=== PATIENT | female | born 1980 | race Hispanic/Latino ===

== ENCOUNTER 2018-02-05 17:28 | Emergency (ER) | payer SELFPAY ==
[2018-02-05] MEDS ORDERED: METHYLPREDNISOLONE 125 MG INJ ONE (20:16)
[2018-02-05] MEDS ORDERED: IPRATROPIUM BROM 0.5MG/2.5ML ONE (20:16)
[2018-02-05] MEDS ORDERED: ASPIRIN 81 MG CHEWABLE TABLET ONE (20:16)
[2018-02-05] MEDS ORDERED: AZITHROMYCIN 250 MG TAB ONE (20:16)
--- NOTE | 2018-02-05 20:16 | EKG ---
Test Date: 2018-02-05 Test Time: 17:50:33 [facility] [employer] Experience Strategy: DAVID MEASUREMENT RESULTS: Intervals: Rate: 90 IL: 114 QRSD: 74 QT: 364 QTc: 445 Lawrence: P: 28 IL: 114 QRS: 26 T: 40 INTERPRETIVE STATEMENTS: Normal sinus rhythm Normal ECG Compared to ECG 01/14/2012 00:50:58 No significant changes Electronically Signed On 02-05-18 20:16:06 CDT by Eliceo Bagley
[2018-02-05] MEDS ORDERED: LEVALBUTEROL 1.25 MG/3 ML NEB ONE (20:17)
[2018-02-05] MEDS ORDERED: NA CHLORIDE 0.9% 1,000 ML ONE (20:17)
--- NOTE | 2018-02-05 20:17 | RAD REPORT ---
EXAM DESCRIPTION: RAD - Chest Single View - 02/05/2018 7:34 pm CLINICAL HISTORY: Dyspnea, shortness of breath COMPARISON: December 2011 TECHNIQUE: AP portable chest image was obtained 1928 hours . FINDINGS: Lungs are clear. Heart and vasculature are normal. No measurable pleural effusion and no p neumothorax. No gross bony abnormality seen. No acute aortic findings suspected. IMPRESSION: No acute cardiopulmonary process. No significant change from comparison.
[2018-02-05 20:18] LABS: Absolute Lymphocytes (CBC) 2.2 K/uL (0.7-4.9); Absolute Monocytes 0.4 K/uL (0.1-1.3); Absolute Neutrophil 3.8 K/uL (1.8-8.0); Basophils % 0.7 % (0-1.3); Eosinophils % 2.1 % (0-4.4); Lymphocytes % 33.1 % (15.3-44.8); MCH 29.5 pg (27.0-35.0); MCV 84.2 fL (80-100); MPV 8.5 fL (7.6-11.3); Monocytes % 6.4 % (3.3-12.3); RBC Red Blood Cell Count 4.28 M/uL (3.86-4.86)
[2018-02-05 20:24] LABS: Protime INR 0.89
[2018-02-05 20:27] LABS: Bicarbonate 24 mEq/L (21-31); Glucose Level 272 mg/dL (65-120); Potassium 3.7 mEq/L (3.6-5.0); Sodium Level 131 mEq/L (135-145)
[2018-02-05 20:33] LABS: ALT/SGPT 21 IU/L (10-60); AST/SGOT 24 IU/L (10-42); Albumin 3.9 g/dL (3.2-5.5); Alkaline Phosphatase 108 IU/L (42-121); BUN Blood Urea Nitrogen 19 mg/dL (6-20); Bilirubin Direct < 0.1 mg/dL (0-0.2); Bilirubin Total 0.2 mg/dL (0.3-1.2); Creatine Phosphokinase 27 IU/L (22-269); Glomerular Filtration Rate > 90 mL/min (=/>90); Magnesium 1.9 mg/dL (1.8-2.5); Protein, Total 7.8 g/dL (6.0-8.3)
[2018-02-05 20:36] LABS: CKMB Creatine Kinase MB 0.6 ng/ml (0.3-4.0)
[2018-02-05 21:02] LABS: Urine Blood NEGATIVE (NEG); Urine Glucose 2+ (NEG); Urine Protein NEGATIVE (NEG); Urine pH 5.5 (5.0-7.0)
--- NOTE | 2018-02-05 21:02 | RAD REPORT ---
EXAM DESCRIPTION: VAS - Extrem Venous W Compress Dwayne - 02/05/2018 8:30 pm CLINICAL HISTORY: Leg pain and swelling COMPARISON: None. TECHNIQUE: Real-time sonographic evaluation of the bilateral lower extremity deep venous systems was performed. FINDINGS: Normal compressibility, flow augmentation, phasic flow and spontaneous flow are identified in the left and right lower extremity deep venous systems. No intraluminal filling defects seen. IMPRESSION: No DVT in either lower extremity.
--- NOTE | 2018-02-05 21:02 | RAD REPORT ---
EXAM DESCRIPTION: CT - Chest For Pe Angio - 02/05/2018 8:46 pm CLINICAL HISTORY: Chest pain, shortness of breath, left-sided chest pain COMPARISON: None. TECHNIQUE: Dynamically enhanced 3 mm thick images of the chest were obtained during administration o f approximately 150mL Isovue 370 IV contrast. Coronal and oblique reconstruction images were generate d and reviewed. Exam utilizes a protocol to evaluate the pulmonary arterial tree. All CT scans are performed using dose optimization technique as appropriate and may include automated exposure control or mA/KV adjustment according to patient size. FINDINGS: No pulmonary emboli are identified. The aorta as imaged shows no acute or suspicious finding. No pericardial thickening or effusion. No infiltrate or mass in the lung parenchyma. No pleural effusion or pleural thickening. No mediastinal or hilar suspicious masses. No chest wall masses or abnormal axillary lymphadenopathy. IMPRESSION: No pulmonary emboli identified. No other significant or suspicious findings.
--- NOTE | 2018-02-05 21:10 | EDPHYS ---
Physician Documentation [facility] Name: Pastora Patterson Age: 37 yrs Sex: Female : 1980 Arrival Date: 02/05/2018 Time: 17:32 Bed 19 Private MD: None, None ED Physician Rich Michele HPI: 02/05 19:57 This 37 yrs old Female presents to ER via Ambulatory with complaints of Chest alli Pain, Breathing Difficulty. 19:57 The patient or guardian reports chest pain that is located primarily in the anterior alli chest wall. The pain does not radiate. Associated signs and symptoms: Pertinent positives: cough, shortness of breath. The chest pain is described as sharp. Severity of pain: At its worst the pain was mild in the emergency department the pain is unchanged. The patient has experienced similar episodes in the past, a few times. 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 - Family history:: not pertinent. - Social history:: Smoking status: unknown. ROS: 19:57 Constitutional: Negative for fever, chills, and weight loss, Eyes: Negative for injury, alli pain, redness, and discharge, ENT: Negative for injury, pain, and discharge, Neck: Negative for injury, pain, and swelling, Abdomen/GI: Negative for abdominal pain, nausea, vomiting, diarrhea, and constipation, Back: Negative for injury and pain, : Negative for injury, bleeding, discharge, and swelling, MS/Extremity: Negative for injury and deformity, Skin: Negative for injury, rash, and discoloration, Neuro: Negative for headache, weakness, numbness, tingling, and seizure, Psych: Negative for depression, anxiety, suicide ideation, homicidal ideation, and hallucinations, Allergy/Immunology: Negative for hives, rash, and allergies, Endocrine: Negative for neck swelling, polydipsia, polyuria, polyphagia, and marked weight changes. 19:57 Cardiovascular: Positive for chest pain, with cough, with movement. 19:57 Respiratory: Positive for cough, shortness of breath, wheezing, expiratory. 19:57 MS/extremity: Positive for pain, of the left calf. Exam: 19:57 Constitutional: This is a well developed, well nourished patient who is awake, alert, alli and in no acute distress. Head/Face: Normocephalic, atraumatic. Eyes: Pupils equal round and reactive to light, extra-ocular motions intact. Lids and lashes normal. Conjunctiva and sclera are non-icteric and not injected. Cornea within normal limits. Periorbital areas with no swelling, redness, or edema. ENT: Nares patent. No nasal discharge, no septal abnormalities noted. Tympanic membranes are normal and external auditory canals are clear. Oropharynx with no redness, swelling, or masses, exudates, or evidence of obstruction, uvula midline. Mucous membranes moist. Neck: Trachea midline, no thyromegaly or masses palpated, and no cervical lymphadenopathy. Supple, full range of motion without nuchal rigidity, or vertebral point tenderness. No Meningismus. Chest/axilla: Normal chest wall appearance and motion. Nontender with no deformity. No lesions are appreciated. Cardiovascular: Regular rate and rhythm with a normal S1 and S2. No gallops, murmurs, or rubs. Normal PMI, no JVD. No pulse deficits. Abdomen/GI: Soft, non-tender, with normal bowel sounds. No distension or tympany. No guarding or rebound. No evidence of tenderness throughout. Back: No spinal tenderness. No costovertebral tenderness. Full range of motion. Skin: Warm, dry with normal turgor. Normal color with no rashes, no lesions, and no evidence of cellulitis. MS/ Extremity: Pulses equal, no cyanosis. Neurovascular intact. Full, normal range of motion. Neuro: Awake and alert, GCS 15, oriented to person, place, time, and situation. Cranial nerves II-XII grossly intact. Motor strength 5/5 in all extremities. Sensory grossly intact. Cerebellar exam normal. Normal gait. Psych: Awake, alert, with orientation to person, place and time. Behavior, mood, and affect are within normal limits. 19:57 Respiratory: the patient does not display signs of respiratory distress, Respirations: normal, Breath sounds: decreased breath sounds, that are mild, rhonchi, that are mild, wheezing: expiratory Respiratory rate: 18 Vital Signs: 17:47 BP 136 / 85; Pulse 93; Resp 18; Temp 97.6(TE); Pulse Ox 98% on R/A; Weight 111.13 kg; hj Height 5 ft. 3 in. (160.02 cm); Pain 8/10; 20:00 BP 150 / 88; Pulse 88; Resp 18; Pulse Ox 97% on R/A; cb2 21:15 BP 148 / 85; Pulse 99; Resp 16; Pulse Ox 100% ; cb2 22:04 BP 153 / 83; Pulse 95; Resp 22; Pulse Ox 97% ; cb2 17:47 Body Mass Index 43.40 (111.13 kg, 160.02 cm) hj MDM: 19:24 Patient medically screened. [facility] 19:59 Data reviewed: vital signs, nurses notes, lab test result(s), EKG, radiologic studies. [facility] 02/05 19:12 Order name: Basic Metabolic Panel; Complete Time: 21: [facility] 02/05 19:12 Order name: BNP; Complete Time: 21: [facility] 02/05 19:12 Order name: CBC with Diff; Complete Time: 21: [facility] 02/05 19:12 Order name: Ckmb; Complete Time: 21: [facility] 02/05 19:12 Order name: CPK; Complete Time: 21: [facility] 02/05 19:12 Order name: LFT's; Complete Time: 21: [facility] 02/05 19:12 Order name: Magnesium; Complete Time: 21: [facility] 02/05 19:12 Order name: PT-INR; Complete Time: 21: [facility] 02/05 19:12 Order name: Ptt, Activated; Complete Time: 21: [facility] 02/05 19:12 Order name: Troponin (emerg Dept Use Only); Complete Time: 21: [facility] 02/05 19:12 Order name: XRAY Chest (1 view); Complete Time: 21: [facility] 02/05 19:51 Order name: Urine Dipstick--Ancillary (enter results); Complete Time: 21: [facility] 02/05 19:51 Order name: Urine --Ancillary (enter results); Complete Time: 21: [facility] 02/05 19:56 Order name: CT Chest For PE Angio; Complete Time: 21:07 alli 02/05 17:53 Order name: EKG; Complete Time: 17:53 hj 02/05 19:12 Order name: Cardiac monitoring; Complete Time: 20:06 [facility] 02/05 19:12 Order name: EKG - Nurse/Tech; Complete Time: 19:41 [facility] 02/05 19:12 Order name: IV Saline Lock; Complete Time: 20:06 [facility] 02/05 19:12 Order name: Labs collected and sent; Complete Time: 20:06 [facility] 02/05 19:12 Order name: O2 Per Protocol; Complete Time: 20:06 [facility] 02/05 19:12 Order name: O2 Sat Monitoring; Complete Time: 20:06 [facility] 02/05 19:12 Order name: Urine Dipstick-Ancillary (obtain specimen); Complete Time: 20:06 [facility] 02/05 19:56 Order name: US Extremity Venou Bilateral; Complete Time: 21:07 [facility] Administered Medications: 21:06 Drug: AtroVENT Aerosol 0.5 mg Route: Inhalation; jd3 22:14 Follow up: Response: No adverse reaction jd3 21:06 Drug: NS 0.9% 1000 ml Route: IV; Rate: 1 bolus; Site: right antecubital; jd3 22:14 Follow up: Response: No adverse reaction; IV Status: Completed infusion; IV Intake: jd3 1000ml 21:06 Drug: SOLU-Medrol 125 mg Route: IVP; Site: right antecubital; jd3 22:12 Follow up: Response: No adverse reaction jd3 21:06 Drug: Zithromax 500 mg Route: PO; jd3 22:12 Follow up: Response: No adverse reaction jd3 21:06 Drug: Aspirin 81 mg Route: PO; jd3 22:12 Follow up: Response: No adverse reaction jd3 21:07 Drug: Xopenex 2.5 mg Route: Inhalation; jd3 22:14 Follow up: Response: No adverse reaction jd3 Disposition: 02/05/18 21:09 Discharged to Home. Impression: Cough, Acute upper respiratory infection, unspecified, Other chest pain, Type 1 diabetes mellitus. - Condition is Stable. - Discharge Instructions: Nonspecific Chest Pain, Type 2 Diabetes Mellitus, Adult, Cool Mist Vaporizers, Upper Respiratory Infection, Adult, [id number], Diabetes Mellitus and Food, Cough, Adult, [id number], Aspirin and Your Heart, Cough, Adult, Type 2 Diabetes Mellitus, Adult, [id number]. - Prescriptions for Zithromax Z- Kyree 250 mg Oral Tablet - take 1 tablet by ORAL route as directed for 5 days Day 1 - take two (2) tablets one time. Day 2, 3, 4 , 5 take one (1) tablet once daily.; 6 tablet. Medrol (Kyree) 4 mg Oral Tablets, Dose Pack - take 1 tablet by ORAL route as directed - follow package instructions; 1 packet. Albuterol Sulfate 90 mcg/actuation - inhale 1-2 puff by INHALATION route every 4-6 hours; 1 Inhaler. - Medication Reconciliation Form, Thank You Letter, Antibiotic Education, Prescription Opioid Use, Work release form form. - Follow up: Private Physician; When: 2 - 3 days; Reason: Recheck today's complaints, Re-evaluation by your physician. - Problem is new. - Symptoms have improved. Signatures: Dispatcher [employer] Rich Kaur MD MD cha Pena, Laura, RN RN lp1 Mushtaq Orozco, RN RN hj Wenceslao Sharma RN RN jd3 Chase Wan MD MD tw4
--- NOTE | 2018-02-05 21:10 | ER ---
Nurse's Notes [facility] Name: Pastora Patterson Age: 37 yrs Sex: Female : 1980 Arrival Date: 02/05/2018 Time: 17:32 Bed 19 Private MD: None, None Diagnosis: Cough;Acute upper respiratory infection, unspecified;Other chest pain;Type 1 diabetes mellitus Presentation: 02/05 17:44 Presenting complaint: Patient states: i woke up today with SOB and having chest pain; hj its a sharp pain type and a stabbing pain on my L chest;. Transition of care: patient was not received from another setting of care. Onset of symptoms was February 05, 2018. Care prior to arrival: None. 17:44 Method Of Arrival: Ambulatory 17:44 Acuity: MANASA 3 hj Triage Assessment: 17:46 General: Appears in no apparent distress. uncomfortable, Behavior is calm, cooperative, hj appropriate for age. Pain: Complains of pain in chest. Cardiovascular: Capillary refill < 3 seconds Patient's skin is warm and dry. 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 - Family history:: not pertinent. - Social history:: Smoking status: unknown. Screenin:05 Abuse screen: Denies threats or abuse. Nutritional screening: No deficits noted. jd3 Tuberculosis screening: No symptoms or risk factors identified. Fall Risk IV access (20 points). Total Murdock Fall Scale indicates No Risk (0-24 pts). Assessment: 17:48 Pain: Pain does not radiate. Pain began today. hj 21:03 General: Appears in no apparent distress. uncomfortable, Behavior is calm, cooperative, jd3 appropriate for age. Pain: Complains of pain in chest Quality of pain is described as pressure. Neuro: Level of Consciousness is awake, alert, obeys commands, Oriented to person, place, time, situation. Cardiovascular: Heart tones S1 S2 present Capillary refill is > 3 seconds Patient's skin is warm and dry. Respiratory: Airway is patent Respiratory effort is even, unlabored, Respiratory pattern is regular, symmetrical, Breath sounds are clear bilaterally. GI: Abdomen is round Abd is soft and non tender X 4 quads. Patient currently denies nausea, vomiting. : No signs and/or symptoms were reported regarding the genitourinary system. EENT: No signs and/or symptoms were reported regarding the EENT system. Derm: Skin is intact, Skin is dry, Skin is normal, Skin temperature is warm. Musculoskeletal: Circulation, motion, and sensation intact. Range of motion: intact in all extremities. 22:21 Reassessment: Patient appears in no apparent distress at this time. Patient and/or jd3 family updated on plan of care and expected duration. Pain level reassessed. Patient is alert, oriented x 3, equal unlabored respirations, skin warm/dry/pink. Patient states feeling better. Vital Signs: 17:47 BP 136 / 85; Pulse 93; Resp 18; Temp 97.6(TE); Pulse Ox 98% on R/A; Weight 111.13 kg; hj Height 5 ft. 3 in. (160.02 cm); Pain 8/10; 20:00 BP 150 / 88; Pulse 88; Resp 18; Pulse Ox 97% on R/A; cb2 21:15 BP 148 / 85; Pulse 99; Resp 16; Pulse Ox 100% ; cb2 22:04 BP 153 / 83; Pulse 95; Resp 22; Pulse Ox 97% ; cb2 17:47 Body Mass Index 43.40 (111.13 kg, 160.02 cm) ED Course: 17:32 Patient arrived in ED. mr 17:32 None, None is Private Physician. mr 17:45 Triage completed. hj 17:47 Arm band placed on right wrist. hj 17:49 Patient maintains SpO2 saturation greater than 95% on room air. hj 18:00 EKG done, by equipment technician. reviewed by Evert Uriostegui MD. at1 19:24 Rich Michele MD is Attending Physician. alli 19:25 Wenceslao Sharma RN is Primary Nurse. jd3 19:32 X-ray completed. Portable x-ray completed in exam room. Patient tolerated procedure bb2 well. 19:32 XRAY Chest (1 view) In Process Unspecified. EDMS 19:46 Initial lab(s) drawn, by me, sent to lab. Inserted saline lock: 20 gauge in right cb2 forearm, using aseptic technique. Blood collected. 19:59 Radiology exam delayed due to lab results not completed at this time. (BUN/Creatinine) in test not completed at this time. 20:27 Ultrasound completed. Patient tolerated well. cy 20:30 US Extremity Venou Bilateral In Process Unspecified. EDMS 20:[address] nj 20:46 CT Chest For PE Angio In Process Unspecified. EDMS 22:20 Patient has correct armband on for positive identification. Placed in gown. Bed in low jd3 position. Call light in reach. Side rails up X2. 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 Pulse ox on. NIBP on. 22:21 No provider procedures requiring assistance completed. jd3 22:26 IV discontinued, No redness/swelling at site. Pressure dressing applied. lp1 Administered Medications: 21:06 Drug: AtroVENT Aerosol 0.5 mg Route: Inhalation; jd3 22:14 Follow up: Response: No adverse reaction jd3 21:06 Drug: NS 0.9% 1000 ml Route: IV; Rate: 1 bolus; Site: right antecubital; jd3 22:14 Follow up: Response: No adverse reaction; IV Status: Completed infusion; IV Intake: jd3 1000ml 21:06 Drug: SOLU-Medrol 125 mg Route: IVP; Site: right antecubital; jd3 22:12 Follow up: Response: No adverse reaction jd3 21:06 Drug: Zithromax 500 mg Route: PO; jd3 22:12 Follow up: Response: No adverse reaction jd3 21:06 Drug: Aspirin 81 mg Route: PO; jd3 22:12 Follow up: Response: No adverse reaction jd3 21:07 Drug: Xopenex 2.5 mg Route: Inhalation; jd3 22:14 Follow up: Response: No adverse reaction jd3 Intake: 22:14 IV: 1000ml; Total: 1000ml. jd3 Outcome: 21:09 Discharge ordered by . lali 22:26 Discharged to home ambulatory. lp1 22:26 Condition: good 22:26 Discharge instructions given to patient, Instructed on discharge instructions, follow up and referral plans. medication usage, Demonstrated understanding of instructions, follow-up care, medications, Prescriptions given X 3. 22:26 Patient left the ED. lp1 Signatures: Dispatcher [employer] EDMS Rich Michele MD MD cha Rivera, Maria mr Leila Joshi, RN RN lp1 Argenis guardado, child development professor EKG Tat1 Mushtaq Orozco RN RN hj Fausto Uribe Christian cb2 Davies, Jonathon, RN RN jd3 Bobbi Frausto2 Sheryl Tobias Corrections: (The following items were deleted from the chart) 17:49 17:47 Pulse 93bpm; Resp 18bpm; Pulse Ox 98% RA; Temp 97.6F Temporal; 111.13 kg; Height hj 5 ft. 3 in.; BMI: 43.4; Pain 8/10; hj
[2018-02-05 22:43] VITALS: TEMP 97.6
[2018-02-05 22:47] VITALS: BP 153/83; O2SAT 97
== END 2018-02-05 22:26 | disposition home or self-care (01) ==
LOC: ER 17:28
DX: J06.9 Acute upper respiratory infection, unspecified (principal); R07.89 Other chest pain; E10.9 Type 1 diabetes mellitus without complications; I10 Essential (primary) hypertension
CPT/HCPCS: 36415; 71045; 71275; 80048; 80076; 81003; 81025; 82550; 82553; 83735; 83880; 84484; 85025; 85610; 85730; 93005; 93970; 96361; 96374; 99285; J2930; J7030; Q9967

== ENCOUNTER 2019-03-07 18:12 | Emergency (ER) | payer SELFPAY ==
--- OUTSIDE RECORDS SUMMARY | 2019-03-07 18:14 | XMS REPORT ---
:1980 [facility] Address [address] [place] [address] Care Team Providers Name Role Phone Unavailable Unavailable Unavailable Problems This patient has no known problems. Allergies, Adverse Reactions, Alerts This patient has no known allergies or adverse reactions. Medications This patient has no known medications.
[2019-03-07 21:45] LABS: Absolute Lymphocytes (CBC) 1.8 K/uL (0.7-4.9); Absolute Monocytes 0.4 K/uL (0.1-1.3); Absolute Neutrophil 4.3 K/uL (1.8-8.0); Basophils % 0.7 % (0-1.3); Eosinophils % 1.5 % (0-4.4); Hematocrit 33.8 % (36.0-45.0); Lymphocytes % 27.4 % (15.3-44.8); MPV 8.5 fL (7.6-11.3); Monocytes % 5.3 % (3.3-12.3); RBC Red Blood Cell Count 4.22 M/uL (3.86-4.86)
[2019-03-07 21:59] LABS: Albumin 3.5 g/dL (3.4-5.0); Bilirubin Total 0.1 mg/dL (0.2-1.0); Protein, Total 7.7 g/dL (6.4-8.2)
--- NOTE | 2019-03-07 22:04 | RAD REPORT ---
EXAM DESCRIPTION: RAD - Foot Left 3 View - 03/07/2019 9:47 pm CLINICAL HISTORY: PAIN Pain and swelling COMPARISON: No comparisons FINDINGS: Lucency is seen along the base of the fifth metatarsal without evidence of displacement, s uspicious for a nondisplaced fracture. Moderate soft tissue swelling is seen along the dorsum of the foot.
[2019-03-07] MEDS ORDERED: SMZ./TMP. 800/160 MG TABLET ONE (22:07)
[2019-03-07] MEDS ORDERED: DOXYCYCLINE 100 MG CAP PO ONE (22:08)
[2019-03-07] MEDS ORDERED: NA CHLORIDE 0.9% 1,000 ML ONE (22:17)
[2019-03-07] MEDS ORDERED: HYDROCODONE/APAP 5/325 MG TAB ONE (22:25)
[2019-03-07 22:28] LABS: Urine Blood NEGATIVE (NEG); Urine Glucose 3+ (NEG); Urine Protein NEGATIVE (NEG); Urine pH 6.5 (5.0-7.0)
--- NOTE | 2019-03-07 23:15 | ER ---
Nurse's Notes [facility] Name: Pastora Patterson Age: 38 yrs Sex: Female : 1980 Arrival Date: 03/07/2019 Time: 18:14 Bed 29 Private MD: None, None Diagnosis: Type 1 diabetes mellitus;Cellulitis and acute lymphangitis of other parts of limb-left foot Presentation: 03/07 18:21 Presenting complaint: Patient states: i have swelling on my L foot for a week now, ss denies trauma to the area;. Transition of care: patient was not received from another setting of care. Onset of symptoms was March 07, 2019. Risk Assessment: Do you want to hurt yourself or someone else? Patient reports no desire to harm self or others. Initial Sepsis Screen: Does the patient meet any 2 criteria? No. Patient's initial sepsis screen is negative. Does the patient have a suspected source of infection? No. Patient's initial sepsis screen is negative. Care prior to arrival: None. 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 - Social history:: Smoking status: . - Ebola Screening: : No symptoms or risks identified at this time. - Family history:: not pertinent. Screenin:39 Abuse screen: Denies threats or abuse. Denies injuries from another. Nutritional rv screening: No deficits noted. Tuberculosis screening: No symptoms or risk factors identified. Fall Risk None identified. Assessment: 20:36 General: Appears in no apparent distress. uncomfortable, Behavior is calm, cooperative. rv Pain: Complains of pain in left foot. Neuro: Level of Consciousness is awake, alert, obeys commands, Oriented to person, place, time, situation. Cardiovascular: Capillary refill < 3 seconds. Respiratory: Airway is patent. GI: No signs and/or symptoms were reported involving the gastrointestinal system. : No signs and/or symptoms were reported regarding the genitourinary system. EENT: No signs and/or symptoms were reported regarding the EENT system. Derm: Skin is intact, has lesions on left foot. Musculoskeletal: No signs and/or symptoms reported regarding the musculoskeletal system. Vital Signs: 18:22 BP 151 / 79; Pulse 106; Resp 20; Temp 98.3(TE); Pulse Ox 99% on R/A; Weight 99.79 kg; ss Height 5 ft. 3 in. (160.02 cm); Pain 9/10; 23:52 BP 138 / 76; Pulse 92; Resp 16; Temp 98; Pulse Ox 99% ; rv 18:22 Body Mass Index 38.97 (99.79 kg, 160.02 cm) ED Course: 18:14 Patient arrived in ED. ag5 18:14 None, None is Private Physician. ag5 18:22 Triage completed. ss 18:23 Arm band placed on left wrist. ss 20:07 Rich Michele MD is Attending Physician. alli 20:35 Randy Patton RN is Primary Nurse. rv 20:39 Patient has correct armband on for positive identification. Bed in low position. Call rv light in reach. Side rails up X 1. Adult w/ patient. Pulse ox on. NIBP on. 21:47 Foot Left 3 View XRAY In Process Unspecified. EDMS 22:30 No provider procedures requiring assistance completed. Inserted saline lock: 22 gauge rv in left antecubital area, using aseptic technique. Blood collected. 23:13 Jos Maldonado MD is Referral Physician. alli 23:52 IV discontinued, intact, bleeding controlled, No redness/swelling at site. Pressure rv dressing applied. Administered Medications: 21:59 Drug: Doxycycline 200 mg Route: PO; rv 23:07 Follow up: Response: No adverse reaction rv 21:59 Drug: Bactrim (160 mg-800 mg (DS) 1 tablet Route: PO; rv 23:06 Follow up: Response: No adverse reaction rv 22:06 Drug: NS 0.9% 1000 ml Route: IV; Rate: 1 bolus; Site: left antecubital; rv 23:07 Follow up: IV Status: Completed infusion; IV Intake: 1000ml rv 22:15 Drug: HYDROcodone-acetaminophen 5 mg-325 mg 1 tabs Route: PO; rv 23:06 Follow up: Response: Pain is decreased rv 23:05 Drug: TORadol 30 mg Route: IVP; Site: left antecubital; rv 23:50 Follow up: Response: No adverse reaction rv 23:50 Follow up: Response: Pain is decreased rv 23:25 Drug: Insulin Regular Human 10 units {Co-Signature: cc3 (Emily Ivy).} Route: rv Sub-Q; Site: right upper arm; 23:51 Follow up: Response: No adverse reaction rv Intake: 23:07 IV: 1000ml; Total: 1000ml. rv Outcome: 23:14 Discharge ordered by . alli 23:53 Discharged to home ambulatory. rv 23:53 Condition: good 23:53 Discharge instructions given to patient, Instructed on discharge instructions, follow up and referral plans. medication usage, Demonstrated understanding of instructions, follow-up care, medications, Prescriptions given X 3. 23:53 Patient left the ED. rv Signatures: Dispatcher [employer] EDNC Rich Michele MD MD cha Smirch, Shelby, RN RN Randy Patton RN RN rv Josh Jimenez ag5 Emily Ivy cc3 Corrections: (The following items were deleted from the chart) 18:24 18:22 Pulse 106bpm; Resp 20bpm; Pulse Ox 99% RA; Temp 98.3F Temporal; 99.79 kg; Height ss 5 ft. 3 in.; BMI: 38.9; Pain 9/10; ss
--- NOTE | 2019-03-07 23:15 | EDPHYS ---
Physician Documentation [facility] Name: Pastora Patterson Age: 38 yrs Sex: Female : 1980 Arrival Date: 03/07/2019 Time: 18:14 Bed 29 Private MD: None, None ED Physician Rich Michele HPI: 03/07 20:56 This 38 yrs old Female presents to ER via Ambulatory with complaints of Foot alli Pain. 20:56 The patient presents with decreased range of motion, pain, swelling, tenderness. The alli complaints affect the left foot. Context: The problem was sustained at home, resulted from an unknown cause. Onset: The symptoms/episode began/occurred 3 day(s) ago. Modifying factors: The symptoms are alleviated by elevation of extremity, the symptoms are aggravated by weight bearing, movement. Associated signs and symptoms: The patient has no apparent associated signs or symptoms. Severity of symptoms: At their worst the symptoms were mild, moderate, in the emergency department the symptoms are unchanged. The patient has not experienced similar symptoms in the past. 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 - Social history:: Smoking status: . - Ebola Screening: : No symptoms or risks identified at this time. - Family history:: not pertinent. ROS: 20:56 Constitutional: Negative for fever, chills, and weight loss, Eyes: Negative for injury, alli pain, redness, and discharge, ENT: Negative for injury, pain, and discharge, Neck: Negative for injury, pain, and swelling, Cardiovascular: Negative for chest pain, palpitations, and edema, Respiratory: Negative for shortness of breath, cough, wheezing, and pleuritic chest pain, Abdomen/GI: Negative for abdominal pain, nausea, vomiting, diarrhea, and constipation, Back: Negative for injury and pain, : Negative for injury, bleeding, discharge, and swelling, Skin: Negative for injury, rash, and discoloration, Neuro: Negative for headache, weakness, numbness, tingling, and seizure, Psych: Negative for depression, anxiety, suicide ideation, homicidal ideation, and hallucinations, Allergy/Immunology: Negative for hives, rash, and allergies, Endocrine: Negative for neck swelling, polydipsia, polyuria, polyphagia, and marked weight changes, Hematologic/Lymphatic: Negative for swollen nodes, abnormal bleeding, and unusual bruising. 20:56 MS/extremity: Positive for decreased range of motion, laceration, swelling, tenderness, of the lateral aspect of left toes, dorsum of left foot, left second toe, left third toe and left fourth toe. Exam: 20:56 Constitutional: This is a well developed, well nourished patient who is awake, alert, alli and in no acute distress. Head/Face: Normocephalic, atraumatic. Eyes: Pupils equal round and reactive to light, extra-ocular motions intact. Lids and lashes normal. Conjunctiva and sclera are non-icteric and not injected. Cornea within normal limits. Periorbital areas with no swelling, redness, or edema. ENT: Nares patent. No nasal discharge, no septal abnormalities noted. Tympanic membranes are normal and external auditory canals are clear. Oropharynx with no redness, swelling, or masses, exudates, or evidence of obstruction, uvula midline. Mucous membranes moist. Neck: Trachea midline, no thyromegaly or masses palpated, and no cervical lymphadenopathy. Supple, full range of motion without nuchal rigidity, or vertebral point tenderness. No Meningismus. Chest/axilla: Normal chest wall appearance and motion. Nontender with no deformity. No lesions are appreciated. Cardiovascular: Regular rate and rhythm with a normal S1 and S2. No gallops, murmurs, or rubs. Normal PMI, no JVD. No pulse deficits. Respiratory: Lungs have equal breath sounds bilaterally, clear to auscultation and percussion. No rales, rhonchi or wheezes noted. No increased work of breathing, no retractions or nasal flaring. Abdomen/GI: Soft, non-tender, with normal bowel sounds. No distension or tympany. No guarding or rebound. No evidence of tenderness throughout. Back: No spinal tenderness. No costovertebral tenderness. Full range of motion. Female : Normal external genitalia. Neuro: Awake and alert, GCS 15, oriented to person, place, time, and situation. Cranial nerves II-XII grossly intact. Motor strength 5/5 in all extremities. Sensory grossly intact. Cerebellar exam normal. Normal gait. Psych: Awake, alert, with orientation to person, place and time. Behavior, mood, and affect are within normal limits. 20:56 Skin: Appearance: Temperature: warm, Moisture: normal moisture, petechiae, not noted, ecchymosis, not noted, cellulitis, that is mild, induration, that is mild is noted, located on the left second toe, left third toe and left fourth toe. Vital Signs: 18:22 BP 151 / 79; Pulse 106; Resp 20; Temp 98.3(TE); Pulse Ox 99% on R/A; Weight 99.79 kg; ss Height 5 ft. 3 in. (160.02 cm); Pain 9/10; 23:52 BP 138 / 76; Pulse 92; Resp 16; Temp 98; Pulse Ox 99% ; rv 18:22 Body Mass Index 38.97 (99.79 kg, 160.02 cm) ss MDM: 20:07 Patient medically screened. [facility] 20:56 Data reviewed: vital signs, nurses notes, lab test result(s), radiologic studies, plain alli films. 03/07 20:55 Order name: CBC with Diff; Complete Time: 23:12 [facility] 03/07 20:55 Order name: Comprehensive Metabolic Panel; Complete Time: 23:12 [facility] 03/07 20:55 Order name: Foot Left 3 View XRAY; Complete Time: 23:12 [facility] 03/07 20:55 Order name: Sed Rate; Complete Time: 23:12 [facility] 03/07 22:15 Order name: Urine Dipstick--Ancillary (enter results); Complete Time: 23:12 [facility] 03/07 22:15 Order name: Urine --Ancillary (enter results); Complete Time: 23:12 [facility] 03/07 20:55 Order name: Urine Dipstick-Ancillary (obtain specimen); Complete Time: 21:46 [facility] 03/07 20:55 Order name: Urine Test (obtain specimen); Complete Time: 21:46 [facility] 03/07 23:15 Order name: Post-op shoe; Complete Time: 23:33 alli Administered Medications: 21:59 Drug: Doxycycline 200 mg Route: PO; rv 23:07 Follow up: Response: No adverse reaction rv 21:59 Drug: Bactrim (160 mg-800 mg (DS) 1 tablet Route: PO; rv 23:06 Follow up: Response: No adverse reaction rv 22:06 Drug: NS 0.9% 1000 ml Route: IV; Rate: 1 bolus; Site: left antecubital; rv 23:07 Follow up: IV Status: Completed infusion; IV Intake: 1000ml rv 22:15 Drug: HYDROcodone-acetaminophen 5 mg-325 mg 1 tabs Route: PO; rv 23:06 Follow up: Response: Pain is decreased rv 23:05 Drug: TORadol 30 mg Route: IVP; Site: left antecubital; rv 23:50 Follow up: Response: No adverse reaction rv 23:50 Follow up: Response: Pain is decreased rv 23:25 Drug: Insulin Regular Human 10 units {Co-Signature: cc3 (Emily Cordel).} Route: rv Sub-Q; Site: right upper arm; 23:51 Follow up: Response: No adverse reaction rv Disposition: 03/07/19 23:14 Discharged to Home. Impression: Type 1 diabetes mellitus, Cellulitis and acute lymphangitis of other parts of limb - left foot. - Condition is Stable. - Discharge Instructions: Type 1 Diabetes Mellitus, Diagnosis, Adult, Cellulitis, Adult, [id number], Diabetes Mellitus and Food, Type 1 Diabetes Mellitus, Self Care, Adult, Type 1 Diabetes Mellitus, Diagnosis, Adult, Zrqq-[id number], Type 1 Diabetes Mellitus, Self Care, Adult, [id number]. - Prescriptions for Doxycycline Hyclate 100 mg Oral Tablet - take 1 tablet by ORAL route every 12 hours; 20 tablet. Metformin 500 mg Oral Tablet - take 1 tablet by ORAL route every 12 hours for 15 days Then take 1 tablet with morning meals AND evening meals; 60 tablet. Bactrim DS 800- 160 mg Oral Tablet - take 1 tablet by ORAL route every 12 hours for 10 days; 20 tablet. - Medication Reconciliation Form, Thank You Letter, Antibiotic Education, Prescription Opioid Use form. - Follow up: Private Physician; When: 2 - 3 days; Reason: Recheck today's complaints, Continuance of care, Re-evaluation by your physician. Follow up: Jos Maldonado MD; When: 2 - 3 days; Reason: Recheck today's complaints, Re-evaluation by your physician. - Problem is new. - Symptoms have improved. Signatures: Dispatcher [employer] Rich Kaur MD MD cha Smirch, Shelby, RN RN ss Randy Patton RN RN rv Emily Ivy cc3 Corrections: (The following items were deleted from the chart) 23:53 23:14 03/07/2019 23:14 Discharged to Home. Impression: Type 1 diabetes mellitus; rv Cellulitis and acute lymphangitis of other parts of limb - left foot. Condition is Stable. Discharge Instructions: Type 1 Diabetes Mellitus, Diagnosis, Adult, Cellulitis, Adult, [id number], Diabetes Mellitus and Food, Type 1 Diabetes Mellitus, Self Care, Adult, Type 1 Diabetes Mellitus, Diagnosis, Adult, Ocag-[id number], Type 1 Diabetes Mellitus, Self Care, Adult, Aaix-[id number]. Prescriptions for Doxycycline Hyclate 100 mg Oral Tablet - take 1 tablet by ORAL route every 12 hours; 20 tablet, Metformin 500 mg Oral Tablet - take 1 tablet by ORAL route every 12 hours for 15 days Then take 1 tablet with morning meals AND evening meals; 60 tablet, Bactrim DS 800-160 mg Oral Tablet - take 1 tablet by ORAL route every 12 hours for 10 days; 20 tablet. and Forms are Medication Reconciliation Form, Thank You Letter, Antibiotic Education, Prescription Opioid Use. Follow up: Private Physician; When: 2 - 3 days; Reason: Recheck today's complaints, Continuance of care, Re-evaluation by your physician. Follow up: Jos Maldonado; When: 2 - 3 days; Reason: Recheck today's complaints, Re-evaluation by your physician. Problem is new. Symptoms have improved. alli
[2019-03-07] MEDS ORDERED: KETOROLAC 30 MG/ML INJ ONE (23:17)
[2019-03-07] MEDS ORDERED: INSULIN -REGULAR HUMAN 50 UNIT/0.5 ML ML ONE (23:31)
[2019-03-08 00:57] VITALS: O2SAT 99
[2019-03-08 00:58] VITALS: BP 138/76; TEMP 98
== END 2019-03-07 23:53 | disposition home or self-care (01) ==
LOC: ER 18:12
DX: L03.116 Cellulitis of left lower limb (principal); I89.1 Lymphangitis; J45.909 Unspecified asthma, uncomplicated; I10 Essential (primary) hypertension; E10.9 Type 1 diabetes mellitus without complications; Z79.4 Long term (current) use of insulin
CPT/HCPCS: 36415; 80053; 81003; 81025; 85025; 85652; 96361; 96372; 96374; 99284; J7030

== ENCOUNTER 2019-07-15 13:22 | Emergency (ER) | payer SELFPAY ==
--- OUTSIDE RECORDS SUMMARY | 2019-07-15 13:24 | XMS REPORT ---
:1980 [facility] Address [address] [place] [address] Dr. Narayanan [address] [place] [id number] Care Team Providers Name Role Phone Unavailable Unavailable Unavailable Problems This patient has no known problems. Allergies, Adverse Reactions, Alerts This patient has no known allergies or adverse reactions. Medications This patient has no known medications.
--- OUTSIDE RECORDS SUMMARY | 2019-07-15 13:24 | XMS REPORT | Summary of Care ---
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 middle lobe due to Take 500 mg day infectious organism 1, then 250 mg days 2 to 5. documented as of this encounter (statuses as of 06/26/2019) Active Problems No known active problemsdocumented as of this encounter (statuses as of 2018) Social History Tobacco Use Types Packs/Day Years Used Date Never Assessed Sex Assigned at Date Recorded Not on file Job Start Date Occupation Industry Not on file Not on file Not on file Travel History Travel Start Travel End No recent travel history available. documented as of this encounter Last Filed Vital Signs Not on filedocumented in this encounter Plan of Treatment Health Maintenance Due Date Last Done Comments VARICELLA VACCINES (1 of 2 1994 - 13+ 2-dose series) DTaP,Tdap,and Td Vaccines 2000 (1 - Tdap) PAP SMEAR 11/26/2010 11/26/2007, 09/07/2006, 08/04/2005, Additional history exists INFLUENZA VACCINE (#1) 2019 PNEUMOCOCCAL 0-64 YEARS Aged Out No longer eligible COMBINED SERIES based on patient's age to complete this topic documented as of this encounter Procedures Procedure Name Priority Date/Time Associated Diagnosis Comments OP CORRESPONDENCE Routine 06/26/2019 12:01 AM CDT documented in this encounter Results Not on filedocumented in this encounter Insurance Payer Benefit Plan Subscriber ID Effective Phone Address Type / Group Dates [place] [employer] [employer] [phone] [place] [address] [place] [address] documented as of this encounter
--- NOTE | 2019-07-15 16:57 | EKG ---
Test Date: 2019-07-15 Test Time: 13:54:23 Insurance Policy Clerk: NAEEM MEASUREMENT RESULTS: Intervals: Rate: 79 DE: 124 QRSD: 78 QT: 388 QTc: 444 [place]: P: 64 DE: 124 QRS: 47 T: 40 INTERPRETIVE STATEMENTS: Normal sinus rhythm Normal ECG Compared to ECG 02/05/2018 17:50:33 No significant changes Electronically Signed On 07-15-19 16:55:29 CDT by Lucas Spence
[2019-07-15] MEDS ORDERED: ALBUTEROL 2.5 MG/3 ML NEB SOL ONE (17:24)
[2019-07-15] MEDS ORDERED: KETOROLAC 30 MG/ML INJ ONE (17:25)
[2019-07-15] MEDS ORDERED: IPRATROPIUM BROM 0.5MG/2.5ML ONE (17:25)
--- NOTE | 2019-07-15 17:33 | RAD REPORT ---
EXAM DESCRIPTION: RAD - Chest Pa And Lat (2 Views) - 07/15/2019 5:04 pm CLINICAL HISTORY: CHEST PAIN Chest pain. COMPARISON: Chest Single View dated 02/05/2018; CHEST PA AND LAT 2 VIEW dated 01/14/2012; CHEST PA AND LAT 2 VIEW dated 02/11/2009; CHEST PA AND LAT 2 VIEW dated 03/26/2007 FINDINGS: The lungs are clear. The heart is normal in size. No displaced fractures. IMPRESSION: No acute or concerning finding suspected.
--- NOTE | 2019-07-15 18:18 | ER ---
Nurse's Notes [facility] Name: Pastora Patterson Age: 38 yrs Sex: Female : 1980 Arrival Date: 07/15/2019 Time: 13:24 Bed 17 Private MD: Diagnosis: Low back pain;Unspecified asthma with (acute) exacerbation;Type 2 diabetes mellitus Presentation: 07/15 13:46 Presenting complaint: Patient states: mid back pain, chest pain, SOB since . sv Transition of care: patient was not received from another setting of care. Onset of symptoms was July 11, 2019. Risk Assessment: Do you want to hurt yourself or someone else? Patient reports no desire to harm self or others. Care prior to arrival: None. 13:46 Method Of Arrival: Ambulatory sv 13:46 Acuity: MANASA 3 sv 17:00 Initial Sepsis Screen: Does the patient meet any 2 criteria? No. Patient's initial ph sepsis screen is negative. Does the patient have a suspected source of infection? No. Patient's initial sepsis screen is negative. Triage Assessment: 13:46 General: Appears in no apparent distress. comfortable, Behavior is calm, cooperative, sv appropriate for age. Pain: Complains of pain in mid back area and chest. Neuro: Level of Consciousness is awake, alert, obeys commands, Gait is steady. Respiratory: Reports shortness of breath on exertion Respiratory effort is even, unlabored, Respiratory pattern is regular, symmetrical, the patient has mild shortness of breath. Historical: - Allergies: 13:47 No Known Allergies; sv - PMHx: 13:47 Asthma; Diabetes - IDDM; Hypertension; sv - PSHx: 13:47 ; sv - Immunization history:: Adult Immunizations unknown. - Social history:: The patient lives at home, Smoking status: Patient/guardian denies using tobacco. - Ebola Screening: : No symptoms or risks identified at this time. Screenin:00 Abuse screen: Denies threats or abuse. Denies injuries from another. Nutritional ph screening: No deficits noted. Tuberculosis screening: No symptoms or risk factors identified. Fall Risk None identified. Assessment: 17:00 General: Appears in no apparent distress. comfortable, well groomed, Behavior is calm, ph cooperative, appropriate for age, Denies fever. Pain: Complains of pain in chest and mid back area. Neuro: Level of Consciousness is awake, alert, obeys commands, Oriented to person, place, time, situation. Cardiovascular: Reports chest pain, shortness of breath, Denies lightheadedness, nausea, palpitations, vomiting, Rhythm is regular. Respiratory: Reports shortness of breath at rest pain with movement pain with respiration Airway is patent Respiratory effort is even, unlabored, Respiratory pattern is regular, symmetrical, Breath sounds with wheezes in mediastinum, right upper lobe and left upper lobe. GI: No signs and/or symptoms were reported involving the gastrointestinal system. Vital Signs: 13:47 BP 109 / 82; Pulse 67; Resp 20; Temp 97; Pulse Ox 98% ; Weight 99.79 kg; Height 5 ft. 4 sv in. (162.56 cm); Pain 8/10; 17:30 BP 112 / 78; Pulse 68; Resp 18; Pulse Ox 99% on R/A; ph 18:30 BP 107 / 76; Pulse 65; Resp 16; Temp 97.9; Pulse Ox 99% on R/A; ph 13:47 Body Mass Index 37.76 (99.79 kg, 162.56 cm) sv ED Course: 13:24 Patient arrived in ED. as 13:47 Triage completed. sv 13:48 Arm band placed on. sv 13:56 EKG done, by wafer fabrication technician. reviewed by Rich Michele MD. sm3 16:21 Jorge Alberto Bonilla MD is Attending Physician. gs 17:00 Patient has correct armband on for positive identification. Placed in gown. Bed in low ph position. Call light in reach. Side rails up X 1. Pulse ox on. NIBP on. Door closed. Noise minimized. Warm blanket given. 17:00 No provider procedures requiring assistance completed. Patient did not have IV access ph during this emergency room visit. 17:03 Chest Pa And Lat (2 Views) XRAY In Process Unspecified. EDMS 17:21 Shraddha Kirkpatrick, ELIZABETH is Primary Nurse. ph Administered Medications: 17:29 Drug: Albuterol 2.5 mg Route: Inhalation; ph 18:00 Follow up: Response: No adverse reaction; Wheezing diminished ph 17:29 Drug: AtroVENT Aerosol 0.5 mg Route: Inhalation; ph 18:00 Follow up: Response: No adverse reaction; Wheezing diminished ph 17:29 Drug: TORadol 30 mg Route: IM; Site: right deltoid; ph 18:00 Follow up: Response: No adverse reaction; Pain is decreased ph Outcome: 18:17 Discharge ordered by . 18:56 Patient left the ED. ph 18:56 Discharged to home ambulatory. ph 18:56 Condition: good 18:56 Discharge instructions given to patient, Instructed on discharge instructions, follow up and referral plans. medication usage, Demonstrated understanding of instructions, follow-up care, medications, Prescriptions given X 3. Signatures: Dispatcher [employer] Kailee Gomez, RN RN Negin Fletcher Patricia, RN RN BonillaJorge Alberto baptiste MD MD gs Montes, Shakira 3
--- NOTE | 2019-07-15 18:19 | EDPHYS ---
Physician Documentation [facility] Name: Pastora Patterson Age: 38 yrs Sex: Female : 1980 Arrival Date: 07/15/2019 Time: 13:24 Bed 17 Private MD: ED Physician Jorge Alberto Bonilla HPI: 07/15 18:00 This 38 yrs old Female presents to ER via Ambulatory with complaints of Back gs Pain. 18:00 The patient presents with pain that is acute. The symptoms are located in the low back. gs Onset: The symptoms/episode began/occurred 2 day(s) ago. The pain does not radiate. Associated signs and symptoms: Pertinent negatives: headache, incontinence, nausea, numbness, weakness. Modifying factors: The patient symptoms are alleviated by nothing, the patient symptoms are aggravated by any movement, bending, movement. Severity of symptoms: At their worst the symptoms were moderate, in the emergency department the symptoms are unchanged. The patient has experienced similar episodes in the past, a few times. wheezing,sob,cough,no chest pain. out of metformin albuterol. Historical: - Allergies: 13:47 No Known Allergies; sv - PMHx: 13:47 Asthma; Diabetes - IDDM; Hypertension; sv - PSHx: 13:47 ; sv - Immunization history:: Adult Immunizations unknown. - Social history:: The patient lives at home, Smoking status: Patient/guardian denies using tobacco. - Ebola Screening: : No symptoms or risks identified at this time. ROS: 18:00 All other systems are negative. gs Exam: 18:00 Head/Face: Normocephalic, atraumatic. Eyes: Pupils equal round and reactive to light, gs extra-ocular motions intact. Lids and lashes normal. Conjunctiva and sclera are non-icteric and not injected. Cornea within normal limits. Periorbital areas with no swelling, redness, or edema. ENT: Nares patent. No nasal discharge, no septal abnormalities noted. Tympanic membranes are normal and external auditory canals are clear. Oropharynx with no redness, swelling, or masses, exudates, or evidence of obstruction, uvula midline. Mucous membranes moist. Neck: Trachea midline, no thyromegaly or masses palpated, and no cervical lymphadenopathy. Supple, full range of motion without nuchal rigidity, or vertebral point tenderness. No Meningismus. Chest/axilla: Normal chest wall appearance and motion. Nontender with no deformity. No lesions are appreciated. Cardiovascular: Regular rate and rhythm with a normal S1 and S2. No gallops, murmurs, or rubs. Normal PMI, no JVD. No pulse deficits. 18:00 Constitutional: The patient appears alert, awake. 18:00 ECG was reviewed by the Attending Physician. 18:00 Respiratory: Exam negative for respiratory distress, Respirations: normal, symetrical, Breath sounds: wheezing: that is moderate, is heard diffusely. Vital Signs: 13:47 BP 109 / 82; Pulse 67; Resp 20; Temp 97; Pulse Ox 98% ; Weight 99.79 kg; Height 5 ft. 4 sv in. (162.56 cm); Pain 8/10; 17:30 BP 112 / 78; Pulse 68; Resp 18; Pulse Ox 99% on R/A; ph 18:30 BP 107 / 76; Pulse 65; Resp 16; Temp 97.9; Pulse Ox 99% on R/A; ph 13:47 Body Mass Index 37.76 (99.79 kg, 162.56 cm) sv MDM: 16:41 Patient medically screened. gs 18:00 Differential diagnosis: Pyelonephritis pneumonia,acute asthma exacerbation. Data gs reviewed: vital signs, nurses notes, lab test result(s), EKG, radiologic studies. Response to treatment: the patient's symptoms have markedly improved after treatment, the patient's condition has returned to base line, and as a result, I will discharge patient. 07/15 18:28 Order name: Urine Dipstick--Ancillary (enter results) me 07/15 15:03 Order name: Chest Pa And Lat (2 Views) XRAY 07/15 13:48 Order name: EKG; Complete Time: 13:49 07/15 13:48 Order name: EKG - Nurse/Tech; Complete Time: 15:03 07/15 18:18 Order name: Urine Dipstick-Ancillary (obtain specimen); Complete Time: 18:20 EC:00 Rate is 79 beats/min. Rhythm is regular. UT interval is normal. QRS interval is normal. gs T waves are Normal. No ST changes noted. Clinical impression: Normal ECG. Interpreted by me. Administered Medications: 17:29 Drug: Albuterol 2.5 mg Route: Inhalation; ph 18:00 Follow up: Response: No adverse reaction; Wheezing diminished ph 17:29 Drug: AtroVENT Aerosol 0.5 mg Route: Inhalation; ph 18:00 Follow up: Response: No adverse reaction; Wheezing diminished ph 17:29 Drug: TORadol 30 mg Route: IM; Site: right deltoid; ph 18:00 Follow up: Response: No adverse reaction; Pain is decreased ph Disposition: 07/15/19 18:17 Discharged to Home. Impression: Low back pain, Unspecified asthma with (acute) exacerbation, Type 2 diabetes mellitus. - Condition is Stable. - Discharge Instructions: Back Pain, Adult, Asthma, Acute Bronchospasm, Diabetes and Standards of Medical Care. - Prescriptions for Tylenol- Codeine #4 300-60 mg Oral Tablet - take 1 tablet by ORAL route every 6 hours As needed; 6 tablet. Metformin 1,000 mg Oral Tablet - take 1 tablet by ORAL route every 12 hours with morning and evening meals; 60 tablet. Albuterol Sulfate 90 mcg/actuation - inhale 1-2 puff by INHALATION route every 4-6 hours; 1 Inhaler. - Work release form, Medication Reconciliation Form, Thank You Letter, Antibiotic Education, Prescription Opioid Use form. - Follow up: Private Physician; When: 1 - 2 days; Reason: Re-evaluation by your physician. Signatures: Dispatcher [employer] Kailee Gomez RN RN Shraddha Carpenter RN RN BonillaJorge Alberto baptiste MD MD Corrections: (The following items were deleted from the chart) 18:56 18:17 07/15/2019 18:17 Discharged to Home. Impression: Low back pain; Unspecified ph asthma with (acute) exacerbation; Type 2 diabetes mellitus. Condition is Stable. Forms are Medication Reconciliation Form, Thank You Letter, Antibiotic Education, Prescription Opioid Use. Follow up: Private Physician; When: 1 - 2 days; Reason: Re-evaluation by your physician. gs
[2019-07-15 19:03] LABS: Urine Blood 2+ (NEG); Urine Glucose 2+ (NEG); Urine Protein NEGATIVE (NEG); Urine pH 5.5 (5.0-7.0)
[2019-07-15 19:08] VITALS: BP 109/82; TEMP 97; O2SAT 98
== END 2019-07-15 18:56 | disposition home or self-care (01) ==
LOC: ER 13:22
DX: J45.901 Unspecified asthma with (acute) exacerbation (principal); E11.9 Type 2 diabetes mellitus without complications; I10 Essential (primary) hypertension
CPT/HCPCS: 71046; 81003; 93005; 96372; 99284

== ENCOUNTER 2020-05-13 16:46 | Emergency (ER) | payer OTHER, SELFPAY ==
[2020-05-13] MEDS ORDERED: ACETAMINOPHEN 500 MG TAB ONE (17:45)
--- NOTE | 2020-05-13 17:59 | ER ---
Nurse's Notes [facility] Name: Pastora Patterson Age: 39 yrs Sex: Female : 1980 Arrival Date: 05/13/2020 Time: 16:48 Bed 24 Private MD: Diagnosis: Viral syndrome Presentation: 05/13 17:02 Chief complaint: Patient states: fever, chills, SOB, headache, lost sense of taste, iw symptoms started Monday, Aunt tested positive for COVID on Monday and pt had contact with her. Coronavirus screen: Surgical mask placed on patient. Patient moved to private room, placed in contact and droplet isolation with eye protection until further assessment. Patient denies a cough. Patient reports shortness of breath or difficulty breathing. Patient reports a measured and/or subjective temperature greater than 100.4F. Patient denies travel on a cruise ship or to a country the [facility] currently lists as an affected area. Patient reports contact with known and/or suspected case of COVID-19. Ebola Screen: Patient negative for fever greater than or equal to 101.5 degrees Fahrenheit, and additional compatible Ebola Virus Disease symptoms Patient denies exposure to infectious person. Patient denies travel to an Ebola-affected area in the 21 days before illness onset. No symptoms or risks identified at this time. Risk Assessment: Do you want to hurt yourself or someone else? Patient reports no desire to harm self or others. Onset of symptoms was May 09, 2020. 17:02 Method Of Arrival: Ambulatory iw 17:02 Acuity: MANASA 3 iw 17:46 Initial Sepsis Screen: Does the patient meet any 2 criteria? Temp <36.0*C (96.8*F)) or ks7 > 38.3*C (100.9*F). No. Patient's initial sepsis screen is negative. Does the patient have a suspected source of infection? No. Patient's initial sepsis screen is negative. Triage Assessment: 17:21 General: Appears uncomfortable, well groomed, Behavior is calm, cooperative. Pain: ks7 Complains of pain in back and chest Pain currently is 8 out of 10 on a pain scale. Quality of pain is described as aching, Is continuous, Aggravated by increased cp with cough Goal of pain control is to sleep comfortably. 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 - Social history:: Smoking status: Patient reports the use of cigarette tobacco products, denies chronic smoking, but will smoke occasionally. - Hospitalizations: : No recent hospitalization is reported. Screenin:31 Abuse screen: Denies threats or abuse. Nutritional screening: No deficits noted. ks7 Tuberculosis screening: No symptoms or risk factors identified. Fall Risk None identified. Assessment: 17:26 General: Appears uncomfortable, Behavior is calm, cooperative, Reports chills for 2-3 ks7 days, fever for feeling ill for. Pain: Complains of pain in back and chest Pain currently is 8 out of 10 on a pain scale. Quality of pain is described as aching. Neuro: No deficits noted. Cardiovascular: No deficits noted. Respiratory: Reports shortness of breath cough that is pain with cough pain with movement Breath sounds are clear Onset: The symptoms/episode began/occurred. Vital Signs: 17:23 BP 104 / 91; Pulse 105; Resp 20; Temp 99.9; Pulse Ox 97% on R/A; Pain 8/10; ks7 17:58 BP 116 / 85; Pulse 98; Resp 18; Pulse Ox 98% on R/A; ks7 18:10 BP 130 / 86; Pulse 98; Resp 18; Temp 99.6; Pulse Ox 98% ; Pain 7/10; ks7 ED Course: 16:48 Patient arrived in ED. ag5 16:56 Tania Hdz, RN is Primary Nurse. ks7 16:59 Evert Uriostegui MD is Attending Physician. rn 17:02 Arm band placed on. iw 17:06 Triage completed. iw 17:20 COVID-19 Sent. ks7 17:25 covid swab done. ks7 17:32 pt up in room walking around drinking her soda. dyspnea with exertion. Awaiting lab ks7 results. 17:45 Patient has correct armband on for positive identification. Bed in low position. Call ks7 light in reach. Side rails up X2. 17:45 No provider procedures requiring assistance completed. Patient did not have IV access ks7 during this emergency room visit. 17:48 XRAY Chest (1 view) Sent. ks7 17:58 XRAY Chest (1 view) In Process Unspecified. EDMS 18:04 ED MD in room, discussed d/c and medication instructions. ks7 Administered Medications: 17:34 Drug: Acetaminophen 1000 mg Route: PO; ks7 18:10 Follow up: BP 130 / 86; Pulse 98 bpm; Resp 18 bpm; Temp 99.6; Pulse Ox 98% ; Pain 7/10 ks7 Adult Outcome: 17:58 Discharge ordered by MD. 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 approx 5-10 minutes 18:11 Condition: good 18:11 Discharge instructions given to patient, Instructed on follow up and referral plans. medication usage, Demonstrated understanding of follow-up care, medications, Prescriptions given X 2. 18:13 Patient left the ED. ks7 Addendum: 05/16/2020 09:25 Addendum: COVID-19 Result: Positive result giiven to ED physician to notify pt. s s Physician: Rcih Michele MD Physician was able to contact pt and pt was notified of positive COVID-19 swab result. Physician answered pt questions. Signatures: Dispatcher [employer] Mara Ford, RN Evert Hooker MD MD rn Smirch, Shelby, RN RN ss Gaskin, Ajare 5 Tania Hdz RN RN ks7
--- NOTE | 2020-05-13 17:59 | EDPHYS ---
Physician Documentation [facility] Name: Pastora Patterson Age: 39 yrs Sex: Female : 1980 Arrival Date: 05/13/2020 Time: 16:48 Bed 24 Private MD: ED Physician Evert Uriostegui HPI: 05/13 17:09 This 39 yrs old Female presents to ER via Ambulatory with complaints of R/O rn COVID. 17:09 The patient or guardian reports cough, described as mild. Onset: The symptoms/episode rn began/occurred 4 day(s) ago. Severity of symptoms: At their worst the symptoms were mild, in the emergency department the symptoms are unchanged. Associated signs and symptoms: Pertinent positives: fever. The patient has not experienced similar symptoms in the past. Reports family member who tested positive slept in her bed in her house recently, now patient with chills/myalgia/loss of taste and smell/fatigue/cough. . 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 - Social history:: Smoking status: Patient reports the use of cigarette tobacco products, denies chronic smoking, but will smoke occasionally. - Hospitalizations: : No recent hospitalization is reported. ROS: 17:09 Constitutional: + chills Eyes: Negative for injury, pain, redness, and discharge, Neck: rn Negative for injury, pain, and swelling, Cardiovascular: Negative for chest pain, palpitations, and edema, Respiratory: + cough Abdomen/GI: Negative for abdominal pain, and constipation, MS/Extremity: Negative for injury and deformity, Skin: Negative for injury, rash, and discoloration, Neuro: Negative for numbness, tingling, and seizure. 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 Eyes: Pupils equal round and reactive to light, extra-ocular motions intact. Lids and lashes normal. Conjunctiva and sclera are non-icteric and not injected. Cornea within normal limits. Periorbital areas with no swelling, redness, or edema. Cardiovascular: Regular rate and rhythm. No pulse deficits. Respiratory: No increased work of breathing, no retractions or nasal flaring. Skin: Warm, dry MS/ Extremity: Pulses equal, no cyanosis. Neuro: Awake and alert, GCS 15, Normal gait. Vital Signs: 17:23 BP 104 / 91; Pulse 105; Resp 20; Temp 99.9; Pulse Ox 97% on R/A; Pain 8/10; ks7 17:58 BP 116 / 85; Pulse 98; Resp 18; Pulse Ox 98% on R/A; ks7 18:10 BP 130 / 86; Pulse 98; Resp 18; Temp 99.6; Pulse Ox 98% ; Pain 7/10; ks7 MDM: 16:59 Patient medically screened. rn 17:57 Differential Diagnosis: Upper Respiratory Infection Viral Syndrome Pneumonia Other rn JIN. Data reviewed: vital signs, nurses notes, radiologic studies, plain films. Test interpretation: by ED physician or midlevel provider: plain radiologic studies, CXR neg for pneumonia/pulmonary edema. Counseling: I had a detailed discussion with the patient and/or guardian regarding: the historical points, exam findings, and any diagnostic results supporting the discharge/admit diagnosis, radiology results, the need for outpatient follow up, to return to the emergency department if symptoms worsen or persist or if there are any questions or concerns that arise at home. Response to treatment: the patient's symptoms have mildly improved after treatment, and as a result, I will discharge patient. Special discussion: I discussed with the patient/guardian in detail that at this point there is no indication for admission to the hospital. It is understood, however, that if the symptoms persist or worsen the patient needs to return immediately for re-evaluation. ED course: No oxygen requirement, neg CXR, COVID sent, likely positive, recommend isolation and wait for COVID results, return precautions given and understood. Will dc home with albuterol and decadron given hx of asthma.. 05/13 17:06 Order name: COVID-19 rn 05/13 17:06 Order name: XRAY Chest (1 view) rn Administered Medications: 17:34 Drug: Acetaminophen 1000 mg Route: PO; ks7 18:10 Follow up: BP 130 / 86; Pulse 98 bpm; Resp 18 bpm; Temp 99.6; Pulse Ox 98% ; Pain 05/08 ks7 Adult Disposition: 05/13/20 17:58 Discharged to Home. Impression: Viral syndrome. - Condition is Stable. - Discharge Instructions: COVID-19. - Prescriptions for dexamethasone 6 mg Oral tablet - take 1 tablet by ORAL route once daily for 10 days; 10 tablet. Albuterol Sulfate 90 mcg/actuation - inhale 1-2 puff by INHALATION route every 4-6 hours; 1 Inhaler. - Medication Reconciliation Form, Thank You Letter, Antibiotic Education, Prescription Opioid Use form. - Follow up: Private Physician; When: As needed; Reason: Recheck today's complaints, Re-evaluation by your physician. - Problem is new. - Symptoms are unchanged. Signatures: Dispatcher [employer] EDMara Childs RN RN iw Nieto, Roman, MD MD rn Songcuan, Kathleen, RN RN ks7 Corrections: (The following items were deleted from the chart) 18:13 17:58 05/13/2020 17:58 Discharged to Home. Impression: Viral syndrome. Condition is ks7 Stable. Discharge Instructions: COVID-19. Prescriptions for dexamethasone 6 mg Oral tablet - take 1 tablet by ORAL route once daily for 10 days; 10 tablet, Albuterol Sulfate 90 mcg/actuation - inhale 1-2 puff by INHALATION route every 4-6 hours; 1 Inhaler. and Forms are Medication Reconciliation Form, Thank You Letter, Antibiotic Education, Prescription Opioid Use. Follow up: Private Physician; When: As needed; Reason: Recheck today's complaints, Re-evaluation by your physician. Problem is new. Symptoms are unchanged. rn
--- NOTE | 2020-05-13 18:51 | RAD REPORT ---
EXAM DESCRIPTION: RAD - Chest Single View - 05/13/2020 5:59 pm CLINICAL HISTORY: COUGH, fever, chills, shortness of breath decreased sense of taste, COVID exposure COMPARISON: Two view chest June 2019 TECHNIQUE: AP portable chest image was obtained 05/13/2020 5:59 pm . FINDINGS: Lung volumes are low. No dense consolidation seen. No definitive ground-glass opacificatio n seen. Hilar regions are within normal limits. Heart and vasculature are normal. No measurable pleur al effusion and no pneumothorax. No acute bony abnormality seen. No acute aortic findings suspected. IMPRESSION: Limited shallow inspiration exam without acute cardiopulmonary finding.
[2020-05-13 19:55] VITALS: O2SAT 98
[2020-05-13 19:56] VITALS: BP 130/86; TEMP 99.6
== END 2020-05-13 18:13 | disposition home or self-care (01) ==
LOC: ER 16:46
DX: U07.1 COVID-19 (principal); B34.9 Viral infection, unspecified; F17.210 Nicotine dependence, cigarettes, uncomplicated; I10 Essential (primary) hypertension
CPT/HCPCS: 71045; 99284; U0001

== ENCOUNTER 2021-04-27 12:38 | Emergency (ER) | payer SELFPAY ==
[2021-04-27] MEDS ORDERED: ALBUTEROL INHALER 60 PUFF/8 GM IH ONE (14:00)
--- NOTE | 2021-04-27 15:05 | RAD REPORT ---
EXAM DESCRIPTION: Chase Monteiro (2 Views)04/27/2021 2:05 pm CLINICAL HISTORY: Cough COMPARISON: 2019 FINDINGS: The lungs appear clear of acute infiltrate. The heart is normal size IMPRESSION: No acute abnormalities displayed
--- NOTE | 2021-04-27 16:13 | EDPHYS ---
Physician Documentation [facility] Name: Pastora Patterson Age: 40 yrs Sex: Female : 1980 Arrival Date: 04/27/2021 Time: 12:42 Bed 26 Private MD: ED Physician Evert Uriostegui HPI: 04/27 13:33 This 40 yrs old Female presents to ER via Ambulatory with complaints of cp Breathing Difficulty. 13:33 The patient has shortness of breath at rest. cp 13:33 Onset: The symptoms/episode began/occurred yesterday. cp 13:33 Duration: The symptoms are continuous. Associated signs and symptoms: Pertinent cp positives: non-productive cough, sore throat, Pertinent negatives: chest pain, fever, vomiting. Severity of symptoms: in the emergency department the symptoms are unchanged despite home interventions. 13:33 Patient reports being exposed to COVID-19 by patient at work recently and reports she cp was diagnosed with COVID-19 last. Patient reports she did not receive vaccine. 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 - Social history:: Smoking status: Patient reports the use of cigarette tobacco products, smokes one-half pack cigarettes per day, Patient uses. ROS: 13:40 Constitutional: Negative for chills, fever, poor PO intake. cp 13:40 Eyes: Negative for injury, pain, redness, and discharge. cp 13:40 ENT: Positive for sore throat, Negative for ear pain, difficulty swallowing, difficulty handling secretions. 13:40 Cardiovascular: Negative for chest pain, palpitations. 13:40 Respiratory: Positive for cough, shortness of breath. 13:40 Abdomen/GI: Negative for abdominal pain, nausea, vomiting, and diarrhea. 13:40 Neuro: Negative for altered mental status, headache, weakness. 13:40 All other systems are negative. Exam: 13:45 Constitutional: The patient appears in no acute distress, alert, awake, non-toxic, well cp developed, well nourished. 13:45 Head/Face: Normocephalic, atraumatic. cp 13:45 Eyes: Periorbital structures: appear normal, Conjunctiva: normal, no exudate, no injection, Sclera: no appreciated abnormality, Lids and lashes: appear normal, bilaterally. 13:45 ENT: External ear(s): are unremarkable, Ear canal(s): are normal, clear, TM's: dullness, bilaterally, Nose: is normal, Mouth: Lips: moist, Oral mucosa: moist, Posterior pharynx: Airway: no evidence of obstruction, patent, Tonsils: are normal in appearance, erythema, is not appreciated, exudate, is not appreciated. 13:45 Neck: ROM/movement: is normal, is supple, without pain, no range of motions limitations, no meningismus. 13:45 Chest/axilla: Inspection: normal, Palpation: is normal, no crepitus, no tenderness. 13:45 Cardiovascular: Rate: normal, Rhythm: regular, Edema: is not appreciated, JVD: is not appreciated. 13:45 Respiratory: the patient does not display signs of respiratory distress, Respirations: normal, no use of accessory muscles, no retractions, labored breathing, is not present, Breath sounds: decreased breath sounds, are not appreciated, stridor, is not appreciated, + upper airway congestion. wheezing: is not appreciated. 13:45 Abdomen/GI: Inspection: abdomen appears normal, Palpation: abdomen is soft and non-tender, in all quadrants. 13:45 Back: pain, is absent, ROM is normal. 13:45 Skin: no rash present. Vital Signs: 13:11 BP 107 / 71; Pulse 99; Resp 17; Temp 97.4(TE); Pulse Ox 99% on R/A; Weight 88.45 kg; jl7 Pain 9/10; 13:45 BP 106 / 72; Pulse 89; Resp 18; Pulse Ox 100% on R/A; Pain 0/10; ld1 14:50 BP 110 / 70; Pulse 86; Resp 18; Pulse Ox 100% on R/A; ld1 16:15 BP 112 / 76; Pulse 82; Resp 18; Pulse Ox 100% on R/A; ld1 MDM: 13:20 Patient medically screened. cp 14:10 Test interpretation: by ED physician or midlevel provider: chest xray negative for cp infiltrates. 15:00 Differential diagnosis: asthma, Bronchitis pneumonia, pulmonary edema, Pulmonary cp Embolism Sepsis. 16:12 Data reviewed: vital signs, nurses notes, lab test result(s), radiologic studies, plain cp films. 16:12 Counseling: I had a detailed discussion with the patient and/or guardian regarding: the cp historical points, exam findings, and any diagnostic results supporting the discharge/admit diagnosis, lab results, radiology results, to return to the emergency department if symptoms worsen or persist or if there are any questions or concerns that arise at home. ED course: VSS. Patient afebrile, chest xray negative for pneumonia. No signs of respiratory distress and patient appears non-toxic. Will discharge to home for continued monitoring. 04/27 13:31 Order name: Influenza Screen (a \T\ B); Complete Time: 16:10 04/27 13:31 Order name: Strep; Complete Time: 16:10 04/27 13:31 Order name: XRAY Chest Pa And Lat (2 Views); Complete Time: 15:07 04/27 15:07 Interpretation: Report reviewed. 04/27 15:59 Order name: Throat Culture EDMS 04/27 15:59 Order name: SARS-COV-2 RT PCR; Complete Time: 16:10 EDMS Administered Medications: 13:45 Drug: Albuterol HFA Inhaler 2 puffs Route: Inhalation; ld1 Disposition: 17:13 Co-signature as Attending Physician, Evert Uriostegui MD. rn Disposition Summary: 04/27/21 16:13 Discharge Ordered Location: Home cp Problem: new cp Symptoms: have improved cp Condition: Stable cp Diagnosis - Acute upper respiratory infection, unspecified cp Followup: cp - With: Private Physician - When: 2 - 3 days - Reason: Worsening of condition Discharge Instructions: - Discharge Summary Sheet cp - Upper Respiratory Infection, Adult cp Forms: - Medication Reconciliation Form cp - Thank You Letter cp - Antibiotic Education cp - Prescription Opioid Use cp Prescriptions: - Tessalon Perles 100 mg Oral Capsule - take 2 capsule by ORAL route every 8 hours As needed; 30 capsule; Refills: 0, cp Product Selection Permitted - Albuterol Sulfate 2.5 mg /3 mL (0.083 %) Inhalation Solution for Nebulization - inhale 1 unit by NEBULIZATION route every 8 hours As needed; 1 box; Refills: 0, cp Product Selection Permitted Signatures: Dispatcher [employer] EDMS Evert Uriostegui MD MD rn Rich Dorado PA PA Jacquelyn Rodriguez RN RN jl7 Magdalena Hinton RN RN ld1 Corrections: (The following items were deleted from the chart) 14:44 13:31 CORONAVIRUS+BRZ ordered. EDMS EDMS
--- NOTE | 2021-04-27 16:13 | ER ---
Nurse's Notes [facility] Name: Pastora Patterson Age: 40 yrs Sex: Female : 1980 Arrival Date: 04/27/2021 Time: 12:42 Bed 26 Private MD: Diagnosis: Acute upper respiratory infection, unspecified Presentation: 04/27 13:11 Chief complaint: Patient states: Exposed to COVID last week, cough, body aches since jl7 Monday, SOB started yesterday. Coronavirus screen: congestion, cough unrelated to allergies, difficulty breathing, Client presents with at least one sign or symptom that may indicate coronavirus-19. Standard/surgical mask placed on the client. Provider contacted for isolation considerations. Ebola Screen: No symptoms or risks identified at this time. Initial Sepsis Screen: Does the patient meet any 2 criteria? No. Patient's initial sepsis screen is negative. Does the patient have a suspected source of infection? No. Patient's initial sepsis screen is negative. Risk Assessment: Do you want to hurt yourself or someone else? Patient reports no desire to harm self or others. Onset of symptoms was April 25, 2021. Care prior to arrival: None. 13:11 Method Of Arrival: Ambulatory [facility] 13:11 Acuity: MANASA 3 jl7 Triage Assessment: 14:30 General: Appears in no apparent distress. comfortable. Respiratory: Onset: The ld1 symptoms/episode began/occurred yesterday, the patient has mild shortness of breath. 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 - Social history:: Smoking status: Patient reports the use of cigarette tobacco products, smokes one-half pack cigarettes per day, Patient uses. Screenin:45 Abuse screen: Denies threats or abuse. Denies injuries from another. Nutritional ld1 screening: No deficits noted. Tuberculosis screening: No symptoms or risk factors identified. Fall Risk None identified. Assessment: 13:45 General: Appears in no apparent distress. comfortable, Behavior is calm, cooperative, ld1 appropriate for age. Pain: Denies pain. Neuro: Level of Consciousness is awake, alert, obeys commands, Oriented to person, place, time, situation, Appropriate for age Reports headache frontal area. Cardiovascular: Capillary refill < 3 seconds Patient's skin is warm and dry. Rhythm is regular. Respiratory: Airway is patent Respiratory effort is even, unlabored, Respiratory pattern is regular, symmetrical, Breath sounds are clear bilaterally. GI: Abdomen is flat, non-distended. : No signs and/or symptoms were reported regarding the genitourinary system. EENT: No signs and/or symptoms were reported regarding the EENT system. Derm: No signs and/or symptoms reported regarding the dermatologic system. Musculoskeletal: No signs and/or symptoms reported regarding the musculoskeletal system. 14:50 Reassessment: Patient appears in no apparent distress at this time. Patient is alert, ld1 oriented x 3, equal unlabored respirations, skin warm/dry/pink. 16:15 Reassessment: Patient appears in no apparent distress at this time. Patient and/or ld1 family updated on plan of care and expected duration. Pain level reassessed. Vital Signs: 13:11 BP 107 / 71; Pulse 99; Resp 17; Temp 97.4(TE); Pulse Ox 99% on R/A; Weight 88.45 kg; jl7 Pain 9/10; 13:45 BP 106 / 72; Pulse 89; Resp 18; Pulse Ox 100% on R/A; Pain 0/10; ld1 14:50 BP 110 / 70; Pulse 86; Resp 18; Pulse Ox 100% on R/A; ld1 16:15 BP 112 / 76; Pulse 82; Resp 18; Pulse Ox 100% on R/A; ld1 ED Course: 12:42 Patient arrived in ED. mr 13:14 Triage completed. jl7 13:14 Arm band placed on right wrist. jl7 13:18 Rich Dorado PA is PHCP. cp 13:18 Evert Uriostegui MD is Attending Physician. cp 13:37 Magdalena Hinton, ELIZABETH is Primary Nurse. ld1 13:45 Patient has correct armband on for positive identification. Bed in low position. Call ld1 light in reach. Side rails up X2. quality assurance monitor on. Pulse ox on. NIBP on. Door closed. Noise minimized. Warm blanket given. 13:45 Strep Sent. ld1 13:45 Influenza Screen (a \T\ B) Sent. ld1 13:45 No provider procedures requiring assistance completed. ld1 14:05 XRAY Chest Pa And Lat (2 Views) In Process Unspecified. EDMS 16:26 Patient did not have IV access during this emergency room visit. ld1 Administered Medications: 13:45 Drug: Albuterol HFA Inhaler 2 puffs Route: Inhalation; ld1 Outcome: 16:13 Discharge ordered by . cp 16:26 Discharged to home ambulatory. ld1 16:26 Condition: stable 16:26 Discharge instructions given to patient, Instructed on discharge instructions, follow up and referral plans. medication usage, Demonstrated understanding of instructions, follow-up care, medications. 16:27 Patient left the ED. ld1 Signatures: Dispatcher [employer] EDMS TempletonGena shea Rich Dorado PA PA cp Leal, Jahala, RN RN jl7 Magdalena Hinton RN RN ld1 Corrections: (The following items were deleted from the chart) 14:44 13:45 CORONAVIRUS+MR.LAB.BRZ drawn and sent. ld1 EDMS
[2021-04-27 16:31] VITALS: TEMP 97.4
[2021-04-27 16:33] VITALS: O2SAT 100
[2021-04-27 16:36] VITALS: BP 112/76
== END 2021-04-27 16:27 | disposition home or self-care (01) ==
LOC: ER 12:38
DX: J06.9 Acute upper respiratory infection, unspecified (principal); Z20.822 Contact with and (suspected) exposure to COVID-19; I10 Essential (primary) hypertension; F17.210 Nicotine dependence, cigarettes, uncomplicated
CPT/HCPCS: 71046; 87070; 87081; 87804; 99285; U0003

== ENCOUNTER 2024-01-01 21:25 | Inpatient (IN) | payer SELFPAY ==
[2024-01-01] MEDS ORDERED: IPRATROPIUM BROM 0.5MG/2.5ML ONE (22:00)
[2024-01-01] MEDS ORDERED: ALBUTEROL 2.5 MG/3 ML NEB SOL ONE (22:00)
--- NOTE | 2024-01-01 22:32 | RAD REPORT ---
[facility] 10:26 pm CLINICAL HISTORY: SOB COMPARISON: Chest Pa And Lat (2 Views) dated 04/27/2021; Chest Single View dated 05/13/2020; Chest Pa And Lat (2 Views) dated 07/15/2019; Chest Single View dated 02/05/2018 TECHNIQUE: Portable AP view of the chest. FINDINGS: Patchy right mid to lower lung airspace opacities. Mild central interstitial prominence on the left as well. No pneumothorax or effusion. The cardiomediastinal contours are unremarkable. IMPRESSION: Patchy right central and basilar opacities concerning for pneumonia. Background mild pul monary edema is possible but considered less likely.
[2024-01-01 22:37] LABS: Absolute Basophils 0.1 K/uL (0-0.5); Absolute Eosinophils 0.1 K/uL (0-0.5); Absolute Lymphocytes (CBC) 1.6 K/uL (0.7-4.9); Absolute Monocytes 0.4 K/uL (0.1-1.3); Absolute Neutrophil 5.8 K/uL (1.8-8.0); Basophils % 0.6 % (0-1.3); Eosinophils % 1.1 % (0-4.4); Hematocrit 17.4 % (36.0-45.0); Lymphocytes % 20.3 % (15.3-44.8); MCH 17.6 pg (27.0-35.0); MCHC 29.5 g/dL (32.0-36.0); MCV 59.7 fL (80-100); MPV 8.1 fL (7.6-11.3); Monocytes % 4.7 % (3.3-12.3); Neutrophils % 73.3 % (41.7-73.7); Nucleated Red Blood Cells % 0.1 % (0-0); Platelets 437 thou/uL (152-406); RBC Red Blood Cell Count 2.92 M/uL (3.86-4.86); Red Cell Distribution Width 18.8 % (12.1-15.2)
[2024-01-01 22:42] LABS: Hemoglobin 5.1 g/dL (12.0-15.0)
[2024-01-01 22:51] LABS: ALT/SGPT 54 U/L (13-56); AST/SGOT 60 U/L (15-37); Albumin 2.3 g/dL (3.4-5.0); Albumin/Globulin Ratio 0.5 (1.1-1.8); Alkaline Phosphatase 321 U/L (45-117); Anion Gap 9.9 mEq/L (5.0-15.0); BUN Blood Urea Nitrogen 12 mg/dL (7-18); Bicarbonate 25 mEq/L (21-32); Bilirubin Direct < 0.1 mg/dL (0-0.2); Bilirubin Indirect, Calculated ND mg/dL (0.2-0.8); Bilirubin Total 0.2 mg/dL (0.2-1.0); Globulin 4.3 g/dL (2.3-3.5); Glomerular Filtration Rate 97 ml/min (=/>90); Glucose Level 439 mg/dL (74-106); NT PRO-BNP 349 pg/mL (<125); Potassium 3.9 mEq/L (3.5-5.1); Protein, Total 6.6 g/dL (6.4-8.2); Sodium Level 132 mEq/L (136-145); Troponin High Sensitivity 6.4 pg/mL (<58.9)
[2024-01-01] MEDS ORDERED: INSULIN REGULAR (HUMAN) 100 UNIT/ML ONE (23:18)
[2024-01-01] MEDS ORDERED: CEFEPIME 2 GM VIAL ONE (23:18)
[2024-01-01] MEDS ORDERED: NA CHLORIDE 0.9% 250 ML ONE (23:19)
[2024-01-01] MEDS ORDERED: NA CHLORIDE 0.9% 1,000 ML ONE (23:19)
--- NOTE | 2024-01-01 23:30 | EDPHYS ---
Physician Documentation [facility] Name: Pastora Patterson Age: 43 yrs Sex: Female : 1980 Arrival Date: 01/01/2024 Time: 21:25 Bed 18 Private MD: ED Physician Radha Alonzo HPI: 12/31 22:03 This 43 yrs old Female presents to ER via Ambulatory with complaints of Chest sp3 Pain, Shortness Of Breath, Asthma Exacerbation. 22:03 43-year-old female with a history of diabetes, hypertension and asthma currently on no sp3 medications because she recently got health insurance according to her now presents to the ED with chief complaint cough, wheezing for 3 to 4 days. Patient states that she has not been checking her sugar and has not had regular primary care. She also has not had an inhaler. No other symptoms including fever, chest pain, abdominal pain, nausea, vomiting, diarrhea, syncope, near syncope, rash, or any other signs or symptoms on ROS at this time.. 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 - Social history:: Smoking status: Patient reports the use of cigarette tobacco products, smokes one-half pack cigarettes per day. ROS: 22:04 Constitutional: Negative for fever, chills, and weight loss, Eyes: Negative for injury, sp3 pain, redness, and discharge, ENT: Negative for injury, pain, and discharge, Neck: Negative for injury, pain, and swelling, Cardiovascular: Negative for chest pain, palpitations, and edema, Abdomen/GI: Negative for abdominal pain, nausea, vomiting, diarrhea, and constipation, Back: Negative for injury and pain, MS/Extremity: Negative for injury and deformity, Skin: Negative for injury, rash, and discoloration, Neuro: Negative for headache, weakness, numbness, tingling, and seizure, Psych: Negative for depression, anxiety, suicide ideation, homicidal ideation, and hallucinations, Allergy/Immunology: Negative for hives, rash, and allergies, Endocrine: Negative for neck swelling, polydipsia, polyuria, polyphagia, and marked weight changes, Hematologic/Lymphatic: Negative for swollen nodes, abnormal bleeding, and unusual bruising, 22:04 All other systems are negative, Exam: 22:04 Constitutional: This is a well developed, well nourished patient who is awake, alert, sp3 and in no acute distress. Head/Face: Normocephalic, atraumatic. Eyes: Pupils equal round and reactive to light, extra-ocular motions intact. Lids and lashes normal. Conjunctiva and sclera are non-icteric and not injected. Cornea within normal limits. Periorbital areas with no swelling, redness, or edema. ENT: Nares patent. No nasal discharge, no septal abnormalities noted. External auditory canals are clear. Oropharynx with no redness, swelling, or masses, exudates, or evidence of obstruction, uvula midline. Mucous membranes moist. Neck: Trachea midline, no thyromegaly or masses palpated, and no cervical lymphadenopathy. Supple, full range of motion without nuchal rigidity, or vertebral point tenderness. No Meningismus. Chest/axilla: Normal chest wall appearance and motion. Nontender with no deformity. No lesions are appreciated. Cardiovascular: Regular rate and rhythm with a normal S1 and S2. No gallops, murmurs, or rubs. Normal PMI, no JVD. No pulse deficits. Abdomen/GI: Soft, non-tender, with normal bowel sounds. No distension or tympany. No guarding or rebound. No evidence of tenderness throughout. Back: No spinal tenderness. No costovertebral tenderness. Full range of motion. Skin: Warm, dry with normal turgor. Normal color with no rashes, no lesions, and no evidence of cellulitis. MS/ Extremity: Pulses equal, no cyanosis. Neurovascular intact. Full, normal range of motion. Neuro: Awake and alert, GCS 15, oriented to person, place, time, and situation. Cranial nerves II-XII grossly intact. Motor strength 5/5 in all extremities. Sensory grossly intact. Cerebellar exam normal. Normal gait. Psych: Awake, alert, with orientation to person, place and time. Behavior, mood, and affect are within normal limits. 22:04 Respiratory: Bilateral wheezing noted with scattered cough and rhonchi. Pulse ox 99% on room air. No accessory muscle use and respiratory rate is 16-18., 23:47 ECG was reviewed by the Attending Physician. EKG demonstrates sinus tachycardia at 120 sp3 bpm with normal intervals, normal QRS, normal axis, nonspecific diffuse ST's ST changes without evidence of acute ischemia. Vital Signs: 21:31 BP 159 / 82; Pulse 104; Resp 18 S; Temp 98.5(TE); Pulse Ox 97% on R/A; Weight 90.72 kg as6 (R); Height 5 ft. 3 in. (R); Pain 9/10; 22:30 BP 185 / 89; Pulse 109; Resp 17; Pulse Ox 100% ; jj7 23:30 BP 158 / 70; Pulse 122; Resp 18; Pulse Ox 100% ; jj7 21:31 Body Mass Index 35.43 (90.72 kg, 160.02 cm) as6 21:31 Pain Scale: Adult as6 MDM: 21:44 Patient medically screened. sp3 22:05 Data reviewed: vital signs, nurses notes, lab test result(s), EKG, radiologic studies. sp3 ED course: 43-year-old female with PMH above and poor compliance now presents to the ED with wheezing and shortness of breath. Differential diagnosis includes asthma exacerbation, bronchitis, pneumonia, influenza, COVID-19, among others. I am not highly suspicious for acute coronary syndrome, CHF, sepsis, shock or other critical process. Workup will include chest x-ray, EKG, laboratory values, swabs and DuoNeb treatments with IV steroids layered on once chest x-ray is reviewed to assess for potential pneumonia. The patient is improved, we will place patient on inhalers and oral steroids and any other required medications to bridge her until she can find a new PCP.. 22:49 ED course: Patient has pneumonia on chest x-ray as well as critical anemia with a MCV sp3 of 57 indicating chronicity. Patient also has a blood glucose of 440 which is to be expected given the fact that she has not been on any medications. At this time we will administer normal saline, insulin IV, antibiotics, and admit patient to the hospital.. 12/31 21:57 Order name: Basic Metabolic Panel; Complete Time: 23:27 sp3 12/31 21:57 Order name: CBC with Diff sp3 12/31 21:57 Order name: LFT's; Complete Time: 23:27 sp3 03/ 21:57 Order name: BNP; Complete Time: 23:27 sp3 / 21:57 Order name: Troponin High Sensitivity; Complete Time: 23:27 sp3 / 22:05 Order name: Flu sp3 / 22:05 Order name: SARS RAPID sp3 / 22:21 Order name: Glucose, Ancillary Testing; Complete Time: 22:46 EDMS 12/31 22:45 Order name: CBC Smear Scan EDMS / 22:47 Order name: Blood Culture Adult (2) sp3 12/31 22:47 Order name: PRBC sp3 / 22:50 Order name: ABO/RH typing EDMS / 22:50 Order name: Antibody Screen EDMS / 22:50 Order name: Lactate w/ 2H reflex if indic. sp3 03/ 00:05 Order name: CBC with Automated Diff EDMS 03/ 00:05 Order name: CBC with Automated Diff EDMS 03/ 00:05 Order name: CBC with Automated Diff EDMS / 00:05 Order name: CBC with Automated Diff EDMS 03/05 00:05 Order name: Hemoglobin EDMS 03/ 00:05 Order name: Hemoglobin EDMS 03/ 00:05 Order name: Hemoglobin EDMS 03/05 00:05 Order name: Hemoglobin EDMS 03/05 00:06 Order name: Ferritin EDMS 03/05 00:06 Order name: Transferrin Sat/Iron Binding EDMS 03/05 01:16 Order name: ABO/RH no charge EDMS 03/ 02:59 Order name: Lactate Sepsis 2 HR Follow-up EDMS /05 08:12 Order name: Glucose, Ancillary Testing EDMS / 10:41 Order name: Hematocrit EDMS 03/ 11:33 Order name: Glucose, Ancillary Testing EDMS / 21:57 Order name: XRAY Chest (1 view); Complete Time: 22:46 sp3 12/31 21:57 Order name: EKG; Complete Time: 21:57 sp3 01/01 00:05 Order name: EKG Electrocardiogram EDMS / 00:05 Order name: EKG Electrocardiogram EDMS 01/01 00:05 Order name: EKG Electrocardiogram EDMS 01/01 00:05 Order name: EKG Electrocardiogram EDMS 01/01 00:05 Order name: EKG Electrocardiogram EDMS 01/01 00:05 Order name: EKG Electrocardiogram EDMS 01/01 00:05 Order name: EKG Electrocardiogram EDMS 01/01 00:05 Order name: EKG Electrocardiogram EDMS 01/01 00:05 Order name: EKG Electrocardiogram EDMS 01/01 00:05 Order name: EKG Electrocardiogram EDMS 01/01 00:05 Order name: EKG Electrocardiogram EDMS 12/31 21:57 Order name: Cardiac monitoring; Complete Time: 22:57 sp3 12/31 21:57 Order name: EKG - Nurse/Tech; Complete Time: 22:57 sp3 12/31 21:57 Order name: IV Saline Lock; Complete Time: 22:15 sp3 12/31 21:57 Order name: Labs collected and sent; Complete Time: 22:15 sp3 12/31 21:57 Order name: O2 Sat Monitoring; Complete Time: 22:15 sp3 12/31 21:57 Order name: Accucheck; Complete Time: 22:15 sp3 12/31 23:14 Order name: Transfuse; Complete Time: 06:15 sp3 Administered Medications: 22:14 Drug: DuoNeb Nebulize (3:1) (2.5 mg - 0.5 mg) 3 ml Nebulizer once Route: Nebulizer; [facility] 23:44 Follow up: Response: Marked relief of symptoms j 22:14 Drug: DuoNeb Nebulize (3:1) (2.5 mg - 0.5 mg) 3 ml Nebulizer once Route: Nebulizer; [facility] 23:44 Follow up: Response: Marked relief of symptoms j 23:25 Drug: Insulin Regular Human IVP 10 units IVP once {Co-Signature: as6 (Harshal Moran RN).} Route: IVP; Site: right antecubital; 23:25 Drug: NS 0.9% IV 1000 ml IV at 1 bolus Per protocol; 1000 mL bolus Route: IV; Rate: 1 jj7 bolus; Site: right antecubital; 23:29 Drug: Cefepime IVPB 2 grams IVPB at 200 ml/hr once over 30 mins; (mix in NS 100 mL) jj7 Route: IVPB; Rate: 200 ml/hr; Infused Over: 30 mins; Site: right antecubital; Disposition Summary: 01/01/24 23:29 Hospitalization Ordered Notes: Hospitalization Status: Inpatient Admission sp3 Provider: Everardo Walton sp3 Condition: Stable sp3 Problem: an acute exacerbation sp3 Symptoms: have worsened sp3 Bed/Room Type: Standard sp3 Location: Telemetry/MedSurg (Inpatient)(01/02/24 10:57) bd Room Assignment: 205(01/02/24 10:57) bd Diagnosis - Pneumonia, hyperglycemia, critical anemia chronic sp3 Forms: - Medication Reconciliation Form sp3 - SBAR form sp3 - Leadership Thank You Letter sp3 Signatures: Dispatcher [employer] EDMS Isabel Cameron bd Radha Alonzo MD MD sp3 Harshal Moran, RN RN as6 Anibal Naqvi RN RN jj7 Scot, Ninoska rv1 Harshal Moran RN as6 Corrections: (The following items were deleted from the chart) 23:14 22:47 Transfer - Initiate ordered. sp3 sp3 23:41 23:29 Telemetry/MedSurg (Inpatient) sp3 rv1 23:41 23:29 sp3 rv1 23:50 22:48 TYPE AND SCREEN+BB.LAB.BRZ ordered. EDTX EDMS 01/01 10:57 12/31 23:41 BR ER HOLD rv1 bd 01/01 10:57 12/31 23:41 ERHOLD- rv1 bd
--- NOTE | 2024-01-01 23:30 | ER ---
Nurse's Notes [facility] Name: Pastora Patterson Age: 43 yrs Sex: Female : 1980 Arrival Date: 01/01/2024 Time: 21:25 Bed 18 Private MD: Diagnosis: Pneumonia, hyperglycemia, critical anemia chronic Presentation: 12/31 21:32 Chief complaint: Patient states: shortness of breath that has been worsening over the as6 last 2 days. pt reports hx of asthma. Coronavirus screen: At this time, the client does not indicate any symptoms associated with coronavirus-19. Ebola Screen: No symptoms or risks identified at this time. Initial Sepsis Screen: Does the patient meet any 2 criteria? No. Patient's initial sepsis screen is negative. Does the patient have a suspected source of infection? No. Patient's initial sepsis screen is negative. Risk Assessment: Do you want to hurt yourself or someone else? Patient reports no desire to harm self or others. Onset of symptoms was December 30, 2023. 21:32 Acuity: MANASA 3 as6 21:32 Method Of Arrival: Ambulatory as6 Triage Assessment: 21:33 General: Appears uncomfortable, Behavior is calm, cooperative. Pain: Complains of pain as6 in right lower quadrant. Cardiovascular: Reports shortness of breath. Respiratory: Reports shortness of breath Respiratory effort is even, unlabored, Respiratory pattern is regular, symmetrical. 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 - Social history:: Smoking status: Patient reports the use of cigarette tobacco products, smokes one-half pack cigarettes per day. Screenin:55 [facility] ED Fall Risk Assessment (Adult) History of falling in the last 3 months, jj7 including since admission No falls in past 3 months (0 pts) Confusion or Disorientation No (0 pts) Intoxicated or Sedated No (0 pts) Impaired Gait No (0 pts) Mobility Assist Device Used No (0 pt) Altered Elimination No (0 pt) Score/Fall Risk Level 0 - 2 = Low Risk Oriented to surroundings, Maintained a safe environment, Educated pt \T\ family on fall prevention, incl call for assistance when getting out of bed. Abuse screen: Denies threats or abuse. Nutritional screening: No deficits noted. Tuberculosis screening: No symptoms or risk factors identified. Assessment: 21:55 Respiratory: Reports shortness of breath cough that is Breath sounds with wheezes. jj7 01/01 07:15 Reassessment: SEE [facility] FOR CHARTING. db Vital Signs: 12/31 21:31 BP 159 / 82; Pulse 104; Resp 18 S; Temp 98.5(TE); Pulse Ox 97% on R/A; Weight 90.72 kg as6 (R); Height 5 ft. 3 in. (R); Pain 9/10; 22:30 BP 185 / 89; Pulse 109; Resp 17; Pulse Ox 100% ; jj7 23:30 BP 158 / 70; Pulse 122; Resp 18; Pulse Ox 100% ; jj7 21:31 Body Mass Index 35.43 (90.72 kg, 160.02 cm) as6 21:31 Pain Scale: Adult as6 ED Course: 21:27 Patient arrived in ED. jj6 21:31 Arm band placed on. as6 21:33 Triage completed. as6 21:37 Radha Alonzo MD is Attending Physician. sp3 21:55 Patient has correct armband on for positive identification. Bed in low position. Call jj7 light in reach. 22:10 Inserted saline lock: 20 gauge in right antecubital area, using aseptic technique. jj7 Blood collected. 22:15 LFT's Sent. jj7 22:15 CBC with Diff Sent. jj7 22:15 Basic Metabolic Panel Sent. jj7 22:15 Troponin High Sensitivity Sent. jj7 22:27 XRAY Chest (1 view) In Process Unspecified. EDMS 22:57 Anibal Naqvi RN is Primary Nurse. jj7 23:22 Lactate w/ 2H reflex if indic. Sent. jj7 23:22 Antibody Screen Sent. jj7 23:22 ABO/RH typing Sent. jj7 23:29 Everardo Walton MD is Hospitalizing Provider. sp3 01/01 08:31 Provided Education on: ADMISSION AND OR. Pulse ox on. NIBP on. db 08:31 No provider procedures requiring assistance completed. Patient admitted, IV remains in db place. Patient maintains SpO2 saturation greater than 95% on room air. Administered Medications: 12/31 22:14 Drug: DuoNeb Nebulize (3:1) (2.5 mg - 0.5 mg) 3 ml Nebulizer once Route: Nebulizer; jj7 23:44 Follow up: Response: Marked relief of symptoms jj7 22:14 Drug: DuoNeb Nebulize (3:1) (2.5 mg - 0.5 mg) 3 ml Nebulizer once Route: Nebulizer; jj7 23:44 Follow up: Response: Marked relief of symptoms jj7 23:25 Drug: Insulin Regular Human IVP 10 units IVP once {Co-Signature: as6 (Harshal Moran RN).} Route: IVP; Site: right antecubital; 23:25 Drug: NS 0.9% IV 1000 ml IV at 1 bolus Per protocol; 1000 mL bolus Route: IV; Rate: 1 jj7 bolus; Site: right antecubital; 23:29 Drug: Cefepime IVPB 2 grams IVPB at 200 ml/hr once over 30 mins; (mix in NS 100 mL) jj7 Route: IVPB; Rate: 200 ml/hr; Infused Over: 30 mins; Site: right antecubital; Medication: 21:55 VIS not applicable for this client. jj7 Outcome: 23:29 Decision to Hospitalize by Provider. sp3 01/01 08:31 Admitted to ER Hold. Please see [facility] for further documentation. db Condition: stable Instructed on the need for admit, 12:13 Patient left the ED. db Signatures: Dispatcher [employer] EDMS Radha Alonzo MD MD sp3 Eunice Brewer jj6 Harshal Moran, RN RN as6 Anibal Naqvi RN RN jj7 Qing Tyler RN RN Harshal Cano RN as6 Corrections: (The following items were deleted from the chart) 12/31 23:50 23:29 TYPE AND SCREEN+BB.LAB.BRZ drawn and sent. j7 EDMI
[2024-01-01] MEDS ORDERED: NA CHLORIDE 0.9% 250 ML IV SCH ×2 (23:45)
[2024-01-01] MEDS ORDERED: ONDANSETRON 4 MG/2 ML VIAL IV PRN (23:59)
--- NOTE | 2024-01-02 00:05 | P.HP ---
Certification for Inpatient Patient admitted to: Inpatient With expected LOS: >2 Midnights Practitioner: I am a practitioner with admitting privileges, knowledge of patient current condition, hospital course, and medical plan of care. Services: Services provided to patient in accordance with Admission requirements found in Title 42 Section 412.3 of the Code of Federal Regulations Patient History Date of Service: 01/02/24 Reason for admission: Weakness, lethargy. History of Present Illness: 44-year-old female patient with medical history significant for diabetes, hypertension, history of menorrhagia who was evaluated for episode of weakness and lethargy. She was found to have severely low hemoglobin of 5.2 and very low MCV. Iron studies revealed very low ferritin of 2 and iron saturation of 3%. She reported significant menorrhagia for about 13 years show and she says this started after she had a tubal ligation procedure. She was found to have severe anemia and severe iron deficiency so she was admitted for inpatient care, IV iron repletion and blood product transfusion. She did report poor follow-up with primary care doctor and other doctors because her blood sugar was over 400 and she has not had any follow-up with any physician for couple of years. Allergies No Known Allergies Allergy (Verified 02/17/17 03:44) Home Medications: Insulin Detemir [Levemir*] 40 unit SQ BID 02/17/17 Lisinopril [Zestril] 20 mg PO DAILY 02/17/17 Doxycycline Hyclate [Vibramycin] 100 mg PO BID #28 capsule 02/19/17 Metronidazole 500 mg PO BID #28 tablet 02/19/17 - Past Medical/Surgical History Diabetic: Yes -: Asthma -: hypertension -: diabetes-IDDM -: tubal ligation -: C- Section - Family History Father -: Hypertension, Diabetes, Other (see notes) Notes: HIGH CHOLESTEROL Mother -: Hypertension, Diabetes, Other (see notes) Notes: HGH CHOLESTEROL Sister -: Hypertension, Diabetes, Other (see notes) Notes: HIGH CHOLESTEROL - Social History Alcohol use: Yes CD- Drugs: No Caffeine use: Yes Review of Systems General: Weakness, Malaise Eyes: Unremarkable ENT: Unremarkable Respiratory: Unremarkable Cardiovascular: Unremarkable Gastrointestinal: Unremarkable Genitourinary: Unremarkable Musculoskeletal: Unremarkable Integumentary: Unremarkable Neurological: As per HPI Lymphatics: Unremarkable Physical Examination - Physical Exam General: Alert, Oriented x3 HEENT: Atraumatic Neck: Supple Respiratory: Normal air movement Cardiovascular: Regular rate/rhythm, Normal S1 S2 Gastrointestinal: Soft and benign Musculoskeletal: No swelling Neurological: Normal speech, Normal strength at 5/5 x4 extr - Studies Laboratory Data (last 24 hrs) 01/01/24 01/01/24 22:05 22:05 WBC 7.90 Hgb 5.1 L* Hct 17.4 L Plt Count 437 H Sodium 132 L Potassium 3.9 BUN 12 Creatinine 0.78 Glucose 439 H* Total Bilirubin 0.2 AST 60 H ALT 54 Alkaline Phosphatase 321 H Assessment and Plan - Plan Severe anemia: This is deemed iron deficient as she has iron sat of 3% and ferritin of 2.0. Packed red cell transfusion has been given. we will follow trend of hemoglobin. Continue on IV Ferrlecit to complete a full dose of 1000 mg. Will continue multivitamin for repletion of vitamin B12 and folate. Diabetes: Poorly controlled Continue carb restricted diet and sliding scale insulin for glucose control. Will continue to monitor blood sugar ACHS. Hypertension: We will monitor vital signs per unit protocol and continue antihypertensive medications. Prophylaxis: SCDs for DVT prophylaxis CODE STATUS: Full code Disposition: We will treat iron deficiency state, administer units of blood products for management of severe anemia and discharge her when she is deemed clinically stable. - Advance Directives Does patient have a Living Will: No Does patient have a Durable POA for Healthcare: No
[2024-01-02 00:50] LABS: SARS-CoV-2 Antigen Rapid Res Negative (Negative)
[2024-01-02] MEDS ORDERED: HYDROCODONE/APAP 5/325 MG TAB PO PRN (01:14)
[2024-01-02] MEDS ORDERED: MORPHINE 2 MG/ML SYR ONE (01:42)
[2024-01-02] MEDS: MORPHINE 2 MG/ML SYR IV PRN (01:45)
[2024-01-02 01:49] VITALS: BMI 35.3
[2024-01-02 01:53] LABS: Blood Morphology Comment NOTED (NOT SEEN); Hypochromasia 3+; Microcytosis 3+; Platelet Estimate ADEQ; White Blood Cell Scan OK (OK)
[2024-01-02] MEDS ORDERED: NA CHLORIDE 0.9% 250 ML ONE ×2 (02:29→05:27)
[2024-01-02] MEDS ORDERED: ACETAMINOPHEN 500 MG TAB ONE ×2 (05:48→09:30)
[2024-01-02] MEDS: ACETAMINOPHEN 500 MG TAB PO PRN (05:51)
[2024-01-02] MEDS: INSULIN REGULAR (HUMAN) 100 UNIT/ML SQ SCH ×2 (07:30→11:30)
[2024-01-02] MEDS: INFLUENZA VACCINE (for 6+ mo) 0.5 ML DOSE IMVAC ONE (08:00)
[2024-01-02] MEDS ORDERED: INSULIN REGULAR (HUMAN) 100 UNIT/ML ONE ×2 (08:09→11:34)
[2024-01-02] MEDS ORDERED: D50W 25 GM/50 ML SYRINGE IV PRN (08:15)
[2024-01-02] MEDS ORDERED: GLUCAGON 1 MG/VIAL IM PRN (08:15)
[2024-01-02] MEDS: DIPHENHYDRAMINE 50 MG/ML VIAL IV ONE (08:17)
--- NOTE | 2024-01-02 08:21 | P.CNS ---
Chief Complaint: Weakness, lethargy. History of Present Illness: 44-year-old female patient with medical history significant for diabetes, hypertension, history of menorrhagia who was evaluated for episode of weakness and lethargy. She was found to have severely low hemoglobin of 5.2 and very low MCV. Iron studies revealed very low ferritin of 2 and iron saturation of 3%. She reported significant menorrhagia for about 13 years show and she says this started after she had a tubal ligation procedure. She was found to have severe anemia and severe iron deficiency so she was admitted for inpatient care, IV iron repletion and blood product transfusion. She did report poor follow-up with primary care doctor and other doctors because her blood sugar was over 400 and she has not had any follow-up with any physician for couple of years. - Physical Exam General: Alert, Oriented x3 HEENT: Atraumatic Neck: Supple Respiratory: Normal air movement Cardiovascular: Regular rate/rhythm, Normal S1 S2 Gastrointestinal: Soft and benign Musculoskeletal: No swelling Neurological: Normal speech, Normal strength at 5/5 x4 extr Allergies No Known Allergies Allergy (Verified 02/17/17 03:44) Home Medications: Insulin Detemir [Levemir*] 40 unit SQ BID 02/17/17 Lisinopril [Zestril] 20 mg PO DAILY 02/17/17 Doxycycline Hyclate [Vibramycin] 100 mg PO BID #28 capsule 02/19/17 Metronidazole 500 mg PO BID #28 tablet 02/19/17 - Past Medical/Surgical History Diabetic: Yes -: Asthma -: hypertension -: diabetes-IDDM -: tubal ligation -: C- Section - Family History Father Medical History: Hypertension, Diabetes, Other (see notes) Notes: HIGH CHOLESTEROL Mother Medical History: Hypertension, Diabetes, Other (see notes) Notes: HGH CHOLESTEROL Sister Medical History: Hypertension, Diabetes, Other (see notes) Notes: HIGH CHOLESTEROL - Social History Smoking Status: Current every day smoker Alcohol use: Yes CD- Drugs: No Caffeine use: Yes Place of Residence: Home Physical Examination Temp Pulse Resp BP Pulse Ox 108 H 16 145/67 H 97 01/02/24 04:00 01/02/24 04:00 01/02/24 04:00 01/02/24 04:00 Laboratory Data (last 24 hrs) 01/01/24 01/01/24 22:05 22:05 WBC 7.90 Hgb 5.1 L* Hct 17.4 L Plt Count 437 H Sodium 132 L Potassium 3.9 BUN 12 Creatinine 0.78 Glucose 439 H* Total Bilirubin 0.2 AST 60 H ALT 54 Alkaline Phosphatase 321 H
[2024-01-02] MEDS ORDERED: D10W 125 ML IV PRN (08:23)
--- NOTE | 2024-01-02 08:23 | P.PN ---
Subjective Date of Service: 01/02/24 Chief Complaint: Weakness, lethargy. Reports weakness, admitted with severe, symptomatic anemia, hyperglycemia - Physical Exam General: Alert, Oriented x3 HEENT: Atraumatic Neck: Supple Respiratory: Normal air movement Cardiovascular: Regular rate/rhythm, Normal S1 S2 Gastrointestinal: Soft and benign Musculoskeletal: No swelling Neurological: Normal speech, Normal strength at 5/5 x4 extr Review of Systems PER HPI Physical Examination - Vital Signs Blood Pressure: 145/67 Pulse: 108 Respirations: 16 Pulse Ox (%): 97 - Studies Laboratory Data (last 24 hrs) 01/01/24 01/01/24 22:05 22:05 WBC 7.90 Hgb 5.1 L* Hct 17.4 L Plt Count 437 H Sodium 132 L Potassium 3.9 BUN 12 Creatinine 0.78 Glucose 439 H* Total Bilirubin 0.2 AST 60 H ALT 54 Alkaline Phosphatase 321 H Microbiology Data (last 24 hrs): 01/01/24 23:05 Nasopharnyx Influenza Type A Antigen Screen - Final 01/01/24 23:05 Nasopharnyx Influenza Type B Antigen Screen - Final Assessment And Plan - Plan - Plan Severe anemia: This is deemed iron deficient as she has iron sat of 3% and ferritin of 2.0. Packed red cell transfusion has been given. we will follow trend of hemoglobin. Continue on IV Ferrlecit to complete a full dose of 1000 mg. Will continue multivitamin for repletion of vitamin B12 and folate. Type and cross transfuse hemoglobin less than 7 Chest x-ray IMPRESSION: Patchy right central and basilar opacities concerning for pneumonia. Background mild pulmonary edema is possible but considered less likely. Echo ordered Diabetes: Uncontrolled Poorly controlled Continue carb restricted diet and sliding scale insulin for glucose control. Will continue to monitor blood sugar ACHS. Long-acting insulin added 40 twice daily Hypertension: We will monitor vital signs per unit protocol and continue antihypertensive medications. Prophylaxis: SCDs for DVT prophylaxis CODE STATUS: Full code Disposition: We will treat iron deficiency state, administer units of blood pro ducts for management of severe anemia and discharge her when she is deemed clinically stable. Discharge Plan: Home - Code Status/Comfort Care Code Status: Full Code Critical Care: No Time Spent Managing PTS Care (In Minutes): 35
[2024-01-02] MEDS ORDERED: NA CHLORIDE 0.9% 250 ML IV SCH (09:00)
[2024-01-02] MEDS: SOD FERRIC GLUC COMPLX/SUCROSE 125 MG in NA CHLORIDE 0.9% 100 ML IV SCH (09:00)
[2024-01-02 09:07] VITALS: O2SAT 97
[2024-01-02] MEDS: INSULIN GLARGINE 100 UNIT/ML SQ ONE (09:25)
[2024-01-02 09:28] LABS: Hemoglobin 7.1 g/dL (12.0-15.0)
[2024-01-02] MEDS ORDERED: INSULIN GLARGINE 100 UNIT/ML SQ ONE (09:30)
[2024-01-02] MEDS ORDERED: DIPHENHYDRAMINE 50 MG/ML VIAL ONE (09:30)
[2024-01-02] MEDS: ACETAMINOPHEN 500 MG TAB PO ONE (09:37)
[2024-01-02 10:39] LABS: Hematocrit 22.5 % (36.0-45.0)
--- NOTE | 2024-01-02 14:50 | RAD REPORT ---
EXAM DESCRIPTION: CT - Abdomen Pelvis W Contrast - 01/02/2024 12:50 pm CLINICAL HISTORY: SEVERE ANEMIA COMPARISON: Abdomen Pelvis W Contrast dated 02/16/2017; Abdomen Pelvis W Contrast dated 02/15/2017 ; Mri Abdomen W/Wo Cont dated 02/17/2017 TECHNIQUE: Thin cut axial CT imaging of the abdomen and pelvis was performed following intravenous a dministration of 100 mL Isovue 300. Multiplanar reformats were generated and reviewed. All CT scans are performed using dose optimization technique as appropriate and may include automated exposure control or mA/KV adjustment according to patient size. FINDINGS: Small layering bilateral pleural effusions. Subsegmental right middle lobe airspace opacit ies with adjacent thickening/effusion in the peripheral right major fissure. The liver shows a stable peripheral left lobe ovoid 1.9 small hypoenhancing lesion, unchanged since 2 017, and demonstrated on prior MRI to represent sequelae of focal fatty infiltration. Spleen, adrenal glands, and pancreas show no suspicious findings. Gallbladder is decompressed with nonspecific mild mucosal hyperenhancement. Motion artifact of the upper abdomen somewhat limits evaluation. Symmetric renal function is seen with no hydronephrosis or suspicious renal mass. No dilated bowel loops or bowel wall thickening. No free air, free fluid or inflammatory stranding. N o hernia, mass or bulky lymphadenopathy. Retroflexed uterus. The urinary bladder is without significa nt finding. No suspicious bony findings. IMPRESSION: Subsegmental right middle lobe opacities, which may reflect atelectasis or early pneumon ia. Layering small bilateral pleural effusions. Decompressed gallbladder with mild mucosal hyperenhancement, nonspecific, especially given the degree of motion artifact present. Please correlate clinically for evidence of acute cholecystitis. Retroflexed uterus.
[2024-01-02 16:50] LABS: Absolute Basophils 0.1 K/uL (0-0.5); Absolute Eosinophils 0.2 K/uL (0-0.5); Absolute Lymphocytes (CBC) 1.3 K/uL (0.7-4.9); Absolute Monocytes 0.4 K/uL (0.1-1.3); Absolute Neutrophil 3.9 K/uL (1.8-8.0); Eosinophils % 2.6 % (0-4.4); Hematocrit 22.4 % (36.0-45.0); Hemoglobin 7.1 g/dL (12.0-15.0); Lymphocytes % 22.5 % (15.3-44.8); MCHC 31.8 g/dL (32.0-36.0); Monocytes % 7.3 % (3.3-12.3); Neutrophils % 66.6 % (41.7-73.7); Nucleated Red Blood Cells % 0.2 % (0-0); Platelets 368 thou/uL (152-406); RBC Red Blood Cell Count 3.39 M/uL (3.86-4.86); Red Cell Distribution Width 26.8 % (12.1-15.2)
--- NOTE | 2024-01-02 17:05 | EKG ---
Test Date: 2024-01-01 Test Time: 22:48:07 Locomotive Operator: PALMIRA MEASUREMENT RESULTS: Intervals: Rate: 121 TN: 120 QRSD: 72 QT: 332 QTc: 471 [place]: P: 77 TN: 120 QRS: 76 T: -64 INTERPRETIVE STATEMENTS: Sinus tachycardia ST & T wave abnormality, consider inferior ischemia Abnormal ECG Compared to ECG 07/15/2019 13:54:23 ST (T wave) deviation now present Possible ischemia now present Sinus rhythm no longer present Electronically Signed On 01-02-24 17:02:47 EDUCATION ASSOCIATE by Wilfred Ashford
[2024-01-02 18:48] LABS: Platelet Estimate ADEQ; White Blood Cell Scan OK (OK)
[2024-01-02 18:49] LABS: Anisocytosis 2+; Blood Morphology Comment NOTED (NOT SEEN); Hypochromasia 1+; Microcytosis 1+; Polychromasia 1+
[2024-01-02] MEDS ORDERED: ALBUTEROL INHALER 200 PUFF/6.7 GM IH PRN (22:08)
[2024-01-02] MEDS: INSULIN GLARGINE 100 UNIT/ML SQ SCH (22:20)
[2024-01-02] MEDS: clonazePAM 0.5 MG TAB PO SCH (22:20)
[2024-01-02] MEDS ORDERED: ALBUTEROL INHALER 200 PUFF/6.7 GM IH ONE (23:05)
[2024-01-03] MEDS: LABETALOL 20 MG/4ML SYRINGE IV ONE (00:56)
[2024-01-03] MEDS: PIPER TAZO 3.375 GM in NA CHLORIDE 0.9% 100 ML IV SCH (02:58)
--- NOTE | 2024-01-03 04:54 | P.PN ---
Subjective Date of Service: 01/03/24 Chief Complaint: Weakness, lethargy. Reports weakness, admitted with severe, symptomatic anemia, hyperglycemia - Physical Exam General: Alert, Oriented x3 HEENT: Atraumatic Neck: Supple Respiratory: Normal air movement Cardiovascular: Regular rate/rhythm, Normal S1 S2 Gastrointestinal: Soft and benign Musculoskeletal: No swelling Neurological: Normal speech, Normal strength at 5/5 x4 extr Physical Examination - Vital Signs Temperature: 98.0 F Blood Pressure: 136/57 Pulse: 92 Respirations: 16 Pulse Ox (%): 98 - Studies Microbiology Data (last 24 hrs): 01/01/24 23:05 Nasopharnyx Influenza Type A Antigen Screen - Final 01/01/24 23:05 Nasopharnyx Influenza Type B Antigen Screen - Final Assessment And Plan - Plan - Plan Severe anemia: This is deemed iron deficient as she has iron sat of 3% and ferritin of 2.0. Packed red cell transfusion has been given. we will follow trend of hemoglobin. Continue on IV Ferrlecit to complete a full dose of 1000 mg. Will continue multivitamin for repletion of vitamin B12 and folate. Type and cross transfuse hemoglobin less than 7 Chest x-ray IMPRESSION: Patchy right central and basilar opacities concerning for pneumonia. Background mild pulmonary edema is possible but considered less likely. Echo ordered Diabetes: Uncontrolled Poorly controlled Continue carb restricted diet and sliding scale insulin for glucose control. Will continue to monitor blood sugar ACHS. Long-acting insulin added 40 twice daily Hypertension: We will monitor vital signs per unit protocol and continue antihypertensive medications. Prophylaxis: SCDs for DVT prophylaxis CODE STATUS: Full code Disposition: We will treat iron deficiency state, administer units of blood products for management of severe anemia and discharge her when she is deemed clinically stable.
[2024-01-03] MEDS: FUROSEMIDE 20 MG/ 2ML VIAL ONE (07:11)
[2024-01-03] MEDS: FUROSEMIDE 20 MG/ 2ML VIAL IV ONE (07:13)
--- NOTE | 2024-01-03 08:55 | P.DS ---
Admission Date: 01/01/24 Discharge Date: 01/03/24 Disposition: ROUTINE DISCHARGE Discharge Condition: FAIR Reason for Admission: Weakness, lethargy. Brief History of Present Illness: 43-year-old female patient with medical history significant for diabetes, hypertension, history of menorrhagia who was evaluated for episode of weakness and lethargy. She was found to have severely low hemoglobin of 5.2 and very low MCV. Iron studies revealed very low ferritin of 2 and iron saturation of 3%. She reported significant menorrhagia for about 13 years show and she says this started after she had a tubal ligation procedure. She was found to have severe anemia and severe iron deficiency so she was admitted for inpatient care, IV iron repletion and blood product transfusion. She did report poor follow-up with primary care doctor and other doctors because her blood sugar was over 400 and she has not had any follow-up with any physician for couple of years. General: Alert, Oriented x3 HEENT: Atraumatic Neck: Supple Respiratory: Normal air movement Cardiovascular: Regular rate/rhythm, Normal S1 S2 Gastrointestinal: Soft and benign Musculoskeletal: No swelling Neurological: Normal speech, Normal strength at 5/5 x4 extr Hospital Course: 43 year-old female patient presented with generalized weakness, hyperglycemia. Was noted to have severe anemia, uncontrolled diabetes.Condition improved with blood transfusion, packed red blood cells, insulin, strict blood glucose monitoring,. Diabetic education with nursing and dietary.Patient tolerating diet, stable for discharge to home with follow-up appointment with primary care physician. PROBLEM: Severe anemia Uncontrolled diabetes with hyperglycemia Pneumonia Blood glucose monitoring ACHS, training Blood glucose log take to next appointment Educated on insulin injection P.o. antibiotics, inhaler, p.o. steroid P.o. iron, Instructed to take blood pressure, blood sugar log to primary care physician for New medication Long-acting insulin Glucometer prescription Continue home medicines as previously prescribed GOAL: Clear understanding of disease process INSTRUCTIONS: Physician Discharge Instructions: -Follow-up with PCP in 1 to 2 weeks -Please call Dr. Ba at [phone] if any questions regarding hospital stay -Please call nursing station at [phone] if any nursing or medication questions -Return to the emergency room if symptoms worsen Diet: ADA, low sodium Activity: Fall precautions Vital Signs/Physical Exam: Temp Pulse Resp BP Pulse Ox 98.4 F 84 18 160/76 H 98 01/03/24 08:00 01/03/24 08:00 01/03/24 08:00 01/03/24 08:00 01/03/24 08:00 Laboratory Data at Discharge: WBC Cancelled 01/03/24 05:00 Hgb Cancelled 01/03/24 05:00 Hct Cancelled 01/03/24 05:00 Plt Count Cancelled 01/03/24 05:00 Sodium 132 mEq/L (136-145) L 01/01/24 22:05 Potassium 3.9 mEq/L (3.5-5.1) 01/01/24 22:05 BUN 12 mg/dL (7-18) 01/01/24 22:05 Creatinine 0.78 mg/dL (0.55-1.02) 01/01/24 22:05 Glucose 439 mg/dL (74-106) H* 01/01/24 22:05 Total Bilirubin 0.2 mg/dL (0.2-1.0) 01/01/24 22:05 AST 60 U/L (15-37) H 01/01/24 22:05 ALT 54 U/L (13-56) 01/01/24 22:05 Alkaline Phosphatase 321 U/L (45-117) H 01/01/24 22:05 Home Medications: Insulin Detemir [Levemir*] 40 unit SQ BID 02/17/17 Lisinopril [Zestril] 20 mg PO DAILY 02/17/17 Metronidazole 500 mg PO BID #28 tablet 02/19/17 Albuterol Inhaler [Ventolin Inhaler*] 2 puff IH Q6H PRN 30 Days #1 inh 01/03/24 Amox/Clavulanate [Augmentin 875-125 Tab] 875 mg PO BID #14 tab 01/03/24 Blood Sugar Diagnostic [Accu-Chek Guide Test Strip] 1 each ACHS 30 Days #1 bottle 01/03/24 Blood-Glucose Meter [Accu-Chek Guide Monitor System] 1 each ACHS 30 Days #1 ea 01/03/24 Doxycycline Hyclate [Vibramycin] 100 mg PO BID 10 Days #20 capsule 01/03/24 Ferrous Sulfate [Iron] 325 mg PO BID 30 Days #60 mg 01/03/24 Insulin Glargine,Hum.rec.anlog [Semglee] 40 unit SQ BID 30 Days #100 ml 01/03/24 lisinopriL [Prinivil*] 20 mg PO DAILY 30 Days #30 tab 01/03/24 predniSONE [Deltasone] 20 mg PO BID #11 tab 01/03/24 New Medications: Blood-Glucose Meter [Accu-Chek Guide Monitor System] [address] [facility] 30 Days #1 ea Blood Sugar Diagnostic [Accu-Chek Guide Test Strip] [address] [facility] 30 Days #1 bottle Amox/Clavulanate [Augmentin 875-125 Tab] 875 mg PO BID #14 tab Ferrous Sulfate [Iron] 325 mg PO BID 30 Days #60 mg predniSONE [Deltasone] 20 mg PO BID #11 tab lisinopriL [Prinivil*] 20 mg PO DAILY 30 Days #30 tab Insulin Glargine,Hum.rec.anlog [Semglee] 40 unit SQ BID 30 Days #100 ml Albuterol Inhaler [Ventolin Inhaler*] 2 puff IH Q6H PRN 30 Days #1 inh PRN Reason: Shortness Of Breath Doxycycline Hyclate [Vibramycin] 100 mg PO BID 10 Days #20 capsule Physician Discharge Instructions: 43 year-old female patient presented with generalized weakness, hyperglycemia. Was noted to have severe anemia, uncontrolled diabetes.Condition improved with blood transfusion, packed red blood cells, insulin, strict blood glucose monitoring,. Diabetic education with nursing and dietary.Patient tolerating diet, stable for discharge to home with follow-up appointment with primary care physician. PROBLEM: Severe anemia Uncontrolled diabetes with hyperglycemia Pneumonia Laboratory evaluation HIV 1 and 2 nonreactive Treated with an iron infusion while inpatient Blood glucose monitoring [facility], training Blood glucose log take to next appointment Educated on insulin injection New prescription for doxycycline for pneumonia New prescription for insulin for diabetes take as instructed twice daily New prescription for iron twice daily Take blood pressure, blood glucose log with you to your follow-up appointment Follow-up with DIRECTOR OF [employer]TER[employer]PLICATION[employer] for irregular menstrual bleeding Long-acting insulin Glucometer prescription Follow-up with primary care physician for medication refills monitoring of hemoglobin A1c Continue home medicines as previously prescribed GOAL: Clear understanding of disease process INSTRUCTIONS: Physician Discharge Instructions: -Follow-up with PCP in 1 to 2 weeks -Please call Dr. Ba at [phone] if any questions regarding hospital stay -Please call nursing station at [phone] if any nursing or medication questions -Return to the emergency room if symptoms worsen Diet: ADA, low sodium Activity: Fall precautions Diet: ADA Activity: Fall precautions Followup: NONE,NONE [Primary Care Provider] - Time spent managing pt's care (in minutes): 55
[2024-01-03 09:11] LABS: Absolute Basophils 0.1 K/uL (0-0.5); Absolute Eosinophils 0.3 K/uL (0-0.5); Absolute Lymphocytes (CBC) 1.9 K/uL (0.7-4.9); Absolute Monocytes 0.5 K/uL (0.1-1.3); Absolute Neutrophil 4.1 K/uL (1.8-8.0); Eosinophils % 3.9 % (0-4.4); Hematocrit 27.9 % (36.0-45.0); Hemoglobin 8.9 g/dL (12.0-15.0); Lymphocytes % 27.5 % (15.3-44.8); MCH 21.7 pg (27.0-35.0); MCHC 31.9 g/dL (32.0-36.0); MCV 68.1 fL (80-100); MPV 7.9 fL (7.6-11.3); Monocytes % 7.4 % (3.3-12.3); Neutrophils % 60.2 % (41.7-73.7); Nucleated Red Blood Cells % 0.5 % (0-0); Percent Reticulocyte Count 1.67 % (0.4-2.05); Platelets 445 thou/uL (152-406); RBC Red Blood Cell Count 4.09 M/uL (3.86-4.86); Red Cell Distribution Width 26.9 % (12.1-15.2)
[2024-01-03 09:14] LABS: PT Prothrombin Time 9.9 SECONDS (9.5-12.5); PTT, Activated Partial Thromb 28.9 SECONDS (24.3-36.9); Protime INR 0.9
[2024-01-03 09:53] LABS: Albumin 2.5 g/dL (3.4-5.0); Albumin/Globulin Ratio 0.6 (1.1-1.8); Anion Gap 8.4 mEq/L (5.0-15.0); Bilirubin Total 0.3 mg/dL (0.2-1.0); Globulin 4.4 g/dL (2.3-3.5); Potassium 3.4 mEq/L (3.5-5.1); Protein, Total 6.9 g/dL (6.4-8.2)
[2024-01-03] MEDS: lisinopriL 20 MG TAB PO SCH (09:54)
--- NOTE | 2024-01-03 12:30 | ECHO ---
HEIGHT: 5 ft 3 in WEIGHT: 199 lb 8 oz DATE OF STUDY: 01/03/[address]: Stephanie Ba MD 2-DIMENSIONAL: YES M.MODE: YES DOPPLER: YES COLOR FLOW: YES TDS: PORTABLE: YES DEFINITY: BUBBLE STUDY: DIAGNOSIS: CONGESTIVE HEART FAILURE, CARDIOMEGALY CARDIAC HISTORY: CATHERIZATION: NO SURGERY: NO PROSTHETIC VALVE: NO PACEMAKER: NO MEASUREMENTS (cm) DIASTOLIC (NORMALS) SYSTOLIC (NORMALS) IVSd 1.3 (0.6-1.2) LA Diam 3.6 (1.9-4.0) LVEF 74% LVIDd 3.9 (3.5-5.7) LVIDs 2.2 (2.0-3.5) %FS 42% LVPWd 1.3 (0.6-1.2) Ao Diam 2.3 (2.0-3.7) 2 DIMENSIONAL ASSESSMENT: RIGHT ATRIUM: NORMAL LEFT ATRIUM: NORMAL RIGHT VENTRICLE: NORMAL LEFT VENTRICLE: MILD LEFT VENTRICULAR HYPERTROPHY TRICUSPID VALVE: NORMAL MITRAL VALVE: NORMAL PULMONIC VALVE: NORMAL AORTIC VALVE: NORMAL PERICARDIAL EFFUSION: NONE AORTIC ROOT: NORMAL LEFT VENTRICULAR WALL MOTION: NORMAL DOPPLER/COLOR FLOW: NORMAL COMMENTS: 1. NORMAL LEFT VENTRICULAR SYSTOLIC AND DIASTOLIC FUNCTION, EJECTION FRACTION 55-60% 2. NORMAL WALL MOTION 3. MILD LEFT VENTRICULAR HYPERTROPHY TECHNOLOGIST: LEONARDO MASON
[2024-01-03 16:43] VITALS: BP 133/73; TEMP 97
[2024-01-03] MEDS ORDERED: PIPER TAZO 3.375 GM in NA CHLORIDE 0.9% 100 ML IV SCH (18:00)
== END 2024-01-03 17:32 | disposition home or self-care (01) | DRG 637 ==
LOC: ER 21:25 → ERHOLD 23:56 → 2ND 01-02 12:05
PROVIDERS: ADMIT Internal Medicine Nephrology; ATTEND Hospitalist
PROC: 30233N1 Transfusion of Nonautologous Red Blood Cells into Peripheral Vein, Percutaneous Approach (ICD-10-PCS; principal; 2024-01-02)
DX: E11.65 Type 2 diabetes mellitus with hyperglycemia (principal); J18.9 Pneumonia, unspecified organism; D50.9 Iron deficiency anemia, unspecified; I10 Essential (primary) hypertension; F17.210 Nicotine dependence, cigarettes, uncomplicated; Z79.4 Long term (current) use of insulin; Z11.52 Encounter for screening for COVID-19; Z98.51 Tubal ligation status; Z79.52 Long term (current) use of systemic steroids; Z79.899 Other long term (current) drug therapy; Z91.199 Patient's noncompliance with other medical treatment and regimen due to unspecified reason
CPT/HCPCS: 36415; 36430; 71045; 74177; 80048; 80053; 80076; 82607; 82728; 82947; 83036; 83540; 83605; 83880; 84145; 84466; 84484; 85014; 85018; 85025; 85044; 85610; 85730; 86850; 86900; 86901; 86920; 87040; 87205; 87389; 87804; 87811; 93005; 93306; 94640; 96374; 96375; 99285; J0692; J1200; J1815; J1940; J2270; J2543; J2916; J3535; J7030; J7050; J7613; J7644; P9016; Q9967

== ENCOUNTER 2024-02-23 17:47 | Inpatient (IN) | payer OTHER, SELFPAY ==
[2024-02-23] MEDS ORDERED: ACETAMINOPHEN 500 MG TAB ONE (18:31)
[2024-02-23 18:45] LABS: SARS-CoV-2 Antigen CONTROL BLUE LINE VIS/BG OK; SARS-CoV-2 Antigen Rapid Res Negative (Negative)
[2024-02-23 19:17] LABS: Specific Gravity 1.018 (1.005-1.030); Sqamous Epithelial <5 /HPF (None Seen); Urine Bacteria 20-50 /HPF (<20); Urine Bilirubin NEGATIVE (Negative); Urine Blood 3+ (Negative); Urine Clarity Extremely Turbid (Clear); Urine Color Light-Yellow (Yellow); Urine Culture Reflex Order NOT NEEDED; Urine Glucose 4+ (Over) (Negative); Urine Ketones NEGATIVE (Negative); Urine Microscopic Reflex YN ORDER UMIC; Urine Mucus Slight /HPF (None Seen); Urine Nitrite NEGATIVE (Negative); Urine Protein 3+ (Negative); Urine Urobilinogen Normal (Normal)
[2024-02-23 21:21] LABS: Absolute Basophils 0.1 K/uL (0-0.5); Absolute Eosinophils 0.1 K/uL (0-0.5); Absolute Lymphocytes (CBC) 1.7 K/uL (0.7-4.9); Absolute Monocytes 0.5 K/uL (0.1-1.3); Absolute Neutrophil 6.8 K/uL (1.8-8.0); Basophils % 0.6 % (0-1.3); Hematocrit 27.7 % (36.0-45.0); Hemoglobin 9.5 g/dL (12.0-15.0); Lymphocytes % 18.5 % (15.3-44.8); MCH 25.6 pg (27.0-35.0); MCHC 34.3 g/dL (32.0-36.0); MCV 74.5 fL (80-100); Monocytes % 5.8 % (3.3-12.3); Neutrophils % 74.1 % (41.7-73.7); Nucleated Red Blood Cells % 0.1 % (0-0); Platelets 351 thou/uL (152-406); RBC Red Blood Cell Count 3.73 M/uL (3.86-4.86); Red Cell Distribution Width 24.3 % (12.1-15.2)
[2024-02-23 21:22] LABS: PT Prothrombin Time 12.2 SECONDS (9.5-12.5); PTT, Activated Partial Thromb 29.9 SECONDS (24.3-36.9); Protime INR 1.11
[2024-02-23 21:36] LABS: Albumin 2.3 g/dL (3.4-5.0); Albumin/Globulin Ratio 0.4 (1.1-1.8); Anion Gap 13.1 mEq/L (5.0-15.0); Bilirubin Total 0.2 mg/dL (0.2-1.0); Globulin 5.2 g/dL (2.3-3.5); Potassium 3.1 mEq/L (3.5-5.1); Protein, Total 7.5 g/dL (6.4-8.2)
[2024-02-23 21:44] LABS: White Blood Cell Scan OK (OK)
[2024-02-23 21:45] LABS: Anisocytosis 2+; Blood Morphology Comment NOTED (NOT SEEN); Microcytosis 1+; Platelet Estimate ADEQ
[2024-02-23] MEDS ORDERED: CEFTRIAXONE 1000 MG/VIAL ONE (21:48)
[2024-02-23] MEDS ORDERED: WATER FOR INJ,STERILE 10 ML ONE (21:49)
[2024-02-23] MEDS ORDERED: INSULIN REGULAR (HUMAN) 100 UNIT/ML ONE (21:49)
[2024-02-23] MEDS ORDERED: NA CHLORIDE 0.9% 2,000 ML ONE (21:49)
--- NOTE | 2024-02-23 22:34 | EDPHYS ---
Physician Documentation [facility] Name: Pastora Patterson Age: 43 yrs Sex: Female : 1980 Arrival Date: 02/23/2024 Time: 17:47 Bed 7 Private MD: ED Physician Agustín Washington HPI: 02/22 18:23 This 43 yrs old Female presents to ER via Unassigned with complaints of Flu kb Symptoms. 18:23 Pt is a 43 year old female who presents for fever, bodyaches, runny nose, slight cough kb for 2 days. Denies sore throat, n/v/d. Reports foul smelling urine for one week. . Historical: - Allergies: 18:22 No Known Allergies; aa5 - PMHx: 18:22 Asthma; Diabetes - IDDM; Hypertension; aa5 18:28 Anemia; aa5 18:32 Bipolar disorder; aa5 - PSHx: 18:22 section; aa5 - Immunization history:: Adult Immunizations unknown. - Infectious Disease History:: Denies. - Social history:: Smoking status: Patient denies any tobacco usage or history of. ROS: 18:23 Constitutional: As per HPI kb Exam: 18:23 Constitutional: This is a well developed, well nourished patient who is awake, alert, kb and in no acute distress. Head/Face: Normocephalic, atraumatic. ENT: Moist Mucous membranes Cardiovascular: Regular rate Respiratory: Respirations even and unlabored. No increased work of breathing. Talking in full sentences Abdomen/GI: Soft, non-tender. No distention Skin: Warm, dry with normal turgor. Normal color. MS/ Extremity: Pulses equal, no cyanosis. Neurovascular intact. Full, normal range of motion. Neuro: Awake and alert, GCS 15, oriented to person, place, time, and situation. Moves all extremities. Normal gait. 22:51 ECG was reviewed by the Attending Physician. kb Vital Signs: 18:22 BP 173 / 83; Pulse 112; Resp 20 S; Temp 99.5(O); Pulse Ox 100% on R/A; Weight 72.57 kg aa5 (R); Height 5 ft. 3 in. (R); 20:09 BP 122 / 65; Pulse 94; Resp 18; Temp 98.9(O); Pulse Ox 98% on R/A; cm10 18:22 Body Mass Index 28.34 (72.57 kg, 160.02 cm) aa5 MDM: 18:03 Patient medically screened. kb 18:24 Data reviewed: vital signs, nurses notes. kb 20:13 Differential diagnosis: flu, covid, uri, uti. kb 21:06 ED course: Glucose in pt's urine prompted BGL check which read greater than 500. Serum kb labs ordered. 22:33 Consideration of Admission/Observation Patient was admitted/placed on observation. kb Escalation of care including admission/observation considered. Management of patient was discussed with the following: Hospitalist: Dr Starkey accepts pt for admission, wants CXR and CT . Counseling: I had a detailed discussion with the patient and/or guardian regarding the historical points, exam findings, and any diagnostic results supporting the discharge/admit diagnosis, lab results, the need for further work-up and treatment in the hospital. 02/22 18:25 Order name: Urinalysis w/ reflexes; Complete Time: 19:24 kb 02/22 18:25 Order name: Flu; Complete Time: 18:53 kb 02/22 18:25 Order name: SARS-COV-2 Antigen Rapid; Complete Time: 18:53 kb 02/22 20:17 Order name: Blood Culture Adult (2) kb 02/22 20:17 Order name: CBC with Diff; Complete Time: 21:47 kb 02/22 20:17 Order name: CMP; Complete Time: 21:39 kb 02/22 20:17 Order name: Lactate w/ 2H reflex if indic.; Complete Time: 21:23 kb 02/22 20:17 Order name: Protime (+inr); Complete Time: 21:23 kb 02/22 20:17 Order name: Ptt, Activated; Complete Time: 21:23 kb 02/22 20:28 Order name: Glucose, Ancillary Testing; Complete Time: 20:28 EDMS 02/22 21:25 Order name: CBC Smear Scan; Complete Time: 21:47 EDMS 02/22 22:51 Order name: CBC with Automated Diff EDMS 02/22 22:51 Order name: CBC with Automated Diff EDMS 02/22 22:51 Order name: Comprehensive Metabolic Panel EDTN 02/22 22:51 Order name: Comprehensive Metabolic Panel EDMS 02/22 23:17 Order name: Glucose, Ancillary Testing; Complete Time: 23:23 EDMS 02/22 22:40 Order name: Chest Single View XRAY kb 02/22 22:50 Order name: CT Abd/Pelvis - IV Contrast Only kb 02/22 20:17 Order name: EKG; Complete Time: 20:17 kb 02/22 20:12 Order name: Blood Glucose Level; Complete Time: 20:18 kb 02/22 20:17 Order name: Cardiac monitoring; Complete Time: 21:19 kb 02/22 20:17 Order name: EKG - Nurse/Tech; Complete Time: 22:17 kb 02/22 20:17 Order name: IV Saline Lock - Large Bore; Complete Time: 20:49 kb 02/22 20:17 Order name: Labs collected and sent; Complete Time: 20:49 kb 02/22 20:17 Order name: O2 Per Protocol; Complete Time: 21:19 kb 02/22 20:17 Order name: O2 Sat Monitoring; Complete Time: 21:19 kb 02/22 20:17 Order name: Vital Signs; Complete Time: 21:19 kb EC:51 Rate is 80 beats/min. Rhythm is regular. QRS [place] is Normal. NE interval is normal at kb 124 msec. QRS interval is normal at 82 msec. QT interval is normal at 493 msec. Administered Medications: 18:32 Drug: Acetaminophen PO 1000 mg PO once Route: PO; aa5 20:10 Follow up: Response: No adverse reaction; Temperature is decreased cm10 22:01 Drug: NS 0.9% IV 1000 ml IV at 1000 ml once Route: IV; Rate: 1000 ml; Site: left rv forearm; 23:14 Follow up: IV Status: Completed infusion; IV Intake: 1000ml rv 22:01 Drug: Rocephin IV 1 grams IV at calculated rate once; Given slow IV push per pharmacy rv instructions Route: IV; Rate: calculated rate; Site: left forearm; 23:14 Follow up: Response: No adverse reaction; IV Status: Completed infusion rv 22:01 Drug: NS 0.9% IV 1000 ml IV at 1000 ml once Route: IV; Rate: 1000 ml; Site: left rv forearm; 23:14 Follow up: IV Status: Completed infusion; IV Intake: 1000ml rv 22:02 Drug: Insulin Regular Human IVP 10 units IVP once {Co-Signature: [email or web address] (Geronimo Day rv RN).} {Note: bgl 475.} Route: IVP; Site: left forearm; 23:14 Follow up: Response: No adverse reaction; Marked relief of symptoms; Blood sugar is rv lowered Disposition Summary: 02/23/24 22:34 Hospitalization Ordered Notes: Hospitalization Status: Observation kb Provider: Micah Starkey Location: Telemetry/MedSurg (observation) kb Condition: Stable kb Problem: new kb Symptoms: are unchanged kb Bed/Room Type: Standard Room Assignment: 205(02/23/24 22:55) Diagnosis - Acute kidney failure, unspecified kb - UTI/ Urinary tract infection, site not specified kb - Hyperglycemia, unspecified kb Discharge Instructions: - Discharge Summary Sheet kb - Urinary Tract Infection, Adult, [id number] kb Forms: - Medication Reconciliation Form kb - SBAR form kb - Leadership Thank You Letter kb Prescriptions: - Augmentin 875-125 mg Oral Tablet - take 1 tablet ORAL route every 12 hours for 10 days; 20 tablet; Refills: 0, kb Product Selection Permitted Signatures: Dispatcher [employer] EDMS Kasandra Adrian, DRYING MACHINE OPERATOR PACKAGE YARNS-C DRYING MACHINE OPERATOR PACKAGE YARNS-CkYanci Rapp RN RN aa5 Anh Arriola, RN RN Randy Patton RN RN Barb Fletcher RN cm10 Geronimo Day RN [email or web address] Corrections: (The following items were deleted from the chart) 18:25 18:23 Pt is a 43 year old female who presents for fever, bodyaches, runny nose, slight kb cough for 2 days. Denies sore throat, n/v/d. . kb 20:17 20:17 BLOOD CULTURE*+BA.LAB.BRZ ordered. EDMS EDMS 20:17 20:17 CBC+H.LAB.BRZ ordered. EDMS EDMS 20:17 20:17 COMPREHENSIVE METABOLIC PANEL+C.LAB.BRZ ordered. EDMS EDMS 20:17 20:17 LACTATE+C.LAB.BRZ ordered. EDMS EDMS 20:17 20:17 PROTIME (+INR)+COAG.LAB.BRZ ordered. EDMS EDMS 20:17 20:17 PTT, ACTIVATED+COAG.LAB.BRZ ordered. EDMS EDMS 21:07 20:13 Counseling: I had a detailed discussion with the patient and/or guardian ambrocio regarding the historical points, exam findings, and any diagnostic results supporting the discharge/admit diagnosis, lab results, the need for outpatient follow up, a family practitioner, to return to the emergency department if symptoms worsen or persist or if there are any questions or concerns that arise at home, kb 22:40 22:40 Chest Single View+RAD.RAD.BRZ ordered. EDMS EDMS 22:41 22:33 Management of patient was discussed with the following: Hospitalist: Dr Jaky albrecht accepts pt for admission. kb 22:55 22:34 kb
--- NOTE | 2024-02-23 22:34 | ER ---
Nurse's Notes [facility] Name: Pastora Patterson Age: 43 yrs Sex: Female : 1980 Arrival Date: 02/23/2024 Time: 17:47 Bed 7 Private MD: Diagnosis: Acute kidney failure, unspecified;UTI/ Urinary tract infection, site not specified;Hyperglycemia, unspecified Presentation: 02/22 18:22 Chief complaint: Patient states: fever, runny nose, foul smelling urine x 4 days. aa5 18:22 Coronavirus screen: runny nose. Ebola Screen: Patient denies travel to an [facility] Ebola-affected area in the 21 days before illness onset. Initial Sepsis Screen: Does the patient meet any 2 criteria? HR > 90 bpm. Does the patient have a suspected source of infection? No. Patient's initial sepsis screen is negative. Risk Assessment: Do you want to hurt yourself or someone else? Patient reports no desire to harm self or others. Onset of symptoms was January 2024. 18:22 Acuity: MANASA 3 aa5 18:22 Method Of Arrival: Ambulatory aa5 Triage Assessment: 18:22 General: Appears uncomfortable, Behavior is calm, cooperative. Neuro: Level of aa5 Consciousness is awake, alert, obeys commands, Oriented to person, place, time, situation. Respiratory: Airway is patent Respiratory effort is even, unlabored, Respiratory pattern is regular, symmetrical. Derm: Skin is dry, Skin is normal, Skin temperature is warm. Historical: - Allergies: 18:22 No Known Allergies; aa5 - PMHx: 18:22 Asthma; Diabetes - IDDM; Hypertension; aa5 18:28 Anemia; aa5 18:32 Bipolar disorder; aa5 - PSHx: 18:22 section; aa5 - Immunization history:: Adult Immunizations unknown. - Infectious Disease History:: Denies. - Social history:: Smoking status: Patient denies any tobacco usage or history of. Screenin:10 [facility] ED Fall Risk Assessment (Adult) History of falling in the last 3 months, cm10 including since admission No falls in past 3 months (0 pts) Confusion or Disorientation No (0 pts) Intoxicated or Sedated No (0 pts) Impaired Gait No (0 pts) Mobility Assist Device Used No (0 pt) Altered Elimination No (0 pt) Score/Fall Risk Level 0 - 2 = Low Risk Oriented to surroundings, Maintained a safe environment, Hourly rounding (assess needs \T\ fall precautionary measures) done. Abuse screen: Denies threats or abuse. Denies injuries from another. Nutritional screening: No deficits noted. Tuberculosis screening: No symptoms or risk factors identified. Assessment: 20:09 Reassessment: Patient and/or family updated on plan of care and expected duration. Pain cm10 level reassessed. Patient is alert, oriented x 3, equal unlabored respirations, skin warm/dry/pink. 20:10 Pain: Denies pain. cm10 20:11 General: Appears in no apparent distress. comfortable, Behavior is calm, cooperative. cm10 Neuro: No deficits noted. Level of Consciousness is awake, alert, obeys commands, Oriented to person, place, time, situation. Respiratory: No deficits noted. Airway is patent Respiratory effort is even, unlabored, Respiratory pattern is regular, symmetrical. Derm: No deficits noted. Skin is healthy with good turgor. Musculoskeletal: No deficits noted. Range of motion: intact in all extremities. Vital Signs: 18:22 BP 173 / 83; Pulse 112; Resp 20 S; Temp 99.5(O); Pulse Ox 100% on R/A; Weight 72.57 kg aa5 (R); Height 5 ft. 3 in. (R); 20:09 BP 122 / 65; Pulse 94; Resp 18; Temp 98.9(O); Pulse Ox 98% on R/A; cm10 18:22 Body Mass Index 28.34 (72.57 kg, 160.02 cm) aa5 ED Course: 17:51 Patient arrived in ED. im 18:03 Kasandra Adrian FNP-C [facility]. kb 18:03 Agustín Washington MD is Attending Physician. kb 18:22 Arm band placed on. aa5 18:27 Triage completed. aa5 18:32 COVID swab sent to lab. Flu and/or RSV swab sent to lab. aa5 20:09 Barb Fletcher, ELIZABETH is Primary Nurse. cm10 20:10 Patient has correct armband on for positive identification. Provided Education on: ER cm10 process and procedures. 20:48 Inserted saline lock: 22 gauge in right antecubital area, using aseptic technique. vk 20:48 Initial lab(s) drawn, by me, sent to lab. vk 20:50 CBC with Diff Sent. vk 20:50 CMP Sent. vk 20:50 Lactate w/ 2H reflex if indic. Sent. vk 20:50 Protime (+inr) Sent. vk 20:50 Ptt, Activated Sent. vk 21:08 First set of blood cultures drawn by me. rv 21:19 Blood Culture Adult (2) Sent. rv 21:19 CBC with Diff Sent. rv 21:19 CMP Sent. rv 21:19 Lactate w/ 2H reflex if indic. Sent. rv 21:19 Protime (+inr) Sent. rv 21:19 Ptt, Activated Sent. rv 21:19 Lab(s) recollected, by me, sent to lab. Inserted saline lock: 20 gauge in left forearm, rv using aseptic technique. Blood collected. 21:20 No provider procedures requiring assistance completed. rv 21:22 Notified Nurse Practitioner and/or Physician Retort Fireman of a critical lab result(s), cm10 Lactic acid 2.6. 21:38 Notified Nurse Practitioner and/or Physician Retort Fireman of a critical lab result(s), cm10 Blood Glucose 475. 22:24 EKG done, by ED staff. vk 22:33 Micah Starkey MD is Hospitalizing Provider. kb 22:54 Chest Single View XRAY In Process Unspecified. EDMS 23:15 Patient admitted, IV remains in place. rv 23:20 Primary Nurse role handed off by Barb Fletcher, ELIZABETH cm10 Administered Medications: 18:32 Drug: Acetaminophen PO 1000 mg PO once Route: PO; aa5 20:10 Follow up: Response: No adverse reaction; Temperature is decreased cm10 22:01 Drug: NS 0.9% IV 1000 ml IV at 1000 ml once Route: IV; Rate: 1000 ml; Site: left rv forearm; 23:14 Follow up: IV Status: Completed infusion; IV Intake: 1000ml rv 22:01 Drug: Rocephin IV 1 grams IV at calculated rate once; Given slow IV push per pharmacy rv instructions Route: IV; Rate: calculated rate; Site: left forearm; 23:14 Follow up: Response: No adverse reaction; IV Status: Completed infusion rv 22:01 Drug: NS 0.9% IV 1000 ml IV at 1000 ml once Route: IV; Rate: 1000 ml; Site: left rv forearm; 23:14 Follow up: IV Status: Completed infusion; IV Intake: 1000ml rv 22:02 Drug: Insulin Regular Human IVP 10 units IVP once {Co-Signature: lj (Geronimo Day rv RN).} {Note: bgl 475.} Route: IVP; Site: left forearm; 23:14 Follow up: Response: No adverse reaction; Marked relief of symptoms; Blood sugar is rv lowered Medication: 20:10 VIS not applicable for this client. cm10 Intake: 23:14 IV: 1000ml; Total: 1000ml. rv 23:14 IV: 1000ml; Total: 2000ml. rv Outcome: 22:34 Decision to Hospitalize by Provider. kb 23:15 Admitted to Med/surg accompanied by tech, via wheelchair, room 205, Report called to rv marielle, faxed and received report 23:15 Condition: good 23:15 Instructed on the need for admit, 23:46 Patient left the ED. rv Signatures: Dispatcher [employer] EDMS Kasandra Adrian, FIREARMS INSPECTOR-C FIREARMS INSPECTOR-Ckb Yanci Oseguera, RN RN aa5 Randy Patton RN RN Heather Gutierrez Clarissa RN RN cm10 Dary Alberts James RN [email or web address]
[2024-02-23] MEDS ORDERED: ONDANSETRON 4 MG/2 ML VIAL IV PRN (22:45)
--- NOTE | 2024-02-23 22:45 | P.HP ---
Certification for Inpatient Patient admitted to: Observation With expected LOS: <2 Midnights Patient will require the following post-hospital care: None Practitioner: I am a practitioner with admitting privileges, knowledge of patient current condition, hospital course, and medical plan of care. Services: Services provided to patient in accordance with Admission requirements found in Title 42 Section 412.3 of the Code of Federal Regulations Patient History Date of Service: 02/23/24 Reason for admission: Fever and weakness History of Present Illness: 53-year-old female with hypertension diabetes, iron deficiency anemia status post PRBC 1 month ago, UTI with urosepsis at [facility] and got seen 1 month ago presented for body aches fever and chills as well as cough with runny nose since the last 1 week She states she has been having dysuria with foul-smelling urine Denies any chest pain shortness of breath. Admits to some nausea but no vomiting On arrival in the ED vital signs were stable except for temp of 99.2. Workup shows positive leukocyte esterase in UA. BMP shows elevated creatinine of 1.5 She has been admitted for UTI with sepsis and acute renal failure Allergies No Known Allergies Allergy (Verified 02/17/17 03:44) Home Medications: Insulin Detemir [Levemir*] 40 unit SQ BID 02/17/17 Lisinopril [Zestril] 20 mg PO DAILY 02/17/17 Metronidazole 500 mg PO BID #28 tablet 02/19/17 Albuterol Inhaler [Ventolin Inhaler*] 2 puff IH Q6H PRN 30 Days #1 inh 01/03/24 Amox/Clavulanate [Augmentin 875-125 Tab] 875 mg PO BID #14 tab 01/03/24 Blood Sugar Diagnostic [Accu-Chek Guide Test Strip] 1 each ACHS 30 Days #1 bottle 01/03/24 Blood-Glucose Meter [Accu-Chek Guide Monitor System] 1 each ACHS 30 Days #1 ea 01/03/24 Doxycycline Hyclate [Vibramycin] 100 mg PO BID 10 Days #20 capsule 01/03/24 Ferrous Sulfate [Iron] 325 mg PO BID 30 Days #60 mg 01/03/24 Insulin Glargine,Hum.rec.anlog [Semglee] 40 unit SQ BID 30 Days #100 ml 01/03/24 lisinopriL [Prinivil*] 20 mg PO DAILY 30 Days #30 tab 01/03/24 predniSONE [Deltasone] 20 mg PO BID #11 tab 01/03/24 - Past Medical/Surgical History Diabetic: Yes -: Asthma -: hypertension -: diabetes-IDDM -: tubal ligation -: C- Section - Family History Father -: Hypertension, Diabetes, Other (see notes) Notes: HIGH CHOLESTEROL Mother -: Hypertension, Diabetes, Other (see notes) Notes: HGH CHOLESTEROL Sister -: Hypertension, Diabetes, Other (see notes) Notes: HIGH CHOLESTEROL - Social History Smoking Status: Never smoker Alcohol use: Yes CD- Drugs: No Caffeine use: Yes Place of Residence: Home Review of Systems 10-point ROS is otherwise unremarkable Physical Examination - Physical Exam General: Alert, In no apparent distress, Oriented x3 HEENT: Atraumatic, Normocephalic, PERRLA Neck: Supple, 2+ carotid pulse no bruit Respiratory: Clear to auscultation bilaterally, Normal air movement Cardiovascular: Normal pulses, Regular rate/rhythm, Normal S1 S2 Gastrointestinal: Normal bowel sounds, Soft and benign, No ascites Musculoskeletal: No clubbing, No swelling Integumentary: No rashes, No breakdown, No significant lesion, No tenderness/swelling Neurological: Normal speech, Normal strength at 5/5 x4 extr - Studies Laboratory Data (last 24 hrs) 02/23/24 02/23/24 02/23/24 21:08 21:08 21:08 WBC 9.20 Hgb 9.5 L Hct 27.7 L Plt Count 351 PT 12.2 INR 1.11 APTT 29.9 Sodium 127 L Potassium 3.1 L BUN 24 H Creatinine 1.46 H Glucose 475 H* Total Bilirubin 0.2 AST 6 L ALT 12 L Alkaline Phosphatase 120 H Microbiology Data (last 24 hrs): 02/23/24 18:29 Nasopharnyx Influenza Type A Antigen Screen - Final 02/23/24 18:29 Nasopharnyx Influenza Type B Antigen Screen - Final Assessment and Plan - Problems (Diagnosis) (1) UTI (urinary tract infection) Current Visit: Yes Status: Acute - Plan Impression UTI with sepsis Acute kidney injury Hypokalemia Diabetes mellitus with hyperglycemia Hypertension Chronic anemia Plan Will admit to observation Start gentle IV fluid with NS/KCl Insulin sliding scale with Accu-Chek Monitor glucose levels Start empirical antibiotics with Rocephin Follow urine culture Given history of previous PID, will also cover with empirical Flagyl until urine culture results Monitor creatinine trend Renally dose all meds Hold lisinopril for now Subcutaneous Lovenox for DVT prophylaxis Possible discharge in a.m. if improving renal function Discharge Plan: Home - Advance Directives Does patient have a Living Will: No Does patient have a Durable POA for Healthcare: No - Code Status/Comfort Care Code Status Assessed: Yes Physician Review: Patient Assessed, Agree with Above Assessment and Plan Critical Care: No Time Spent Managing Pts Care (In Minutes): 65
[2024-02-23] MEDS ORDERED: D50W 25 GM/50 ML SYRINGE IV PRN (22:47)
[2024-02-23] MEDS ORDERED: GLUCAGON 1 MG/VIAL IM PRN (22:47)
[2024-02-23] MEDS ORDERED: HYDRALAZINE HCL 20 MG/ML VIAL IV PRN (22:47)
[2024-02-23] MEDS ORDERED: D10W 125 ML IV PRN (23:06)
[2024-02-24] MEDS: MORPHINE 2 MG/ML SYR IV PRN (00:02)
[2024-02-24] MEDS: NS KCL 20MEQ 20 MEQ/1,000 ML BAG IV SCH (00:03)
[2024-02-24] MEDS: METRONIDAZOLE 500mg IVPB 500 MG/100 ML BAG IV SCH (00:03)
[2024-02-24 01:12] VITALS: O2SAT 100; BMI 28.7
[2024-02-24] MEDS: ACETAMINOPHEN 500 MG TAB PO PRN (02:58)
[2024-02-24 03:42] LABS: Absolute Eosinophils 0.1 K/uL (0-0.5); Absolute Lymphocytes (CBC) 1.1 K/uL (0.7-4.9); Absolute Monocytes 0.6 K/uL (0.1-1.3); Absolute Neutrophil 7.9 K/uL (1.8-8.0); Basophils % 0.3 % (0-1.3); Eosinophils % 0.9 % (0-4.4); Hematocrit 27.6 % (36.0-45.0); Hemoglobin 9.5 g/dL (12.0-15.0); Lymphocytes % 11.8 % (15.3-44.8); MCH 25.5 pg (27.0-35.0); MCHC 34.3 g/dL (32.0-36.0); MCV 74.1 fL (80-100); MPV 8.4 fL (7.6-11.3); Platelets 344 thou/uL (152-406); RBC Red Blood Cell Count 3.72 M/uL (3.86-4.86); Red Cell Distribution Width 24.1 % (12.1-15.2)
[2024-02-24 04:05] LABS: ALT/SGPT < 10 U/L (13-56); AST/SGOT 6 U/L (15-37); Albumin 2.3 g/dL (3.4-5.0); Albumin/Globulin Ratio 0.5 (1.1-1.8); Alkaline Phosphatase 116 U/L (45-117); Anion Gap 11.1 mEq/L (5.0-15.0); BUN Blood Urea Nitrogen 19 mg/dL (7-18); Bicarbonate 23 mEq/L (21-32); Bilirubin Total 0.2 mg/dL (0.2-1.0); Glomerular Filtration Rate 79 ml/min (=/>90); Glucose Level 282 mg/dL (74-106); Potassium 3.1 mEq/L (3.5-5.1); Protein, Total 7.3 g/dL (6.4-8.2); Sodium Level 133 mEq/L (136-145)
[2024-02-24] MEDS ORDERED: ALBUTEROL INHALER 200 PUFF/6.7 GM IH PRN (04:18)
[2024-02-24] MEDS: IBUPROFEN 400 MG TAB PO ONE (05:19)
[2024-02-24 06:01] LABS: Specific Gravity 1.022 (1.005-1.030)
[2024-02-24] MEDS ORDERED: INSULIN GLARGINE 100 UNIT/ML SQ SCH (08:00)
[2024-02-24] MEDS: ENOXAPARIN 40 MG/0.4 ML SQ SCH (08:37)
[2024-02-24] MEDS: GABAPENTIN 100 MG CAP PO SCH (08:38)
[2024-02-24] MEDS: FERROUS SULFATE 325 MG TAB PO SCH (08:38)
[2024-02-24] MEDS: carvediloL 6.25 MG TAB PO SCH (08:38)
[2024-02-24] MEDS: POTASSIUM CL SA 10 MEQ TAB PO SCH (08:39)
[2024-02-24] MEDS: METFORMIN HCL 500 MG TAB PO SCH (08:39)
[2024-02-24] MEDS: INSULIN GLARGINE 100 UNIT/ML SQ SCH (08:40)
[2024-02-24] MEDS: INSULIN REGULAR (HUMAN) 100 UNIT/ML SQ SCH (08:40)
[2024-02-24] MEDS: CEFTRIAXONE 1,000 MG in NA CHLORIDE 0.9% 50 ML IVPB SCH (08:41)
--- NOTE | 2024-02-24 10:26 | P.PN ---
Subjective Date of Service: 02/24/24 Chief Complaint: Fever and weakness Subjective: Improving <Larissa Braswell - Last Filed: 02/24/24 10:30> Date of Service: 02/24/24 <Ximena Sanches Perla - Last Filed: 02/24/24 11:30> Review of Systems 10-point ROS is otherwise unremarkable General: Other (body aches, malaise), As per HPI Gastrointestinal: As per HPI Genitourinary: As per HPI <Larissa Braswell - Last Filed: 02/24/24 10:30> Physical Examination - Vital Signs Temperature: 97.8 F Blood Pressure: 118/73 Pulse: 73 Respirations: 16 Pulse Ox (%): 97 - Physical Exam General: Alert, In no apparent distress, Oriented x3 HEENT: Atraumatic, Normocephalic Neck: Supple Respiratory: Normal air movement Cardiovascular: Normal pulses Capillary refill: <2 Seconds Gastrointestinal: Normal bowel sounds Musculoskeletal: No clubbing, No swelling Integumentary: Other (pallor) Neurological: Normal speech, Normal tone Lymphatics: No axilla or inguinal lymphadenopathy External genitalia: Deferred Rectal: Deferred - Studies Laboratory Data (last 24 hrs) 02/23/24 02/23/24 02/23/24 21:08 21:08 21:08 WBC 9.20 Hgb 9.5 L Hct 27.7 L Plt Count 351 PT 12.2 INR 1.11 APTT 29.9 Sodium 127 L Potassium 3.1 L BUN 24 H Creatinine 1.46 H Glucose 475 H* Total Bilirubin 0.2 AST 6 L ALT 12 L Alkaline Phosphatase 120 H Microbiology Data (last 24 hrs): 02/23/24 18:29 Nasopharnyx Influenza Type A Antigen Screen - Final 02/23/24 18:29 Nasopharnyx Influenza Type B Antigen Screen - Final <Larissa Braswell - Last Filed: 02/24/24 10:30> - Studies Laboratory Data (last 24 hrs) 02/23/24 02/23/24 02/23/24 21:08 21:08 21:08 WBC 9.20 Hgb 9.5 L Hct 27.7 L Plt Count 351 PT 12.2 INR 1.11 APTT 29.9 Sodium 127 L Potassium 3.1 L BUN 24 H Creatinine 1.46 H Glucose 475 H* Total Bilirubin 0.2 AST 6 L ALT 12 L Alkaline Phosphatase 120 H Microbiology Data (last 24 hrs): 02/23/24 18:29 Nasopharnyx Influenza Type A Antigen Screen - Final 02/23/24 18:29 Nasopharnyx Influenza Type B Antigen Screen - Final <Ximena Sanches - Last Filed: 02/24/24 11:30> Assessment And Plan - Plan Problems (Diagnosis) (1) UTI (urinary tract infection) Current Visit: Yes Status: Acute - Plan Impression UTI with sepsis Acute kidney injury - resolved 02/23 Hypokalemia Diabetes mellitus with hyperglycemia Hypertension Chronic anemia Plan Will admit to observation Start gentle IV fluid with NS/KCl Insulin sliding scale with Accu-Chek - also on Semglee 15u TID per overnight orders (please confirm home med dose Levemir - is she taking?) Monitor glucose levels Start empirical antibiotics with Rocephin Follow urine culture Given history of previous PID, will also cover with empirical Flagyl until urine culture results Monitor creatinine trend Renally dose all meds Hold lisinopril for now - DEVON resolved, remains hypokalemic and hypertensive, will start back at reduced dose 02/23 Subcutaneous Lovenox for DVT prophylaxis Possible discharge in a.m. if improving renal function Discharge Plan: Home - Advance Directives Does patient have a Living Will: No Does patient have a Durable POA for Healthcare: No - Code Status/Comfort Care Code Status Assessed: Yes Physician Review: Patient Assessed, Agree with Above Assessment and Plan Physician Review: Patient Assessed, Agree with Above Assessment and Plan <Larissa Braswell - Last Filed: 02/24/24 10:30> - Plan Pt seen and examined. I agree with the note by the RN LABOR AND DELIVERY. Will continue rocephin for UTI and flagyl for possible PID. Continue home med for other chronic medical problems. <Ximena Sanches - Last Filed: 02/24/24 11:30>
[2024-02-24] MEDS: FLUOXETINE 20 MG CAP PO SCH (20:55)
[2024-02-24] MEDS: OLANZapine 2.5 MG TAB PO SCH (20:55)
[2024-02-25] MEDS: LOPERAMIDE HCL 2 MG CAPSULE PO ONE (04:38)
[2024-02-25 07:35] LABS: Anion Gap 8.9 mEq/L (5.0-15.0); Potassium 3.9 mEq/L (3.5-5.1)
[2024-02-25] MEDS ORDERED: MORPHINE 4 MG/ML SYR IV PRN (08:02)
[2024-02-25] MEDS ORDERED: SODIUM CHLORIDE 0.9% 10ML INJ IV PRN (08:06)
--- NOTE | 2024-02-25 08:14 | P.PN ---
Subjective Date of Service: 02/25/24 Chief Complaint: Fever and weakness Subjective: Improving (started having diarrhea, left medial leg tenderness) <Larissa Braswell - Last Filed: 02/25/24 08:07> Date of Service: 02/25/24 <Ximena Sanches Perla - Last Filed: 02/25/24 11:00> Review of Systems 10-point ROS is otherwise unremarkable General: As per HPI Gastrointestinal: Diarrhea Genitourinary: As per HPI Neurological: As per HPI <Larissa Braswell - Last Filed: 02/25/24 08:07> Physical Examination - Vital Signs Temperature: 97.8 F Blood Pressure: 128/74 Pulse: 88 Respirations: 16 Pulse Ox (%): 97 - Physical Exam General: Alert, In no apparent distress, Oriented x3 HEENT: Atraumatic, Normocephalic Neck: Supple Respiratory: Normal air movement Cardiovascular: Normal pulses, Regular rate/rhythm, Other (tenderness to left medial lower leg) Capillary refill: <2 Seconds Gastrointestinal: Soft and benign, Hyperactive Musculoskeletal: No clubbing, No swelling Integumentary: No rashes Neurological: Normal speech, Normal tone Lymphatics: No axilla or inguinal lymphadenopathy External genitalia: Deferred Rectal: Deferred <Larissa Braswell - Last Filed: 02/25/24 08:07> Assessment And Plan - Plan Problems (Diagnosis) (1) UTI (urinary tract infection) Current Visit: Yes Status: Acute - Plan Impression UTI with sepsis 02/23 Acute kidney injury - resolved 02/23 02/23 Hypokalemia - resolved Diabetes mellitus with hyperglycemia Hypertension Chronic anemia Plan Will admit Start gentle IV fluid with NS/KCl - stopped 02/24 Insulin sliding scale with Accu-Chek - also on Semglee 15u TID per overnight orders (please confirm home med dose Levemir - is she taking?) Monitor glucose levels Start empirical antibiotics with Rocephin Follow urine culture - so far no growth -> pending 02/24 Given history of previous PID, will also cover with empirical Flagyl until urine culture results Monitor creatinine trend Renally dose all meds Hold lisinopril for now - DEVON resolved, remains hypokalemic and hypertensive, will start back at reduced dose 02/23 02/24 Chem 7 normalized, BP 128/74 02/24 Leg pain US to r/o DVT, this is pt's 2nd inpatient stay in 2 weeks. Increase dose of Gabapentin Subcutaneous Lovenox for DVT prophylaxis Discharge Plan: Home pending culture sensitivities - Advance Directives Does patient have a Living Will: No Does patient have a Durable POA for Healthcare: No - Code Status/Comfort Care Code Status Assessed: Yes Physician Review: Patient Assessed, Agree with Above Assessment and Plan Physician Review: Patient Assessed, Agree with Above Assessment and Plan <Larissa Braswell - Last Filed: 02/25/24 08:07> - Plan Pt seen and examined. I agree with the note by the AUDIT SENIOR ASSOCIATE. Will continue rocephin for UTI and flagyl for possible PID. She complain s of left leg pain. Will f/u doppler ultrasound to r/o DVT. Continue home med for other chronic medical problems. <Ximena Sanches - Last Filed: 02/25/24 11:00>
[2024-02-25] MEDS: GABAPENTIN 100 MG CAP PO SCH (09:38)
[2024-02-25] MEDS: lisinopriL 10 MG TAB PO SCH (09:39)
[2024-02-25] MEDS: PANTOPRAZOLE 40 MG INJ IVP SCH (09:39)
[2024-02-25] MEDS: LACTOBACILLUS/ACIDOPHILUS TAB PO SCH (09:39)
--- NOTE | 2024-02-25 11:16 | RAD REPORT ---
EXAM DESCRIPTION: Chest Single View CLINICAL HISTORY: FEVER COMPARISON: None FINDINGS: Cardiac silhouette is within normal limits. There is no focal parenchymal or pleural disea se. There is no acute osseous process visualized. IMPRESSION: No evidence of acute cardiopulmonary disease. Electronically signed by: Tapan Oden MD 02/23/2024 11:06 PM CDT Due to temporary technical issues with the PACS/Fluency reporting system, reports are being signed by the in house radiologists without review as a courtesy to insure prompt reporting. The interpreting radiologist is fully responsible for the content of the report.
--- NOTE | 2024-02-25 11:21 | RAD REPORT ---
EXAM DESCRIPTION: Abdomen Pelvis W Contrast CLINICAL HISTORY: RIGHT SIDED ABD PAIN COMPARISON: CT ABDOMEN PELVIS 01/02/2024. TECHNIQUE: Contiguous axial images of the abdomen and pelvis were obtained after the administration of intravenous contrast followed by reconstruction images.This exam was performed according to our de partmental dose-optimization program, which includes automated exposure control, adjustment of the mA and/or kV according to patient size and/or use of iterative reconstruction technique. FINDINGS: Calcifications within the pelvis compatible with phleboliths. Area of low attenuation with in the periphery of the spleen could be related to recent splenic infarct. This is a new finding when compared with the prior exam. The liver, spleen, pancreas and kidneys are otherwise within normal limits. There is no hydronephrosi s or renal stones. The gallbladder is unremarkable by CT criteria. Adrenal glands are within normal l imits. Aorta is of normal caliber and tapering. There is no free fluid in the abdomen or pelvis. Ther e is no bowel obstruction. There is no stranding of the mesenteric fat to suggest an inflammatory res ponse. The appendix is within normal limits. There is no pericecal inflammation. IMPRESSION: Area of low attenuation within the periphery of the spleen compatible with recent spleni c infarct. This is a new finding when compared with the prior exam. Electronically signed by: Tapan Oden MD 02/24/2024 12:07 AM CDT Due to temporary technical issues with the PACS/Fluency reporting system, reports are being signed by the in house radiologists without review as a courtesy to insure prompt reporting. The interpreting radiologist is fully responsible for the content of the report.
[2024-02-25] MEDS: SUCRALFATE 1 GM TABLET PO SCH (12:02)
--- NOTE | 2024-02-25 12:33 | RAD REPORT ---
EXAM DESCRIPTION: USExtremity Venous Uni Ltd02/25/2024 11:58 am CLINICAL HISTORY: left leg pain COMPARISON: 2018 FINDINGS: Left common femoral, superficial femoral, greater saphenous, popliteal and posterior tibi al veins are compressible and demonstrate augmentation. Doppler demonstrates good flow. Grayscale, color and spectral analysis performed on all vessels IMPRESSION: No evidence of deep venous thrombosis involving the left lower extremity.
--- NOTE | 2024-02-26 07:02 | P.PN ---
Subjective Date of Service: 02/26/24 Chief Complaint: Fever and weakness Admitted for UTI and sepsis, Reported having diarrhea, left leg tenderness, - Physical Exam General: Alert, In no apparent distress, Oriented x3 HEENT: Atraumatic, Normocephalic Neck: Supple Respiratory: Normal air movement Cardiovascular: Normal pulses, Regular rate/rhythm, Other (tenderness to left medial lower leg) Capillary refill: <2 Seconds Gastrointestinal: Soft and benign, Hyperactive Musculoskeletal: No clubbing, No swelling Integumentary: No rashes Neurological: Normal speech, Normal tone Lymphatics: No axilla or inguinal lymphadenopathy Review of Systems Per HPI Physical Examination - Vital Signs Temperature: 97.6 F Blood Pressure: 100/56 Pulse: 80 Respirations: 18 Pulse Ox (%): 100 Assessment And Plan - Plan Assessment And Plan Acute cystitis with hematuria Splenic infarct UTI with sepsis improved Lactic acidosis 02/23 Acute kidney injury - resolved 02/23 02/23 Hypokalemia - resolved Diabetes mellitus with hyperglycemia Hypertension Chronic anemia Plan Acute cystitis with hematuria Sepsis without shock Splenic infarct Lactic acidosis CT of the abdomen for IMPRESSION: Area of low attenuation within the periphery of the spleen compatible with recent splenic infarct. This is a new finding when compared with the prior exam. : Calcifications within the pelvis compatible with phleboliths. Start gentle IV fluid with NS/KCl - stopped 02/24 Insulin sliding scale with Accu-Chek - also on Semglee 15u TID per overnight orders (please confirm home med dose Levemir - is she taking?) Monitor glucose levels Blood cultures negative, influenza negative, Start empirical antibiotics with Rocephin Follow urine culture - so far no growth -> pending 02/24 Given history of previous PID, will also cover with empirical Flagyl until urine culture results Trend H&H Acute kidney unknown baseline Hypokalemia Monitor creatinine trend Renally dose all meds Hold lisinopril for now - DEVON resolved, remains hypokalemic and hypertensive, will start back at reduced dose 02/23 02/24 Chem 7 normalized, BP 128/74 02/24 Leg pain US to r/o DVT, this is pt's 2nd inpatient stay in 2 weeks. Increase dose of Gabapentin Subcutaneous Lovenox for DVT prophylaxis Discharge Plan: Home pending culture sensitivities Discharge Plan: Home Critical Care: No Time Spent Managing PTS Care (In Minutes): 35
--- NOTE | 2024-02-26 13:02 | EKG ---
Test Date: 2024-02-23 Test Time: 22:08:10 Assistant Housekeeping Manager: MEKHI MEASUREMENT RESULTS: Intervals: Rate: 80 WA: 124 QRSD: 82 QT: 428 QTc: 493 [place]: P: 56 WA: 124 QRS: 66 T: 49 INTERPRETIVE STATEMENTS: Sinus rhythm Prolonged QT Abnormal ECG Compared to ECG 01/01/2024 22:48:07 Prolonged QT interval now present Sinus tachycardia no longer present ST (T wave) deviation no longer present Possible ischemia no longer present Electronically Signed On 02-26-24 12:56:09 CDT by Wilfred Ashford
--- NOTE | 2024-02-26 14:17 | P.DS ---
Admission Date: 02/24/24 Discharge Date: 02/26/24 Disposition: ROUTINE DISCHARGE Discharge Condition: FAIR Reason for Admission: Fever and weakness Brief History of Present Illness: 43-year-old female with hypertension diabetes, iron deficiency anemia status post PRBC 1 month ago, UTI with urosepsis at [facility] and got seen 1 month ago presented for body aches fever and chills as well as cough with runny nose since the last 1 week She states she has been having dysuria with foul-smelling urine.She has been admitted for UTI with sepsis and acute renal failure. O - Physical Exam General: Alert, In no apparent distress, Oriented x3 HEENT: Atraumatic, Normocephalic, PERRLA Neck: Supple, 2+ carotid pulse no bruit Respiratory: Clear to auscultation bilaterally, Normal air movement Cardiovascular: Normal pulses, Regular rate/rhythm, Normal S1 S2 Gastrointestinal: Normal bowel sounds, Soft and benign, No ascites Musculoskeletal: No clubbing, No swelling Integumentary: No rashes, No breakdown, No significant lesion, No tenderness/swelling Neurological: Normal speech, Normal strength at 5/5 x4 extr Hospital Course: 43-year-old female with hypertension diabetes, iron deficiency anemia status post PRBC 1 month ago, UTI with urosepsis at [facility] and got seen 1 month ago presented for body aches fever and chills as well as co she was admitted for UTI, treated with IV fluids, IV antibiotics. Ugh with runny nose since the last 1 week, She states she has been having dysuria with foul-smelling urine. was noted to have acute cystitis, with hematuria. sepsis. Condition improved with IV fluids, IV antibiotics. Patient tolerating diet, stable for discharge to home with follow-up appointment with primary care physician. Assessment acute cystitis with hematuria treated with IV fluids, IV antibiotics improved plan to discharge home on cefdinir/Flagyl antibiotics Sepsis without shock, improved with IV fluids, IV antibiotics, improved Chronic anemia stable Leg pain treated for Neurontin Acute kidney injury treated with IV fluids and p.o. improved Hypokalemia resolved with supplementation Discharge home on cefdinir, Flagyl Carafate, Neurontin for leg pain Continue home medicines as previously prescribed GOAL: Clear understanding of disease process INSTRUCTIONS: Physician Discharge Instructions: -DC IV and DC home -Follow-up with PCP in 1 to 2 weeks -Please call Dr. Ba at [phone] if any questions regarding hospital stay -Please call nursing station at [phone] if any nursing or medication questions -Return to the emergency room if symptoms worsen Diet: ADA, low sodium Activity: Fall precautions Vital Signs/Physical Exam: Temp Pulse Resp BP Pulse Ox 97.3 F 77 16 157/86 H 100 02/26/24 12:00 02/26/24 12:00 02/26/24 12:00 02/26/24 12:00 02/26/24 12:00 Laboratory Data at Discharge: WBC 9.70 thou/uL (4.3-10.9) 02/24/24 02:45 Hgb 9.5 g/dL (12.0-15.0) L 02/24/24 02:45 Hct 27.6 % (36.0-45.0) L 02/24/24 02:45 Plt Count 344 thou/uL (152-406) 02/24/24 02:45 PT 12.2 SECONDS (9.5-12.5) 02/23/24 21:08 INR 1.11 02/23/24 21:08 APTT 29.9 SECONDS (24.3-36.9) 02/23/24 21:08 Sodium 137 mEq/L (136-145) D 02/25/24 06:34 Potassium 3.9 mEq/L (3.5-5.1) D 02/25/24 06:34 BUN 14 mg/dL (7-18) 02/25/24 06:34 Creatinine 0.65 mg/dL (0.55-1.02) 02/25/24 06:34 Glucose 102 mg/dL (74-106) 02/25/24 06:34 Total Bilirubin 0.2 mg/dL (0.2-1.0) 02/24/24 02:45 AST 6 U/L (15-37) L 02/24/24 02:45 ALT < 10 U/L (13-56) L 02/24/24 02:45 Alkaline Phosphatase 116 U/L (45-117) 02/24/24 02:45 Home Medications: Insulin Detemir [Levemir*] 15 unit SQ TID 02/17/17 Albuterol Inhaler [Ventolin Inhaler*] 2 puff IH Q6H PRN 30 Days #1 inh 01/03/24 Ferrous Sulfate [Iron] 325 mg PO BID 30 Days #60 mg 01/03/24 lisinopriL [Prinivil*] 20 mg PO DAILY 30 Days #30 tab 01/03/24 Fluoxetine HCl [Prozac] 20 mg PO BEDTIME 02/24/24 Gabapentin 100 mg PO TID 02/24/24 Metformin HCl 1,000 mg PO TID 02/24/24 Olanzapine [Zyprexa] 5 mg PO BEDTIME 02/24/24 carvediloL [Carvedilol] 6.25 mg PO BID 02/24/24 Cefdinir [Cefdinir*] 300 mg PO BID #14 cap 02/26/24 Gabapentin [Neurontin*] 100 mg PO TID #90 cap 02/26/24 Sucralfate [Carafate*] 1 gm PO ACHS #120 tab 02/26/24 lisinopriL [Prinivil*] 10 mg PO DAILY #30 tab 02/26/24 metroNIDAZOLE [Flagyl] 500 mg PO Q8H #14 tab 02/26/24 New Medications: Sucralfate [Carafate*] 1 gm PO ACHS #120 tab Cefdinir [Cefdinir*] 300 mg PO BID #14 cap metroNIDAZOLE [Flagyl] 500 mg PO Q8H #14 tab Gabapentin [Neurontin*] 100 mg PO TID #90 cap lisinopriL [Prinivil*] 10 mg PO DAILY #30 tab Physician Discharge Instructions: OK to DC IV and DC home Follow up with PCP in 1-2 weeks, please call to schedule an appointment. Call Dr. Ba at [phone] if any questions regarding hospital stay Go to the nearest ED for any worsening symptoms. Call 2nd floor at [phone] if any questions regarding hospital stay. Diet: AHA Activity: Fall precautions Followup: NONE,NONE [Primary Care Provider] - Time spent managing pt's care (in minutes): 55
[2024-02-28 12:52] VITALS: BP 135/75; TEMP 97.5
== END 2024-02-26 18:39 | disposition home or self-care (01) | DRG 872 ==
LOC: ER 17:47 → ERHOLD 22:45 → 2ND 23:16 → OBSVTOIN 02-24 13:57
PROVIDERS: ADMIT Internal Medicine; ATTEND Hospitalist
DX: A41.9 Sepsis, unspecified organism (principal); N17.9 Acute kidney failure, unspecified; N30.01 Acute cystitis with hematuria; I10 Essential (primary) hypertension; E87.6 Hypokalemia; E11.65 Type 2 diabetes mellitus with hyperglycemia; D50.9 Iron deficiency anemia, unspecified; Z79.4 Long term (current) use of insulin; Z98.51 Tubal ligation status; Z11.52 Encounter for screening for COVID-19; Z79.52 Long term (current) use of systemic steroids; Z79.899 Other long term (current) drug therapy
CPT/HCPCS: 36415; 71045; 74177; 80048; 80053; 81001; 81025; 82947; 83605; 85025; 85610; 85730; 87040; 87804; 87811; 93005; 93971; 96365; 96375; 99285; C9113; G0378; J0696; J1650; J1815; J2270; J3480; J7030; Q9967

== ENCOUNTER 2024-07-12 14:12 | Emergency (ER) | payer OTHER ==
--- OUTSIDE RECORDS SUMMARY | 2024-07-12 14:16 | XMS REPORT | Continuity of Care Document ---
Author Name Unknown Address [address] [facility]. [address] [place] [address] [facility] thconnect Address [address] 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, Suki Lanza Attending Clinician [phone] Laura Reyes DO Attending Clinician [phone] LAURA REYES Attending Clinician Unavailable Doctor Unassigned, [place] Attending Clinician U gaboailable Laura Reyes DO Admitting Clinician [phone] LAURA REYES Admitting Clinician Unavailable Payers Payer Name Policy Type Policy Number Effective Date Expirati on Date Source [employer] [id number] 2023 00:00:00 Problems Condition Name Condition Details Condition Category Status Onset Date Resolution Date Last Treatment Date Treating Clinician Comments Source Sepsis Sepsis Disease Active 01-10 00:00: 00 [facility] Obesity (BMI 30-39.9) Obesity (BMI 30-39.9) Disease Active 01-10 00:00: 00 [facility] No known active problems No known active problems Disease [facility] Allergies, Adverse Reactions, Alerts Allergy Name Allergy Type Status Severity Reaction(s) Onset Date Inactive Date Treating Clinician Comments Source NO KNOWN ALLERGIE S Drug Class Active [facility] Social History Social Habit Start Date Stop Date Quantity Comments Source History of tobacco use Cigarette Smoker [facility] of Social function 2024-01-12 00:00:00 2024-01-12 00:00:00 [facility] Tobacco use and exposure 2024-01-11 00:00:00 2024-01-11 00:00:00 Smokeless tobacco non-user [facility] Sex Assigned At 1980 00:00:00 1980 00:00:00 [facility] Smoking Status Start Date Stop Date Source Unknown if ever smoked [facility] Smokes tobacco daily 2024-01-11 00:00:00 [facility] Medications Ordered Medication Name Filled Medication Name Start Date Stop Date Current Medication? Ordering Clinician Indication Dosage Frequency Signature (SIG) Comments Components Source insulin NPH (HUMULIN N) injection 15 Units 01-16 02:00: 00 Yes 15U 15 Units, Subcutaneo us, QAM+HS, First dose on Mon01/16/24 at 2100, Until Discontinu ed, Routine [facility] metFORMIN (GLUCOPHAGE ) tablet 1,000 mg 01-15 22:00: 00 Yes 1000mg 1,000 mg, Oral, BID MEALS, First dose on Mon01/16/24 at 1700, Until Discontinu ed, Routine [facility] ferrous sulfate 325 mg (65 mg iron) tablet 01-15 13:15: 48 Yes 325mg Take 1 tablet by mouth in the morning and 1 tablet at noon and 1 tablet in the evening. Take with meals. [facility] lisinopriL 20 mg tablet 01-15 13:15: 48 Yes 20mg Take 1 tablet by mouth in the morning. [facility] albuterol 90 mcg/actuati on inhaler 01-15 13:15: 48 Yes 2{puff} Inhale 2 Puffs every 6 (six) hours as needed for Wheezing or Shortness of Breath. [facility] insulin glarginebharatrecSimeonanlog (INSULIN GLARGINE SC) 01-15 09:37: 37 01-15 00:00 :00 No 40U inject 40 Units under the skin in the morning and 40 Units in the evening. [facility] diphenhydrA MINE (BENADRYL) tablet 25 mg 01-15 02:44: 02 Yes 25mg 25 mg, Oral, Q6HPRN, Starting on Mon01/15/24 at 2144, Until Discontinu ed, Routine, Itching [facility] carvediloL 6.25 mg tablet 01-15 00:00: 00 02-15 04:59 :00 No [id number] 6.25mg Take 1 tablet by mouth in the morning and 1 tablet in the evening. Take with meals. Do all this for 30 days. [facility] metFORMIN 1,000 mg tablet 01-15 00:00: 00 02-15 04:59 :00 No [id number] 1000mg Take 1 tablet by mouth in the morning and 1 tablet in the evening. Take with meals. Do all this for 30 days. [facility] insulin NPH 100 unit/mL injection 01-15 00:00: 00 02-15 04:59 :00 No [id number] 15U inject 15 Units under the skin every morning and at bedtime for 30 days. [facility] cefUROXime 500 mg tablet 01-15 00:00: 00 01-24 04:59 :00 No [id number] 500mg Take 1 tablet by mouth in the morning and 1 tablet in the evening. Do all this for 8 days. [facility] polyethylen e glycol 3350 powder 17 g 01-14 16:15: 00 Yes 17g 17 g, Oral, DAILY, First dose on Mon01/15/24 at 1115, Until Discontinu ed, Routine [facility] sodium bicarbonate (ANTACID (SODIUM BICARBONATE )) tablet 650 mg 01-14 13:30: 00 Yes 650mg 650 mg, Oral, QID, First dose on Mon01/15/24 at 0830, Until Discontinu ed, Routine [facility] diphenhydrA MINE (BENADRYL) injection 25 mg 01-14 06:45: 00 01-14 06:18 :00 No 25mg 25 mg, Slow IV Push, ONCE, 1 dose, On Mon01/15/24 at 0145, Routine [facility] fluticasone propionate 50 mcg/actuati on nasal spray 2 Southold 01-14 06:00: 00 Yes 2{spray } 2 Southold, Nasal, DAILY, First dose on Mon01/15/24 at 0100, Until Discontinu ed, Routine [facility] albuterol (VENTOLIN) inhaler 2 Puff 01-14 01:34: 59 Yes 2{puff} 2 Puff, Inhalation , Q6HPRN, Starting on Mon01/14/24 at 2034, Until Discontinu ed, Routine, Wheezing, Bronchospa sm, Chest tightness, Shortness of Breath [facility] insulin glargine (LANTUS U-100) injection 30 Units 01-14 01:00: 00 Yes 30U 30 Units, Subcutaneo us, BID, First dose (after last modificati on) on Mon01/14/24 at 2000, Until Discontinu ed [facility] acetaminoph en-codeine (TYLENOL #3) 300-30 mg tablet 1 tablet 01-13 23:33: 10 Yes 1{tbl} 1 tablet, Oral, Q4HPRN, Starting on Mon01/14/24 at 1833, Until Discontinu ed, Routine, Pain (scale 7-10) [facility] levalbutero l (XOPENEX) nebulizer solution 1.25 mg 01-13 17:00: 00 Yes 1.25mg 1.25 mg, Inhalation , QID, First dose on Mon01/14/24 at 1200, Until Discontinu ed, Routine [facility] NIFEdipine (ADALAT) capsule 10 mg 01-13 13:45: 00 01-14 18:55 :59 No 10mg 10 mg, Oral, TID, First dose on Mon01/14/24 at 0845, Until Discontinu ed, [facility] carved[facility] ([facility] tablet 6.25 mg 01-13 13:00: 00 Yes 6.25mg 6.25 mg, Oral, BID MEALS, First dose on Mon01/14/24 at 0800, Until Discontinu ed, Routine [facility] labetaloL (NORMODYNE) injection 20 mg 01-13 01:15: 00 01-13 00:31 :00 No 20mg 20 mg, Slow IV Push, ONCE, 1 dose, On 01/13/24 at 2015, Routine [facility] cefTRIAXone (ROCEPHIN) 2,000 mg in NaCl 0.9% (NS) 100 mL MINI-BAG 01-11 15:00: 00 01-16 14:59 :00 No 2000mg 2,000 mg, IV Piggyback, Q24H ABX, 5 doses, First dose (after last modificati on) on Mon01/12/24 at 1000, Last dose on Mon01/16/24 at 1000, Administer over 30 Minutes, 100 mL
Reas on for Anti-Infec tive: Empiric Therapy for Suspected Infection< br>Empiric Therapy Site: Respirator y
Durat ion of therapy: 5 days [facility] enoxaparin (LOVENOX) injection 40 mg 01-11 14:00: 00 Yes 40mg 40 mg, Subcutaneo us, DAILY, First dose on Mon01/12/24 at 0900, Until Discontinu ed, Routine [facility] lisinopriL (PRINIVIL,Z ESTRIL) tablet 20 mg 01-11 14:00: 00 Yes 20mg 20 mg, Oral, DAILY, First dose on Mon01/12/24 at 0900, Until Discontinu ed, Routine [facility] ferrous sulfate tablet 325 mg 01-11 13:00: 00 Yes 325mg 325 mg, Oral, TID MEALS, First dose on Mon01/12/24 at 0800, Until Discontinu ed, [facility]ine [facility] ipratropium -albuteroL (DUONEB) 0.5 mg-3 mg(2.5 mg base)/3 mL nebulizer solution 3 mL 01-11 01:00: 00 01-13 15:58 :44 No 3mL 3 mL, Inhalation , QID, First dose on Mon01/11/24 at 1999, Until Discontinu ed, Routine [facility] insulin glargine (LANTUS U-100) injection 25 Units 01-11 01:00: 00 01-13 16:01 :37 No 25U 25 Units, Subcutaneo us, BID, First dose on Mon01/11/24 at 1999, Until Discontinu ed [facility] NaCl 0.9% (NS) IV infusion 1,000 mL 01-11 00:45: 00 01-12 15:37 :01 No 1000mL at 75 mL/hr, IV Infusion, CONTINUOUS , Starting on Mon01/11/24 at 1945, Until [facility] 01/13/24 at 1037, Routine [facility] codeine-gua ifenesin (ROBITUSSIN AC) 10-100 mg/5 mL oral solution 5 mL 01-11 00:30: 00 01-11 01:43 :00 No 5mL 5 mL, Oral, ONCE, 1 dose, On Mon01/11/24 at 1930, Routine [facility] ibuprofen (IBU) tablet 400 mg 01-11 00:01: 03 Yes 400mg 400 mg, Oral, Q6HPRN, Starting on Mon01/11/24 at 1901, Until Discontinu ed, Routine, Temp > 38.5 C [facility] LORazepam (ATIVAN) tablet 1 mg 01-10 23:43: 33 Yes 1mg 1 mg, Oral, TIDPRN, Starting on Mon01/11/24 at 1843, Until Discontinu ed, Routine, Anxiety, Agitation [facility] enoxaparin (LOVENOX) injection 40 mg 01-10 22:00: 00 01-10 23:38 :07 No 40mg 40 mg, Subcutaneo us, DAILY, First dose on Mon01/11/24 at 1700, Until Discontinu ed, Routine [facility] labetaloL (NORMODYNE) injection 20 mg 01-10 18:45: 00 01-10 17:56 :00 No 20mg 20 mg, Slow IV Push, ONCE, 1 dose, On Mon01/11/24 at 1345, Routine [facility] doxycycline hyclate 100 mg capsule 01-10 18:30: 14 01-10 00:00 :00 No 100mg Take 1 capsule by mouth every 12 (twelve) hours. [facility] azithromyci n (ZITHROMAX) 500 mg in NaCl 0.9% (NS) 250 mL VIAL-MATE IV piggyback 01-10 17:45: 00 01-12 20:21 :00 No 500mg 500 mg, IV Piggyback, Q24H ABX, 3 doses, First dose on Mon01/11/24 at 1245, Last dose on [facility] 01/13/24 at 1245, Administer over 60 Minutes, 250 mL
Reas on for Anti-Infec tive: Empiric Therapy for Suspected Infection< br>Empiric Therapy Site: Respirator y
Durat ion of therapy: 72 hours [facility] HYDROcodone -acetaminop hen (NORCO) 10-325 mg tablet 1 tablet 01-10 17:15: 00 01-10 16:35 :00 No 1{tbl} 1 tablet, Oral, ONCE, 1 dose, On Mon01/11/24 at 1215, Routine [facility] Sliding Scale Insulin - Lispro (HumaLOG) 01-10 17:00: 00 Yes Subcutaneo us, TID MEALS+HS, First dose on Mon01/11/24 at 1200, Until Discontinu ed, Routine [facility] glucagon (GLUCAGEN DIAGNOSTIC KIT) injection 1 mg 01-10 16:38: 56 Yes 1mg 1 mg, Intramuscu lar, PRN, Starting on Mon01/11/24 at 1138, Until Discontinu ed, BRAD, Blood Glucose < or = 70 mg/dL and patient is NPO, unable to swallow or has mental changes. [facility] dextrose 50 % in water (D50W) injection 25 mL 01-10 16:38: 56 Yes 25mL 25 mL, Slow IV Push, PRN, Starting on Mirtha 01/11/24 at 1138, Until Discontinu ed, BRAD, Blood Glucose < or = 70 mg/dL and patient is NPO, unable to swallow or has mental status changes. [facility] ondansetron (ZOFRAN (PF)) injection 4 mg 01-10 16:38: 49 Yes 4mg 4 mg, Slow IV Push, Q6HPRN, Starting on Mon01/11/24 at 1138, Until Discontinu ed, Routine, Nausea and Vomiting (N/V) [facility] acetaminoph en-codeine (TYLENOL #3) 300-30 mg tablet 1 tablet 01-10 16:38: 43 01-12 16:37 :43 No 1{tbl} 1 tablet, Oral, Q6HPRN, Starting on Mirtha 01/11/24 at 1138, Until 01/13/24 at 1137, Routine, Pain (scale 4-6) [facility] acetaminoph en (TYLENOL) tablet 650 mg 01-10 16:38: 25 Yes 650mg 650 mg, Oral, Q6HPRN, Starting on Mon01/11/24 at 1138, Until Discontinu ed, Routine, Pain (scale 1-3), Temp > 38 C [facility] NaCl 0.9% (NS) IV infusion 1,400 mL 01-10 16:30: 00 01-10 15:25 :00 No 1400mL at 999 mL/hr, Intravenou s, ONCE, 1 dose, On Mon01/11/24 at 1130, Routine [facility] insulin regular human (HUMULIN R) injection 6 Units 01-10 16:15: 00 01-10 15:57 :00 No 6U 6 Units, Subcutaneo us, ONCE, 1 dose, On Mon01/11/24 at 1115, Routine
Indicatio n for insulin: Hyperglyce bryan [facility] iopamidol (ISOVUE 370-500 mL) injection 85 mL 01-10 15:38: 00 01-10 15:45 :00 No [id number] 85mL 85 mL, Intravenou s, ONCE, 1 dose, On Mirtha 01/11/24 at 1045, Routine [facility] cefTRIAXone (ROCEPHIN) 1,000 mg in NaCl 0.9% (NS) 100 mL MINI-BAG 01-10 15:30: 00 01-10 16:37 :00 No 1000mg 1,000 mg, IV Piggyback, ONCE, 1 dose, On Mirtha 01/11/24 at 1030, Administer over 30 Minutes, 100 mL
Reas on for Anti-Infec tive: Documented Infection< br>Documen stacey Infection Site: Urine
D uration of Therapy: Once (ED) [facility] ketorolac (TORADOL) injection 30 mg 01-10 15:00: 00 01-10 14:14 :00 No 30mg 30 mg, Slow IV Push, ONCE, 1 dose, On Mirtha 01/11/24 at 1000, Routine [facility] acetaminoph en (OFIRMEV) IV piggyback 1,000 mg 01-10 14:45: 00 01-10 14:52 :00 No 1000mg 1,000 mg, IV Piggyback, at 400 mL/hr Administer over 15 Minutes, ONCE, 1 dose, On Mirtha 01/11/24 at 0945, Routine
Is the patient strict NPO and unable to tolerate oral medication s? Yes [facility] NaCl 0.9% (NS) bolus infusion 1,000 mL 01-10 14:45: 00 01-10 15:57 :00 No 1000mL at 999 mL/hr, 1,000 mL, IV Infusion, ONCE, 1 dose, On Mirtha 01/11/24 at 0945, BRAD [facility] azithromyci n 250 mg tablet 12-25 00:00: 00 01-10 00:00 :00 No [id number] 250mg Take 1 tablet by mouth SEE-INSTRU CTIONS. Take 500 mg day 1, then 250 mg days 2 to 5. [facility] Vital Signs Vital Name Observation Time Observation Value Comments S ource Respiratory rate 2024-01-16 16:19:00 18 /min [facility] Oxygen saturation in Arterial blood by Pulse oximetry 2024-01-16 16:19:00 100 /min [facility] Systolic blood pressure 2024-01-16 12:19:00 173 mm[Hg] [facility] Diastolic blood pressure 2024-01-16 12:19:00 93 mm[Hg] [facility] Heart rate 2024-01-16 12:19:00 80 /min [facility] Body temperature 2024-01-16 12:19:00 36.5 Sarah [facility] Body weight 2024-01-16 08:12:00 82.918 kg [facility] BMI 2024-01-16 08:12:00 32.38 kg/m2 [facility] Body height 2024-01-11 18:05:00 160 cm [facility] Procedures Procedure Date / Time Performed Performing Clinician Source POCT GLUCOSE (AUTOMATED) 2024-01-16 12:50:00 Oneida Reyes [facility] POCT GLUCOSE (AUTOMATED) 2024-01-16 10:47:00 Oneida Reyes [facility] BASIC METABOLIC PANEL (NA, K, CL, CO2, GLUCOSE, BUN, CREATININE, CA) 2024-01-16 09:33:00 Laura Reyes [facility] CBC WITH DIFF 2024-01-16 09:33:00 Laura Reyes [facility] POCT GLUCOSE (AUTOMATED) 2024-01-16 02:03:00 Oneida Reyes [facility] POCT GLUCOSE (AUTOMATED) 2024-01-15 21:32:00 Oneida Reyes [facility] POCT GLUCOSE (AUTOMATED) 2024-01-15 16:38:00 Oneida Reyes [facility] CBC WITH DIFF 2024-01-15 15:54:00 Laura Reyes [facility] POCT GLUCOSE (AUTOMATED) 2024-01-15 12:55:00 Oneida Reyes [facility] MAGNESIUM 2024-01-15 10:05:00 Laura Reyes [facility] BASIC METABOLIC PANEL (NA, K, CL, CO2, GLUCOSE, BUN, CREATININE, CA) 2024-01-15 10:05:00 Laura Reyes [facility] CBC WITH DIFF 2024-01-15 10:05:00 Laura Reyes [facility] POCT GLUCOSE (AUTOMATED) 2024-01-15 00:58:00 [facility] PO[facility]UCOSE (AUTOMATED) 2024-01-14 21:34:00 Oneida Reyes [facility] US ABDOMEN LIMITED 2024-01-14 17:48:51 Laura Reyes [facility] RETROPERITONEAL LIMITED 2024-01-14 17:45:00 Laura Reyes [facility] POCT GLUCOSE (AUTOMATED) 2024-01-14 16:31:00 One[facility] Reyes [facility] POCT GLUCOSE (AUTOMATED) 2024-01-14 12:35:00 [facility] MAGNESIUM 2024-01-14 09:39:00 Laura Reyes [facility] IRON 2024-01-14 09:39:00 Laura Reyes [facility] BASIC METABOLIC PANEL (NA, K, CL, CO2, GLUCOSE, BUN, CREATININE, CA) 2024-01-14 09:39:00 Laura Reyes [facility] CBC WITH DIFF 2024-01-14 09:39:00 Laura Reyes [facility] POCT GLUCOSE (AUTOMATED) 2024-01-14 01:40:00 [facility] POCT GLUCOSE (AUTOMATED) 2024-01-13 21:29:00 One[facility] Re[facility] POCT GLUCOSE (AUTOMATED) 2024-01-13 16:30:00 [facility] BLOOD CULTURE SCREEN 2024-01-13 16:18:00 Laura Reyes [facility] POCT GLUCOSE (AUTOMATED) 2024-01-13 12:36:00 One[facility] Reyes [facility] MAGNESIUM 2024-01-13 08:17:00 Cayetano Squires [facility] BASIC METABOLIC PANEL (NA, K, CL, CO2, GLUCOSE, BUN, CREATININE, CA) 2024-01-13 08:17:00 [facility] 2024-01-13 08:17:00 Cayetano Squires [facility] POCT GLUCOSE (AUTOMATED) 2024-01-13 06:26:00 Oneida Reyes [facility] POCT GLUCOSE (AUTOMATED) 2024-01-13 01:37:00 Oneida Reyes [facility] POTASSIUM SERUM 2024-01-13 01:11:00 Cayetano Squires [facility] POCT GLUCOSE (AUTOMATED) 2024-01-12 21:21:00 Oneida Reyes [facility] POCT GLUCOSE (AUTOMATED) 2024-01-12 16:41:00 Oneida Reyes [facility] POCT GLUCOSE (AUTOMATED) 2024-01-12 12:39:00 Oneida Reyes [facility] TOTAL IRON BINDING CAPACITY 2024-01-12 02:28:00 [facility] HEPATITIS B SURFACE ANTIBODY 2024-01-12 02:28:00 Laura Reyes [facility] HEPATITIS B SURFACE ANTIGEN 2024-01-12 02:28:00 Laura Reyes [facility] HCV ANTIBODY 2024-01-12 02:28:00 Laura Reyes [facility] HBC ANTIBODY (IGM & IGG) 2024-01-12 02:28:00 Oneida Reyes [facility] POCT GLUCOSE (AUTOMATED) 2024-01-12 01:07:00 Oneida Reyes [facility] POCT GLUCOSE (AUTOMATED) 2024-01-11 22:33:00 Oneida Reyes [facility] LEGIONELLA AND STREPTOCOCCUS PNEUMONIAE URINARY ANTIGENS 2024-01-11 19:36:00 Laura Reyes [facility] PROCALCITONIN 2024-01-11 18:25:00 Laura Reyes [facility] POCT GLUCOSE (AUTOMATED) 2024-01-11 17:23:00 Oneida Reyes [facility] POCT GLUCOSE (AUTOMATED) 2024-01-11 15:57:00 Norma Mabry [facility] CT CHEST PULMONARY ANGIOGRAM 2024-01-11 15:43:21 Suki Mabry [facility] CT ABDOMEN PELVIS W CONTRAST 2024-01-11 15:43:21 Suki Mabry [facility] URINE CULTURE 2024-01-11 15:29:00 Suki Mabry [facility] AC ABG + LACTIC ACID 2024-01-11 14:31:00 Janette Mabry [facility] XR CHEST 1 VW 2024-01-11 14:19:14 Suki Mabry [facility] HB ABO GROUPING 2024-01-11 14:18:00 [facility]OUT[facility] & RHYTHM STRIP 2024-01-11 14:13:01 Suki Mabry [facility] N-TERMINAL PRO-BNP 2024-01-11 14:05:00 Suki Mabry [facility] COVID-19 (ID NOW RAPID TESTING) 2024-01-11 14:05:00 Suki Mabry [facility] LAB ONLY COVID INTERPRETATION 2024-01-11 14:05:00 Suki Mabry [facility] BLOOD CULTURE SCREEN 2024-01-11 14:05:00 Janette Mabry [facility] MAGNESIUM 2024-01-11 14:05:00 Suki Mabry [facility] C-REACTIVE PROTEIN 2024-01-11 14:05:00 Suki Mabry [facility] TROPONIN I 2024-01-11 14:05:00 Suki Mabry [facility] COMP. METABOLIC PANEL ([id number]) 2024-01-11 14:05:00 Suki Mabry [facility] IRON PANEL 2024-01-11 14:05:00 Suki Mabry [facility] CBC WITH DIFF 2024-01-11 14:05:00 Suki Mabry [facility] GLYCOSYLATED HEMOGLOBIN (A1C) 2024-01-11 14:05:00 Suki Mabry [facility] PROTHROMBIN TIME / INR 2024-01-11 14:05:00 [place] Mabry ala [facility] D-DIMER 2024-01-11 14:05:00 Suki Mabry [facility] ACTIVATED PARTIAL THRMPLAS LEOBARDO 2024-01-11 14:05:00 Suki Mabry [facility] URINALYSIS 2024-01-11 14:05:00 Suki Mabry [facility] RAPID INFLUENZA A/B 2024-01-11 14:05:00 Suki Mabry [facility] POCT TEST 2024-01-11 14:05:00 Suki Mabry [facility] BLOOD CULTURE WORKUP 2024-01-11 13:50:00 Janette Mabry [facility] GRAM NEGATIVE BLOOD PATHOGENS DNA PROBE-ANAEROBIC 2024-01-11 13:50:00 Suki Mabry [facility] BLOOD CULTURE SCREEN 2024-01-11 13:50:00 Janette Mabry [facility] CONSENT/REFUSAL FOR DIAGNOSIS AND TREATMENT 2024-01-11 13:18:36 Doctor Unassigned, [place] [facility] OP CORRESPONDENCE 2019-06-26 05:01:00 Doctor Bette ssigned, [place] [facility] Encounters Start Date/Time End Date/Time Encounter Type Admission Type Attending [facility] Care Facility Care Department Encounter ID Source 2024-01-11 08:37:00 2024-01-16 13:06:00 Hospital Encounter Suki Mabry [facility] [id number] [facility] 2024-01-11 08:37:00 2024-01-16 13:06:00 Inpatient X LAURA REYES [facility] [id number] [facility] 2019-06-26 00:00:00 2019-06-26 00:00:00 Orders Only Doctor Unassigned, [place] [facility] [id number] [facility] Results Test Description Test Time Test Comments Results Result Co mments Source [facility] GLUCOSE (AUTOMATED)2024-01-16 12:51:40* Test Item Value Reference Range Interpretation Comme nts POCT GLU (test code = 3113605646) 91 mg/dL 70-110 Lab Interpretation (test cod e = [id number]) Normal [facility] GLUCOSE (AUTOMATED)2024-01-16 10:48:21* Test Item Value Reference Range Interpretation Comme nts POCT GLU (test code = 3595040356) 81 mg/dL 70-110 Lab Interpretation (test cod e = 98923-0) Normal [facility] GLUCOSE (AUTOMATED)2024-01-16 02:05:11* Test Item Value Reference Range Interpretation Comme nts POCT GLU (test code = 5577493079) 108 mg/dL 70-110 Lab Interpretation (test cod e = 47943-4) Normal [facility] GLUCOSE (AUTOMATED)2024-01-15 21:33:26* Test Item Value Reference Range Interpretation Comme nts POCT GLU (test code = 8625381545) 114 mg/dL 70-110 H Lab Interpretation (test cod e = 68054-9) Abnormal [facility] GLUCOSE (AUTOMATED)2024-01-15 16:40:25* Test Item Value Reference Range Interpretation Comme nts POCT GLU (test code = 0887258579) 132 mg/dL 70-110 H Lab Interpretation (test cod e = 16866-7) Abnormal [facility] GLUCOSE (AUTOMATED)2024-01-15 12:56:15* Test Item Value Reference Range Interpretation Comme nts POCT GLU (test code = 6128568215) 124 mg/dL 70-110 H Lab Interpretation (test cod e = 82780-9) [id number] 10:03:41Ordering physician: LAURA REYES Indication: Right upper quadrant pain Comparison: CT of the abdomen and pelvis dated 01/11/2024 Technique: Grayscale and color Doppler images of the right upper quadrantwere performed. Findings: The visualized aorta and IVC are normal in caliber. There isnormal color-flow in the main portal vein, with a normal vascular waveform.There is normal echogenicity in the liver, without definite focal lesion.The visualized pancreas is within normal limits. The spleen is withinnormal limits at 12 cm in long axis. There is a questionable small splenicgranuloma. The gallbladder is normal in appearance without cholelithiasis, wall edemaor sonographic Winston's sign. The common bile duct is nondilated at 2 mm.[facility] GLUCOSE (AUTOMATED) 2024-01-15 00:59:44* Test Item Value Reference Range Interpretation Comme nts POCT GLU (test code = 6647577680) 130 mg/dL 70-110 H Lab Interpretation (test cod e = 77073-9) Abnormal [facility] GLUCOSE (AUTOMATED)2024-01-14 21:45:36* Test Item Value Reference Range Interpretation Comme nts POCT GLU (test code = 6003368759) 124 mg/dL 70-110 H Lab Interpretation (test cod e = 86689-6) [facility]normal [facility] RETROPERITONEAL [id number] 18:04:32 ULTRASOUND RETROPERITONEAL LIMITED Ordering physician: . RENATA REYES. ?LAURA REYES HISTORY: . ?R/O perinephric acbcess . Technique: Transverse and sagittal ultrasound images of the kidneys andbladder were obtained. Images were permanently stored to the ?PACS. FINDINGS: Right kidney: Right kidneymeasures 12.8 x 5.0 x 6.4 cm. No hydronephrosisof the right kidney. Left kidney: Left kidney measures 12.6 x 6.0 x 6.0 cm withouthydronephrosis Urinary bladder: Urinary bladder is well distended. Estimated bladdervolume of 496 cc. Aorta and IVC were not well visualized.[facility] Iron Binding [id number] 16:58:46* Test Item Value Reference Range Interpretation Comme nts TIBC (test code = 8955101005) 285 ug/dL 250-410 Lab Interpretation (test cod e = 91471-1) Normal [facility] GLUCOSE (AUTOMATED)2024-01-14 16:33:13* Test Item Value Reference Range Interpretation Comme nts POCT GLU (test code = 7970364638) 120 mg/dL 70-110 H Lab Interpretation (test cod e = 41035-4) Abnormal [facility] GLUCOSE (AUTOMATED)2024-01-14 12:37:58* Test Item Value Reference Range Interpretation Comme nts POCT GLU (test code = 4908685137) 223 mg/dL 70-110 H Lab Interpretation (test cod e = 69775-3) Abnormal [facility] GLUCOSE (AUTOMATED)2024-01-14 01:42:00* Test Item Value Reference Range Interpretation Comme nts POCT GLU (test code = 9023468171) 219 mg/dL 70-110 H Lab Interpretation (test cod e = 09834-7) Abnormal [facility] GLUCOSE (AUTOMATED)2024-01-13 21:35:47* Test Item Value Reference Range Interpretation Comme nts POCT GLU (test code = 8087323683) 232 mg/dL 70-110 H Lab Interpretation (test cod e = 29366-9) Abnormal [facility] GLUCOSE (AUTOMATED)2024-01-13 16:53:17* Test Item Value Reference Range Interpretation Comme nts POCT GLU (test code = 6074368067) 187 mg/dL 70-110 H Lab Interpretation (test cod e = 12495-5) Abnormal [facility] GLUCOSE (AUTOMATED)2024-01-13 12:46:37* Test Item Value Reference Range Interpretation Comme nts POCT GLU (test code = 0097191098) 128 mg/dL 70-110 H Lab Interpretation (test cod e = 29574-2) [facility]normal [facility] CenterBlood Culture - Peripheral # [id number] 12:18:06* Test Item Value Reference Range Interpretation Comme nts Blood Culture-Aerobic (test code = 44366-9) Culture positive. See Blood Culture Workup for additional information. No growth AA Previous preliminary verified result was Culture In Progress on 01/11/2024 at 2340 CDT Blood Culture-Anaerobic (test code = 45407-8) Culture positive. See Blood Culture Workup for additional information. No growth AA Previous preliminary verified result was Culture In Progress on 01/11/2024 at 1301 CDT Lab Interpretation (test code = 69327-5) Abnormal [facility] GLUCOSE (AUTOMATED)2024-01-13 06:27:42* Test Item Value Reference Range Interpretation Comme nts POCT GLU (test code = 7697525935) 202 mg/dL 70-110 H Lab Interpretation (test cod e = 44787-7) Abnormal [facility] GLUCOSE (AUTOMATED)2024-01-13 01:37:55* Test Item Value Reference Range Interpretation Comme nts POCT GLU (test code = 7413630969) 107 mg/dL 70-110 Lab Interpretation (test cod e = 06701-6) Normal [facility] GLUCOSE (AUTOMATED)2024-01-12 21:23:08* Test Item Value Reference Range Interpretation Comme nts POCT GLU (test code = 1770155025) 122 mg/dL 70-110 H Lab Interpretation (test cod e = 38212-0) Abnormal [facility] GLUCOSE (AUTOMATED)2024-01-12 18:05:30* Test Item Value Reference Range Interpretation Comme nts POCT GLU (test code = 8740843825) 125 mg/dL 70-110 H Lab Interpretation (test cod e = 57321-5) Abnormal [facility] CenterC-REACTIVE [id number] 17:21:08* Test Item Value Reference Range Interpretation Comme nts CRP (test code = 4381036816) 7.6 mg/dL <=0.8 H Lab Interpretation (test cod e = 01909-4) Abnormal [facility] CenterGRAM NEGATIVE BLOOD PATHOGENS DNA [id number] 13:52:52* Test Item Value Reference Range Interpretation Comme nts Escherichia coli (test code = 61196-3) Positive Negative A ALLIE (test code = ALLIE) See blood culture result for additional information. ?Testing included eight identification and six resistance marker targets. Lab Interpretation (test code = 55768-2) Abnormal [facility] GLUCOSE (AUTOMATED)2024-01-12 12:43:01* Test Item Value Reference Range Interpretation Comme nts POCT GLU (test code = 9642711941) 103 mg/dL 70-110 Lab Interpretation (test cod e = 17714-4) Normal [facility] CenterHepatitis B Surface [id number] 11:29:09* Test Item Value Reference Range Interpretation Comme nts HBsAB (test code = 8050613313) Positive HBsAb Semi-Quantitative (test code = 6135063114) 34.50 mIU/mL ALLIE (test code = ALLIE) Interpretation: ?Hepatitis B Surface Antibody ? Negative - Patient is considered to be not immune to infection with HBV. ? ? Positive - Anti-HBs detected at greater than or equal to 12 mIU/mL. ?Patient is considered to be immune to infection with HBV. ? [facility] CenterHbc Antibody (IgM & IgG)2024-01-12 11:29:09* Test Item Value Reference Range Interpretation Comme [facility] HBC (test code = 4021119745) Negative HBC Semi-Quantitative (test code = 5644419274) 3.52 [facility] CenterHcv [id number] 11:29:09* Test Item Value Reference Range Interpretation Comme [facility] HCV Ab (test code = 73200-7) Negative HCV Semi-Quantitative (test code = 78436-8) 0.01 [facility] CenterHepatitis B Surface [id number] 11:11:10 * Test Item Value Reference Range Interpretation Comme [facility] HBsAg Semi-Quantitative (niecy t code = 5195-3) 0.07 Negative [facility] GLUCOSE (AUTOMATED)2024-01-12 01:08:24* Test Item Value Reference Range Interpretation Comme [facility] POCT GLU (test code = 3942900976) 222 mg/dL 70-110 H Lab Interpretation (test cod e = 03322-3) Abnormal [facility] GLUCOSE (AUTOMATED)2024-01-11 22:35:50* Test Item Value Reference Range Interpretation Comme [facility] POCT GLU (test code = 4589862893) 221 mg/dL 70-110 H Lab Interpretation (test cod e = 91846-1) Abnormal [facility] CenterXR CHEST 1 [id number] 18:58:04EXAM: XR CHEST 1 01/11/2024 9:08 AM HISTORY: 43 years old Female with sob TECHNIQUE: Portable AP view of the chest. COMPARISON: None FINDINGS: Lungs and pleura: The lungs are well-expanded. Unchanged right lower lungopacity, likely represent atelectasis/pleural scarring. No focalconsolidation, pneumothorax, or pleural effusion is seen. Cardiomediastinal: The cardiomediastinal silhouette is normal accountingfor technique. Musculoskeletal: No acute osseous abnormality. [facility] (AUT[facility]ATED)2024-01-11 17:24:44* Test Item Value Reference Range Interpretation Comme [facility] POCT GLU (test code = 8126114987) 257 mg/dL 70-110 H Lab Interpretation (test cod e = 64030-3) Abnormal [facility] CenterGlycosylated Hemoglobin (A1C)2024-01-11 16:06:17* Test Item Value Reference Range Interpretation Comme [facility] HGB A1C (test code = 4548-4) 9.6 % 4.0-5.7 H ALLIE (test code = ALLIE) Reference RangesNormal: <5.7%Prediabetes: 5.7 - 6.4%Diabetes: > 6.5% Lab Interpretation (test code = 87298-3) Abnormal [facility] CHEST PULMONARY [id number] 15:58:47HISTORY: Rule out P.E.. Positive D-dimer. TECHNIQUE: Contrast-enhanced 64-mutidetector CT scan of the chest wascompleted with intravenous injection of ?non ionic contrast medium.Subsequently numeroussagittal, coronal and MIP reformations weregenerated. FINDINGS: No focal lesions appreciated in thethyroid gland. Trachea andcentral bronchial airways appear normal. Scattered subcentimeter lymphnodes are seen in the superior mediastinum, adjacent to left lateral borderof the aortic arch, in the subcarinal space and both roberto. No acutepulmonary thromboembolism detected. No pneumothorax or pneumomediastinum. No pleural effusion or pericardialeffusion. Esophagus showed small amount of gas throughout. Otherwiseposterior mediastinum is unremarkable. No significant atherosclerosis ofaorta or coronary arteries. 5 mm nodule is seen in the right lower lung (8:78). CONCLUSIONS:1. No acute pulmonarythromboembolism.2. Abnormal findings in lateral segment of right middle lobe could bepneumonia. Minimal groundglass hazy changes are seen in both lower lungswhich is nonspecific and could be a sign of reactive airway disease.[facility] POCT GLUCOSE (AUTOMATED)2024-01-11 15:58:29* Test Item Value Reference Range Interpretation Comme nts POCT GLU (test code = 2941132326) 275 mg/dL 70-110 H Lab Interpretation (test cod e = 14358-4) Abnormal [facility] CenterCT ABDOMEN PELVIS W [id number] 15:52:58CT Abdomen and Pelvis with intravenous contrast. CLINICAL HISTORY: RLQ Abdominal pain. DOSE: Up-to-date CT equipment and radiation dose reduction techniques wereemployed. CTDIvol: ?0.06+0.95+0.95+15.22 mGy. DLP: 1.82+1.99+1.90+766 ?mGy-cm. TECHNIQUE : Contiguous axial imaging from the level of the lung basesthrough the pubic symphysis were performed after the uncomplicatedadministration of nonionic contrast material. ?Coronal and sagittalreconstructions were obtained. Auto mA and/or iterative reconstruction wereused to reduce radiation dose. FINDINGS: ? Lower lungs: Focal congestion noted in the lateral segment of right middlelobe. Minimal fibrosis noted in the left lingula segment. No pleuraleffusion or pericardial effusion. No definite sign of hiatal hernia. Liver, Gallbladder and Spleen: Liver is enlarged, 19.6 cm in length andspleen is borderline enlarged, 13.2 x 5 cm in size. Mild hepatic steatosisis suspected. No focal enhancing lesions visualized in the liver or in thespleen. Gallbladder appears unremarkable. Biliary ducts and pancreatic ductappear of normal size. Peritoneum:?No free air or free fluid. No lymphadenopathy. Pancreas and Adrenals: ?Unremarkable pancreas and adrenal glands. Kidneys and Ureters: ?No visible calculi in the renal collecting systems. No hydroureter or hydronephrosis. Vessels: Minimal atherosclerosis in the abdominal aorta, otherwise normal. Retroperitoneum: No abnormal fluid or lymphadenopathy. Bowel: ?Normal appendix. Unremarkable bowel gaspattern. Bladder and Reproductive Organs: Bulky uterus with probable scar tissueextending from the anterior wall towards the abdominal wall. Smallbilateral ovarian cysts, consistent with physiologic changes. Thickenedbladder wall. Bones: ?No aggressive bone lesions. Soft tissues: Unremarkable. CONCLUSION:1. Thickened bladder fonseca with mucosal enhancement. Findings could be dueto UTI-cystitis. Please correlate.2. Hepatosplenomegaly with hepatic steatosis.3. Normal appendix.[facility] CenterTROPONIN [id number] 15:15:02* Test Item Value Reference Range Interpretation Comme nts TROPONIN I (test code = 7481062772) 0.005 ng/mL <=0.034 ALLIE (test code = ALLIE) Reference (Normal) Range (defined by the 99th percentile reference limit): <= 0.034 ng/mL Note: Cardiac troponin begins to rise 3-4 hours after the onset of ischemia. Repeat in 4-6 hours if the sample was drawn within 3-4 hours of the onset of the symptom and found normal. Diagnosis of myocardial injury is made with acute changes in cTn concentrations with at least one serial sample above the 99th percentile upper reference limit (URL), taken together with the patient's clinical presentation. Biotin has been reported to cause a negative bias, interpret results relative to patient's use of biotin. Lab Interpretation (test code = 58269-3) Normal [facility] [id number] 15:14:06* Test Item Value Reference Range Interpretation Comme nts IRON (test code = 9392649559) 53 ug/dL 50-160 TIBC (test code = 8182799551) 360 ug/dL 250-410 % FE SAT (test code = 3033612927) 15 % 20-50 L Lab Interpretation (test cod e = 12373-7) Abnormal [facility] CenterN-TERMINAL [id number] 15:12:25* Test Item Value Reference Range Interpretation Comme nts NT-proBNP (test code = 88992-7) 528 pg/mL <=125 H ALLIE (test code = ALLIE) Positive: Heart Failure Likely Lab Interpretation (test code = 51469-3) Abnormal [facility] CenterPROTHROMBIN TIME / [id number] 15:09:46* Test Item Value Reference Range Interpretation Comme nts PROTIME PATIENT (test code = 5964-2) 10.4 10.1-12.6 INR (test code = 6301-6) 0.9 Normal INR <1.1; Warfarin Therapeutic range 2.0 to 3.0 or 2.5 to 3.5, depending upon the indications. Lab Interpretation (test code = 63319-6) Normal [facility] CenterACTIVATED PARTIAL THRMPLAS [id number] 15:09:46* Test Item Value Reference Range Interpretation Comme nts APTT Patient (test code = 3173-2) 29 26-36 ALLIE (test code = ALLIE) The [facility] patient population mean normal value for aPTT is 30 seconds. Lab Interpretation (test code = 26599-4) Normal [facility] CenterD-[id number] 15:09:46* Test Item Value Reference Range Interpretation Comments D-DIMER (test code = 4464787970) 1.42 See_Comment H [Automated message] The system which generated this result transmitted reference range: <0.50 ?g/mL (FEU). The reference range was not used to interpret this result as normal/abnormal. ALLIE (test code = ALLIE) This test may be used in conjunction with a clinical pretest probability (PTP) assessment model to exclude venous thromboembolism (VTE) in patients suspected of deep venous thrombosis (DVT) and pulmonary embolism (PE) A D-Dimer value less than 0.50 ?g/ml (FEU) has a negative predicative value of 96 to 100% (95% CI)and 97 to 100% (95% CI) as an aid in the diagnosis of deep vein thrombosis (DVT) and pulmonary embolism when there is low or moderate pretest probability of PE or DVT. D-Dimer values are expressed in initial fibrinogen equivalent units (FEU)" The assay results should be used with other information, including the clinical context, in forming a diagnosis. Lab Interpretation (test code = 44006-9) Abnormal [facility] CenterCB WITH [id number] 15:06:43* Test Item Value Reference Range Interpretation Comme [facility] WBC (test code = 6690-2) 12.92 4.30-11.10 H RBC (test code = 789-8) 4.95 3.93-5.25 HGB (test code = 718-7) 11.1 g/dL 11.6-15.0 L HCT (test code = 4544-3) 36.0 % 35.7-45.2 MCV (test code = 787-2) 72.7 fL 80.6-95.5 L MCH (test code = 785-6) 22.4 pg 25.9-32.8 L MCHC (test code = 786-4) 30.8 g/dL 31.6-35.1 L RDW-SD (test code = 88783-3) 64.6 fL 39.0-49.9 H RDW-CV (test code = 788-0) 25.9 % 12.0-15.5 H PLT (test code = 777-3) 298 166-358 MPV (test code = 77176-9) 10.3 fL 9.5-12.9 IPF % (test code = 9375185802) 6.4 % 1.3-7.7 Platelet count measured by fluorescence method. NRBC/100 WBC (test code = 2396378145) 0.0 0.0-10.0 NRBC x10^3 (test code = 2701996587) See_Comment [Automated Tempered Minda ge] The system which generated this result transmitted reference range: 10*3/?L. The reference range was not used to interpret this result as normal/abnormal. GRAN MAT (NEUT) % (test code = 770-8) 90.9 % IMM GRAN % (test code = 7656288566) 0.50 % LYMPH % (test code = 736-9) 3.6 % MONO % (test code = 5905-5) 4.1 % EOS % (test code = 713-8) 0.6 % BASO % (test code = 706-2) 0.3 % GRAN MAT x10^3(ANC) (test code = 8650403339) 11.74 10*3/uL 1.88-7.09 H IMM GRAN x10^3 (test code = 5661485991) 0.06 10*3/uL 0.00-0.06 LYMPH x10^3 (test code = 731-0) 0.47 10*3/uL 1.32-3.29 L MONO x10^3 (test code = 742-7) 0.53 10*3/uL 0.33-0.92 EOS x10^3 (test code = 711-2) 0.08 10*3/uL 0.03-0.39 BASO x10^3 (test code = 704-7) 0.04 10*3/uL 0.01-0.07 Lab Interpretation (test code = 84690-1) [facility] 15:05:02* Test Item Value Reference Range Interpretation Comme nts MAGNESIUM (test code = 2242397047) 1.9 mg/dL 1.7-2.4 Lab Interpretation (test cod e = 63672-9) Normal [facility] CenterCOMP. METABOLIC PANEL (35801)2024-01-11 15:04:41* Test Item Value Reference Range Interpretation Comme nts NA (test code = 5219970907) 128 mmol/L 135-145 L K (test code = 9886156861) 4.7 mmol/L 3.5-5.0 CL (test code = 6309221300) 100 mmol/L 98-108 CO2 TOTAL (test code = 7979962836) 19 mmol/L 23-31 L AGAP (test code = 8668987450) 9 2-16 BUN (test code = 2118199340) 17 mg/dL 7-23 GLUCOSE (test code = 9787422786) 311 mg/dL 70-110 H CREATININE (test code = 2160-0) 0.59 mg/dL 0.50-1.04 TOTAL BILI (test code = 6193501607) 0.8 mg/dL 0.1-1.1 CALCIUM (test code = 8150432977) 8.8 mg/dL 8.6-10.6 T PROTEIN (test code = 5138785370) 7.2 g/dL 6.3-8.2 ALBUMIN (test code = 3932020163) 3.7 g/dL 3.5-5.0 ALK PHOS (test code = 3456032760) 218 U/L 34-122 H ALTv (test code = 1742-6) 32 U/L 5-35 AST(SGOT) (test code = 5065219864) 31 U/L 13-40 eGFR (test code = 19672-6) 115.6 mL/min/1.73m2 CKD-EPI eGFR (2020). Assuming creatinine has been stable day-to-day for at least three months, the eGFR indicates Category G1 (>= 90 mL/min/1.73 m2) Lab Interpretation (test code = 98726-0) Abnormal [facility] CenterType and Screen - ONCE [id number] 14:39:00 * Test Item Value Reference Range Interpretation Comme nts ABO & RH (test code = 20) O Positive IAT (test code = 1185) Negative [facility] CenterAC ABG + LACTIC [id number] 14:37:28* Test Item Value Reference Range Interpretation Comme nts PH (test code = 2) 7.43 7.35-7.45 PCO2 (test code = 5461790852) 28 35-45 L PO2 (test code = 9620612582) 76 80-100 L HCO3 (test code = 9955229267) 18 22-26 L BE (test code = 3385208218) -4.7 -3.0-3.0 L LACTIC ACID (test code = 3882893988) 1.17 mmol/L 0.50-2.20 Lab Interpretation (test cod e = 80095-1) Abnormal [facility] CenterPOCT [id number] 14:05:00* Test Item Value Reference Range Interpretation Comme nts POCT PREG (test code = 1605) Negative On board controls acceptable with C Line (test code = 3574) Yes POCT PREG LOT # (test code = 3575) [id number] POCT PREG TEST DATE ( test code = 3576) 12/04/2024 Lab Interpretation (test cod e = 24005-2) Normal [facility] History and Physical Notes Date/Time Note Provider Source 2024-01-11 18:23:29 I have independently seen and evaluated this patient. I agree with the findings and documentation provided in the nurse practitioner's notes. Medicine team will continue to provide daily care. I have made changes inline to the note below to reflect our mutual evaluation / plan. Laura Reyes, 01/11/2024 11:08 PM [facility] Internal Medicine-H&P Date of Service: 01/11/2024 Time Of Service: 6:23 PM PCP: PATIENT DOES NOT HAVE A PCP Chief complaint: Abdominal Pain (Right side), Body Aches, and LOW BACK PAIN History of present illness Pastora Velasquez 43 year old female patient with a PMH as listed below, who presents to the ED with complaints of Abd pain . She reports symptom onset was 3 days ago. Patient reports that she was recently at [facility] for PNA. On Dc she developed Abd pain and non productive cough. Today she developed fevers and decided to go to the ED for evaluation. In the Ed PT noted to be tachycardic with fever up to 102.9. Workup showed + UTI / PNA as outlined imaging below. Hospitalist called for admission. REVIEW OF SYSTEMS Review of Systems Constitutional: Positive for chills, fever and malaise/fatigue. HENT: Negative. Eyes: Negative. Respiratory: Positive for cough and shortness of breath. Cardiovascular: Negative. Gastrointestinal: Positive for nausea. Genitourinary: Positive for flank pain. Musculoskeletal: Positive for myalgias. Neurological: Positive for weakness and headaches. Endo/Heme/Allergies: Negative. Psychiatric/Behavioral: Negative. PAST MEDICAL HISTORY: PT has a PMHx significant for HTN, uncontrolled diabetes, polysubstance abuse PAST SURGICAL HISTORY: PT surgical history significant for tubal ligation SOCIAL HISTORY Social History Socioeconomic History Marital status: Single Spouse name: Not on file Number of children: 3 Years of education: Not on file Highest education level: Not on file Occupational History Not on file Tobacco Use Smoking status: Every Day Types: Cigarettes Passive exposure: Never Smokeless tobacco: Never Substance and Sexual Activity Alcohol use: Approximately 12 beers per night Drug use: Not on file Sexual activity: Not on file Other Topics Concern Not on file Social History Narrative Not on file Social Determinants of Health Financial Resource Strain: Not on file Food Insecurity: Not on file Transportation Needs: Not on file Physical Activity: Not on file Stress: Not on file Social Connections: Not on file Intimate Partner Violence: Not on file Housing Stability: Not on file FAMILY HISTORY extensive family history that includes CAD, hyperlipidemia, cancer, polysubstance abuse and bipolar disorder MEDICATIONS: No current facility-administered medications on file prior to encounter. Current Outpatient Medications on File Prior to Encounter Medication Sig Dispense Refill albuterol 90 mcg/actuation inhaler Inhale 2 Puffs every 6 (six) hours as needed for Wheezing or Shortness of Breath. ferrous sulfate 325 mg (65 mg iron) tablet Take 1 tablet by mouth in the morning and 1 tablet at noon and 1 tablet in the evening. Take with meals. insulin glargine,hum.rec.anlog (INSULIN GLARGINE SC) inject 40 Units under the skin in the morning and 40 Units in the evening. lisinopriL 20 mg tablet Take 1 tablet by mouth in the morning. ALLERGIES: Patient has no known allergies. PHYSICAL EXAMINATION: Vitals: 01/11/24 1305 01/11/24 1311 01/11/24 1321 01/11/24 1553 BP: (!) 141/78 (!) 141/79 106/66 Pulse: 119 118 115 Resp: 18 Temp: 37.9 ?C (100.2 ?F) TempSrc: Temporal Artery SpO2: 92% (!) 89% 98% Weight: 183 lb 14.4 oz (83.4 kg) Height: 5' 3" (1.6 m) General: Awake, Alert and oriented x 3, HEENT: Atraumatic, normocephalic, mucous membranes moist Neck: supple, trachea midline, Lungs: Symmetric chest expansion, RML/RLL w/ rhonchi/wheezes; diminished to B bases Cardio: S1, S2, regular rhythm,, no edema Abdomen: soft, non distended, non tender, positive bowel sounds; no CVA tenderness Extremities: No cyanosis, clubbing or edema. Active ROM X4, No calf tenderness Distal pulses: Palpable bilaterally, grade of 2+ Skin: cool/dry Neuro: Cranial nerves II through XII intact; no focal deficits Psych: Normal Mood & Affect. LABS - Reviewed IMAGING - Hospital Encounter on 01/11/24 CT CHEST PULMONARY ANGIOGRAM Narrative HISTORY: Rule out P.E.. Positive D-dimer. TECHNIQUE: Contrast-enhanced 64-mutidetector CT scan of the chest was completed with intravenous injection of non ionic contrast medium. Subsequently numerous sagittal, coronal and MIP reformations were generated. FINDINGS: No focal lesions appreciated in the thyroid gland. Trachea and central bronchial airways appear normal. Scattered subcentimeter lymph nodes are seen in the superior mediastinum, adjacent to left lateral border of the aortic arch, in the subcarinal space and both roberto. No acute pulmonary thromboembolism detected. No pneumothorax or pneumomediastinum. No pleural effusion or pericardial effusion. Esophagus showed small amount of gas throughout. Otherwise posterior mediastinum is unremarkable. No significant atherosclerosis of aorta or coronary arteries. 5 mm nodule is seen in the right lower lung (8:78). CONCLUSIONS: 1. No acute pulmonary thromboembolism. 2. Abnormal findings in lateral segment of right middle lobe could be pneumonia. Minimal groundglass hazy changes are seen in both lower lungs which is nonspecific and could be a sign of reactive airway disease. CT ABDOMEN PELVIS W CONTRAST Narrative CT Abdomen and Pelvis with intravenous contrast. CLINICAL HISTORY: RLQ Abdominal pain. DOSE: Up-to-date CT equipment and radiation dose reduction techniques were employed. CTDIvol: 0.06+0.95+0.95+15.22 mGy. DLP: 1.82+1.99+1.90+766 mGy-cm. TECHNIQUE : Contiguous axial imaging from the level of the lung bases through the pubic symphysis were performed after the uncomplicated administration of nonionic contrast material. Coronal and sagittal reconstructions were obtained. Auto mA and/or iterative reconstruction were used to reduce radiation dose. FINDINGS: Lower lungs: Focal congestion noted in the lateral segment of right middle lobe. Minimal fibrosis noted in the left lingula segment. No pleural effusion or pericardial effusion. No definite sign of hiatal hernia. Liver, Gallbladder and Spleen: Liver is enlarged, 19.6 cm in length and spleen is borderline enlarged, 13.2 x 5 cm in size. Mild hepatic steatosis is suspected. No focal enhancing lesions visualized in the liver or in the spleen. Gallbladder appears unremarkable. Biliary ducts and pancreatic duct appear of normal size. Peritoneum: No free air or free fluid. No lymphadenopathy. Pancreas and Adrenals: Unremarkable pancreas and adrenal glands. Kidneys and Ureters: No visible calculi in the renal collecting systems. No hydroureter or hydronephrosis. Vessels: Minimal atherosclerosis in the abdominal aorta, otherwise normal. Retroperitoneum: No abnormal fluid or lymphadenopathy. Bowel: Normal appendix. Unremarkable bowel gas pattern. Bladder and Reproductive Organs: Bulky uterus with probable scar tissue extending from the anterior wall towards the abdominal wall. Small bilateral ovarian cysts, consistent with physiologic changes. Thickened bladder wall. Bones: No aggressive bone lesions. Soft tissues: Unremarkable. CONCLUSION: 1. Thickened bladder fonseca with mucosal enhancement. Findings could be due to UTI-cystitis. Please correlate. 2. Hepatosplenomegaly with hepatic steatosis. 3. Normal appendix. XR CHEST 1 VW Narrative EXAM: XR CHEST 1 VW 01/11/2024 9:08 AM HISTORY: 43 years old Female with sob TECHNIQUE: Portable AP view of the chest. COMPARISON: None FINDINGS: Lungs and pleura: The lungs are well-expanded. Unchanged right lower lung opacity, likely represent atelectasis/pleural scarring. No focal consolidation, pneumothorax, or pleural effusion is seen. Cardiomediastinal: The cardiomediastinal silhouette is normal accounting for technique. Musculoskeletal: No acute osseous abnormality. Impression No acute cardiopulmonary abnormality. Preliminary Report Dictated by Resident: Tawana Ge I, Jarrod Staton MD., have reviewed this study and agree with the above report. Assessment and Plan Ms. Pastora Velasquez is a 43 y.o. F confined for: RML PNA -elevated Pro-Perry/D-dimer Acute Cystitis Sepsis 2/2 above - Admit to Hospitalist service - Vitals per protocol - O2 supply to keep Spo2 > 92 % - gentle IVF overnight - Acetaminophen 650 mg po q 4h prn pain/temp - T3 for pain - As needed antiemetic - PRN antitussives - DuoNebs QID - Incentive spirometry - AM chem/counts DM1.5, uncontrolled Hemoglobin A1c 9.6 - FSBS AC/HS w/SSI - Reduced home basal insulin - Sliding scale insulin - Hypoglycemic precautions - Therapeutic diet ROSANNE-mild - Continue oral ferrous sulfate supplementation - Monitor daily counts - Transfuse for hemoglobin less than 7.0 Polysubstance abuse - Reported binge drinking 4 days ago - As needed oral Ativan - Daily cigarette use; refused nicotine replacement patch HTN - Lisinopril resumed - Therapeutic diet as above DVT prophylaxis:- Lovenox 40mg daily GI prophylaxis: not indicated Full code Tobacco user: yes Risk discussed: Yes Patient dose not want to quit and understand the risk Time spent: <8 minutes discussing smoking cessation WW LINDA Squires, ACNPC-AG I.M. / Hospitalist Medicine 01/11/2024 6:23 PM T [facility] Notes Date/Time Note Provider Source 2024-01-16 10:55:41 Problem: Pain Goal: Control of pain at or below patient's documented comfort goal Outcome: Adequate for discharge Problem: Discharge Planning Goal: Adequate for discharge Outcome: Adequate for discharge Problem: Falls, Risk of Goal: Absence of falls Outcome: Adequate for discharge Problem: Skin integrity Impaired (Risk or Actual) Goal: Prevention of new skin breakdown Outcome: Adequate for discharge Problem: Infection Risk Goal: Absence of infection Outcome: Adequate for discharge Problem: Respiratory Function - Impaired Goal: Able to cough effectively Outcome: Adequate for discharge Goal: Adequate oxygenation Outcome: Adequate for discharge Goal: Adequate work of breathing Outcome: Adequate for discharge Goal: Patent airway Outcome: Adequate for discharge Amanda Paz RN [facility] 2024-01-15 23:15:01 Problem: Pain Goal: Control of pain at or below patient's documented comfort goal Outcome: Progressing as expected Problem: Discharge Planning Goal: Adequate for discharge Outcome: Progressing as expected Problem: Falls, Risk of Goal: Absence of falls Outcome: Progressing as expected Problem: Skin integrity Impaired (Risk or Actual) Goal: Prevention of new skin breakdown Outcome: Progressing as expected Problem: Infection Risk Goal: Absence of infection Outcome: Progressing as expected Problem: Respiratory Function - Impaired Goal: Able to cough effectively Outcome: Progressing as expected Goal: Adequate oxygenation Outcome: Progressing as expected Goal: Adequate work of breathing Outcome: Progressing as expected Goal: Patent airway Outcome: Progressing as expected T Asuncion Cowan RN [facility] 2024-01-15 14:49:34 Problem: Pain Goal: Control of pain at or below patient's documented comfort goal Outcome: Progressing as expected Problem: Discharge Planning Goal: Adequate for discharge Outcome: Progressing as expected Problem: Falls, Risk of Goal: Absence of falls Outcome: Progressing as expected Problem: Skin integrity Impaired (Risk or Actual) Goal: Prevention of new skin breakdown Outcome: Progressing as expected Problem: Infection Risk Goal: Absence of infection Outcome: Progressing as expected Problem: Respiratory Function - Impaired Goal: Able to cough effectively Outcome: Progressing as expected Goal: Adequate oxygenation Outcome: Progressing as expected Goal: Adequate work of breathing Outcome: Progressing as expected Goal: Patent airway Outcome: Progressing as expected [facility] 2024-01-14 20:52:16 Problem: Pain Goal: Control of pain at or below patient's documented comfort goal Outcome: Progressing as expected Problem: Discharge Planning Goal: Adequate for discharge Outcome: Progressing as expected Problem: Falls, Risk of Goal: Absence of falls Outcome: Progressing as expected Problem: Skin integrity Impaired (Risk or Actual) Goal: Prevention of new skin breakdown Outcome: Progressing as expected Problem: Infection Risk Goal: Absence of infection Outcome: Progressing as expected Problem: Respiratory Function - Impaired Goal: Able to cough effectively Outcome: Progressing as expected Goal: Adequate oxygenation Outcome: Progressing as expected Goal: Adequate work of breathing Outcome: Progressing as expected Goal: Patent airway Outcome: Progressing as expected [facility] 2024-01-14 18:42:34 Problem: Pain Goal: Control of pain at or below patient's documented comfort goal Outcome: Progressing as expected Problem: Discharge Planning Goal: Adequate for discharge Outcome: Progressing as expected Problem: Falls, Risk of Goal: Absence of falls Outcome: Progressing as expected Problem: Skin integrity Impaired (Risk or Actual) Goal: Prevention of new skin breakdown Outcome: Progressing as expected Problem: Infection Risk Goal: Absence of infection Outcome: Progressing as expected Problem: Respiratory Function - Impaired Goal: Able to cough effectively Outcome: Progressing as expected Goal: Adequate oxygenation Outcome: Progressing as expected Goal: Adequate work of breathing Outcome: Progressing as expected Goal: Patent airway Outcome: Progressing as expected Kailee King RN [facility] 2024-01-13 20:43:49 Problem: Pain Goal: Control of pain at or below patient's documented comfort goal Outcome: Progressing as expected Problem: Discharge Planning Goal: Adequate for discharge Outcome: Progressing as expected Problem: Falls, Risk of Goal: Absence of falls Outcome: Progressing as expected Problem: Skin integrity Impaired (Risk or Actual) Goal: Prevention of new skin breakdown Outcome: Progressing as expected Problem: Infection Risk Goal: Absence of infection Outcome: Progressing as expected Problem: Respiratory Function - Impaired Goal: Able to cough effectively Outcome: Progressing as expected Goal: Adequate oxygenation Outcome: Progressing as expected Goal: Adequate work of breathing Outcome: Progressing as expected Goal: Patent airway Outcome: Progressing as expected Patti Aparicio RN [facility] 2024-01-13 17:25:49 Problem: Pain Goal: Control of pain at or below patient's documented comfort goal Outcome: Progressing as expected Problem: Discharge Planning Goal: Adequate for discharge Outcome: Progressing as expected Problem: Falls, Risk of Goal: Absence of falls Outcome: Progressing as expected Problem: Skin integrity Impaired (Risk or Actual) Goal: Prevention of new skin breakdown Outcome: Progressing as expected Problem: Infection Risk Goal: Absence of infection Outcome: Progressing as expected Problem: Respiratory Function - Impaired Goal: Able to cough effectively Outcome: Progressing as expected Goal: Adequate oxygenation Outcome: Progressing as expected Goal: Adequate work of breathing Outcome: Progressing as expected Goal: Patent airway Outcome: Progressing as expected [facility] 2024-01-12 22:30:05 Problem: Pain Goal: Control of pain at or below patient's documented comfort goal Outcome: Progressing as expected Problem: Discharge Planning Goal: Adequate for discharge Outcome: Progressing as expected Problem: Falls, Risk of Goal: Absence of falls Outcome: Progressing as expected Problem: Skin integrity Impaired (Risk or Actual) Goal: Prevention of new skin breakdown Outcome: Progressing as expected Problem: Infection Risk Goal: Absence of infection Outcome: Progressing as expected Problem: Respiratory Function - Impaired Goal: Able to cough effectively Outcome: Progressing as expected Goal: Adequate oxygenation Outcome: Progressing as expected Goal: Adequate work of breathing Outcome: Progressing as expected Goal: Patent airway Outcome: Progressing as expected [facility] 2024-01-12 19:44:21 Progressing as expected Coleen Liu RN [facility] 2024-01-12 03:08:13 Problem: Pain Goal: Control of pain at or below patient's documented comfort goal Outcome: Progressing as expected Problem: Discharge Planning Goal: Adequate for discharge Outcome: Progressing as expected Problem: Falls, Risk of Goal: Absence of falls Outcome: Progressing as expected Problem: Skin integrity Impaired (Risk or Actual) Goal: Prevention of new skin breakdown Outcome: Progressing as expected Problem: Infection Risk Goal: Absence of infection Outcome: Progressing as expected Problem: Respiratory Function - Impaired Goal: Able to cough effectively Outcome: Progressing as expected Goal: Adequate oxygenation Outcome: Progressing as expected Goal: Adequate work of breathing Outcome: Progressing as expected Goal: Patent airway Outcome: Progressing as expected Sonia Mae RN [facility] 2024-01-11 19:43:36 Problem: Pain Goal: Control of pain at or below patient's documented comfort goal Outcome: Progressing as expected Problem: Discharge Planning Goal: Adequate for discharge Outcome: Progressing as expected Problem: Falls, Risk of Goal: Absence of falls Outcome: Progressing as expected Problem: Skin integrity Impaired (Risk or Actual) Goal: Prevention of new skin breakdown Outcome: Progressing as expected Problem: Infection Risk Goal: Absence of infection Outcome: Progressing as expected Problem: Respiratory Function - Impaired Goal: Able to cough effectively Outcome: Progressing as expected Goal: Adequate oxygenation Outcome: Progressing as expected Goal: Adequate work of breathing Outcome: Progressing as expected Goal: Patent airway Outcome: Progressing as expected [facility] 2024-01-11 12:31:58 Patient admitted to [facility] for diagnosis of weakness, sepsis, UTI with hematuria, pneumonia of R middle lobe due to infectious organism, Diabetes 1.5, managed as type 1, elevated BNP, fever, class 1 obesity due to excess calories with BMI of 32-32.9 in adult, pyelonephritis, elevated D dimer, and hyperglycemia due to DM. Patient agrees to admission, discussed plan of care with patient and family. Patient is awake, A&Ox 4, RR even and unlabored on RA. Color appropriate for race. PIV intact x 2. No adverse reaction to medications administered while in ED. Belongings with patient to unit. Claudia Gooden RN [facility] 2024-01-11 12:20:32 Nurse Report Report given to Dorene JOHNSON. Chief complaint, assessment findings, infusion verify and orders reviewed. Claudia Gooden RN [facility] 2024-01-11 08:20:00 Patient states: "I've been having generalized bodyaches, right sided abdominal pain, bilateral low back pain since yesterday. I was seen in [place] Monday last week and they transfused me blood." Emily Adair RN [facility] 2024-01-11 08:18:00 [facility] Emergency Department Note Patient Name: Pastora Velasquez Date of : 1980 43 year old female Treatment Room: ME3/ME3 Primary Care Physician: Tania Wesley Patient Escorted by: Family [5] Mode of Arrival: Personal means [1] EMS Treatment Prior to ED Arrival: [facility] treatment: None Chief Complaint: Chief Complaint Patient presents with Abdominal Pain Right side Body Aches LOW BACK PAIN History of Present Illness: Pastora Velasquez is a 43 year old female who presents to the ED with multiple complaints, most current she reports onset yesterday with fever, cough, body aches and weakness. She also endorses RLQ pain described as sharp and pinching, that radiates slightly upward. She report bilateral flank pain, and SOB. Recently discharge from [facility], where she was admitted and treated for pneumonia, anemia and iron deficiency. Discharged 01/03/24 following a 2 day stay. Reports blood transfusion x2. Review of discharge paperwork reveal an iron infusion and treatment with Rocephin and doxycycline. History provided by: Patient Weakness Location: Generalized Severity: Severe Onset quality: Gradual Duration: 2 weeks Timing: Constant Progression: Worsening Associated symptoms: abdominal pain, fatigue, fever, myalgias and shortness of breath Associated symptoms: no chest pain, no congestion, no diarrhea, no nausea and no vomiting Past Medical History/Immunizations: History reviewed. No pertinent past medical history. Tetanus received in last 5 years: No Childhood immunizations: Up-to-date Allergies: No Known Allergies Past Social History: Substance & Sexual Activity No substance use or sexual activity history on file. Past Surgical History: History reviewed. No pertinent surgical history. Review of Systems: Review of Systems Constitutional: Positive for fatigue and fever. HENT: Negative for congestion. Respiratory: Positive for shortness of breath. Cardiovascular: Negative for chest pain. Gastrointestinal: Positive for abdominal pain. Negative for diarrhea, nausea and vomiting. Genitourinary: Menorrhagia Musculoskeletal: Positive for myalgias. Neurological: Positive for weakness. Psychiatric/Behavioral: Negative. All other systems reviewed and are negative. Endocrine: Endocrine negative Physical Exam: ED Triage Vitals [01/11/24 0820] Weight 83.9 kg (185 lb) Actual or estimated Estimated by patient/family report Height 1.6 m (5' 3") BP (!) 145/88 Pulse 126 Resp 20 Temp 39.4 ?C (102.9 ?F) Temp source Oral SpO2 95 % Measured on Room air Physical Exam Vitals and nursing note reviewed. Constitutional: General: She is not in acute distress. Appearance: Normal appearance. She is well-developed. She is obese. She is not ill-appearing, toxic-appearing or diaphoretic. HENT: Head: Normocephalic. Right Ear: External ear normal. Left Ear: External ear normal. Nose: Nose normal. Mouth/Throat: Mouth: Mucous membranes are moist. Pharynx: Oropharynx is clear. No oropharyngeal exudate or posterior oropharyngeal erythema. Eyes: General: No scleral icterus. Right eye: No discharge. Left eye: No discharge. Extraocular Movements: Extraocular movements intact. Conjunctiva/sclera: Conjunctivae normal. Pupils: Pupils are equal, round, and reactive to light. Neck: Vascular: No carotid bruit. Cardiovascular: Rate and Rhythm: Regular rhythm. Tachycardia present. Pulses: Normal pulses. Heart sounds: Normal heart sounds. No murmur heard. No friction rub. No gallop. Pulmonary: Effort: Pulmonary effort is normal. No respiratory distress. Breath sounds: Normal breath sounds. No stridor. No wheezing, rhonchi or rales. Chest: Chest wall: No tenderness. Abdominal: General: Bowel sounds are normal. There is no distension. Palpations: Abdomen is soft. There is no mass. Tenderness: There is abdominal tenderness. There is no right CVA tenderness, left CVA tenderness, guarding or rebound. Hernia: No hernia is present. Musculoskeletal: General: No swelling, tenderness, deformity or signs of injury. Normal range of motion. Cervical back: Normal range of motion and neck supple. No rigidity or tenderness. Right lower leg: No edema. Left lower leg: No edema. Lymphadenopathy: Cervical: No cervical adenopathy. Skin: General: Skin is warm and dry. Capillary Refill: Capillary refill takes less than 2 seconds. Coloration: Skin is pale. Skin is not jaundiced. Findings: No bruising, erythema, lesion or rash. Neurological: General: No focal deficit present. Mental Status: She is alert and oriented to person, place, and time. Cranial Nerves: No cranial nerve deficit. Sensory: No sensory deficit. Motor: No weakness. Coordination: Coordination normal. Gait: Gait normal. Psychiatric: Mood and Affect: Mood normal. Behavior: Behavior normal. Thought Content: Thought content normal. Judgment: Judgment normal. Radiology:reviewed by mn CT ABDOMEN PELVIS W CONTRAST Final Result CT Abdomen and Pelvis with intravenous contrast. CLINICAL HISTORY: RLQ Abdominal pain. DOSE: Up-to-date CT equipment and radiation dose reduction techniques were employed. CTDIvol: 0.06+0.95+0.95+15.22 mGy. DLP: 1.82+1.99+1.90+766 mGy-cm. TECHNIQUE : Contiguous axial imaging from the level of the lung bases through the pubic symphysis were performed after the uncomplicated administration of nonionic contrast material. Coronal and sagittal reconstructions were obtained. Auto mA and/or iterative reconstruction were used to reduce radiation dose. FINDINGS: Lower lungs: Focal congestion noted in the lateral segment of right middle lobe. Minimal fibrosis noted in the left lingula segment. No pleural effusion or pericardial effusion. No definite sign of hiatal hernia. Liver, Gallbladder and Spleen: Liver is enlarged, 19.6 cm in length and spleen is borderline enlarged, 13.2 x 5 cm in size. Mild hepatic steatosis is suspected. No focal enhancing lesions visualized in the liver or in the spleen. Gallbladder appears unremarkable. Biliary ducts and pancreatic duct appear of normal size. Peritoneum: No free air or free fluid. No lymphadenopathy. Pancreas and Adrenals: Unremarkable pancreas and adrenal glands. Kidneys and Ureters: No visible calculi in the renal collecting systems. No hydroureter or hydronephrosis. Vessels: Minimal atherosclerosis in the abdominal aorta, otherwise normal. Retroperitoneum: No abnormal fluid or lymphadenopathy. Bowel: Normal appendix. Unremarkable bowel gas pattern. Bladder and Reproductive Organs: Bulky uterus with probable scar tissue extending from the anterior wall towards the abdominal wall. Small bilateral ovarian cysts, consistent with physiologic changes. Thickened bladder wall. Bones: No aggressive bone lesions. Soft tissues: Unremarkable. CONCLUSION: 1. Thickened bladder fonseca with mucosal enhancement. Findings could be due to UTI-cystitis. Please correlate. 2. Hepatosplenomegaly with hepatic steatosis. 3. Normal appendix. CT CHEST PULMONARY ANGIOGRAM Final Result HISTORY: Rule out P.E.. Positive D-dimer. TECHNIQUE: Contrast-enhanced 64-mutidetector CT scan of the chest was completed with intravenous injection of non ionic contrast medium. Subsequently numerous sagittal, coronal and MIP reformations were generated. FINDINGS: No focal lesions appreciated in the thyroid gland. Trachea and central bronchial airways appear normal. Scattered subcentimeter lymph nodes are seen in the superior mediastinum, adjacent to left lateral border of the aortic arch, in the subcarinal space and both roberto. No acute pulmonary thromboembolism detected. No pneumothorax or pneumomediastinum. No pleural effusion or pericardial effusion. Esophagus showed small amount of gas throughout. Otherwise posterior mediastinum is unremarkable. No significant atherosclerosis of aorta or coronary arteries. 5 mm nodule is seen in the right lower lung (8:78). CONCLUSIONS: 1. No acute pulmonary thromboembolism. 2. Abnormal findings in lateral segment of right middle lobe could be pneumonia. Minimal groundglass hazy changes are seen in both lower lungs which is nonspecific and could be a sign of reactive airway disease. XR CHEST 1 VW Preliminary Result EXAM: XR CHEST 1 VW 01/11/2024 9:08 AM HISTORY: 43 years old Female with sob TECHNIQUE: Portable AP view of the chest. COMPARISON: None FINDINGS: Lungs and pleura: The lungs are well-expanded. Unchanged right lower lung opacity, likely represent atelectasis/pleural scarring. No focal consolidation, pneumothorax, or pleural effusion is seen. Cardiomediastinal: The cardiomediastinal silhouette is normal accounting for technique. Musculoskeletal: No acute osseous abnormality. IMPRESSION No acute cardiopulmonary abnormality. Preliminary Report Dictated by Resident: Tawana Ge Lab Results: reviewed by me : mild leukocytosis , elevated d-dimer, BNP, troponin negative, Urine + LE, Bacteria, WBC's , clumps, RBC's. Sodium decreased at 128 corrected to normal due to elevated glucose Lab Results CBC WITH DIFF - Abnormal Result Value Ref Range WBC 12.92 (*) 4.30 - 11.10 10*3/?L RBC 4.95 3.93 - 5.25 10*6/?L HGB 11.1 (*) 11.6 - 15.0 g/dL HCT 36.0 35.7 - 45.2 % MCV 72.7 (*) 80.6 - 95.5 fL MCH 22.4 (*) 25.9 - 32.8 pg MCHC 30.8 (*) 31.6 - 35.1 g/dL RDW-SD 64.6 (*) 39.0 - 49.9 fL RDW-CV 25.9 (*) 12.0 - 15.5 % PLT 298 166 - 358 10*3/?L MPV 10.3 9.5 - 12.9 fL IPF % 6.4 1.3 - 7.7 % NRBC/100 WBC 0.0 0.0 - 10.0 /100 WBCs NRBC x10 3 <0.01 10*3/?L GRAN MAT (NEUT) % 90.9 % IMM GRAN % 0.50 % LYMPH % 3.6 % MONO % 4.1 % EOS % 0.6 % BASO % 0.3 % GRAN MAT x10 3 (ANC) 11.74 (*) 1.88 - 7.09 10*3/uL IMM GRAN x10 3 0.06 0.00 - 0.06 10*3/uL LYMPH x10 3 0.47 (*) 1.32 - 3.29 10*3/uL MONO x10 3 0.53 0.33 - 0.92 10*3/uL EOS x10 3 0.08 0.03 - 0.39 10*3/uL BASO x10 3 0.04 0.01 - 0.07 10*3/uL URINALYSIS - Abnormal APPEARANCE Cloudy (*) Clear COLOR Roro (*) Yellow PH 5.0 4.8 - 8.0 SP GRAVITY 1.014 1.003 - 1.030 GLU U QUAL 500 mg/dL (*) Normal BLOOD 1+ (*) Negative KETONES Negative Negative PROTEIN 500 mg/dL (*) Negative UROBILIN Normal Normal BILIRUBIN Negative Negative NITRITE Negative Negative LEUK RACHEL 500/uL (*) Negative RBC/HPF 41 (*) 0 - 3 HPF WBC/HPF >182 (*) 0 - 5 HPF BACTERIA Many (*) Negative MUCOUS Slight (*) Negative LPF SQ EPITH 16 HPF WBC CLUMPS 25 (*) <=1 HPF HYAL CAST 4 (*) <=2 LPF DAVON EPITH <1 <=1 HPF COMP. METABOLIC PANEL (24728) - Abnormal NA 128 (*) 135 - 145 mmol/L K 4.7 3.5 - 5.0 mmol/L CL 100 98 - 108 mmol/L CO2 TOTAL 19 (*) 23 - 31 mmol/L AGAP 9 2 - 16 BUN 17 7 - 23 mg/dL GLUCOSE 311 (*) 70 - 110 mg/dL CREATININE 0.59 0.50 - 1.04 mg/dL TOTAL BILI 0.8 0.1 - 1.1 mg/dL CALCIUM 8.8 8.6 - 10.6 mg/dL T PROTEIN 7.2 6.3 - 8.2 g/dL ALBUMIN 3.7 3.5 - 5.0 g/dL ALK PHOS 218 (*) 34 - 122 U/L ALTv 32 5 - 35 U/L AST(SGOT) 31 13 - 40 U/L eGFR 115.6 mL/min/1.73m2 N-TERMINAL PRO-BNP - Abnormal NT-proBNP 528 (*) <=125 pg/mL AC ABG + LACTIC ACID - Abnormal PH 7.43 7.35 - 7.45 PCO2 28 (*) 35 - 45 mmHg PO2 76 (*) 80 - 100 mmHg HCO3 18 (*) 22 - 26 mEq/L BE -4.7 (*) -3.0 - 3.0 mEq/L LACTIC ACID 1.17 0.50 - 2.20 mmol/L D-DIMER - Abnormal D-DIMER 1.42 (*) <0.50 ?g/mL (FEU) IRON PANEL - Abnormal IRON 53 50 - 160 ug/dL TIBC 360 250 - 410 ug/dL % FE SAT 15 (*) 20 - 50 % GLYCOSYLATED HEMOGLOBIN (A1C) - Abnormal HGB A1C 9.6 (*) 4.0 - 5.7 % POCT GLUCOSE (AUTOMATED) - Abnormal POCT GLU 275 (*) 70 - 110 mg/dL POCT GLUCOSE (AUTOMATED) - Abnormal POCT GLU 257 (*) 70 - 110 mg/dL COVID-19 (ID NOW RAPID TESTING) - Normal SARS-CoV-2 Rapid ID NOW Not Detected Not Detected RAPID INFLUENZA A/B - Normal Rapid Influenza A Negative Negative Rapid Influenza B Negative Negative TROPONIN I - Normal TROPONIN I 0.005 <=0.034 ng/mL MAGNESIUM - Normal MAGNESIUM 1.9 1.7 - 2.4 mg/dL PROTHROMBIN TIME / INR - Normal PROTIME PATIENT 10.4 10.1 - 12.6 Seconds INR 0.9 ACTIVATED PARTIAL THRMPLAS LEOBARDO - Normal APTT Patient 29 26 - 36 Seconds POCT TEST - Normal POCT PREG Negative On board controls acceptable with C Line Yes POCT PREG LOT # [id number] POCT PREG TEST DATE 12/04/2024 TYPE AND SCREEN ABO & RH O Positive IAT Negative BLOOD CULTURE SCREEN BLOOD CULTURE SCREEN C-REACTIVE PROTEIN URINE CULTURE PROCALCITONIN LEGIONELLA AND STREPTOCOCCUS PNEUMONIAE URINARY ANTIGENS EKG: If EKG completed, see Procedure Note. Orders and Treatments: Orders Placed This Encounter Procedures XR CHEST [address] ABDOMEN PELVIS W CONTRAST CT CHEST PULMONARY ANGIOGRAM COVID-19 (ID NOW TESTING) RAPID INFLUENZA A/B CBC WITH DIFF URINALYSIS Blood Culture - Peripheral # 1 Blood Culture - Peripheral # 2 COMP. METABOLIC PANEL (11905) TROPONIN I N-TERMINAL PRO-BNP AC ABG + LACTIC ACID C-REACTIVE PROTEIN D-DIMER Iron Panel Magnesium PROTHROMBIN TIME / INR ACTIVATED PARTIAL THRMPLAS LEOBARDO Type and Screen - ONCE STAT POCT TEST Lab Only COVID Interpretation URINE CULTURE Glycosylated Hemoglobin (A1C) POCT GLUCOSE (AUTOMATED) Procalcitonin Legionella and Streptococcus Pneumoniae Urinary Antigens POCT GLUCOSE (AUTOMATED) Orders Placed This Encounter Medications NaCl 0.9% (NS) bolus infusion 1,000 mL acetaminophen (OFIRMEV) IV piggyback 1,000 mg ketorolac (TORADOL) injection 30 mg cefTRIAXone (ROCEPHIN) 1,000 mg in NaCl 0.9% (NS) 100 mL MINI-BAG NaCl 0.9% (NS) IV infusion 1,400 mL insulin regular human (HUMULIN R) injection 6 Units iopamidol (ISOVUE 370-500 mL) injection 85 mL ferrous sulfate 325 mg (65 mg iron) tablet lisinopriL 20 mg tablet insulin glargine,hum.rec.anlog (INSULIN GLARGINE SC) doxycycline hyclate 100 mg capsule albuterol 90 mcg/actuation inhaler HYDROcodone-acetaminophen (NORCO) 10-325 mg tablet 1 tablet enoxaparin (LOVENOX) injection 40 mg acetaminophen (TYLENOL) tablet 650 mg acetaminophen-codeine (TYLENOL #3) 300-30 mg tablet 1 tablet ondansetron (ZOFRAN (PF)) injection 4 mg dextrose 50 % in water (D50W) injection 25 mL glucagon (GLUCAGEN DIAGNOSTIC KIT) injection 1 mg Sliding Scale Insulin - Lispro (HumaLOG) azithromycin (ZITHROMAX) 500 mg in NaCl 0.9% (NS) 250 mL VIAL-MATE IV piggyback cefTRIAXone (ROCEPHIN) 1,000 mg in NaCl 0.9% (NS) 100 mL MINI-BAG labetaloL (NORMODYNE) injection 20 mg First Provider Eval: ED Events Date/Time Event User Comments 01/11/24 08 Medical Screening Begins VENICE MABRY -- 01/11/24819 First Provider Evaluation VENICE MABRY -- AdmissionCare Guideline: Sepsis (and Other Febrile Illness without Focal Infection) - INPT, Inpatient Based on the indications selected for the patient, the bed status of Inpatient was determined to be MET The following indications were selected as present at the time of evaluation of the patient: - Parenteral antimicrobial regimen that must be implemented on inpatient basis (eg, infusion or monitoring needs beyond capabilities of outpatient parenteral therapy) AdmissionCare documentation entered by: Suki Mabry [facility] [email or web address], 27th edition, Copyright ? 2022 [facility] [employer] All Rights Reserved. [id number]:00 ED COURSE ED Course as of 01/11/24 1258 Mirtha Jan 11, 2024 1111 Admission care performed meets inpatient criteria for sepsis . Notified admission team of admission request. Discussed findings with patient and boyfriend who agree with plan for admission [PD] 1021 Glucose elevated at 311 will give SSI and re-evaluate following fluid bolus [PD] 1014 LEUK RACHEL(!): 500/uL Urine + UTI, D-dimer elevated , troponin negative, BNP mildly elevated H/H WNL , will add CT abdomen and CT pulmonary angio . Meets sepsis criteria will add antibiotic and more fluids to a total of 30ml / kg [PD] 1014 BACTERIA(!): Many [PD] 1013 WBC/HPF(!): >182 [PD] 1012 ALK PHOS(!): 218 [PD] 1012 GLUCOSE(!): 311 [PD] 1012 CO2 TOTAL(!): 19 [PD] 1012 HCT: 36.0 [PD] 1012 HGB(!): 11.1 [PD] 1012 WBC x10 3 (!): 12.92 [PD] 1012 NT-proBNP(!): 528 [PD] 1012 NA(!): 128 [PD] 1012 D DIMER(!): 1.42 [PD] 0949 LACTIC ACID WHOLE BLOOD: 1.17 [PD] 0949 ARTERIAL BE(!): -4.7 [PD] 0949 HCO3 ART(!): 18 [PD] 0949 PO2 ART(!): 76 [PD] 0948 PCO2 ART(!): 28 [PD] 0930 POCT PREG: Negative [PD] ED Course User Index [PD] Suki Mabry, JACINDA Diagnosis/Impression as of 01/11/24 1258 Weakness Sepsis, due to unspecified organism, unspecified whether acute organ dysfunction present Urinary tract infection with hematuria, site unspecified Pneumonia of right middle lobe due to infectious organism Diabetes 1.5, managed as type 1 Elevated brain natriuretic peptide (BNP) level Fever, unspecified fever cause Class 1 obesity due to excess calories with body mass index (BMI) of 32.0 to 32.9 in adult, unspecified whether serious comorbidity present Pyelonephritis Elevated d-dimer Hyperglycemia due to diabetes mellitus Procedures: Procedures MDM: Medical Decision Making Pastora Velasquez is a 43 year old female who presents to the ED with multiple complaints, most current she reports onset yesterday with fever, cough, body aches and weakness. She also endorses RLQ pain described as sharp and pinching, that radiates slightly upward. She report bilateral flank pain, and SOB. Recently discharge from [facility], where she was admitted and treated for pneumonia, anemia and iron deficiency. Discharged 01/03/24 following a 2 day stay. Reports blood transfusion x2. Review of discharge paperwork reveal an iron infusion and treatment with Rocephin and doxycycline. Differentials: pneumonia, empyema, covid, influenza, iron deficiency anemia, PE, appendicitis, pyelonephritis, , hypo/hyperglycemia, electrolyte disturbance, CHF, sepsis Plan: XR CHEST 1 VW COVID-19 (ID NOW TESTING) RAPID INFLUENZA A/B CBC WITH DIFF URINALYSIS Blood Culture - Peripheral # 1 Blood Culture - Peripheral # 2 COMP. METABOLIC PANEL (06216) TROPONIN I N-TERMINAL PRO-BNP AC ABG + LACTIC ACID Lactic Acid Whole Blood C-REACTIVE PROTEIN D-DIMER Iron Panel Magnesium PROTHROMBIN TIME / INR ACTIVATED PARTIAL THRMPLAS LEOBARDO Plan Problems Addressed: Class 1 obesity due to excess calories with body mass index (BMI) of 32.0 to 32.9 in adult, unspecified whether serious comorbidity present: chronic illness or injury Diabetes 1.5, managed as type 1: chronic illness or injury Details: A1C 9.6 Elevated brain natriuretic peptide (BNP) level: undiagnosed new problem with uncertain prognosis Elevated d-dimer: undiagnosed new problem with uncertain prognosis Details: Bruising noted on arms from priori IV access CT negative for PE Fever, unspecified fever cause: acute illness or injury Details: Suspect R/T pyelonephritis Resolved with antipyretics Pneumonia of right middle lobe due to infectious organism: acute illness or injury Details: Not visualized on cxr but + on CT Pyelonephritis: acute illness or injury Details: Treated with Rocephin and fluid bolus to 30 ml / kg Admitted to the Hospitalist group Sepsis, due to unspecified organism, unspecified whether acute organ dysfunction present: acute illness or injury Details: Meets criteria broad spectrum antibiotics and fluid bolus administered Urine culture added Urinary tract infection with hematuria, site unspecified: acute illness or injury Details: Treated with Rocephin in the ED , culture sent Weakness: acute illness or injury Details: Multifactorial, +UTI, RML pneumonia, sepsis, hyperglycemia with mild dehydration , fever with myalgia's Amount and/or Complexity of Data Reviewed Labs: ordered. Decision-making details documented in ED Course. Details: mild leukocytosis , elevated d-dimer, BNP, troponin negative, Urine + LE, Bacteria, WBC's , clumps, RBC's. Sodium decreased at 128 corrected to normal due to elevated glucose Radiology: ordered. Decision-making details documented in ED Course. Details: 1. No acute pulmonary thromboembolism. 2. Abnormal findings in lateral segment of right middle lobe could be pneumonia. Minimal groundglass hazy changes are seen in both lower lungs which is nonspecific and could be a sign of reactive airway disease. Risk OTC drugs. Prescription drug management. Decision regarding hospitalization. Flowsheet Documentation: Patient Vitals for the past 24 hrs: BP Temp Temp src Pulse Resp SpO2 Height Weight 01/11/24 1104 -- 37.6 ?C (99.7 ?F) Oral -- -- -- -- -- 01/11/24 1000 132/77 -- -- 111 16 97 % -- -- 01/11/24 0820 (!) 145/88 39.4 ?C (102.9 ?F) Oral 126 20 95 % 1.6 m (5' 3") 83.9 kg (185 lb) PSI/PORT Score: Pneumonia Severity Index for CAP from [place] on 01/11/2024 RESULT SUMMARY: 87 points Risk Class III, 0.9-2.8% mortality. Outpatient or inpatient treatment, depending on clinical judgment. INPUTS: Age --> 43 years Sex --> -10 = Female senior living resident --> 0 = No Neoplastic disease --> 0 = No Liver disease history --> 0 = No CHF history --> 0 = No Cerebrovascular disease history --> 0 = No Renal disease history --> 0 = No Altered mental status --> 0 = No Respiratory rate ?30 breaths/min --> 0 = No Systolic blood pressure <90 mmHg --> 0 = No Temperature <35&deg;C (95&deg;F) or >39.9&deg;C (103.8&deg;F) --> 15 = Yes Pulse ?125 beats/min --> 10 = Yes pH <7.35 --> 0 = No BUN ?30 mg/dL or ?11 mmol/L --> 0 = No Sodium <130 mmol/L --> 20 = Yes Glucose ?250 mg/dL or ?14 mmol/L --> 10 = Yes Hematocrit <30% --> 0 = No Partial pressure of oxygen <60 mmHg or <8 kPa --> 0 = No Pleural effusion on x-ray --> 0 = No Disposition/Condition: ED Disposition ED Disposition Admit - Inpatient Condition -- Comment -- Electronically signed by: Suki Mabry NP 01/11/24 1259 Associated attestation - Zeferino Angel MD - 01/11/2024 5:48 PM CDT Addendum I was personally available for consultation in the Emergency Department during this encounter and patient evaluation by Ajay [facility] Emergency Physician [facility] 2024-01-11 08:18:00 AdmissionCare Guideline: Sepsis (and Other Febrile Illness without Focal Infection) - INPT, Inpatient Based on the indications selected for the patient, the bed status of Inpatient was determined to be MET The following indications were selected as present at the time of evaluation of the patient: - Parenteral antimicrobial regimen that must be implemented on inpatient basis (eg, infusion or monitoring needs beyond capabilities of outpatient parenteral therapy) AdmissionCare documentation entered by: Suki Mabry [facility], 27th edition, Copyright ? 2022 [facility] All Rights Reserved. [id number]:28-05:00 [facility]
[2024-07-12] MEDS ORDERED: KETOROLAC 30 MG/ML INJ ONE (15:52)
[2024-07-12] MEDS ORDERED: ACETAMINOPHEN 500 MG TAB ONE (15:52)
[2024-07-12] MEDS ORDERED: NA CHLORIDE 0.9% 1,000 ML ONE (15:53)
[2024-07-12] MEDS ORDERED: METOCLOPRAMIDE 10 MG/2mL INJ ONE (15:53)
[2024-07-12] MEDS ORDERED: DIPHENHYDRAMINE 50 MG/ML VIAL ONE (15:53)
[2024-07-12 16:00] LABS: Absolute Eosinophils 0.1 K/uL (0-0.5); Absolute Lymphocytes (CBC) 0.8 K/uL (0.7-4.9); Absolute Monocytes 0.5 K/uL (0.1-1.3); Absolute Neutrophil 9.6 K/uL (1.8-8.0); Basophils % 0.4 % (0-1.3); Eosinophils % 0.6 % (0-4.4); Hematocrit 33.6 % (36.0-45.0); Hemoglobin 11.1 g/dL (12.0-15.0); Lymphocytes % 7.2 % (15.3-44.8); MCH 26.8 pg (27.0-35.0); MCV 81.1 fL (80-100); MPV 7.9 fL (7.6-11.3); Monocytes % 4.9 % (3.3-12.3); Neutrophils % 86.9 % (41.7-73.7); Nucleated Red Blood Cells % 0.1 % (0-0); Platelets 319 thou/uL (152-406); RBC Red Blood Cell Count 4.14 M/uL (3.86-4.86); Red Cell Distribution Width 15.4 % (12.1-15.2)
--- NOTE | 2024-07-12 16:15 | RAD REPORT ---
EXAMINATION: ONE VIEW CHEST XR CLINICAL INDICATION: Female, 43 years old. Fatigue, body aches. TECHNIQUE: 1 View, AP supine, X-ray of the chest was performed. [id number]. COMPARISON: 02/23/2024 FINDINGS: Lungs and pleura: Clear lungs. No effusion. Heart and mediastinum: Normal heart size. Unremarkable mediastinal contours. Osseous structures: No acute abnormality. Tubes/lines: None Other: None. IMPRESSION: No acute intrathoracic abnormality.
[2024-07-12 16:21] LABS: SARS-CoV-2 Antigen CONTROL BLUE LINE VIS/BG OK; SARS-CoV-2 Antigen Rapid Res Negative (Negative)
[2024-07-12 16:29] LABS: Anion Gap 11.1 mEq/L (5.0-15.0); Potassium 4.1 mEq/L (3.5-5.1)
[2024-07-12 17:29] LABS: Urine Bacteria <20 /HPF (<20); Urine Bilirubin NEGATIVE (Negative); Urine Blood 2+ (Negative); Urine Clarity Extremely Turbid (Clear); Urine Color Light-Yellow (Yellow); Urine Culture Reflex Order REFLEXED; Urine Glucose 4+ (Over) (Negative); Urine Ketones NEGATIVE (Negative); Urine Micro Reflex YN NO BILL MICROSCOPIC; Urine Mucus Slight /HPF (None Seen); Urine Nitrite 2+ (Negative); Urine Protein 3+ (Negative); Urine Urobilinogen Normal (Normal); Urine WBC 20-50 /HPF (<5); Urine WBC Clump Rare /HPF (None Seen); Urine pH 6.5 (5.0-7.0)
--- NOTE | 2024-07-12 17:33 | EDPHYS ---
Physician Documentation [facility] Name: Pastora Patterson Age: 43 yrs Sex: Female : 1980 Arrival Date: 07/12/2024 Time: 14:12 Bed 18 Private MD: ED Physician Reza Verde HPI: 07/12 14:46 This 43 yrs old Female presents to ER via Ambulatory with complaints of ec2 Fatigue. 14:46 Patient arrives today for feeling unwell. Patient reports that she has a history of ec2 urinary tract infection, denies any urinary discomfort. Patient reports she has bodyaches, nausea, no vomiting.. Historical: - Allergies: 14:40 No Known Allergies; aa5 - PMHx: 14:40 Anemia; Asthma; Bipolar disorder; Diabetes - IDDM; Hypertension; aa5 - PSHx: 14:40 section; aa5 - Immunization history:: Adult Immunizations unknown. - Infectious Disease History:: Denies. - Social history:: Smoking status: Patient reports the use of cigarette tobacco products, denies chronic smoking, but will smoke occasionally. ROS: 14:46 Constitutional: as per hpi ec2 Exam: 14:46 Constitutional: GEN: NAD Head: atraumatic Eyes: EOMI Ears: External ears are ec2 normal. CV: Tachycardia LUNGS: no respiratory distress ABD: non-distended, soft, nontender, guarding, not rigid SKIN: no evidence of rashes MSK: no evidence of trauma Vital Signs: 14:38 BP 143 / 82; Pulse 115; Resp 20; Temp 99.6(A); Pulse Ox 100% on R/A; Weight 86.18 kg aa5 (R); Height 5 ft. 3 in. (R); 16:30 BP 161 / 84; Pulse 88; Resp 18; Pulse Ox 100% ; Pain 10/10; ar6 14:38 Body Mass Index 33.66 (86.18 kg, 160.02 cm) aa5 16:30 Pain Scale: Adult ar6 14:38 Unable to obtain oral temperature at this time, pt was drinking iced water. aa5 MDM: 14:37 Patient medically screened. ec2 14:46 Data reviewed: vital signs. ED course: Patient arrives today for evaluation of fatigue ec2 and feeling unwell. Examination remarkable for slightly tachycardic individuals otherwise in no acute distress with a reassuring examination. Will obtain lab work, urine studies, give the patient crystalloid, nausea medications and reassess. . 16:54 ED course: Patient with pseudohyponatremia noted. . ec2 17:32 ED course: Urine infectious appearing with nitrates and leuk esterase present. ec2 testing negative. Will start the patient on antibiotics. Will discharge home. Return precautions given. . 07/12 14:45 Order name: CBC with Diff; Complete Time: 16:13 ec2 07/12 14:45 Order name: BMP; Complete Time: 16:53 ec2 07/12 14:45 Order name: UAM; Complete Time: 17:32 ec2 07/12 14:45 Order name: Test, Urine; Complete Time: 17:32 ec2 07/12 14:45 Order name: Influenza Screen (a \T\ B); Complete Time: 16:35 ec2 07/12 14:45 Order name: SARS RAPID; Complete Time: 16:35 ec2 07/12 17:33 Order name: Urine Culture EDWI 07/12 15:41 Order name: CXR XRAY; Complete Time: 16:21 ec2 Administered Medications: 16:00 Drug: diphenhydrAMINE IVP 25 mg IVP once Route: IVP; Site: right antecubital; ar6 16:00 Drug: NS 0.9% IV 1000 ml IV at 1 bolus Per protocol; 1000 mL bolus Route: IV; Rate: 1 ar6 bolus; Site: right antecubital; 16:01 Drug: Ketorolac IVP 15 mg IVP once Route: IVP; Site: right antecubital; ar6 16:01 Drug: metoCLOPramide IVP 10 mg IVP once; over 1 to 2 minutes Route: IVP; Site: right ar6 antecubital; 16:01 Drug: Acetaminophen PO 1000 mg PO once Route: PO; ar6 18:07 Drug: Trimethoprim-Sulfamethoxazole PO (160 mg-800 mg (DS) 1 tablet PO once Route: PO; hb 18:07 Follow up: Response: Medication administered at discharge. hb Disposition Summary: 07/12/24 17:33 Discharge Ordered Notes: Location: Home ec2 Condition: Stable ec2 Diagnosis - Hyperglycemia, unspecified ec2 - UTI/ Urinary tract infection, site not specified ec2 Followup: ec2 - With: Private Physician - When: - Reason: Re-evaluation by your physician Discharge Instructions: - Discharge Summary Sheet ec2 - Urinary Tract Infection, Adult, [id number] ec2 Forms: - Medication Reconciliation Form ec2 - Antibiotic Education ec2 - Prescription Opioid Use ec2 - Patient Portal Instructions ec2 - Leadership Thank You Letter ec2 Prescriptions: - Zofran 4 mg Oral Tablet - take 1 tablet ORAL route every 12 hours As needed; 20 tablet; Refills: 0, ec2 Product Selection Permitted - Bactrim DS 800-160 mg Oral Tablet - take 1 tablet ORAL route every 12 hours for 7 days; 14 tablet; Refills: 0, ec2 Product Selection Permitted Signatures: Dispatcher [employer] Yanci Lovell RN RN aa5 Kateryna Andrews RN RN Reza Verde MD MD ec2 Roro Osuna RN RN ar6 Corrections: (The following items were deleted from the chart) 17:07 16:35 Joyce ordered. ec2 ec2
--- NOTE | 2024-07-12 17:33 | ER ---
Nurse's Notes [facility] Name: Pastora Patterson Age: 43 yrs Sex: Female : 1980 Arrival Date: 07/12/2024 Time: 14:12 Bed 18 Private MD: Diagnosis: Hyperglycemia, unspecified;UTI/ Urinary tract infection, site not specified Presentation: 07/12 14:38 Chief complaint: Patient states: "I just feel bad and it started last night but today I aa5 feel worse". Pt reports body aches. Coronavirus screen: muscle pain. Ebola Screen: Patient denies travel to an Ebola-affected area in the 21 days before illness onset. Initial Sepsis Screen: Does the patient meet any 2 criteria? HR > 90 bpm. Does the patient have a suspected source of infection? No. Patient's initial sepsis screen is negative. Risk Assessment: Do you want to hurt yourself or someone else? Patient reports no desire to harm self or others. Onset of symptoms was June 2024. 14:38 Acuity: MANASA 3 aa5 14:38 Method Of Arrival: Ambulatory aa5 Historical: - Allergies: 14:40 No Known Allergies; aa5 - PMHx: 14:40 Anemia; Asthma; Bipolar disorder; Diabetes - IDDM; Hypertension; aa5 - PSHx: 14:40 section; aa5 - Immunization history:: Adult Immunizations unknown. - Infectious Disease History:: Denies. - Social history:: Smoking status: Patient reports the use of cigarette tobacco products, denies chronic smoking, but will smoke occasionally. Screenin:30 [facility] ED Fall Risk Assessment (Adult) History of falling in the last 3 months, ar6 including since admission No falls in past 3 months (0 pts) Confusion or Disorientation No (0 pts) Intoxicated or Sedated No (0 pts) Impaired Gait No (0 pts) Mobility Assist Device Used No (0 pt) Altered Elimination No (0 pt) Score/Fall Risk Level 0 - 2 = Low Risk Oriented to surroundings, Maintained a safe environment, Hourly rounding (assess needs \\T\\ fall precautionary measures) done. Abuse screen: Denies threats or abuse. Denies injuries from another. Nutritional screening: No deficits noted. Tuberculosis screening: No symptoms or risk factors identified. Assessment: 16:30 General: Appears in no apparent distress. uncomfortable, Behavior is calm, cooperative, ar6 appropriate for age. 16:30 Pain: Complains of pain in pt. reports generalized pain all over. Pain: Complains of ar6 pain in pt. reports generalized pain. Neuro: Level of Consciousness is awake, alert, obeys commands, Oriented to person, place, time, situation. Cardiovascular: Capillary refill < 3 seconds. Respiratory: Airway is patent. GI: Abdomen is round non-distended. : Urine is clear. EENT: Oral mucosa is moist. Derm: Skin is intact, is healthy with good turgor, Skin is dry, Skin is pink, warm \\T\\ dry. Musculoskeletal: No signs and/or symptoms reported regarding the musculoskeletal system. Vital Signs: 14:38 BP 143 / 82; Pulse 115; Resp 20; Temp 99.6(A); Pulse Ox 100% on R/A; Weight 86.18 kg aa5 (R); Height 5 ft. 3 in. (R); 16:30 BP 161 / 84; Pulse 88; Resp 18; Pulse Ox 100% ; Pain 10/10; ar6 14:38 Body Mass Index 33.66 (86.18 kg, 160.02 cm) aa5 16:30 Pain Scale: Adult ar6 14:38 Unable to obtain oral temperature at this time, pt was drinking iced water. aa5 ED Course: 14:14 Patient arrived in ED. mg5 14:16 Reza Verde MD is Attending Physician. ec2 14:38 Arm band placed on. aa5 14:39 Triage completed. aa5 15:36 Roro Osuna, RN is Primary Nurse. ar6 15:42 SARS RAPID Sent. ar6 15:42 Influenza Screen (a \\T\\ B) Sent. ar6 15:55 Initial lab(s) drawn, by [facility], sent to lab. Inserted saline lock: 22 gauge in right tm3 antecubital area, using aseptic technique. 16:11 CXR XRAY In Process Unspecified. EDMS 16:30 No apparent distress. No apparent distress. Awaiting lab results, Awaiting radiology ar6 results. 16:30 Patient has correct armband on for positive identification. Bed in low position. Call ar6 light in reach. Side rails up X 1. Provided Education on: plan of care. Pulse ox on. NIBP on. Door closed. Noise minimized. Lights dimmed. Moved to private room. Warm blanket given. Head of bed lowered. 16:30 No provider procedures requiring assistance completed. ar6 Administered Medications: 16:00 Drug: diphenhydrAMINE IVP 25 mg IVP once Route: IVP; Site: right antecubital; ar6 16:00 Drug: NS 0.9% IV 1000 ml IV at 1 bolus Per protocol; 1000 mL bolus Route: IV; Rate: 1 ar6 bolus; Site: right antecubital; 16:01 Drug: Ketorolac IVP 15 mg IVP once Route: IVP; Site: right antecubital; ar6 16:01 Drug: metoCLOPramide IVP 10 mg IVP once; over 1 to 2 minutes Route: IVP; Site: right ar6 antecubital; 16:01 Drug: Acetaminophen PO 1000 mg PO once Route: PO; ar6 18:07 Drug: Trimethoprim-Sulfamethoxazole PO (160 mg-800 mg (DS) 1 tablet PO once Route: PO; hb 18:07 Follow up: Response: Medication administered at discharge. Medication: 16:30 VIS not applicable for this client. ar6 Outcome: 17:33 Discharge ordered by . estella 18:07 Patient left the ED. Signatures: Dispatcher [employer] Roni Chaudhry 3 Yanci Oseguera RN RN aa5 Kateryna Andrews RN RN Annia Goodwin mg5 Reza Verde MD MD ec2 Roro Osuna RN RN ar6
[2024-07-12] MEDS ORDERED: SMZ./TMP. 800/160 MG TABLET ONE (17:59)
[2024-07-12 18:22] VITALS: TEMP 99.6; O2SAT 100
[2024-07-12 18:27] VITALS: BP 161/84
== END 2024-07-12 18:07 | disposition home or self-care (01) ==
LOC: ER 14:12
DX: E11.65 Type 2 diabetes mellitus with hyperglycemia (principal); N39.0 Urinary tract infection, site not specified; I10 Essential (primary) hypertension; F17.210 Nicotine dependence, cigarettes, uncomplicated; Z11.52 Encounter for screening for COVID-19
CPT/HCPCS: 87088; 85025; 81001; 87086; 80048; 36415; 81025; 87077; 87186; 87804 ×2; 71045; 96375; 96374; 99284; 87811; J2765; J1200; J7030

== ENCOUNTER 2024-09-25 04:59 | Inpatient (IN) | payer OTHER ==
--- OUTSIDE RECORDS SUMMARY | 2024-09-25 05:03 | XMS REPORT | Continuity of Care Document ---
Author Name Unknown Address [address] [facility] [place] [address] [facility]ct[facility]acy medical centerect Address [address] 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 PROVIDER TRAINER, Suki Lanza Attending Clinician [phone] Laura Reyes DO Attending Clinician [phone] LAURA REYES Attending Clinician Unavailable Doctor Unassigned, [place] Attending Clinician U Laura Leroy DO Admitting Clinician [phone] LAURA REYES Admitting Clinician Unavailable Payers Payer Name Policy Type Policy Number Effective Date Expirati on Date Source [employer] [id number] 2023 00:00:00 Problems Condition Name Condition Details Condition Category Status Onset Date Resolution Date Last Treatment Date Treating Clinician Comments Source Sepsis Sepsis Disease Active 01-10 00:00: 00 [facility] Obesity (BMI 30-39.9) Obesity (BMI 30-39.9) Disease Active 01-10 00:00: 00 [facility] No known active problems No known active problems Disease [facility] Allergies, Adverse Reactions, Alerts Allergy Name Allergy Type Status Severity Reaction(s) Onset Date Inactive Date Treating Clinician Comments Source NO KNOWN ALLERGIE S Drug Class Active [facility] Social History Social Habit Start Date Stop Date Quantity Comments Source History of tobacco use Cigarette Smoker [facility] of Social function 2024-01-12 00:00:00 2024-01-12 00:00:00 [facility] Tobacco use and exposure 2024-01-11 00:00:00 2024-01-11 00:00:00 Smokeless tobacco non-user [facility] Sex Assigned At 1980 00:00:00 1980 00:00:00 [facility] Smoking Status Start Date Stop Date Source Unknown if ever smoked [facility] Smokes tobacco daily 2024-01-11 00:00:00 [facility] Medications Ordered Medication Name Filled Medication Name Start Date Stop Date Current Medication? Ordering Clinician Indication Dosage Frequency Signature (SIG) Comments Components Source insulin NPH (HUMULIN N) injection 15 Units 01-16 02:00: 00 Yes 15U 15 Units, Subcutaneo us, QAM+HS, First dose on Mon01/16/24 at 2100, Until Discontinu ed, Routine [facility] metFORMIN (GLUCOPHAGE ) tablet 1,000 mg 01-15 22:00: 00 Yes 1000mg 1,000 mg, Oral, BID MEALS, First dose on Mon01/16/24 at 1700, Until Discontinu ed, Routine [facility] ferrous sulfate 325 mg (65 mg iron) tablet 01-15 13:15: 48 Yes 325mg Take 1 tablet by mouth in the morning and 1 tablet at noon and 1 tablet in the evening. Take with meals. [facility] lisinopriL 20 mg tablet 01-15 13:15: 48 Yes 20mg Take 1 tablet by mouth in the morning. [facility] albuterol 90 mcg/actuati on inhaler 01-15 13:15: 48 Yes 2{puff} Inhale 2 Puffs every 6 (six) hours as needed for Wheezing or Shortness of Breath. [facility] insulin glarginebharatrecSimeonanlog (INSULIN GLARGINE SC) 01-15 09:37: 37 01-15 00:00 :00 No 40U inject 40 Units under the skin in the morning and 40 Units in the evening. [facility] diphenhydrA MINE (BENADRYL) tablet 25 mg 01-15 02:44: 02 Yes 25mg 25 mg, Oral, Q6HPRN, Starting on Mon01/15/24 at 2144, Until Discontinu ed, Routine, Itching [facility] carvediloL 6.25 mg tablet 01-15 00:00: 00 02-15 04:59 :00 No [id number] 6.25mg Take 1 tablet by mouth in the morning and 1 tablet in the evening. Take with meals. Do all this for 30 days. [facility] metFORMIN 1,000 mg tablet 01-15 00:00: 00 02-15 04:59 :00 No [id number] 1000mg Take 1 tablet by mouth in the morning and 1 tablet in the evening. Take with meals. Do all this for 30 days. [facility] insulin NPH 100 unit/mL injection 01-15 00:00: 00 02-15 04:59 :00 No [id number] 15U inject 15 Units under the skin every morning and at bedtime for 30 days. [facility] cefUROXime 500 mg tablet 01-15 00:00: 00 01-24 04:59 :00 No [id number] 500mg Take 1 tablet by mouth in the morning and 1 tablet in the evening. Do all this for 8 days. [facility] polyethylen e glycol 3350 powder 17 g 01-14 16:15: 00 Yes 17g 17 g, Oral, DAILY, First dose on Mon01/15/24 at 1115, Until Discontinu ed, Routine [facility] sodium bicarbonate (ANTACID (SODIUM BICARBONATE )) tablet 650 mg 01-14 13:30: 00 Yes 650mg 650 mg, Oral, QID, First dose on Mon01/15/24 at 0830, Until Discontinu ed, Routine [facility] diphenhydrA MINE (BENADRYL) injection 25 mg 01-14 06:45: 00 01-14 06:18 :00 No 25mg 25 mg, Slow IV Push, ONCE, 1 dose, On Mon01/15/24 at 0145, Routine [facility] fluticasone propionate 50 mcg/actuati on nasal spray 2 [place] 01-14 06:00: 00 Yes 2{spray } 2 [place], Nasal, DAILY, First dose on Mon01/15/24 at 0100, Until Discontinu ed, Routine [facility] albuterol (VENTOLIN) inhaler 2 Puff 01-14 01:34: 59 Yes 2{puff} 2 Puff, Inhalation , Q6HPRN, Starting on Mon01/14/24 at 2034, Until Discontinu ed, Routine, Wheezing, Bronchospa sm, Chest tightness, Shortness of Breath [facility] insulin glargine (LANTUS U-100) injection 30 Units 01-14 01:00: 00 Yes 30U 30 Units, Subcutaneo us, BID, First dose (after last modificati on) on Mon01/14/24 at 2000, Until Discontinu ed [facility] acetaminoph en-codeine (TYLENOL #3) 300-30 mg tablet 1 tablet 01-13 23:33: 10 Yes 1{tbl} 1 tablet, Oral, Q4HPRN, Starting on Mon01/14/24 at 1833, Until Discontinu ed, Routine, Pain (scale 7-10) [facility] levalbutero l (XOPENEX) nebulizer solution 1.25 mg 01-13 17:00: 00 Yes 1.25mg 1.25 mg, Inhalation , QID, First dose on Mon01/14/24 at 1200, Until Discontinu ed, Routine [facility] NIFEdipine (ADALAT) capsule 10 mg 01-13 13:45: 00 01-14 18:55 :59 No 10mg 10 mg, Oral, TID, First dose on Mon01/14/24 at 0845, Until Discontinu ed, Routine [facility] carvediloL (COREG) tablet 6.25 mg 01-13 13:00: 00 Yes 6.25mg 6.25 mg, Oral, BID MEALS, First dose on Mon01/14/24 at 0800, Until Discontinu ed, Routine [facility] labetaloL (NORMODYNE) injection 20 mg 01-13 01:15: 00 01-13 00:31 :00 No 20mg 20 mg, Slow IV Push, ONCE, 1 dose, On Mon01/13/24 at 2015, Routine [facility] cefTRIAXone (ROCEPHIN) 2,000 mg in NaCl [...]
Durat ion of therapy: 5 days [facility] enoxaparin (LOVENOX) injection 40 mg 01-11 14:00: 00 Yes 40mg 40 mg, Subcutaneo us, DAILY, First dose on Mon01/12/24 at 0900, Until Discontinu ed, [facility]isin[facility] (PRINIVIL,Z ESTRIL) tablet 20 mg 01-11 14:00: 00 Yes 20mg 20 mg, Oral, DAILY, First dose on Mon01/12/24 at 0900, Until Discontinu ed, Routine [facility] ferrous sulfate tablet 325 mg 01-11 13:00: 00 Yes 325mg 325 mg, Oral, TID MEALS, First dose on Mon01/12/24 at 0800, Until Discontinu ed, Routine [facility] ipratropium -albuteroL (DUONEB) 0.5 mg-3 mg(2.5 mg base)/3 mL nebulizer solution 3 mL 01-11 01:00: 00 01-13 15:58 :44 No 3mL 3 mL, Inhalation , QID, First dose on Mon01/11/24 at 1999, Until Discontinu ed, Routine [facility] insulin glargine (LANTUS U-100) injection 25 Units 01-11 01:00: 00 01-13 16:01 :37 No 25U 25 Units, Subcutaneo us, BID, First dose on Mon01/11/24 at 1999, Until Discontinu ed [facility] NaCl 0.9% (NS) IV infusion 1,000 mL 01-11 00:45: 00 01-12 15:37 :01 No 1000mL at 75 mL/hr, IV Infusion, CONTINUOUS , Starting on Mon01/11/24 at 1945, Until [facility] 01/13/24 at 1037, Routine [facility] codeine-gua ifenesin (ROBITUSSIN AC) 10-100 mg/5 mL oral solution 5 mL 01-11 00:30: 00 01-11 01:43 :00 No 5mL 5 mL, Oral, ONCE, 1 dose, On Mon01/11/24 at 1930, Routine [facility] ibuprofen (IBU) tablet 400 mg 01-11 00:01: 03 Yes 400mg 400 mg, Oral, Q6HPRN, Starting on Mon01/11/24 at 1901, Until Discontinu ed, Routine, Temp > 38.5 C [facility] LORazepam (ATIVAN) tablet 1 mg 01-10 23:43: 33 Yes 1mg 1 mg, Oral, TIDPRN, Starting on Mon01/11/24 at 1843, Until Discontinu ed, Routine, Anxiety, Agitation [facility] enoxaparin (LOVENOX) injection 40 mg 01-10 22:00: 00 01-10 23:38 :07 No 40mg 40 mg, Subcutaneo us, DAILY, First dose on Mon01/11/24 at 1700, Until Discontinu ed, Routine [facility] labetaloL (NORMODYNE) injection 20 mg 01-10 18:45: 00 01-10 17:56 :00 No 20mg 20 mg, Slow IV Push, ONCE, 1 dose, On Mirtha 01/11/24 at 1345, Routine [facility] doxycycline hyclate 100 mg capsule 01-10 18:30: 14 01-10 00:00 :00 No 100mg Take 1 capsule by mouth every 12 (twelve) hours. [facility] azithromyci n (ZITHROMAX) 500 mg in NaCl 0.9% (NS) 250 mL VIAL-MATE IV piggyback 01-10 17:45: 00 01-12 20:21 :00 No 500mg 500 mg, IV Piggyback, Q24H ABX, 3 doses, First dose on Mirtha 01/11/24 at 1245, Last dose on [facility] 01/13/24 at 1245, Administer over 60 Minutes, 250 mL
Reas on for Anti-Infec tive: Empiric Therapy for Suspected Infection< br>Empiric Therapy Site: Respirator y
Durat ion of therapy: 72 hours [facility] HYDROcodone -acetaminop hen (NORCO) 10-325 mg tablet 1 tablet 01-10 17:15: 00 01-10 16:35 :00 No 1{tbl} 1 tablet, Oral, ONCE, 1 dose, On Mon01/11/24 at 1215, Routine [facility] Sliding Scale Insulin - Lispro (HumaLOG) 01-10 17:00: 00 Yes Subcutaneo us, TID MEALS+HS, First dose on Mon01/11/24 at 1200, Until Discontinu ed, Routine [facility] glucagon (GLUCAGEN DIAGNOSTIC KIT) injection 1 mg 01-10 16:38: 56 Yes 1mg 1 mg, Intramuscu lar, PRN, Starting on Mon01/11/24 at 1138, Until Discontinu ed, BRAD, Blood Glucose < or = 70 mg/dL and patient is NPO, unable to swallow or has mental changes. [facility] dextrose 50 % in water (D50W) injection 25 mL 01-10 16:38: 56 Yes 25mL 25 mL, Slow IV Push, PRN, Starting on Mirtha 01/11/24 at 1138, Until Discontinu ed, BRAD, Blood Glucose < or = 70 mg/dL and patient is NPO, unable to swallow or has mental status changes. [facility] ondansetron (ZOFRAN (PF)) injection 4 mg 01-10 16:38: 49 Yes 4mg 4 mg, Slow IV Push, Q6HPRN, Starting on Mon01/11/24 at 1138, Until Discontinu ed, Routine, Nausea and Vomiting (N/V) [facility] acetaminoph en-codeine (TYLENOL #3) 300-30 mg tablet 1 tablet 01-10 16:38: 43 01-12 16:37 :43 No 1{tbl} 1 tablet, Oral, Q6HPRN, Starting on Mirtha 01/11/24 at 1138, Until 01/13/24 at 1137, Routine, Pain (scale 4-6) [facility] acetaminoph en (TYLENOL) tablet 650 mg 01-10 16:38: 25 Yes 650mg 650 mg, Oral, Q6HPRN, Starting on Mon01/11/24 at 1138, Until Discontinu ed, Routine, Pain (scale 1-3), Temp > 38 C [facility] NaCl 0.9% (NS) IV infusion 1,400 mL 01-10 16:30: 00 01-10 15:25 :00 No 1400mL at 999 mL/hr, Intravenou s, ONCE, 1 dose, On Mon01/11/24 at 1130, Routine [facility] insulin regular human (HUMULIN R) injection 6 Units 01-10 16:15: 00 01-10 15:57 :00 No 6U 6 Units, Subcutaneo us, ONCE, 1 dose, On Mon01/11/24 at 1115, Routine
Indicatio n for insulin: Hyperglyce bryan [facility] iopamidol (ISOVUE 370-500 mL) injection 85 mL 01-10 15:38: 00 01-10 15:45 :00 No [id number] 85mL 85 mL, Intravenou s, ONCE, 1 dose, On Mirtha 01/11/24 at 1045, Routine [facility] cefTRIAXone (ROCEPHIN) 1,000 mg in NaCl 0.9% (NS) 100 mL MINI-BAG 01-10 15:30: 00 01-10 16:37 :00 No 1000mg 1,000 mg, IV Piggyback, ONCE, 1 dose, On Mirtha 01/11/24 at 1030, Administer over 30 Minutes, 100 mL
Reas on for Anti-Infec tive: Documented Infection< br>Documen stacey Infection Site: Urine
D uration of Therapy: Once (ED) [facility] ketorolac (TORADOL) injection 30 mg 01-10 15:00: 00 01-10 14:14 :00 No 30mg 30 mg, Slow IV Push, ONCE, 1 dose, On Mirtha 01/11/24 at 1000, Routine [facility] acetaminoph en (OFIRMEV) IV piggyback 1,000 mg 01-10 14:45: 00 01-10 14:52 :00 No 1000mg 1,000 mg, IV Piggyback, at 400 mL/hr Administer over 15 Minutes, ONCE, 1 dose, On Mirtha 01/11/24 at 0945, Routine
Is the patient strict NPO and unable to tolerate oral medication s? Yes [facility] NaCl 0.9% (NS) bolus infusion 1,000 mL 01-10 14:45: 00 01-10 15:57 :00 No 1000mL at 999 mL/hr, 1,000 mL, IV Infusion, ONCE, 1 dose, On Mirtha 01/11/24 at 0945, BRAD [facility] azithromyci n 250 mg tablet 12-25 00:00: 00 01-10 00:00 :00 No [id number] 250mg Take 1 tablet by mouth SEE-INSTRU CTIONS. Take 500 mg day 1, then 250 mg days 2 to 5. [facility] Vital Signs Vital Name Observation Time Observation Value Comments S marivel Respiratory rate 2024-01-16 16:19:00 18 /min [facility] Oxygen saturation in Arterial blood by Pulse oximetry 2024-01-16 16:19:00 100 /min [facility] Systolic blood pressure 2024-01-16 12:19:00 173 mm[Hg] [facility] Diastolic blood pressure 2024-01-16 12:19:00 93 mm[Hg] [facility] Heart rate 2024-01-16 12:19:00 80 /min [facility] Body temperature 2024-01-16 12:19:00 36.5 Sarah [facility] Body weight 2024-01-16 08:12:00 82.918 kg [facility] BMI 2024-01-16 08:12:00 32.38 kg/m2 [facility] Body height 2024-01-11 18:05:00 160 cm [facility] Procedures Procedure Date / Time Performed Performing Clinician Source POCT GLUCOSE (AUTOMATED) 2024-01-16 12:50:00 Oneida Reyes [facility] POCT GLUCOSE (AUTOMATED) 2024-01-16 10:47:00 Oneida Reyes [facility] BASIC METABOLIC PANEL (NA, K, CL, CO2, GLUCOSE, BUN, CREATININE, CA) 2024-01-16 09:33:00 Laura Reyes [facility] CBC WITH DIFF 2024-01-16 09:33:00 Laura Reyes [facility] POCT GLUCOSE (AUTOMATED) 2024-01-16 02:03:00 Oneida Reyes [facility] POCT GLUCOSE (AUTOMATED) 2024-01-15 21:32:00 Oneida Reyes [facility] POCT GLUCOSE (AUTOMATED) 2024-01-15 16:38:00 Oneida Reyes [facility] CBC WITH DIFF 2024-01-15 15:54:00 Laura Reyes [facility] POCT GLUCOSE (AUTOMATED) 2024-01-15 12:55:00 Oneida Reyes [facility] MAGNESIUM 2024-01-15 10:05:00 Laura Reyes [facility] BASIC METABOLIC PANEL (NA, K, CL, CO2, GLUCOSE, BUN, CREATININE, CA) 2024-01-15 10:05:00 Laura Reyes [facility] CBC WITH DIFF 2024-01-15 10:05:00 Laura Reyes [facility] POCT GLUCOSE (AUTOMATED) 2024-01-15 00:58:00 Oneida Reyes [facility] POCT GLUCOSE (AUTOMATED) 2024-01-14 21:34:00 Oneida Reyes [facility] US ABDOMEN LIMITED 2024-01-14 17:48:51 Laura Reyes [facility] RETROPERITONEAL LIMITED 2024-01-14 17:45:00 Laura Reyes [facility] POCT GLUCOSE (AUTOMATED) 2024-01-14 16:31:00 Oneida Reyes [facility] POCT GLUCOSE (AUTOMATED) 2024-01-14 12:35:00 [facility] MAGNESIUM 2024-01-14 09:39:00 Laura Reyes [facility] IRON 2024-01-14 09:39:00 Laura Reyes [facility] BASIC METABOLIC PANEL (NA, K, CL, CO2, GLUCOSE, BUN, CREATININE, CA) 2024-01-14 09:39:00 Laura Reyes [facility] CBC WITH DIFF 2024-01-14 09:39:00 Laura Reyes [facility] POCT GLUCOSE (AUTOMATED) 2024-01-14 01:40:00 [facility] POCT GLUCOSE (AUTOMATED) 2024-01-13 21:29:00 Oneida Reyes [facility] POCT GLUCOSE (AUTOMATED) 2024-01-13 16:30:00 Oneida Reyes [facility] BLOOD CULTURE SCREEN 2024-01-13 16:18:00 Edilberto, [facility] POCT GLUCOSE (AUTOMATED) 2024-01-13 12:36:00 Oneida Reyes [facility] MAGNESIUM 2024-01-13 08:17:00 Cayetano Squires [facility] BASIC METABOLIC PANEL (NA, K, CL, CO2, GLUCOSE, BUN, CREATININE, CA) 2024-01-13 08:17:00 [facility] 2024-01-13 08:17:00 Cayetano Squires [facility] POCT GLUCOSE (AUTOMATED) 2024-01-13 06:26:00 Oneida Reyes [facility] POCT GLUCOSE (AUTOMATED) 2024-01-13 01:37:00 Oneida Reyes [facility] POTASSIUM SERUM 2024-01-13 01:11:00 Cayetano Squires [facility] POCT GLUCOSE (AUTOMATED) 2024-01-12 21:21:00 Oneida Reyes [facility] POCT GLUCOSE (AUTOMATED) 2024-01-12 16:41:00 Oneida Reyes [facility] POCT GLUCOSE (AUTOMATED) 2024-01-12 12:39:00 Oneida Reyes [facility] TOTAL IRON BINDING CAPACITY 2024-01-12 02:28:00 Edilberto [facility] HEPATITIS B SURFACE ANTIBODY 2024-01-12 02:28:00 Edilberto [facility] HEPATITIS B SURFACE ANTIGEN 2024-01-12 02:28:00 Edilberto [facility] HCV ANTIBODY 2024-01-12 02:28:00 Laura Reyes [facility] HBC ANTIBODY (IGM & IGG) 2024-01-12 02:28:00 Oneida Reyes [facility] POCT GLUCOSE (AUTOMATED) 2024-01-12 01:07:00 Oneida Reyes [facility] POCT GLUCOSE (AUTOMATED) 2024-01-11 22:33:00 Oneida Reyes [facility] LEGIONELLA AND STREPTOCOCCUS PNEUMONIAE URINARY ANTIGENS 2024-01-11 19:36:00 Laura Reyes [facility] PROCALCITONIN 2024-01-11 18:25:00 Edilberto, Laura [facility] POCT GLUCOSE (AUTOMATED) 2024-01-11 17:23:00 Oneida Reyes [facility] POCT GLUCOSE (AUTOMATED) 2024-01-11 15:57:00 Norma Mabry [facility] CT CHEST PULMONARY ANGIOGRAM 2024-01-11 15:43:21 Suki Mabry [facility] CT ABDOMEN PELVIS W CONTRAST 2024-01-11 15:43:21 Suik Mabry [facility] URINE CULTURE 2024-01-11 15:29:00 Suki Mabry [facility] AC ABG + LACTIC ACID 2024-01-11 14:31:00 Janette Mabry [facility] XR CHEST 1 VW 2024-01-11 14:19:14 Suki Mabry [facility] HB ABO GROUPING 2024-01-11 14:18:00 [facility] & RHYTHM STRIP 2024-01-11 14:13:01 Suki Mabry [facility] N-TERMINAL PRO-BNP 2024-01-11 14:05:00 Suki Mabry [facility] COVID-19 (ID NOW RAPID TESTING) 2024-01-11 14:05:00 Suki Mabry [facility] LAB ONLY COVID INTERPRETATION 2024-01-11 14:05:00 Suki Mabry [facility] BLOOD CULTURE SCREEN 2024-01-11 14:05:00 Janette Mabry [facility] MAGNESIUM 2024-01-11 14:05:00 Suki Mabry [facility] C-REACTIVE PROTEIN 2024-01-11 14:05:00 Suki Mabry [facility] TROPONIN I 2024-01-11 14:05:00 Suki Mabry [facility] COMP. METABOLIC PANEL (94029) 2024-01-11 14:05:00 Suki Mabry [facility] IRON PANEL 2024-01-11 14:05:00 Suki Mabry [facility] CBC WITH DIFF 2024-01-11 14:05:00 [facility] GLYCOSYLATED HEMOGLOBIN (A1C) 2024-01-11 14:05:00 Suki Mabry [facility] PROTHROMBIN TIME / INR 2024-01-11 14:05:00 [place] Mabry ala [facility] D-DIMER 2024-01-11 14:05:00 Suki Mabry [facility] ACTIVATED PARTIAL THRMPLAS LEOBARDO 2024-01-11 14:05:00 Suki Mabry [facility] URINALYSIS 2024-01-11 14:05:00 Suki Mabry [facility] RAPID INFLUENZA A/B 2024-01-11 14:05:00 Suki Mabry [facility] POCT TEST 2024-01-11 14:05:00 Suki Mabry [facility] BLOOD CULTURE WORKUP 2024-01-11 13:50:00 Janette Mabry [facility] GRAM NEGATIVE BLOOD PATHOGENS DNA PROBE-ANAEROBIC 2024-01-11 13:50:00 Suki Mabry [facility] BLOOD CULTURE SCREEN 2024-01-11 13:50:00 Janette Mabry [facility] CONSENT/REFUSAL FOR DIAGNOSIS AND TREATMENT 2024-01-11 13:18:36 Doctor Unassigned, [place] [facility] OP CORRESPONDENCE 2019-06-26 05:01:00 Doctor Bette ssigned, [place] [facility] Encounters Start Date/Time End Date/Time Encounter Type Admission Type Attending [facility] Care Facility Care Department Encounter ID Source 2024-01-11 08:37:00 2024-01-16 13:06:00 Hospital Encounter Suki Mabry [facility] [id number] [facility] 2024-01-11 08:37:00 2024-01-16 13:06:00 Inpatient X [facility] [id number] [facility] 2019-06-26 00:00:00 2019-06-26 00:00:00 Orders Only Doctor Unassigned, [place] [facility] [id number] [facility] Results Test Description Test Time Test Comments Results Result Co mments Source [facility] GLUCOSE (AUTOMATED)2024-01-16 12:51:40* Test Item Value Reference Range Interpretation Comme nts POCT GLU (test code = 0614171509) 91 mg/dL 70-110 Lab Interpretation (test cod e = 35893-8) Normal [facility] GLUCOSE (AUTOMATED)2024-01-16 10:48:21* Test Item Value Reference Range Interpretation Comme nts POCT GLU (test code = 2760158158) 81 mg/dL 70-110 Lab Interpretation (test cod e = 41546-8) Normal [facility] GLUCOSE (AUTOMATED)2024-01-16 02:05:11* Test Item Value Reference Range Interpretation Comme nts POCT GLU (test code = 0247911542) 108 mg/dL 70-110 Lab Interpretation (test cod e = 63813-7) Normal [facility] GLUCOSE (AUTOMATED)2024-01-15 21:33:26* Test Item Value Reference Range Interpretation Comme nts POCT GLU (test code = 6060954659) 114 mg/dL 70-110 H Lab Interpretation (test cod e = 21184-7) Abnormal [facility] GLUCOSE (AUTOMATED)2024-01-15 16:40:25* Test Item Value Reference Range Interpretation Comme nts POCT GLU (test code = 5694066627) 132 mg/dL 70-110 H Lab Interpretation (test cod e = 57361-4) Abnormal [facility] GLUCOSE (AUTOMATED)2024-01-15 12:56:15* Test Item Value Reference Range Interpretation Comme nts POCT GLU (test code = 2003086461) 124 mg/dL 70-110 H Lab Interpretation (test cod e = 35352-6) [facility] [id number] 10:03:41Ordering physician: LAURA REYES Indication: Right upper [...] common bile duct is nondilated at 2 mm.[facility] GLUCOSE (AUTOMATED) 2024-01-15 00:59:44* Test Item Value Reference Range Interpretation Comme nts POCT GLU (test code = 2202433670) 130 mg/dL 70-110 H Lab Interpretation (test cod e = 87868-5) Abnormal [facility] GLUCOSE (AUTOMATED)2024-01-14 21:45:36* Test Item Value Reference Range Interpretation Comme nts POCT GLU (test code = 2697264022) 124 mg/dL 70-110 H Lab Interpretation (test cod e = 54394-8) [facility]normal [facility] [id number] 18:04:32 ULTRASOUND RETROPERITONEAL LIMITED Ordering physician: . RENATA REYES. ?LAURA REYES HISTORY: . ?R/O perinephric acbcess . Technique: Transverse and sagittal ultrasound images of the kidneys andbladder were obtained. Images were permanently stored to the ?PACS. FINDINGS: Right kidney: Right kidney measures 12.8 x 5.0 x 6.4 cm. No hydronephrosisof the right kidney. Left kidney: Left kidney measures 12.6 x 6.0 x 6.0 cm withouthydronephrosis Urinary bladder: Urinary bladder is well distended. Estimated bladdervolume of 496 cc. Aorta and IVC were not well visualized.[facility] [employer] [id number] 16:58:46* Test Item Value Reference Range Interpretation Comme nts TIBC (test code = [id number]) 285 ug/dL 250-410 Lab Interpretation (test cod e = 40507-3) Normal [facility] GLUCOSE (AUTOMATED)2024-01-14 16:33:13* Test Item Value Reference Range Interpretation Comme nts POCT GLU (test code = 4093086023) 120 mg/dL 70-110 H Lab Interpretation (test cod e = 99299-4) Abnormal [facility] GLUCOSE (AUTOMATED)2024-01-14 12:37:58* Test Item Value Reference Range Interpretation Comme nts POCT GLU (test code = 0517371736) 223 mg/dL 70-110 H Lab Interpretation (test cod e = 46776-2) Abnormal [facility] GLUCOSE (AUTOMATED)2024-01-14 01:42:00* Test Item Value Reference Range Interpretation Comme nts POCT GLU (test code = 5009413585) 219 mg/dL 70-110 H Lab Interpretation (test cod e = 47452-2) Abnormal [facility] GLUCOSE (AUTOMATED)2024-01-13 21:35:47* Test Item Value Reference Range Interpretation Comme nts POCT GLU (test code = 0723596164) 232 mg/dL 70-110 H Lab Interpretation (test cod e = 30719-0) Abnormal [facility] GLUCOSE (AUTOMATED)2024-01-13 16:53:17* Test Item Value Reference Range Interpretation Comme nts POCT GLU (test code = 9857673773) 187 mg/dL 70-110 H Lab Interpretation (test cod e = 96418-2) Abnormal [facility] GLUCOSE (AUTOMATED)2024-01-13 12:46:37* Test Item Value Reference Range Interpretation Comme nts POCT GLU (test code = 2975786194) 128 mg/dL 70-110 H Lab Interpretation (test cod e = 46241-1) [facility] - Peripheral # [id number] 12:18:06* Test Item Value Reference Range Interpretation Comme nts Blood Culture-Aerobic (test code = 87955-1) Culture positive. See Blood Culture Workup for additional information. No growth AA Previous preliminary verified result was Culture In Progress on 01/11/2024 at 2340 CDT Blood Culture-Anaerobic (test code = 37576-2) Culture positive. See Blood Culture Workup for additional information. No growth AA Previous preliminary verified result was Culture In Progress on 01/11/2024 at 1301 CDT Lab Interpretation (test code = 93582-1) Abnormal [facility] GLUCOSE (AUTOMATED)2024-01-13 06:27:42* Test Item Value Reference Range Interpretation Comme nts POCT GLU (test code = 4875499134) 202 mg/dL 70-110 H Lab Interpretation (test cod e = 05882-8) Abnormal [facility] GLUCOSE (AUTOMATED)2024-01-13 01:37:55* Test Item Value Reference Range Interpretation Comme nts POCT GLU (test code = 6661644225) 107 mg/dL 70-110 Lab Interpretation (test cod e = 57944-5) Normal [facility] GLUCOSE (AUTOMATED)2024-01-12 21:23:08* Test Item Value Reference Range Interpretation Comme nts POCT GLU (test code = 3566269423) 122 mg/dL 70-110 H Lab Interpretation (test cod e = 70582-6) Abnormal [facility] GLUCOSE (AUTOMATED)2024-01-12 18:05:30* Test Item Value Reference Range Interpretation Comme nts POCT GLU (test code = 5972790909) 125 mg/dL 70-110 H Lab Interpretation (test cod e = 82883-3) [facility]normal [facility] [id number] 17:21:08* Test Item Value Reference Range Interpretation Comme nts CRP (test code = 0773077143) 7.6 mg/dL <=0.8 H Lab Interpretation (test cod e = 85210-5) Abnormal [facility] CenterGRAM NEGATIVE BLOOD PATHOGENS DNA [id number] 13:52:52* Test Item Value Reference Range Interpretation Comme nts Escherichia coli (test code = 53988-9) Positive Negative A ALLIE (test code = ALLIE) See blood culture result for additional information. ?Testing included eight identification and six resistance marker targets. Lab Interpretation (test code = 53750-7) Abnormal [facility] GLUCOSE (AUTOMATED)2024-01-12 12:43:01* Test Item Value Reference Range Interpretation Comme nts POCT GLU (test code = 3279966850) 103 mg/dL 70-110 Lab Interpretation (test cod e = 64656-9) Normal [facility] Surface [id number] 11:29:09* Test Item Value Reference Range Interpretation Comme nts HBsAB (test code = 3175785500) Positive HBsAb Semi-Quantitative (test code = 2633458319) 34.50 mIU/mL ALLIE (test code = ALLIE) Interpretation: ?Hepatitis B Surface Antibody ? Negative - Patient is considered to be not immune to infection with HBV. ? ? Positive - Anti-HBs detected at greater than or equal to 12 mIU/mL. ?Patient is considered to be immune to infection with HBV. ? [facility] CenterHbc Antibody (IgM & IgG)2024-01-12 11:29:09* Test Item Value Reference Range Interpretation Comme [facility] HBC (test code = 2853146458) Negative HBC Semi-Quantitative (test code = 8410989436) 3.52 [facility] CenterHcv [id number] 11:29:09* Test Item Value Reference Range Interpretation Comme [facility] HCV Ab (test code = 47450-0) Negative HCV Semi-Quantitative (test code = 73219-1) 0.01 [facility] Surface [id number] 11:11:10 * Test Item Value Reference Range Interpretation Comme [facility] HBsAg Semi-Quantitative (niecy t code = 5195-3) 0.07 Negative [facility] GLUCOSE (AUTOMATED)2024-01-12 01:08:24* Test Item Value Reference Range Interpretation Comme [facility] POCT GLU (test code = 7987994824) 222 mg/dL 70-110 H Lab Interpretation (test cod e = 66323-9) Abnormal [facility] GLUCOSE (AUTOMATED)2024-01-11 22:35:50* Test Item Value Reference Range Interpretation Comme [facility] POCT GLU (test code = 3167657845) 221 mg/dL 70-110 H Lab Interpretation (test cod e = 41108-1) Abnormal [facility] 1 [id number] 18:58:04EXAM: XR CHEST 1 VW 01/11/2024 9:08 AM HISTORY: 43 years old Female with sob TECHNIQUE: Portable AP view of the chest. COMPARISON: None FINDINGS: Lungs and pleura: The lungs are well-expanded. Unchanged right lower lungopacity, likely represent atelectasis/pleural scarring. No focalconsolidation, pneumothorax, or pleural effusion is seen. Cardiomediastinal: The cardiomediastinal silhouette is normal accountingfor technique. Musculoskeletal: No acute osseous abnormality. [facility])2024-01-11 17:24:44* Test Item Value Reference Range Interpretation Comme [facility] POCT GLU (test code = 4124804827) 257 mg/dL 70-110 H Lab Interpretation (test cod e = 50953-4) Abnormal [facility] CenterGlycosylated Hemoglobin (A1C)2024-01-11 16:06:17* Test Item Value Reference Range Interpretation Comme [facility] HGB A1C (test code = 4548-4) 9.6 % 4.0-5.7 H ALLIE (test code = ALLIE) Reference RangesNormal: <5.7%Prediabetes: 5.7 - 6.4%Diabetes: > 6.5% Lab Interpretation (test code = 82670-0) Abnormal [facility] CHEST PULMONARY [id number] 15:58:47HISTORY: Rule out P.E.. Positive D-dimer. TECHNIQUE: [...] could be a sign of reactive airway disease.[facility] POCT GLUCOSE (AUTOMATED)2024-01-11 15:58:29* Test Item Value Reference Range Interpretation Comme [facility] POCT GLU (test code = 0136065676) 275 mg/dL 70-110 H Lab Interpretation (test cod e = 54053-9) Abnormal [facility] CenterCT ABDOMEN PELVIS W [id number] 15:52:58CT Abdomen and Pelvis with intravenous contrast. [...] Please correlate.2. Hepatosplenomegaly with hepatic steatosis.3. Normal appendix.[facility] [id number] 15:15:02* Test Item Value Reference Range Interpretation Comme nts TROPONIN I (test code = 2921794170) 0.005 ng/mL <=0.034 ALLIE (test code = [...] of biotin. Lab Interpretation (test code = 35395-4) Normal [facility] CenterIron [id number] 15:14:06* Test Item Value Reference Range Interpretation Comme nts IRON (test code = 5224860407) 53 ug/dL 50-160 TIBC (test code = 0562793827) 360 ug/dL 250-410 % FE SAT (test code = 8315788875) 15 % 20-50 L Lab Interpretation (test cod e = 02611-1) Abnormal [facility] CenterN-TERMINAL [id number] 15:12:25* Test Item Value Reference Range Interpretation Comme nts NT-proBNP (test code = 46365-6) 528 pg/mL <=125 H ALLIE (test code = ALLIE) Positive: Heart Failure Likely Lab Interpretation (test code = 03337-5) Abnormal [facility] CenterPROTHROMBIN TIME / [id number] 15:09:46* Test Item Value Reference Range Interpretation Comme nts PROTIME PATIENT (test code = 5964-2) 10.4 10.1-12.6 INR (test code = 6301-6) 0.9 Normal INR <1.1; Warfarin Therapeutic range 2.0 to 3.0 or 2.5 to 3.5, depending upon the indications. Lab Interpretation (test code = 70712-5) Normal [facility] CenterACTIVATED PARTIAL THRMPLAS [id number] 15:09:46* Test Item Value Reference Range Interpretation Comme [facility] APTT Patient (test code = 3173-2) 29 26-36 ALLIE (test code = ALLIE) The [facility] patient population mean normal value for aPTT is 30 seconds. Lab Interpretation (test code = 36287-2) Normal [facility] CenterD-[id number] 15:09:46* Test Item Value Reference Range Interpretation Comments D-DIMER (test code = 5366953862) 1.42 See_Comment H [Automated message] The system [...] a diagnosis. Lab Interpretation (test code = 23693-7) Abnormal [facility] CenterCBC WITH [id number] 15:06:43* Test Item Value Reference Range Interpretation Comme [facility] WBC (test code = 6690-2) 12.92 [...] g/dL 31.6-35.1 L RDW-SD (test code = 78587-5) 64.6 fL 39.0-49.9 H RDW-CV (test code = 788-0) 25.9 % 12.0-15.5 H PLT (test code = 777-3) 298 166-358 MPV (test code = 34135-4) 10.3 fL 9.5-12.9 IPF % (test code = 9459622073) 6.4 % 1.3-7.7 Platelet count measured by fluorescence method. NRBC/100 WBC (test code = 8960925873) 0.0 0.0-10.0 NRBC x10^3 (test code = 6593383622) See_Comment [Automated Talysta ge] The system which generated this result transmitted reference range: 10*3/?L. The reference range was not used to interpret this result as normal/abnormal. GRAN MAT (NEUT) % (test code = 770-8) 90.9 % IMM GRAN % (test code = 5402580913) 0.50 % LYMPH % (test code = 736-9) 3.6 % MONO % (test code = 5905-5) 4.1 % EOS % (test code = 713-8) 0.6 % BASO % (test code = 706-2) 0.3 % GRAN MAT x10^3(ANC) (test code = 8363664289) 11.74 10*3/uL 1.88-7.09 H IMM GRAN x10^3 (test code = 1248580067) 0.06 10*3/uL 0.00-0.06 LYMPH x10^3 (test code = 731-0) 0.47 10*3/uL 1.32-3.29 L MONO x10^3 (test code = 742-7) 0.53 10*3/uL 0.33-0.92 EOS x10^3 (test code = 711-2) 0.08 10*3/uL 0.03-0.39 BASO x10^3 (test code = 704-7) 0.04 10*3/uL 0.01-0.07 Lab Interpretation (test code = 76502-6) [facility] 15:05:02* Test Item Value Reference Range Interpretation Comme nts MAGNESIUM (test code = 1478524151) 1.9 mg/dL 1.7-2.4 Lab Interpretation (test cod e = 00129-2) Normal [facility] CenterCOMP. METABOLIC PANEL (83112)2024-01-11 15:04:41* Test Item Value Reference Range Interpretation Comme nts NA (test code = 6507854973) 128 mmol/L 135-145 L K (test code = 4968195238) 4.7 mmol/L 3.5-5.0 CL (test code = 2335444097) 100 mmol/L 98-108 CO2 TOTAL (test code = 5159301050) 19 mmol/L 23-31 L AGAP (test code = 0560239822) 9 2-16 BUN (test code = 3124967915) 17 mg/dL 7-23 GLUCOSE (test code = 6963207276) 311 mg/dL 70-110 H CREATININE (test code = 2160-0) 0.59 mg/dL 0.50-1.04 TOTAL BILI (test code = 9708632469) 0.8 mg/dL 0.1-1.1 CALCIUM (test code = 1142827479) 8.8 mg/dL 8.6-10.6 T PROTEIN (test code = 5461973375) 7.2 g/dL 6.3-8.2 ALBUMIN (test code = 2900384402) 3.7 g/dL 3.5-5.0 ALK PHOS (test code = 8238407292) 218 U/L 34-122 H ALTv (test code = 1742-6) 32 U/L 5-35 AST(SGOT) (test code = 5542633130) 31 U/L 13-40 eGFR (test code = 59283-0) 115.6 mL/min/1.73m2 CKD-EPI eGFR (2020). Assuming creatinine has been stable day-to-day for at least three months, the eGFR indicates Category G1 (>= 90 mL/min/1.73 m2) Lab Interpretation (test code = 46920-5) Abnormal [facility] CenterType and Screen - ONCE [id number] 14:39:00 * Test Item Value Reference Range Interpretation Comme nts ABO & RH (test code = 20) O Positive IAT (test code = 1185) Negative [facility] CenterAC ABG + LACTIC [id number] 14:37:28* Test Item Value Reference Range Interpretation Comme nts PH (test code = 2) 7.43 7.35-7.45 PCO2 (test code = 4884482561) 28 35-45 L PO2 (test code = 6864051579) 76 80-100 L HCO3 (test code = 4070514061) 18 22-26 L BE (test code = 2827641408) -4.7 -3.0-3.0 L LACTIC ACID (test code = 4557746097) 1.17 mmol/L 0.50-2.20 Lab Interpretation (test cod e = 68972-6) Abnormal [facility] CenterPOCT [id number] 14:05:00* Test Item Value Reference Range Interpretation Comme nts POCT PREG (test code = 1605) Negative On board controls acceptable with C Line (test code = 3574) Yes POCT PREG LOT # (test code = 3575) [id number] POCT PREG TEST DATE ( test code = 3576) 12/04/2024 Lab Interpretation (test cod e = 60538-4) Normal [facility] History and Physical Notes Date/Time Note Provider Source 2024-01-11 18:23:29 I have independently seen and evaluated this patient. I agree with the findings and documentation provided in the nurse practitioner's notes. Medicine team will continue to provide daily care. I have made changes inline to the note below to reflect our mutual evaluation / plan. Laura Reyes, 01/11/2024 11:08 PM [facility] Internal Medicine-H&P Date of Service: 01/11/2024 [...] Patient reports that she was recently at [facility] for PNA. On Dc she developed Abd [...] minutes discussing smoking cessation WW LINDA Squires, ACNEDER-AG I.M. / Hospitalist Medicine 01/11/2024 6:23 PM T [facility] Notes Date/Time Note Provider Source 2024-01-16 [...] Outcome: Adequate for discharge Amanda Paz RN [facility] 2024-01-15 23:15:01 Problem: Pain Goal: Control [...] Progressing as expected T Asuncion Cowan RN [facility] 2024-01-15 14:49:34 Problem: Pain Goal: Control [...] Goal: Patent airway Outcome: Progressing as expected [facility] 2024-01-14 20:52:16 Problem: Pain Goal: Control [...] Goal: Patent airway Outcome: Progressing as expected [facility] 2024-01-14 18:42:34 Problem: Pain Goal: Control [...] Outcome: Progressing as expected Kailee King RN [facility] 2024-01-13 20:43:49 Problem: Pain Goal: Control [...] Goal: Patent airway Outcome: Progressing as expected allie Aparicio RN [facility] 2024-01-13 17:25:49 Problem: Pain Goal: Control [...] Patent airway Outcome: Progressing as expected T [facility] 2024-01-12 22:30:05 Problem: Pain Goal: Control [...] Patent airway Outcome: Progressing as expected T [facility] 2024-01-12 19:44:21 Progressing as expected T Coleen Liu RN [facility] 2024-01-12 03:08:13 Problem: Pain Goal: Control [...] Outcome: Progressing as expected Sonia Mae RN [facility] 2024-01-11 19:43:36 Problem: Pain Goal: Control [...] Goal: Patent airway Outcome: Progressing as expected [facility] 2024-01-11 12:31:58 Patient admitted to [facility] for diagnosis of weakness, sepsis, [...] with patient to unit. Claudia Gooden RN [facility] 2024-01-11 12:20:32 Nurse Report Report given to Dorene JOHNSON. Chief complaint, assessment findings, infusion verify and orders reviewed. Claudia Gooden RN [facility] 2024-01-11 08:20:00 Patient states: "I've been having generalized bodyaches, right sided abdominal pain, bilateral low back pain since yesterday. 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 Recently discharge from [facility], where she was admitted and treated for [...] content normal. Judgment: Judgment normal. Radiology:reviewed by wa CT ABDOMEN PELVIS W CONTRAST Final Result [...] EPITH <1 <=1 HPF COMP. METABOLIC PANEL (80197) - Abnormal NA 128 (*) 135 - [...] - Peripheral # 2 COMP. METABOLIC PANEL (47563) TROPONIN I N-TERMINAL PRO-BNP AC ABG + [...] ED Events Date/Time Event User Comments 01/11/24 0820 Medical Screening Begins VENICE MABRY -- 01/11/24 08 First Provider Evaluation VENICE MABRY -- AdmissionCare [...] therapy) AdmissionCare documentation entered by: Suki Mabry [facility], 27th edition, Copyright ? 2022 [facility] [place] [employer] All Rights Reserved. [id number]:10:28-05:00 ED COURSE ED Course as of 01/11/24 [...] flank pain, and SOB. Recently discharge from [facility], where she was admitted and treated for [...] - Peripheral # 2 COMP. METABOLIC PANEL (02258) TROPONIN I N-TERMINAL PRO-BNP AC ABG + [...] Score: Pneumonia Severity Index for CAP from [employer] on 01/11/2024 RESULT SUMMARY: 87 points Risk Class III, 0.9-2.8% mortality. Outpatient or inpatient treatment, depending on clinical judgment. INPUTS: Age --> 43 years Sex --> -10 = Female [facility] resident --> 0 = No Neoplastic disease [...] this encounter and patient evaluation by Ajay [facility] Emergency Physician [facility] 2024-01-11 08:18:00 AdmissionCare Guideline: Sepsis (and [...] therapy) AdmissionCare documentation entered by: Suki Mabry [facility], 27th edition, Copyright ? 2022 [facility] [place] [employer] [facility] All Rights Reserved. [id number]:10:28-05:00 [facility]
[2024-09-25] MEDS ORDERED: NA CHLORIDE 0.9% 1,000 ML ONE (06:06)
[2024-09-25 06:26] LABS: Absolute Lymphocytes (CBC) 0.5 K/uL (0.7-4.9); Absolute Monocytes 0.4 K/uL (0.1-1.3); Absolute Neutrophil 9.3 K/uL (1.8-8.0); Basophils % 0.3 % (0-1.3); Eosinophils % 0.1 % (0-4.4); Hematocrit 22.8 % (36.0-45.0); Hemoglobin 7.5 g/dL (12.0-15.0); MCH 25.3 pg (27.0-35.0); MCHC 32.7 g/dL (32.0-36.0); MCV 77.4 fL (80-100); MPV 9.4 fL (7.6-11.3); Neutrophils % 90.6 % (41.7-73.7); Nucleated Red Blood Cells % 0.1 % (0-0); Platelets 262 thou/uL (152-406); RBC Red Blood Cell Count 2.95 M/uL (3.86-4.86); Red Cell Distribution Width 16.4 % (12.1-15.2)
[2024-09-25 06:27] LABS: PT Prothrombin Time 12.9 SECONDS (9.4-12.5); Protime INR 1.16
[2024-09-25 06:38] LABS: Specific Gravity 1.021 (1.005-1.030); Urine Bacteria <20 /HPF (<20); Urine Bilirubin NEGATIVE (Negative); Urine Blood Negative (Negative); Urine Clarity Extremely Turbid (Clear); Urine Color Light-Yellow (Yellow); Urine Crystals Unidentified Few /HPF (None Seen); Urine Culture Reflex Order REFLEXED; Urine Glucose 4+ (Over) (Negative); Urine Ketones NEGATIVE (Negative); Urine Microscopic Reflex YN ORDER UMIC; Urine Mucus Slight /HPF (None Seen); Urine Nitrite NEGATIVE (Negative); Urine Protein 2+ (Negative); Urine Urobilinogen Normal (Normal); Urine WBC >50 /HPF (<5); Urine WBC Clump Occasional /HPF (None Seen); Urine Yeast (Budding) Occasional /HPF (None Seen); Urine pH 5.5 (5.0-7.0)
[2024-09-25 06:52] LABS: Albumin 2.1 g/dL (3.4-5.0); Albumin/Globulin Ratio 0.5 (1.1-1.8); Anion Gap 12.5 mEq/L (5.0-15.0); Bilirubin Total 0.3 mg/dL (0.2-1.0); Globulin 4.3 g/dL (2.3-3.5); Potassium 3.5 mEq/L (3.5-5.1); Protein, Total 6.4 g/dL (6.4-8.2)
[2024-09-25 07:23] LABS: Band Neutrophils 10 % (0-1); Blood Morphology Comment NOT SEEN (NOT SEEN); Differential Total Cells Count 100; Lymphocytes 4 % (15-42); Monocytes 6 % (0-10); Platelet Estimate ADEQ; Segmented Neutrophils 80 % (40-80)
[2024-09-25] MEDS ORDERED: NA CHLORIDE 0.9% 50 ML ONE (07:29)
[2024-09-25] MEDS ORDERED: CEFTRIAXONE 2000 MG/VIAL ONE (07:29)
--- NOTE | 2024-09-25 08:09 | EDPHYS ---
[facility] Name: Pastora Patterson Age: 44 yrs Sex: Female : 1980 Arrival Date: 09/25/2024 Time: 04:59 Bed 4 Private MD: ED Physician Jayme Duke HPI: 09/25 06:03 This 44 yrs old Female presents to ER via Wheelchair with complaints of bo1 Breathing Difficulty, Blurred Vision, Back Pain. 06:03 The patient has shortness of breath at rest, and the patient has a history of bo1 Pneumonia. Feels the same as before. Right sided CP/back pain. Onset: The symptoms/episode began/occurred suddenly, yesterday. Duration: The symptoms are continuous. Associated signs and symptoms: Pertinent positives: non-productive cough, fever. Pt is taking both Tylenol and Motrin. Historical: - Allergies: 05:26 No Known Allergies; ha1 - Home Meds: 05:26 Levemir 100 unit/mL subcutaneous soln [Active]; ha1 - PMHx: 05:26 Anemia; Asthma; Bipolar disorder; Diabetes - IDDM; Hypertension; ha1 - PSHx: 05:26 section; ha1 - Immunization history:: Adult Immunizations up to date. - Infectious Disease History:: Denies. - Social history:: Smoking status: Patient reports the use of cigarette tobacco products, denies chronic smoking, but will smoke occasionally. ROS: 08:09 Constitutional: Negative for weight loss bo1 08:09 Constitutional: Positive for chills, fever, 08:09 Respiratory: Positive for cough, shortness of breath, 08:09 Abdomen/GI: Positive for abdominal pain, of the posterior aspect of right lateral abdomen, 08:09 Back: Positive for pain at rest, 08:09 MS/extremity: Negative for pain, swelling, 08:09 Skin: Negative for rash, Exam: 08:10 Constitutional: This is a well developed, well nourished patient who is awake, alert, bo1 and in acute distress. 08:14 Constitutional: The patient appears alert, awake, non-toxic, in obvious distress, bo1 mildly distressed, uncomfortable, 08:14 Head/face: Exam is negative for acute changes, swelling, 08:14 Eyes: Sclera: no acute changes, icterus, is not appreciated, 08:14 Neck: External neck: is normal, no acute changes, 08:14 Chest/axilla: Inspection: normal, no acute changes, Palpation: tenderness, that is mild, of the right lateral posterior chest, 08:14 Cardiovascular: Rate: normal, Rhythm: regular, Pulses: no pulse deficits are appreciated, 08:14 ECG was reviewed by the Attending Physician. Vital Signs: 05:05 BP 99 / 63; Pulse 110; Resp 20 S; Temp 98.6(O); Pulse Ox 99% on R/A; Weight 92.99 kg; ha1 Height 5 ft. 3 in. ; 05:38 BP 112 / 64; Pulse 103; Resp 18; Pulse Ox 98% on R/A; br2 06:33 BP 105 / 64; Pulse 101; Resp 18 S; Temp 99.1(O); Pulse Ox 99% on R/A; br2 07:39 BP 99 / 71; Pulse 102; Resp 18 S; Pulse Ox 99% on R/A; kc6 08:38 BP 95 / 64; Pulse 105; Resp 19 S; Pulse Ox 98% on R/A; kc6 09:03 BP 104 / 57; Pulse 115; Resp 18 S; Temp 99.3(O); Pulse Ox 99% on R/A; kc6 05:05 Body Mass Index 36.31 (92.99 kg, 160.02 cm) ha1 MDM: 06:00 Medical Screening Exam initiated bo1 08:12 Differential diagnosis: Bronchitis pneumonia, reactive airway disease, UTI bo1 pyelonephritis Type 2 DM with hyperglycemia. Data reviewed: vital signs, old medical records, lab test result(s), EKG, radiologic studies, plain films. Consideration of Admission/Observation Patient was admitted/placed on observation. ED course: Pt remains ill and warrants further obs as inpt. 09/25 06:01 Order name: CBC with Diff; Complete Time: 07:53 bo 09/25 06:01 Order name: CMP; Complete Time: 06:55 bo 09/25 06:01 Order name: Lactate w/ 2H reflex if indic.; Complete Time: 06:55 [facility] 09/25 06:01 Order name: Protime (+inr); Complete Time: 06:55 [facility] 09/25 06:01 Order name: Urinalysis w/ reflexes; Complete Time: 06:55 [facility] 09/25 06:29 Order name: Manual Differential; Complete Time: 07:53 [facility] 09/25 06:42 Order name: Urine Culture [facility] 09/25 06:48 Order name: Glucose, Ancillary Testing; Complete Time: 06:55 [facility] 09/25 08:47 Order name: Glucose, Ancillary Testing [facility] 09/25 12:01 Order name: Urinalysis w/ reflexes [facility] 09/25 12:01 Order name: CBC with Automated Diff [facility] 09/25 12:01 Order name: CBC with Automated Diff [facility] 09/25 12:01 Order name: Comprehensive Metabolic Panel [facility] 09/25 12:01 Order name: Comprehensive Metabolic Panel [facility] 09/25 12:01 Order name: Magnesium [facility] 09/25 12:01 Order name: Magnesium [facility] 09/25 12:02 Order name: Hemoglobin A1c [facility] 09/25 06:01 Order name: Chest Pa And Lat (2 Views) XRAY; Complete Time: 08:18 [facility] 09/25 08:35 Order name: Chest Abdomen Pelvis W Cont [facility] 09/25 06:01 Order name: EKG; Complete Time: 06:01 [facility] 09/25 06:01 Order name: Accucheck; Complete Time: 06:59 [facility] 09/25 06:01 Order name: Cardiac monitoring; Complete Time: 06:15 [facility] 09/25 06:01 Order name: EKG - Nurse/Tech; Complete Time: 06:15 [facility] 09/25 06:01 Order name: IV Saline Lock - Large Bore; Complete Time: 06:15 [facility] 09/25 06:01 Order name: Labs collected and sent; Complete Time: 06:15 [facility] 09/25 06:01 Order name: O2 Per Protocol; Complete Time: 06:15 [facility] 09/25 06:01 Order name: O2 Sat Monitoring; Complete Time: 06:15 [facility] 09/25 06:01 Order name: Vital Signs; Complete Time: 06:15 bo EC:14 Rate is 101 beats/min. Rhythm is regular. QRS [place] is Normal. [place] interval is normal. bo1 QRS interval is normal. QT interval is normal. Q waves are Present in leads V1, V2. T waves are Normal. No ST changes noted. Clinical impression: Sinus tachycardia. Interpreted by me. Reviewed by me. Administered Medications: 06:32 Drug: NS 0.9% IV 1000 ml IV at 1000 ml once; to be given as a bolus over 60 minutes br2 Route: IV; Rate: 1000 ml; Site: right antecubital; 07:36 Follow up: Response: No adverse reaction; IV Status: Completed infusion; IV Intake: kc6 1000ml 07:36 Drug: Rocephin IV 2 grams IV at bolus once; Given slow IV push per pharmarcy kc6 instructions Route: IV; Rate: bolus; Site: right forearm; 08:25 Follow up: Response: No adverse reaction; IV Status: Completed infusion; IV Intake: [id number] 08:25 Drug: Albuterol Inhalation 2.5 mg Inhalation once Route: Inhalation; kc6 08:36 Follow up: Response: No adverse reaction kc6 08:25 Drug: fentaNYL (PF) IVP 50 mcg IVP once Route: IVP; Site: right forearm; kc6 08:36 Follow up: Response: No adverse reaction; Pain is decreased; RASS: Alert and Calm (0) kc6 08:25 Drug: Ondansetron IVP 4 mg IVP once; over 2 minutes Route: IVP; Site: right forearm; kc6 08:37 Follow up: Response: No adverse reaction kc6 08:36 Drug: AZITHromycin IVPB 500 mg IVPB once over 1 hrs; (mix in 250 mL NS) Route: IVPB; kc6 Infused Over: 1 hrs; Site: right forearm; 10:16 Follow up: Response: No adverse reaction; IV Status: Completed infusion; IV Intake: kc6 250ml Disposition Summary: 09/25/24 08:08 Hospitalization Ordered Notes: Hospitalization Status: Observation bo1 Provider: Stephanie Ba bo Location: Telemetry/MedSurg (observation) bo1 Condition: Fair bo1 Problem: chronic bo1 Symptoms: are unchanged bo1 Bed/Room Type: Standard [facility] Room Assignment: 209(09/25/24 14:28) eb Diagnosis - Fever, unspecified bo1 - Chest pain on breathing bo1 - UTI/ Urinary tract infection, site not specified bo1 - Type 2 diabetes mellitus with hyperglycemia bo1 - Hypo-osmolality and hyponatremia bo1 - Other pneumonia, unspecified organism bo1 Forms: - Medication Reconciliation Form bo1 - SBAR form bo1 - Leadership Thank You Letter bo1 Signatures: Dispatcher [employer] EDMS Xenia Jo Heidy, RN RN ha1 Jazz Rehman RN RN kc6 Jayme Duke MD MD bo1 Marysol George RN RN br2 Corrections: (The following items were deleted from the chart) 08:33 08:33 CT CHEST,ABD,PELVIS W/WO ordered. EDKS EDMS 14:28 08:08 minerva thompson
--- NOTE | 2024-09-25 08:09 | ER ---
Nurse's Notes [facility] Name: Pastora Patterson Age: 44 yrs Sex: Female : 1980 Arrival Date: 09/25/2024 Time: 04:59 Bed 4 Private MD: Diagnosis: Fever, unspecified;Chest pain on breathing;UTI/ Urinary tract infection, site not specified;Type 2 diabetes mellitus with hyperglycemia;Hypo-osmolality and hyponatremia;Other pneumonia, unspecified organism Presentation: 09/25 05:05 Chief complaint: Patient states: DIFFICULTY BREATHING. PAIN ON BACK, AND BILATERAL LEG. ha1 PAIN. FEVER. BLURRED VISION. 05:05 Coronavirus screen: At this time, the client does not indicate any symptoms associated ha1 with coronavirus-19. Ebola Screen: No symptoms or risks identified at this time. Initial Sepsis Screen: Does the patient meet any 2 criteria? No. Patient's initial sepsis screen is negative. Does the patient have a suspected source of infection? No. Patient's initial sepsis screen is negative. Risk Assessment: Do you want to hurt yourself or someone else? Patient reports no desire to harm self or others. Onset of symptoms was September 25, 2024. 05:05 Method Of Arrival: Wheelchair ha1 05:05 Acuity: MANASA 3 ha1 Triage Assessment: 05:05 General: Appears uncomfortable, ill, Behavior is cooperative. Pain: Complains of pain ha1 in back, right leg and left leg Pain currently is 9 out of 10 on a pain scale. Quality of pain is described as aching. Neuro: Level of Consciousness is awake, alert, obeys commands, Oriented to person, place, time, situation. Cardiovascular: Patient's skin is warm and dry. Respiratory: Reports shortness of breath at rest on exertion Airway is patent Respiratory effort is even, unlabored, Respiratory pattern is regular, symmetrical, Onset: The symptoms/episode began/occurred gradually, the patient has moderate shortness of breath. GI: Abdomen is round non-distended. Derm: Skin is pale. Musculoskeletal: Circulation, motion, and sensation intact. Range of motion: intact in all extremities. Historical: - Allergies: 05:26 No Known Allergies; ha1 - Home Meds: 05:26 Levemir 100 unit/mL subcutaneous soln [Active]; ha1 - PMHx: 05:26 Anemia; Asthma; Bipolar disorder; Diabetes - IDDM; Hypertension; ha1 - PSHx: 05:26 section; ha1 - Immunization history:: Adult Immunizations up to date. - Infectious Disease History:: Denies. - Social history:: Smoking status: Patient reports the use of cigarette tobacco products, denies chronic smoking, but will smoke occasionally. Screenin:05 [facility] ED Fall Risk Assessment (Adult) History of falling in the last 3 months, br2 including since admission No falls in past 3 months (0 pts) Confusion or Disorientation No (0 pts) Intoxicated or Sedated No (0 pts) Impaired Gait No (0 pts) Mobility Assist Device Used No (0 pt) Altered Elimination No (0 pt) Score/Fall Risk Level 0 - 2 = Low Risk Oriented to surroundings. Abuse screen: Denies threats or abuse. Denies injuries from another. Nutritional screening: No deficits noted. Tuberculosis screening: No symptoms or risk factors identified. Assessment: 05:05 Reassessment: SEE TRIAGE ASSESSMENT. ha1 05:15 General: Appears uncomfortable, Behavior is calm, cooperative. Pain: Complains of pain br2 in left low back. Cardiovascular: Capillary refill < 3 seconds Rhythm is sinus bradycardia. 06:45 Reassessment: No changes from previously documented assessment. Patient and/or family br2 updated on plan of care and expected duration. Pain level reassessed. 07:37 General: Appears in no apparent distress. uncomfortable, well groomed, well developed, kc6 Behavior is calm, cooperative, appropriate for age. Pain: Complains of pain in back. Neuro: Level of Consciousness is awake, alert, obeys commands, Oriented to person, place, time, situation, Appropriate for age. Cardiovascular: Capillary refill < 3 seconds. Respiratory: Reports shortness of breath on exertion Airway is patent Trachea midline Respiratory effort is even, unlabored, Respiratory pattern is regular, symmetrical. GI: No signs and/or symptoms were reported involving the gastrointestinal system. : No signs and/or symptoms were reported regarding the genitourinary system. EENT: No signs and/or symptoms were reported regarding the EENT system. Derm: No signs and/or symptoms reported regarding the dermatologic system. Skin is intact, is healthy with good turgor, Skin is dry, Skin is pale, Skin temperature is warm. Musculoskeletal: No signs and/or symptoms reported regarding the musculoskeletal system. Circulation, motion, and sensation intact. Capillary refill < 3 seconds, Range of motion: intact in all extremities. 08:38 Reassessment: Patient appears in no apparent distress at this time. No changes from kc6 previously documented assessment. Patient and/or family updated on plan of care and expected duration. Pain level reassessed. Patient is alert, oriented x 3, equal unlabored respirations, skin warm/dry/pink. Patient states feeling better. Patient states symptoms have improved. Vital Signs: 05:05 BP 99 / 63; Pulse 110; Resp 20 S; Temp 98.6(O); Pulse Ox 99% on R/A; Weight 92.99 kg; ha1 Height 5 ft. 3 in. ; 05:38 BP 112 / 64; Pulse 103; Resp 18; Pulse Ox 98% on R/A; br2 06:33 BP 105 / 64; Pulse 101; Resp 18 S; Temp 99.1(O); Pulse Ox 99% on R/A; br2 07:39 BP 99 / 71; Pulse 102; Resp 18 S; Pulse Ox 99% on R/A; kc6 08:38 BP 95 / 64; Pulse 105; Resp 19 S; Pulse Ox 98% on R/A; kc6 09:03 BP 104 / 57; Pulse 115; Resp 18 S; Temp 99.3(O); Pulse Ox 99% on R/A; kc6 05:05 Body Mass Index 36.31 (92.99 kg, 160.02 cm) ha1 ED Course: 05:03 Patient arrived in ED. gm2 05:05 Patient has correct armband on for positive identification. Bed in low position. Call br2 light in reach. Side rails up X 1. Provided Education on: plan of care. 05:26 Triage completed. ha1 05:28 Initial lab(s) drawn, by me, held in ED. Inserted saline lock: 22 gauge in right kmf forearm, using aseptic technique. Blood collected. Flushed with 10 mL NS. 05:38 Marysol George RN is Primary Nurse. br2 06:00 Jayme Duke MD is Attending Physician. bo1 06:15 CBC with Diff Sent. br2 06:15 CMP Sent. br2 06:15 Lactate w/ 2H reflex if indic. Sent. br2 06:15 Protime (+inr) Sent. br2 06:23 Urinalysis w/ reflexes Sent. br2 06:29 Chest Pa And Lat (2 Views) XRAY In Process Unspecified. EDMS 06:32 Urinalysis w/ reflexes Sent. br2 06:32 Lactate w/ 2H reflex if indic. Sent. br2 06:32 CMP Sent. br2 06:32 CBC with Diff Sent. br2 06:37 FINGER STICK 467. br2 07:00 Arm band placed on. kc6 07:37 Patient requests pain medication. kc6 07:37 Patient has correct armband on for positive identification. Bed in low position. Call kc6 light in reach. Side rails up X2. Pulse ox on. NIBP on. Door closed. Noise minimized. Lights dimmed. Warm blanket given. Pillow given. 07:51 Patient requests pain medication. kc6 08:07 Tony Neal is Hospitalizing Provider. bo1 08:07 Hospitalizing Provider role handed off by Tony Neal bo1 08:07 Stephanie Ba MD is Hospitalizing Provider. bo1 08:30 No provider procedures requiring assistance completed. Patient admitted, IV remains in kc6 place. 08:49 Chest Abdomen Pelvis W Cont In Process Unspecified. EDMS Administered Medications: 06:32 Drug: NS 0.9% IV 1000 ml IV at 1000 ml once; to be given as a bolus over 60 minutes br2 Route: IV; Rate: 1000 ml; Site: right antecubital; 07:36 Follow up: Response: No adverse reaction; IV Status: Completed infusion; IV Intake: kc6 1000ml 07:36 Drug: Rocephin IV 2 grams IV at bolus once; Given slow IV push per [employer] kc6 instructions Route: IV; Rate: bolus; Site: right forearm; 08:25 Follow up: Response: No adverse reaction; IV Status: Completed infusion; IV Intake: [id number] 08:25 Drug: Albuterol Inhalation 2.5 mg Inhalation once Route: Inhalation; kc6 08:36 Follow up: Response: No adverse reaction kc6 08:25 Drug: fentaNYL (PF) IVP 50 mcg IVP once Route: IVP; Site: right forearm; kc6 08:36 Follow up: Response: No adverse reaction; Pain is decreased; RASS: Alert and Calm (0) kc6 08:25 Drug: Ondansetron IVP 4 mg IVP once; over 2 minutes Route: IVP; Site: right forearm; kc6 08:37 Follow up: Response: No adverse reaction kc6 08:36 Drug: AZITHromycin IVPB 500 mg IVPB once over 1 hrs; (mix in 250 mL NS) Route: IVPB; kc6 Infused Over: 1 hrs; Site: right forearm; 10:16 Follow up: Response: No adverse reaction; IV Status: Completed infusion; IV Intake: kc6 250ml Medication: 05:15 VIS not applicable for this client. br2 Intake: 07:36 IV: 1000ml; Total: 1000ml. kc6 08:25 IV: 50ml; Total: 1050ml. kc6 10:16 IV: 250ml; Total: 1300ml. kc6 Outcome: 08:08 Decision to Hospitalize by Provider. bo1 08:30 Admitted to ER Hold. Please see [facility] for further documentation. kc6 08:30 Condition: good 08:30 Instructed on the need for admit, 15:37 Patient left the ED. jb4 Signatures: Dispatcher [employer] EDMS Geronimo Day RN RN jb4 Elisa Mcgarry RN RN Jazz Bettencourt RN RN [email or web address] Patti Prather [facility] Katina Dacosta [facility] Jayme Duke MD MD bo1 Marysol George RN RN br2
[2024-09-25] MEDS ORDERED: ONDANSETRON 4 MG/2 ML VIAL ONE (08:14)
[2024-09-25] MEDS ORDERED: ALBUTEROL 2.5 MG/3 ML NEB SOL ONE (08:14)
[2024-09-25] MEDS ORDERED: FENTANYL CITR 100 MCG/2 ML ONE (08:14)
--- NOTE | 2024-09-25 08:18 | RAD REPORT ---
EXAMINATION: TWO VIEW CHEST XR CLINICAL INDICATION: Female, 44 years old. [facility] FEVER Bed Name: 4 TECHNIQUE: 2 view radiographs of the chest were performed. COMPARISON: 07/12/2024 FINDINGS: Patchy right basilar airspace opacities mainly central, and within the right middle lobe and anterior segments of the right lower lobe. No pneumothorax or sizable effusion. The heart is normal in size. Mediastinal contours are unremarkable. IMPRESSION: Patchy right basilar airspace opacities as above, concerning for pneumonia.
[2024-09-25] MEDS ORDERED: AZITHROMYCIN 500 MG INJ IVPB ONE (08:28)
[2024-09-25] MEDS ORDERED: NA CHLORIDE 0.9% 250 ML ONE (08:28)
--- NOTE | 2024-09-25 09:38 | RAD REPORT ---
EXAM: CT CHEST, ABDOMEN AND PELVIS WITH CONTRAST CLINICAL INDICATION: Female, 44 years old. Sob, flank pain TECHNIQUE: CT chest, abdomen, and pelvis was performed, following the administration of contrast, as per department protocol. Axial, sagittal and coronal reconstructions were obtained. One or more of the following dose reduction techniques were used: Automated exposure control, adjustment of the mA a nd/or kV according to patient size, and/or iterative reconstruction. Unless otherwise specified, incidental findings do not require dedicated imaging follow-up. COMPARISON: 02/23/2024 CT abdomen and pelvis. Chest radiograph of the same day FINDINGS: LUNGS AND AIRWAYS: Patchy bilateral consolidative opacities most pronounced in the upper segment righ t lower lobe, with air bronchograms, with additional scattered opacities in the basal right lower lobe and the lower aspects of the left upper lobe. Central airways are otherwise patent. PLEURA: No pleural effusion. No pneumothorax. MEDIASTINUM AND LYMPH NODES: No mediastinal mass or fluid collection. Normal size mediastinal, hilar, and axillary lymph nodes. THORACIC AORTA: Normal caliber and configuration. PULMONARY ARTERIES: Normal caliber. OSSEOUS STRUCTURES AND CHEST WALL: Intact. LIVER: Normal in size and contour. No focal lesion or biliary dilitation. BILIARY SYSTEM: No suspicious abnormalities. PANCREAS: No mass, ductal dilation, or marin-pancreatic fluid. SPLEEN: Normal size. No focal lesion. ADRENALS: Normal; no mass. KIDNEYS AND URETERS: Normal size and contour. No hydronephrosis. URINARY BLADDER: Decompressed limiting evaluation. Apparent wall thickening may relate to under diste ntion versus ongoing cystitis. GASTROINTESTINAL TRACT: No bowel obstruction, free air, significant free fluid or abscess. APPENDIX: No inflammatory changes in region of appendix. LYMPH NODES: No lymphadenopathy. ABDOMINAL AORTA AND OTHER VESSELS: Normal caliber aorta and IVC. MUSCULOSKELETAL: No acute or suspicious osseous abnormality. IMPRESSION: Patchy bilateral airspace opacities as detailed above, concerning for pneumonia. Decompressed urinary bladder with apparent wall thickening which may relate to underdistention versus ongoing cystitis. Please correlate clinically.
[2024-09-25] MEDS: MORPHINE 4 MG/ML SYR IV ONE (10:15)
--- NOTE | 2024-09-25 11:31 | EKG ---
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
[2024-09-25] MEDS ORDERED: ZOLPIDEM TARTRATE 5 MG TABLET PO PRN (11:56)
[2024-09-25] MEDS: Levofloxacin 750mg IV 750 MG/150 ML BAG IV SCH (12:00)
--- NOTE | 2024-09-25 12:02 | P.HP ---
Certification for Inpatient Patient admitted to: Observation Practitioner: I am a practitioner with admitting privileges, knowledge of patient current condition, hospital course, and medical plan of care. Services: Services provided to patient in accordance with Admission requirements found in Title 42 Section 412.3 of the Code of Federal Regulations Patient History Date of Service: 09/25/24 Reason for admission: Pneumonia History of Present Illness: 44 yrs old Female with past medical history Anemia; Asthma; Bipolar disorder; Diabetes - IDDM; Hypertension presents to ER via Wheelchair with complaints of Breathing Difficulty, Blurred Vision, Back Pain. She reports previous diagnosis of pneumonia. She reports productive cough, shortness of breath with exertion. She reports right flank pain, reports taking Tylenol and Motrin pain is not controlled. she reports history of Diabetes that is not controlled due to lack of insurance. She reports previously taking metformin. She reports using methamphetamines. Last use in 2 weeks ago. ER evaluation BG >400, 542, 467, 444. Microcytic anemia, hemoglobin 7.5, lactate 22.8, left shift 90.6, UTI, UA leuk 250, 5-10 RBX, BG 4+, 2+ protein, CXR Patchy right basilar airspace opacities as above, concerning for pneumonia. CT abd pelvis Patchy bilateral airspace opacities as detailed above, concerning for pneumonia. Decompressed urinary bladder with apparent wall thickening which may relate to under distention versus ongoing cystitis. Please correlate clinically. Plan to admit for OBS, r pneumonia, Fever, Chest pain on breathng, UTI/ Urinary tract infection, site not specified, Type 2 diabetes mellitus with hyperglycemia, Hypo-osmolality and hyponatremia Allergies No Known Allergies Allergy (Verified 02/17/17 03:44) Home Medications: NK [No Home Meds] 09/25/24 - Past Medical/Surgical History Diabetic: Yes -: Asthma -: hypertension -: diabetes-IDDM -: anxiety -: tubal ligation -: C- Section - Family History Father -: Hypertension, Diabetes, Other (see notes) Notes: HIGH CHOLESTEROL Mother -: Hypertension, Diabetes, Other (see notes) Notes: HGH CHOLESTEROL Sister -: Hypertension, Diabetes, Other (see notes) Notes: HIGH CHOLESTEROL - Social History Alcohol use: No CD- Drugs: Yes Caffeine use: Yes Review of Systems 10-point ROS is otherwise unremarkable General: As per HPI Physical Examination - Physical Exam General: Alert, In no apparent distress, Oriented x3 HEENT: Atraumatic, Normocephalic Neck: Supple, 2+ carotid pulse no bruit Respiratory: Normal air movement, Crackles/rales Cardiovascular: Normal pulses, Regular rate/rhythm, Normal S1 S2 Capillary refill: <2 Seconds Gastrointestinal: Normal bowel sounds, Other (Rt flank tenderness) Musculoskeletal: No clubbing, No swelling Integumentary: No rashes, No breakdown Neurological: Normal speech, Normal strength at 5/5 x4 extr, Cranial nerves 3-12 intact - Studies Laboratory Data (last 24 hrs) 09/25/24 09/25/24 09/25/24 05:45 05:45 05:45 WBC 10.30 Hgb 7.5 L Hct 22.8 L Plt Count 262 PT 12.9 H INR 1.16 Sodium 130 L Potassium 3.5 BUN 36 H Creatinine 1.47 H Glucose 542 H* Total Bilirubin 0.3 AST 54 H ALT 41 Alkaline Phosphatase 143 H Assessment and Plan - Problems (Diagnosis) (1) Pneumonia Current Visit: No Status: Acute Qualifiers: Laterality: right (2) UTI (urinary tract infection) Current Visit: No Status: Acute Qualifiers: Urinary tract infection type: acute cystitis (3) Uncontrolled diabetes mellitus with hyperglycemia Current Visit: No Status: Acute Qualifiers: Diabetes mellitus type: type 2 Qualified Code(s): E11.65 - Type 2 diabetes mellitus with hyperglycemia (4) Anemia Current Visit: No Status: Chronic Qualifiers: Anemia type: due to chronic kidney disease (5) Substance abuse Current Visit: Yes Status: Acute - Plan Assessment IV antibiotics, nebs, IV fluids, as needed analgesia Trend cultures, UA, Accu-Cheks ACHS, A1c, Educated on substance abuse cessation Full code Diabetic diet DVT Lovenox Disposition Home independent prior Discharge Plan: Home - Advance Directives Does patient have a Living Will: No Does patient have a Durable POA for Healthcare: No - Code Status/Comfort Care Code Status: Full Code Critical Care: No Time Spent Managing Pts Care (In Minutes): 55
[2024-09-25] MEDS ORDERED: GLUCAGON 1 MG/VIAL IM PRN ×2 (12:14→18:21)
[2024-09-25] MEDS ORDERED: D10W 125 ML IV PRN (12:14)
[2024-09-25] MEDS ORDERED: Levofloxacin 750mg IV 750 MG/150 ML BAG IV ONE (12:50)
[2024-09-25] MEDS ORDERED: HYDROCODONE/APAP 5/325 MG TAB ONE (14:09)
[2024-09-25] MEDS: HYDROCODONE/APAP 5/325 MG TAB PO PRN (14:22)
[2024-09-25 15:00] VITALS: BMI 36.3
[2024-09-25] MEDS: INSULIN REGULAR (HUMAN) 100 UNIT/ML SQ SCH (16:33)
[2024-09-25] MEDS: ENOXAPARIN 40 MG/0.4 ML SQ SCH (16:34)
[2024-09-25] MEDS: ACETAMINOPHEN 500 MG TAB PO PRN (16:34)
[2024-09-25] MEDS: ALBUTEROL 2.5 MG/3 ML NEB SOL NEB PRN (18:14)
[2024-09-25] MEDS: INSULIN 70/30 100 UNITS/ML SQ ONE ×2 (18:20→18:27)
[2024-09-25] MEDS ORDERED: D50W 25 GM/50 ML SYRINGE IV PRN (18:21)
[2024-09-25] MEDS: CEFTRIAXONE 1,000 MG in NA CHLORIDE 0.9% 50 ML IVPB SCH (19:51)
[2024-09-26] MEDS: ONDANSETRON 4 MG/2 ML VIAL IV PRN (04:35)
[2024-09-26] MEDS: INSULIN GLARGINE 100 UNIT/ML SQ ONE (05:46)
[2024-09-26 06:38] LABS: Albumin 1.7 g/dL (3.4-5.0); Albumin/Globulin Ratio 0.4 (1.1-1.8); Anion Gap 13.5 mEq/L (5.0-15.0); Bilirubin Total 0.2 mg/dL (0.2-1.0); Globulin 4.4 g/dL (2.3-3.5); Magnesium 1.8 mg/dL (1.6-2.4); Potassium 3.5 mEq/L (3.5-5.1); Protein, Total 6.1 g/dL (6.4-8.2)
[2024-09-26 07:33] LABS: Absolute Basophils 0.1 K/uL (0-0.5); Absolute Eosinophils 0.2 K/uL (0-0.5); Absolute Lymphocytes (CBC) 2.2 K/uL (0.7-4.9); Absolute Monocytes 0.6 K/uL (0.1-1.3); Absolute Neutrophil 10.2 K/uL (1.8-8.0); Basophils % 0.4 % (0-1.3); Eosinophils % 1.2 % (0-4.4); Hematocrit 19.9 % (36.0-45.0); Hemoglobin 6.4 g/dL (12.0-15.0); Lymphocytes % 16.7 % (15.3-44.8); MCH 24.9 pg (27.0-35.0); MCHC 32.4 g/dL (32.0-36.0); MCV 76.7 fL (80-100); MPV 8.4 fL (7.6-11.3); Monocytes % 4.8 % (3.3-12.3); Neutrophils % 76.9 % (41.7-73.7); Platelets 296 thou/uL (152-406); RBC Red Blood Cell Count 2.59 M/uL (3.86-4.86); Red Cell Distribution Width 16.4 % (12.1-15.2)
--- NOTE | 2024-09-26 08:46 | P.DS ---
Admission Date: 09/27/24 Discharge Date: 09/28/24 Disposition: ROUTINE DISCHARGE Discharge Condition: FAIR Reason for Admission: Pneumonia - Problems (1) Pneumonia Status: Acute Qualifiers: Pneumonia type: due to unspecified organism Laterality: right (2) UTI (urinary tract infection) Status: Acute Qualifiers: Urinary tract infection type: acute cystitis (3) Uncontrolled diabetes mellitus with hyperglycemia Status: Acute Qualifiers: Diabetes mellitus type: type 2 Qualified Code(s): E11.65 - Type 2 diabetes mellitus with hyperglycemia (4) Anemia Status: Chronic Qualifiers: Anemia type: due to chronic kidney disease Chronic kidney disease stage: unspecified stage Qualified Code(s): N18.9 - Chronic kidney disease, unspecified; D63.1 - Anemia in chronic kidney disease (5) Substance abuse Status: Acute Brief History of Present Illness: 44 yrs old Female with past medical history Anemia; Asthma; Bipolar disorder; Diabetes - IDDM; Hypertension presents to ER via Wheelchair with complaints of Breathing Difficulty, Blurred Vision, Back Pain. She reports previous diagnosis of pneumonia. She reports productive cough, shortness of breath with exertion. She reports right flank pain, reports taking Tylenol and Motrin pain is not controlled. she reports history of Diabetes that is not controlled due to lack of insurance. She reports previously taking metformin. She reports using methamphetamines. Last use in 2 weeks ago. ER evaluation BG >400, 542, 467, 444. Microcytic anemia, hemoglobin 7.5, lactate 22.8, left shift 90.6, UTI, UA leuk 250, 5-10 RBX, BG 4+, 2+ protein, CXR Patchy right basilar airspace opacities as above, concerning for pneumonia. CT abd pelvis Patchy bilateral airspace opacities as detailed above, concerning for pneumonia. Decompressed urinary bladder with apparent wall thickening which may relate to under distention versus ongoing cystitis. Please correlate clinically. Plan to admit for OBS, r pneumonia, Fever, Chest pain on breathng, UTI/ Urinary tract infection, site not specified, Type 2 diabetes mellitus with hyperglycemia, Hypo-osmolality and hyponatremia Physical Exam General: Alert, In no apparent distress, Oriented x3 HEENT: Atraumatic, Normocephalic Neck: Supple, 2+ carotid pulse no bruit Respiratory: Normal air movement, Crackles/rales Cardiovascular: Normal pulses, Regular rate/rhythm, Normal S1 S2 Capillary refill: <2 Seconds Gastrointestinal: Normal bowel sounds, Other (Rt flank tenderness) Musculoskeletal: No clubbing, No swelling Integumentary: No rashes, No breakdown Neurological: Normal speech, Normal strength at 5/5 x4 extr, Cranial nerves 3-12 intact Hospital Course: 44 yrs old Female with past medical history Anemia; Asthma; Bipolar disorder; Diabetes - IDDM; Hypertension presents to ER via Wheelchair with complaints of Breathing Difficulty, Blurred Vision, Back Pain. She reports pr evious diagnosis of pneumonia. She reports productive cough, shortness of breath with exertion. She reports right flank pain, reports taking Tylenol and Motrin pain is not controlled. she reports history of Diabetes that is not controlled due to lack of insurance. She reports previously taking metformin. She reports using methamphetamines. Last use in 2 weeks ago. ER evaluation BG >400, 542, 467, 444. Microcytic anemia, hemoglobin 7.5, lactate 22.8, left shift 90.6, UTI, UA leuk 250, 5-10 RBX, BG 4+, 2+ protein, CXR Patchy right basilar airspace opacities as above, concerning for pneumonia. CT abd pelvis Patchy bilateral airspace opacities as detailed above, concerning for pneumonia. Decompressed urinary bladder with apparent wall thickening which may relate to under distention versus ongoing cystitis. Please correlate clinically. Plan to admit for OBS, r pneumonia, Fever, Chest pain on breathng, UTI/ Urinary tract infection, site not specified, Type 2 diabetes mellitus with hyperglycemia, Hypo-osmolality and hyponatremia. Treated with IV antibiotics, nebulizer, for pneumonia, treated with insulin for hyperglycemia, tolerating diet, stable to discharge home on p.o. antibiotics, inhaler given to patient prior to discharge Discharge medication P.o. antibiotics for pneumonia, acute cystitis, Resume medication for diabetes, educate on diabetic diet, information given on clinics Assessment Right lobe pneumonia discharged home on p.o. antibiotics, inhalers, Diabetes with hyperglycemia uncontrolled-dc on metformin Acute cystitis-discharge on p.o. antibiotic Anemia stable History of substance abuse educated on methamphetamine cessation, HTN dc on lisinopril Continue home medicines as previously prescribed GOAL: Clear understanding of disease process INSTRUCTIONS: Physician Discharge Instructions: -follow up with [facility] -Follow-up with PCP in 1 to 2 weeks -Please call Dr. Ba at [phone] if any questions regarding hospital stay -Please call nursing station at [phone] if any nursing or medication questions -Return to the emergency room if symptoms worsen Diet: ADA, low sodium Activity: Fall precautions Vital Signs/Physical Exam: Temp Pulse Resp BP Pulse Ox 97.7 F 17 L 17 107/59 L 97 09/26/24 04:00 09/26/24 04:00 09/26/24 04:00 09/26/24 04:00 09/26/24 04:00 Laboratory Data at Discharge: WBC 13.20 thou/uL (4.3-10.9) H 09/26/24 07:22 Hgb 6.4 g/dL (12.0-15.0) L D 09/26/24 07:22 Hct 19.9 % (36.0-45.0) L 09/26/24 07:22 Plt Count 296 thou/uL (152-406) 09/26/24 07:22 PT 12.9 SECONDS (9.4-12.5) H 09/25/24 05:45 INR 1.16 09/25/24 05:45 Sodium 129 mEq/L (136-145) L 09/26/24 05:45 Potassium 3.5 mEq/L (3.5-5.1) 09/26/24 05:45 BUN 45 mg/dL (7-18) H 09/26/24 05:45 Creatinine 1.55 mg/dL (0.55-1.02) H 09/26/24 05:45 Glucose 115 mg/dL (74-106) H 09/26/24 05:45 Magnesium 1.8 mg/dL (1.6-2.4) 09/26/24 05:45 Total Bilirubin 0.2 mg/dL (0.2-1.0) 09/26/24 05:45 AST 14 U/L (15-37) L 09/26/24 05:45 ALT 26 U/L (13-56) 09/26/24 05:45 Alkaline Phosphatase 112 U/L (45-117) D 09/26/24 05:45 Home Medications: Cefdinir [Cefdinir*] 300 mg PO BID #14 cap 09/27/24 Ferrous Gluconate 324 mg PO TID #90 tab 09/27/24 Metformin HCl 1,000 mg PO BID 30 Days #60 tab 09/27/24 lisinopriL [Lisinopril] 20 mg PO DAILY 30 Days #30 tab 09/27/24 oxyBUTYnin chloride [Ditropan Xl*] 5 mg PO DAILY #30 tab.sa 09/27/24 Cefdinir [Cefdinir*] 300 mg PO BID #10 cap 09/28/24 Ferrous Gluconate 324 mg PO TID #60 tab 09/28/24 oxyBUTYnin chloride [Oxybutynin Chloride] 5 mg PO DAILY #30 tab 09/28/24 New Medications: Cefdinir [Cefdinir*] 300 mg PO BID #14 cap Cefdinir [Cefdinir*] 300 mg PO BID #10 cap oxyBUTYnin chloride [Ditropan Xl*] 5 mg PO DAILY #30 tab.sa Ferrous Gluconate 324 mg PO TID #90 tab Ferrous Gluconate 324 mg PO TID #60 tab lisinopriL [Lisinopril] 20 mg PO DAILY 30 Days #30 tab Metformin HCl 1,000 mg PO BID 30 Days #60 tab oxyBUTYnin chloride [Oxybutynin Chloride] 5 mg PO DAILY #30 tab Physician Discharge Instructions: PROBLEM: pneumonia GOAL: Clear understanding of disease process INSTRUCTIONS: Diet: ADA Activity: Fall precautions Follow up with a Family Medicine Physician of your choice: 44 yrs old Female with past medical history Anemia; Asthma; Bipolar disorder; Diabetes - IDDM; Hypertension presents to ER via Wheelchair with complaints of Breathing Difficulty, Blurred Vision, Back Pain. She reports previous diagnosis of pneumonia. She reports productive cough, shortness of breath with exertion. She reports right flank pain, reports taking Tylenol and Motrin pain is not controlled. she reports history of Diabetes that is not controlled due to lack of insurance. She reports previously taking metformin. She reports using methamphetamines. Last use in 2 weeks ago. ER evaluation BG >400, 542, 467, 444. Microcytic anemia, hemoglobin 7.5, lactate 22.8, left shift 90.6, UTI, UA leuk 250, 5-10 RBX, BG 4+, 2+ protein, CXR Patchy right basilar airspace opacities as above, concerning for pneumonia. CT abd pelvis Patchy bilateral airspace opacities as detailed above, concerning for pneumonia. Decompressed urinary bladder with apparent wall thickening which may relate to under distention versus ongoing cystitis. Please correlate clinically. Plan to admit for OBS, r pneumonia, Fever, Chest pain on breathng, UTI/ Urinary tract infection, site not specified, Type 2 diabetes mellitus with hyperglycemia, Hypo-osmolality and hyponatremia. Treated with IV antibiotics, nebulizer, for pneumonia, treated with insulin for hyperglycemia, tolerating diet, stable to discharge home on p.o. antibiotics, inhaler given to patient prior to discharge Discharge medication P.o. antibiotics for pneumonia, acute cystitis, Resume medication for diabetes, educate on diabetic diet, information given on clinics Urinary retention, treated with sterile straight cath, discharged on antispasm Assessment Right lobe pneumonia discharged home on p.o. antibiotics, inhalers, Diabetes with hyperglycemia uncontrolled Acute cystitis-discharge on p.o. antibiotic Anemia stable History of substance abuse educated on methamphetamine cessation, Continue home medicines as previously prescribed GOAL: Clear understanding of disease process INSTRUCTIONS: Physician Discharge Instructions: -Follow-up with PCP in 1 to 2 weeks -Please call Dr. Ba at [phone] if any questions regarding hospital stay -Please call nursing station at [phone] if any nursing or medication questions -Return to the emergency room if symptoms worsen Diet: ADA, low sodium Activity: Fall precautions BISI SEO MD [address] [facility], [address] [place], [place] [id number] ACCEPTING NEW PATIENTS! JULIO GUEVARA MD [address] [facility], [address] [place], [place] [id number] ACCEPTING NEW PATIENTS! ENMA LI, [address] [address] LIV HOGAN MD [address] [facility], [address] [place] [address] SUSANNE PATEL MD [address] [facility], [address] [place], [place] [id number] TONYA MARTIN MD [address] [facility], [place] [address] [place] [address] MULU PETTY MD [address] [place] [address] JESUSITA POWELL, [employer] [address] [facility], [address] [place] [address] MAHENDRA DAVIS MD [address] [facility], [address] [place] [address] JUNITO DAVIS APRN [facility] [address] [facility], [address] [place] [address] LÁZARO MARTINEZ DO [address] [facility], [address] [place] [address] Diet: ADA Activity: Fall precautions Followup: NONE,NONE [Primary Care Provider] - Time spent managing pt's care (in minutes): 45
[2024-09-26] MEDS: NA CHLORIDE 0.9% 1,000 ML IV SCH (09:06)
[2024-09-26] MEDS: OXYBUTYNIN ER 5 MG TAB PO SCH (11:29)
--- NOTE | 2024-09-26 17:38 | P.PN ---
Date of Service: 09/26/24 subjective Reports unable to void, bladder scan greater than 900 cc, will straight Review of Systems 10-point ROS is otherwise unremarkable General: As per HPI Physical Examination - Physical Exam General: Alert,, Oriented x3, fatigue HEENT: Atraumatic, Normocephalic Neck: Supple, 2+ carotid pulse no bruit Respiratory: Normal air movement, Crackles/rales Cardiovascular: Normal pulses, Regular rate/rhythm, Normal S1 S2 Capillary refill: <2 Seconds Gastrointestinal: Normal bowel sounds, Other (Rt flank tenderness) Musculoskeletal: No clubbing, No swelling, moderate generalized weakness Integumentary: No rashes, No breakdown Neurological: Normal speech, Normal strength at 5/5 x4 extr, Cranial nerves 3-12 intact Assessment and Plan - Problems (Diagnosis) (1) acute hypoxic respiratory failure secondary to pneumonia acute urinary retention Current Visit: No Status: Acute Qualifiers: Laterality: right (2) UTI (urinary tract infection) acute urinary retention Current Visit: No Status: Acute Qualifiers: Urinary tract infection type: acute cystitis (3) Uncontrolled diabetes mellitus with hyperglycemia Current Visit: No Status: Acute Qualifiers: Diabetes mellitus type: type 2 Qualified Code(s): E11.65 - Type 2 diabetes mellitus with hyperglycemia (4) Anemia Current Visit: No Status: Chronic Qualifiers: Anemia type: due to chronic kidney disease (5) Substance abuse Current Visit: Yes Status: Acute - Plan Assessment IV antibiotics, nebs, IV fluids, as needed analgesia Trend cultures, UA, Accu-Cheks ACHS, A1c, Educated on substance abuse cessation Bladder scan, every 6 hours straight cath greater than 250-bladder antispasmodic added Full code Diabetic diet DVT Lovenox Disposition Home independent prior Discharge Plan: Home - Advance Directives Does patient have a Living Will: No Does patient have a Durable POA for Healthcare: No - Code Status/Comfort Care Code Status: Full Code Critical Care: No Time Spent Managing Pts Care (In Minutes): 35
[2024-09-26] MEDS: ALBUTEROL INHALER 200 PUFF/6.7 GM IH PRN (21:05)
[2024-09-27 04:26] LABS: Absolute Eosinophils 0.1 K/uL (0-0.5); Absolute Lymphocytes (CBC) 1.6 K/uL (0.7-4.9); Absolute Monocytes 0.4 K/uL (0.1-1.3); Absolute Neutrophil 6.5 K/uL (1.8-8.0); Basophils % 0.2 % (0-1.3); Eosinophils % 0.7 % (0-4.4); Hematocrit 19.6 % (36.0-45.0); Hemoglobin 6.4 g/dL (12.0-15.0); MCH 25.1 pg (27.0-35.0); MCHC 32.9 g/dL (32.0-36.0); MCV 76.4 fL (80-100); MPV 8.5 fL (7.6-11.3); Monocytes % 4.2 % (3.3-12.3); Neutrophils % 75.9 % (41.7-73.7); Nucleated Red Blood Cells % 0.1 % (0-0); Platelets 272 thou/uL (152-406); RBC Red Blood Cell Count 2.57 M/uL (3.86-4.86); Red Cell Distribution Width 16.8 % (12.1-15.2)
[2024-09-27 04:41] LABS: Anion Gap 11.8 mEq/L (5.0-15.0); Potassium 3.8 mEq/L (3.5-5.1)
[2024-09-27] MEDS: NA CHLORIDE 0.9% 250 ML ONE ×2 (07:24→11:36)
[2024-09-27] MEDS: POTASSIUM CL SA 10 MEQ TAB PO ONE (08:26)
[2024-09-27 10:54] LABS: Absolute Eosinophils 0.1 K/uL (0-0.5); Absolute Lymphocytes (CBC) 1.7 K/uL (0.7-4.9); Absolute Monocytes 0.4 K/uL (0.1-1.3); Absolute Neutrophil 4.4 K/uL (1.8-8.0); Basophils % 0.6 % (0-1.3); Eosinophils % 1.2 % (0-4.4); Hematocrit 20.9 % (36.0-45.0); Hemoglobin 6.8 g/dL (12.0-15.0); Lymphocytes % 25.4 % (15.3-44.8); MCH 25.7 pg (27.0-35.0); MCHC 32.5 g/dL (32.0-36.0); MCV 79.3 fL (80-100); MPV 8.7 fL (7.6-11.3); Monocytes % 6.3 % (3.3-12.3); Neutrophils % 66.5 % (41.7-73.7); Percent Reticulocyte Count 0.96 % (0.4-2.05); Platelets 273 thou/uL (152-406); RBC Red Blood Cell Count 2.63 M/uL (3.86-4.86); Red Cell Distribution Width 17.8 % (12.1-15.2)
[2024-09-27] MEDS ORDERED: INSULIN LISPRO 100 UNIT/1 ML SQ SCH (16:30)
[2024-09-27 18:01] LABS: Hematocrit 28.7 % (36.0-45.0); Hemoglobin 9.1 g/dL (12.0-15.0)
[2024-09-27] MEDS: hydrOXYzine HCL 25 MG TAB PO ONE (21:16)
[2024-09-27] MEDS: ALPRAZOLAM 0.5 MG TABLET ONE (21:20)
[2024-09-27] MEDS: ALPRAZOLAM 0.5 MG TABLET PO ONE (21:39)
[2024-09-28 00:26] VITALS: O2SAT 97
[2024-09-28] MEDS: METOPROLOL TARTRATE 5 MG/5 ML INJ IV STA (04:22)
[2024-09-28 06:33] LABS: Absolute Eosinophils 0.1 K/uL (0-0.5); Absolute Lymphocytes (CBC) 1.4 K/uL (0.7-4.9); Absolute Monocytes 0.5 K/uL (0.1-1.3); Absolute Neutrophil 4.8 K/uL (1.8-8.0); Basophils % 0.5 % (0-1.3); Eosinophils % 1.6 % (0-4.4); Hematocrit 26.5 % (36.0-45.0); Hemoglobin 9.1 g/dL (12.0-15.0); Lymphocytes % 20.9 % (15.3-44.8); MCH 27.1 pg (27.0-35.0); MCHC 34.2 g/dL (32.0-36.0); MCV 79.3 fL (80-100); MPV 8.1 fL (7.6-11.3); Monocytes % 7.9 % (3.3-12.3); Neutrophils % 69.1 % (41.7-73.7); Nucleated Red Blood Cells % 0.1 % (0-0); Platelets 355 thou/uL (152-406); RBC Red Blood Cell Count 3.34 M/uL (3.86-4.86); Red Cell Distribution Width 17.6 % (12.1-15.2)
[2024-09-28 06:50] LABS: Phosphorus 3.4 mg/dL (2.5-4.9)
--- NOTE | 2024-09-28 08:14 | P.PN ---
Date of Service: 09/27/24 subjective Severe anemia, requiring blood transfusion Review of Systems 10-point ROS is otherwise unremarkable General: As per HPI Physical Examination - Physical Exam General: Alert,, Oriented x3, no acute distress no HEENT: Atraumatic, Normocephalic Neck: Supple, 2+ carotid pulse no bruit Respiratory: Normal air movement, unlabored Cardiovascular: Normal pulses, Regular rate/rhythm, Normal S1 S2 Capillary refill: <2 Seconds Gastrointestinal: Normal bowel sounds, nontender Musculoskeletal: No clubbing, No swelling, moderate generalized weakness Integumentary: No rashes, No breakdown Neurological: Normal speech, Normal strength Assessment and Plan - Problems (Diagnosis) acute hypoxic respiratory failure secondary to pneumonia Qualifiers: Laterality: right UTI (urinary tract infection) acute urinary retention Current Visit: No Status: Acute Qualifiers: Urinary tract infection type: acute cystitis Uncontrolled diabetes mellitus with hyperglycemia Current Visit: No Status: Acute Qualifiers: Diabetes mellitus type: type 2 Qualified Code(s): E11.65 - Type 2 diabetes mellitus with hyperglycemia Severe anemia requiring blood transfusion Current Visit: No Status: Chronic Qualifiers: Anemia type: due to chronic kidney disease Substance abuse Current Visit: Yes Status: Acute - Plan Assessment IV antibiotics, nebs, IV fluids, as needed analgesia Trend cultures, UA, Accu-Cheks ACHS, A1c, Educated on substance abuse cessation Bladder scan, every 6 hours straight cath greater than 250-bladder antispasmodic added Trend H&H, transfuse less than 7 Full code Diabetic diet DVT Lovenox Disposition Home independent prior Discharge Plan: Home - Advance Directives Does patient have a Living Will: No Does patient have a Durable POA for Healthcare: No - Code Status/Comfort Care Code Status: Full Code Critical Care: No Time Spent Managing Pts Care (In Minutes): 35
[2024-09-28 16:37] VITALS: BP 155/81; TEMP 98.6
== END 2024-09-28 17:00 | disposition home or self-care (01) | DRG 637 ==
LOC: ER 04:59 → ERHOLD 11:53 → 2ND 14:44 → OBSVTOIN 09-27 06:56
PROVIDERS: ADMIT Hospitalist; ATTEND Hospitalist
PROC: 30233N1 Transfusion of Nonautologous Red Blood Cells into Peripheral Vein, Percutaneous Approach (ICD-10-PCS; principal; 2024-09-27)
PROC: 0T9B70Z Drainage of Bladder with Drainage Device, Via Natural or Artificial Opening (ICD-10-PCS; 2024-09-27)
DX: E11.65 Type 2 diabetes mellitus with hyperglycemia (principal); J18.8 Other pneumonia, unspecified organism; J96.01 Acute respiratory failure with hypoxia; E87.1 Hypo-osmolality and hyponatremia; N30.00 Acute cystitis without hematuria; I12.9 Hypertensive chronic kidney disease with stage 1 through stage 4 chronic kidney disease, or unspecified chronic kidney disease; N18.9 Chronic kidney disease, unspecified; E11.22 Type 2 diabetes mellitus with diabetic chronic kidney disease; D63.1 Anemia in chronic kidney disease; D50.9 Iron deficiency anemia, unspecified; F15.10 Other stimulant abuse, uncomplicated; F17.210 Nicotine dependence, cigarettes, uncomplicated; R33.9 Retention of urine, unspecified; Z79.4 Long term (current) use of insulin; Z59.71 Insufficient health insurance coverage
CPT/HCPCS: 36415; 36430; 71046; 71260; 74177; 80048; 80053; 81001; 82607; 82947; 83036; 83540; 83605; 83735; 84100; 85014; 85018; 85025; 85044; 85610; 86850; 86900; 86901; 86920; 87077; 87086; 87088; 87186; 93005; 94640; 96361; 96365; 96367; 96375; 99285; G0378; J0696; J1650; J1815; J2405; J3010; J7030; J7050; J7613; P9016; Q9967

== ENCOUNTER 2024-11-10 16:52 | Emergency (ER) | payer OTHER ==
--- OUTSIDE RECORDS SUMMARY | 2024-11-10 16:57 | XMS REPORT | Continuity of Care Document ---
Author Name Unknown Address [address] [facility] [address]. [address] [place] [address] [facility] Address [address] [facility]. [address] [place] [address] Care Team Providers Care Phd Internship Name Role Phone Mike MONACO, Bernadette Primary Care Physician Sherif MONACO, Suki Lanza Attending Clinician [phone] Laura Casanova DO Attending Clinician [phone] LAURA CASANOVA Attending Clinician Unavailable Doctor Unassigned, [place] Attending Clinician U navailable Laura Casanova DO Admitting Clinician [phone] LAURA CASANOVA Admitting Clinician Unavailable Payers Payer Name Policy Type Policy Number Effective Date Expirati on Date Source [employer] [id number] 2023 00:00:00 Problems Condition Name Condition Details Condition Category Status Onset Date Resolution Date Last Treatment Date Treating Clinician Comments Source Sepsis Sepsis Disease Active 01-10 00:00: 00 [facility] Obesity (BMI 30-39.9) Obesity (BMI 30-39.9) Disease Active 01-10 00:00: 00 [facility] No known active problems No known active problems Disease [facility] Allergies, Adverse Reactions, Alerts Allergy Name Allergy Type Status Severity Reaction(s) Onset Date Inactive Date Treating Clinician Comments Source NO KNOWN ALLERGIE S Drug Class Active [facility] Social History Social Habit Start Date Stop Date Quantity Comments Source History of tobacco use Cigarette Smoker [facility] History of Social function 2024-01-12 00:00:00 2024-01-12 00:00:00 [facility] Tobacco use and exposure 2024-01-11 00:00:00 2024-01-11 00:00:00 Smokeless tobacco non-user [facility] Sex Assigned At 1980 00:00:00 1980 00:00:00 [facility] Smoking Status Start Date Stop Date Source Unknown if ever smoked [facility] Smokes tobacco daily 2024-01-11 00:00:00 [facility] Medications Ordered Medication Name Filled Medication Name Start Date Stop Date Current Medication? Ordering Clinician Indication Dosage Frequency Signature (SIG) Comments Components Source insulin NPH (HUMULIN N) injection 15 Units 01-16 02:00: 00 Yes 15U 15 Units, Subcutaneo us, QAM+HS, First dose on Mon01/16/24 at 2100, Until Discontinu ed, Routine [facility] metFORMIN (GLUCOPHAGE ) tablet 1,000 mg 01-15 22:00: 00 Yes 1000mg 1,000 mg, Oral, BID MEALS, First dose on Mon01/16/24 at 1700, Until Discontinu ed, Routine [facility] ferrous sulfate 325 mg (65 mg iron) tablet 01-15 13:15: 48 Yes 325mg Take 1 tablet by mouth in the morning and 1 tablet at noon and 1 tablet in the evening. Take with meals. [facility] lisinopriL 20 mg tablet 01-15 13:15: 48 Yes 20mg Take 1 tablet by mouth in the morning. [facility] albuterol 90 mcg/actuati on inhaler 01-15 13:15: 48 Yes 2{puff} Inhale 2 Puffs every 6 (six) hours as needed for Wheezing or Shortness of Breath. [facility] insulin glarginebharatrec.anlog (INSULIN GLARGINE SC) 01-15 09:37: 37 01-15 00:00 :00 No 40U inject 40 Units under the skin in the morning and 40 Units in the evening. [facility] diphenhydrA MINE (BENADRYL) tablet 25 mg 01-15 02:44: 02 Yes 25mg 25 mg, Oral, Q6HPRN, Starting on Mon01/15/24 at 2144, Until Discontinu ed, Routine, Itching [facility] metformin 1,000 mg tablet 01-15 00:00: 00 Yes mg Silvestre Raygoza carvediloL 6.25 mg tablet 01-15 00:00: 00 02-15 04:59 :00 No [id number] 6.25mg Take 1 tablet by mouth in the morning and 1 tablet in the evening. Take with meals. Do all this for 30 days. [facility] metFORMIN 1,000 mg tablet 01-15 00:00: 00 02-15 04:59 :00 No [id number] 1000mg Take 1 tablet by mouth in the morning and 1 tablet in the evening. Take with meals. Do all this for 30 days. [facility] insulin NPH 100 unit/mL injection 01-15 00:00: 00 02-15 04:59 :00 No [id number] 15U inject 15 Units under the skin every morning and at bedtime for 30 days. [facility] cefUROXime 500 mg tablet 01-15 00:00: 00 01-24 04:59 :00 No [id number] 500mg Take 1 tablet by mouth in the morning and 1 tablet in the evening. Do all this for 8 days. [facility] polyethylen e glycol 3350 powder 17 g 01-14 16:15: 00 Yes 17g 17 g, Oral, DAILY, First dose on Mon01/15/24 at 1115, Until Discontinu ed, Routine [facility] sodium bicarbonate (ANTACID (SODIUM BICARBONATE )) tablet 650 mg 01-14 13:30: 00 Yes 650mg 650 mg, Oral, QID, First dose on Mon01/15/24 at 0830, Until Discontinu ed, Routine [facility] diphenhydrA MINE (BENADRYL) injection 25 mg 01-14 06:45: 00 01-14 06:18 :00 No 25mg 25 mg, Slow IV Push, ONCE, 1 dose, On Mon01/15/24 at 0145, Routine [facility] fluticasone propionate 50 mcg/actuati on nasal spray 2 [place] 01-14 06:00: 00 Yes 2{spray } 2 [place], Nasal, DAILY, First dose on Mon01/15/24 at 0100, Until Discontinu ed, Routine [facility] albuterol (VENTOLIN) inhaler 2 Puff 01-14 01:34: 59 Yes 2{puff} 2 Puff, Inhalation , Q6HPRN, Starting on Mon01/14/24 at 2034, Until Discontinu ed, Routine, Wheezing, Bronchospa sm, Chest tightness, Shortness of Breath [facility] insulin glargine (LANTUS U-100) injection 30 Units 01-14 01:00: 00 Yes 30U 30 Units, Subcutaneo us, BID, First dose (after last modificati on) on Mon01/14/24 at 2000, Until Discontinu ed [facility] acetaminoph en-codeine (TYLENOL #3) 300-30 mg tablet 1 tablet 01-13 23:33: 10 Yes 1{tbl} 1 tablet, Oral, Q4HPRN, Starting on Mon01/14/24 at 1833, Until Discontinu ed, Routine, Pain (scale 7-10) [facility] levalbutero l (XOPENEX) nebulizer solution 1.25 mg 01-13 17:00: 00 Yes 1.25mg 1.25 mg, Inhalation , QID, First dose on Mon01/14/24 at 1200, Until Discontinu ed, Routine [facility] NIFEdipine (ADALAT) capsule 10 mg 01-13 13:45: 00 01-14 18:55 :59 No 10mg 10 mg, Oral, TID, First dose on Mon01/14/24 at 0845, Until Discontinu ed, Routine [facility] carvediloL (COREG) tablet 6.25 mg 01-13 13:00: 00 Yes 6.25mg 6.25 mg, Oral, BID MEALS, First dose on Mon01/14/24 at 0800, Until Discontinu ed, Routine [facility] labetaloL (NORMODYNE) injection 20 mg 01-13 01:15: 00 01-13 00:31 :00 No 20mg 20 mg, Slow IV Push, ONCE, 1 dose, On Mon01/13/24 at 2015, Routine [facility] cefTRIAXone (ROCEPHIN) 2,000 mg in NaCl [...]
Durat ion of therapy: 5 days [facility] enoxaparin (LOVENOX) injection 40 mg 01-11 14:00: 00 Yes 40mg 40 mg, Subcutaneo us, DAILY, First dose on Mon01/12/24 at 0900, Until Discontinu ed, Routine [facility] lisinopriL (PRINIVIL,Z ESTRIL) tablet 20 mg 01-11 14:00: 00 Yes 20mg 20 mg, Oral, DAILY, First dose on Mon01/12/24 at 0900, Until Discontinu ed, Routine [facility] ferrous sulfate tablet 325 mg 01-11 13:00: 00 Yes 325mg 325 mg, Oral, TID MEALS, First dose on Mon01/12/24 at 0800, Until Discontinu ed, Routine [facility] ipratropium -albuteroL (DUONEB) 0.5 mg-3 mg(2.5 mg base)/3 mL nebulizer solution 3 mL 01-11 01:00: 00 01-13 15:58 :44 No 3mL 3 mL, Inhalation , QID, First dose on Mirtha 01/11/24 at 2000, Until Discontinu ed, Routine [facility] insulin glargine (LANTUS U-100) injection 25 Units 01-11 01:00: 00 01-13 16:01 :37 No 25U 25 Units, Subcutaneo us, BID, First dose on Mirtha 01/11/24 at 1999, Until Discontinu ed [facility] NaCl 0.9% (NS) IV infusion 1,000 mL 01-11 00:45: 00 01-12 15:37 :01 No 1000mL at 75 mL/hr, IV Infusion, CONTINUOUS , Starting on Mon01/11/24 at 1945, Until 01/13/24 at 1037, [facility] code[facility]enes[facility] (ROBITUSSIN AC) 10-100 mg/5 mL oral solution 5 mL 01-11 00:30: 00 01-11 01:43 :00 No 5mL 5 mL, Oral, ONCE, 1 dose, On Mirtha 01/11/24 at 1930, Routine [facility] ibuprofen (IBU) tablet 400 mg 01-11 00:01: 03 Yes 400mg 400 mg, Oral, Q6HPRN, Starting on Mon01/11/24 at 1901, Until Discontinu ed, Routine, Temp > 38.5 C [facility] LORazepam (ATIVAN) tablet 1 mg 01-10 23:43: 33 Yes 1mg 1 mg, Oral, TIDPRN, Starting on Mon01/11/24 at 1843, Until Discontinu ed, Routine, Anxiety, Agitation [facility] enoxaparin (LOVENOX) injection 40 mg 01-10 22:00: 00 01-10 23:38 :07 No 40mg 40 mg, Subcutaneo us, DAILY, First dose on Mon01/11/24 at 1700, Until Discontinu ed, Routine [facility] labetaloL (NORMODYNE) injection 20 mg 01-10 18:45: 00 01-10 17:56 :00 No 20mg 20 mg, Slow IV Push, ONCE, 1 dose, On Mon01/11/24 at 1345, Routine [facility] doxycycline hyclate 100 mg capsule 01-10 18:30: 14 01-10 00:00 :00 No 100mg Take 1 capsule by mouth every 12 (twelve) hours. [facility] azithromyci n (ZITHROMAX) 500 mg in NaCl 0.9% (NS) 250 mL VIAL-MATE IV piggyback 01-10 17:45: 00 01-12 20:21 :00 No 500mg 500 mg, IV Piggyback, Q24H ABX, 3 doses, First dose on Mon01/11/24 at 1245, Last dose on Mon01/13/24 at 1245, Administer over 60 Minutes, 250 mL
Reas on for Anti-Infec tive: Empiric Therapy for Suspected Infection< br>Empiric Therapy Site: Respirator y
Durat ion of therapy: 72 hours [facility] HYDROcodone -acetaminop hen (NORCO) 10-325 mg tablet 1 tablet 01-10 17:15: 00 01-10 16:35 :00 No 1{tbl} 1 tablet, Oral, ONCE, 1 dose, On Mon01/11/24 at 1215, Routine [facility] Sliding Scale Insulin - Lispro (HumaLOG) 01-10 17:00: 00 Yes Subcutaneo us, TID MEALS+HS, First dose on Mon01/11/24 at 1200, Until Discontinu ed, Routine [facility] glucagon (GLUCAGEN DIAGNOSTIC KIT) injection 1 mg 01-10 16:38: 56 Yes 1mg 1 mg, Intramuscu lar, PRN, Starting on Mirtha 01/11/24 at 1138, Until Discontinu ed, BRAD, Blood Glucose < or = 70 mg/dL and patient is NPO, unable to swallow or has mental changes. [facility] dextrose 50 % in water (D50W) injection 25 mL 01-10 16:38: 56 Yes 25mL 25 mL, Slow IV Push, PRN, Starting on Mirtha 01/11/24 at 1138, Until Discontinu ed, BRAD, Blood Glucose < or = 70 mg/dL and patient is NPO, unable to swallow or has mental status changes. [facility] ondansetron (ZOFRAN (PF)) injection 4 mg 01-10 16:38: 49 Yes 4mg 4 mg, Slow IV Push, Q6HPRN, Starting on Mirtha 01/11/24 at 1138, Until Discontinu ed, Routine, Nausea and Vomiting (N/V) [facility] acetaminoph en-codeine (TYLENOL #3) 300-30 mg tablet 1 tablet 01-10 16:38: 43 01-12 16:37 :43 No 1{tbl} 1 tablet, Oral, Q6HPRN, Starting on Mirtha 01/11/24 at 1138, Until 01/13/24 at 1137, Routine, Pain (scale 4-6) [facility] acetaminoph en (TYLENOL) tablet 650 mg 01-10 16:38: 25 Yes 650mg 650 mg, Oral, Q6HPRN, Starting on Mirtha 01/11/24 at 1138, Until Discontinu ed, Routine, Pain (scale 1-3), Temp > 38 C [facility] NaCl 0.9% (NS) IV infusion 1,400 mL 01-10 16:30: 00 01-10 15:25 :00 No 1400mL at 999 mL/hr, Intravenou s, ONCE, 1 dose, On Mirtha 01/11/24 at 1130, Routine [facility] insulin regular human (HUMULIN R) injection 6 Units 01-10 16:15: 00 01-10 15:57 :00 No 6U 6 Units, Subcutaneo us, ONCE, 1 dose, On Mirtha 01/11/24 at 1115, Routine
Indicatio n for insulin: Hyperglyce bryan [facility] iopamidol (ISOVUE 370-500 mL) injection 85 mL 01-10 15:38: 00 01-10 15:45 :00 No [id number] 85mL 85 mL, Intravenou s, ONCE, 1 dose, On Mirtha 01/11/24 at 1045, Routine [facility] cefTRIAXone (ROCEPHIN) 1,000 mg in NaCl 0.9% (NS) 100 mL MINI-BAG 01-10 15:30: 00 01-10 16:37 :00 No 1000mg 1,000 mg, IV Piggyback, ONCE, 1 dose, On Mirtha 01/11/24 at 1030, Administer over 30 Minutes, 100 mL
Reas on for Anti-Infec tive: Documented Infection< br>Documen stacey Infection Site: Urine
D uration of Therapy: Once (ED) [facility] ketorolac (TORADOL) injection 30 mg 01-10 15:00: 00 01-10 14:14 :00 No 30mg 30 mg, Slow IV Push, ONCE, 1 dose, On Mirtha 01/11/24 at 1000, Routine [facility] acetaminoph en (OFIRMEV) IV piggyback 1,000 mg 01-10 14:45: 00 01-10 14:52 :00 No 1000mg 1,000 mg, IV Piggyback, at 400 mL/hr Administer over 15 Minutes, ONCE, 1 dose, On Mirtha 01/11/24 at 0945, Routine
Is the patient strict NPO and unable to tolerate oral medication s? Yes [facility] NaCl 0.9% (NS) bolus infusion 1,000 mL 01-10 14:45: 00 01-10 15:57 :00 No 1000mL at 999 mL/hr, 1,000 mL, IV Infusion, ONCE, 1 dose, On Mirtha 01/11/24 at 0945, BRAD [facility] azithromyci n 250 mg tablet 12-25 00:00: 00 01-10 00:00 :00 No [id number] 250mg Take 1 tablet by mouth SEE-INSTRU CTIONS. Take 500 mg day 1, then 250 mg days 2 to 5. [facility] Dose Unknown 02-20 00:00: 00 Yes Silvestre Raygoza lovastatin 20 mg tablet 02-20 00:00: 00 Yes 1mg Silvestre Raygoza Dose Unknown 02-08 00:00: 00 Yes Silvestre Raygoza Levemir U-100 Insulin 100 unit/mL subcutaneou s solution 02-08 00:00: 00 Yes unit/mL Silvestre Raygoza Dose Unknown 12-14 00:00: 00 Yes Silvestre Raygoza lovastatin 20 mg tablet 12-09 00:00: 00 Yes 1mg Silvestre Raygoza Levemir U-100 Insulin 100 unit/mL subcutaneou s solution 11-28 00:00: 00 Yes unit/mL Silvestre Raygoza Dose Unknown 11-28 00:00: 00 Yes Silvestre Raygoza lisinopril 20 mg tablet 11-28 00:00: 00 Yes 1mg Silvestre Raygoza Levemir 100 unit/mL subcutaneou s solution 2016-10 0 00:00: 00 Yes unit/mL Silvestre Raygoza Novolin R 100 unit/mL injection solution 2016-10 0 00:00: 00 Yes unit/mL Silvestre Raygoza Bactroban 2 % topical cream 2016-10 00:00: 00 Yes 1% Silvestre Raygoza lisinopril 20 mg tablet 2016-10 0 00:00: 00 Yes 1mg Silvestre Raygoza Bactrim DS 800 mg-160 mg tablet 2016-10 00:00: 00 Yes 1mg Silvestre Raygoza Keflex 500 mg capsule 2016-10 0 00:00: 00 Yes 1mg Silvestre Raygoza lovastatin 20 mg tablet 06-08 00:00: 00 Yes 1mg Silvestre Raygoza Levemir 100 unit/mL subcutaneou s solution 06-06 00:00: 00 Yes unit/mL Silvestre Raygoza Novolin R 100 unit/mL injection solution 06-06 00:00: 00 Yes unit/mL Silvestre Raygoza Bactrim DS 800 mg-160 mg tablet 06-06 00:00: 00 Yes 1mg Silvestre Raygoza Flagyl 500 mg tablet 04-04 00:00: 00 Yes 1mg Silvestre Raygoza Levemir 100 unit/mL subcutaneou s solution 02-22 00:00: 00 Yes unit/mL Silvestre Raygoza Novolin R 100 unit/mL injection solution 02-22 00:00: 00 Yes unit/mL Silvestre Raygoza lisinopril 20 mg tablet 02-21 00:00: 00 Yes 1mg Silvestre Raygoza Levemir Flexpen 100 unit/mL (3 mL) solution subcutaneou s insulin pen 01-12 00:00: 00 Yes (3 mL) Silvestre Raygoza lisinopril 20 mg tablet 01-12 00:00: 00 Yes 1mg Silvestre Raygoza fluticasone 50 mcg/actuati on nasal spray,suspe nsion 02-19 00:00: 00 Yes 12mcg/a ctuatio n Silvestre Raygoza cetirizine 10 mg tablet 02-19 00:00: 00 Yes 1mg Silvestre Raygoza oxymetazoli ne 0.05 % nasal spray 02-19 00:00: 00 Yes 12% Silvestre Raygoza lisinopril 20 mg tablet 01-17 00:00: 00 Yes 1mg Silvestre Raygoza lisinopril 40 mg tablet 01-17 00:00: 00 Yes 1mg Silvestre Raygoza Proventil HFA 90 mcg/actuati on aerosol inhaler 11-29 00:00: 00 Yes 2mcg/ac tuation Silvestre Raygoza Levemir Flexpen 100 unit/mL (3 mL) solution subcutaneou s insulin pen 11-29 00:00: 00 Yes (3 mL) Silvestre Raygoza lisinopril 20 mg tablet 11-29 00:00: 00 Yes 1mg Silvestre Raygoza Singulair 10 mg tablet 11-29 00:00: 00 Yes 1mg Silvestre Raygoza Vital Signs Vital Name Observation Time Observation Value Comments S ource Respiratory rate 2024-01-16 16:19:00 18 /min [facility] Oxygen saturation in Arterial blood by Pulse oximetry 2024-01-16 16:19:00 100 /min [place] [facility] Systolic blood pressure 2024-01-16 12:19:00 173 mm[Hg] [place] [facility] Diastolic blood pressure 2024-01-16 12:19:00 93 mm[Hg] [place] [facility] Heart rate 2024-01-16 12:19:00 80 /min [facility] Body temperature 2024-01-16 12:19:00 36.5 Sarah [facility] Body weight 2024-01-16 08:12:00 82.918 kg [facility] BMI 2024-01-16 08:12:00 32.38 kg/m2 [facility] Body height 2024-01-11 18:05:00 160 cm [facility] Heart Rate 2024-10-15 14:27:00 101.00 /min Step loi Raygoza Respiratory Rate 2024-10-15 14:27:00 19.00 /min Silvestre Raygoza BP Systolic 2024-10-15 14:27:00 132 mm[Hg] Step hen F Jaret BP Diastolic 2024-10-15 14:27:00 89 mm[Hg] Arnoldo phen F Jaret Weight Measured 2024-10-15 14:27:00 162.00 pounds Silvestre Raygoza Height Measured 2024-10-15 14:27:00 65.50 inches Silvestre Raygoza Body Temperature 2024-10-15 14:27:00 97.10 degrees Silvestre Margot Raygoza BP Systolic 2018-02-08 16:09:00 131 mm[Hg] Step hen F Jaret BP Diastolic 2018-02-08 16:09:00 84 mm[Hg] Arnoldo phen F Jaret Weight Measured 2018-02-08 16:09:00 220.60 pounds Silvestre Raygoza Height Measured 2018-02-08 16:09:00 65.50 inches Silvestre Raygoza Body Temperature 2018-02-08 16:09:00 98.50 degrees Silvestre F Jaret Heart Rate 2018-02-08 16:09:00 95.00 /min Kylie en F Jaret Respiratory Rate 2018-02-08 16:09:00 18.00 /min Silvestre F Jaret BP Systolic 2017-11-28 11:54:00 139 mm[Hg] Step hen F Jaret BP Diastolic 2017-11-28 11:54:00 89 mm[Hg] Arnoldo phen F Jaret Weight Measured 2017-11-28 11:54:00 216.60 pounds Silvestre F Jaret Height Measured 2017-11-28 11:54:00 65.50 inches Silvestre F Jaret Body Temperature 2017-11-28 11:54:00 98.20 degrees Silvestre F Jaret Heart Rate 2017-11-28 11:54:00 75.00 /min Kylie en F Jaret Respiratory Rate 2017-11-28 11:54:00 16.00 /min Silvestre F Jaret BP Systolic 2017-08-04 16:51:00 135 mm[Hg] Step hen F Jaret BP Diastolic 2017-08-04 16:51:00 89 mm[Hg] Arnoldo phen F Jaret Weight Measured 2017-08-04 16:51:00 Silvestre F Jaret Height Measured 2017-08-04 16:51:00 Silvestre F Jaret Body Temperature 2017-08-04 16:51:00 Silvestre F Jaret Heart Rate 2017-08-04 16:51:00 Kylie en F Jaret Respiratory Rate 2017-08-04 16:51:00 Silvestre F Jaret BP Systolic 2017-08-04 16:24:00 147 mm[Hg] Step hen F Jaret BP Diastolic 2017-08-04 16:24:00 94 mm[Hg] Arnoldo phen F Jaret Weight Measured 2017-08-04 16:24:00 218.60 pounds Silvestre F Jaret Height Measured 2017-08-04 16:24:00 65.50 inches Silvestre F Jaret Body Temperature 2017-08-04 16:24:00 98.70 degrees Silvestre F Jaret Heart Rate 2017-08-04 16:24:00 88.00 /min Kylie en F Jaret Respiratory Rate 2017-08-04 16:24:00 18.00 /min Silvestre F Jaret BP Diastolic 2017-06-06 12:14:00 86 mm[Hg] Arnoldo phen F Jaret Weight Measured 2017-06-06 12:14:00 222.40 pounds Silvestre F Jaret Height Measured 2017-06-06 12:14:00 65.50 inches Silvestre F Jaret Body Temperature 2017-06-06 12:14:00 98.20 degrees Silvestre F Jaret Heart Rate 2017-06-06 12:14:00 86.00 /min Kylie en F Jaret Respiratory Rate 2017-06-06 12:14:00 18.00 /min Silvestre F Jaret BP Systolic 2017-06-06 12:14:00 128 mm[Hg] Step hen F Jaret BP Systolic 2017-03-30 14:56:00 130 mm[Hg] Step hen F Jaret BP Diastolic 2017-03-30 14:56:00 86 mm[Hg] Arnoldo phen F Jaret Weight Measured 2017-03-30 14:56:00 220.40 pounds Silvestre F Jaret Height Measured 2017-03-30 14:56:00 65.50 inches Silvestre F Jaret Body Temperature 2017-03-30 14:56:00 98.20 degrees Silvestre F Jaret Heart Rate 2017-03-30 14:56:00 95.00 /min Kylie en F Jaret Respiratory Rate 2017-03-30 14:56:00 18.00 /min Silvestre F Jaret BP Systolic 2017-02-22 15:08:00 133 mm[Hg] Step hen F Jaret BP Diastolic 2017-02-22 15:08:00 86 mm[Hg] Arnoldo phen F Jaret Weight Measured 2017-02-22 15:08:00 223.60 pounds Silvestre F Jaret Height Measured 2017-02-22 15:08:00 65.50 inches Silvestre F Jaret Body Temperature 2017-02-22 15:08:00 98.40 degrees Silvestre F Jaret Heart Rate 2017-02-22 15:08:00 88.00 /min Kylie en F Jaret Respiratory Rate 2017-02-22 15:08:00 16.00 /min Silvestre F Jaret BP Systolic 2017-02-21 16:04:00 133 mm[Hg] Step hen F Jaret BP Diastolic 2017-02-21 16:04:00 84 mm[Hg] Arnoldo phen F Jaret Weight Measured 2017-02-21 16:04:00 223.60 pounds Silvestre F Jaret Height Measured 2017-02-21 16:04:00 65.50 inches Silvestre F Jaret Body Temperature 2017-02-21 16:04:00 98.10 degrees Silvestre Raygoza Heart Rate 2017-02-21 16:04:00 83.00 /min Kylie en Margot Raygoza Respiratory Rate 2017-02-21 16:04:00 16.00 /min Silvestre Raygoza BP Systolic 2017-02-15 15:24:00 137 mm[Hg] Kar Raygoza BP Diastolic 2017-02-15 15:24:00 86 mm[Hg] Arnoldo Raygoza Weight Measured 2017-02-15 15:24:00 219.60 pounds Silvestre Raygoza Height Measured 2017-02-15 15:24:00 65.50 inches Silvestre Raygoza Body Temperature 2017-02-15 15:24:00 98.90 degrees Silvestre Raygoza Heart Rate 2017-02-15 15:24:00 84.00 /min Kylie Raygoza Respiratory Rate 2017-02-15 15:24:00 18.00 /min Silvestre Raygoza Procedures Procedure Date / Time Performed Performing Clinician Source POCT GLUCOSE (AUTOMATED) 2024-01-16 12:50:00 Melissa Casanova [facility] POCT GLUCOSE (AUTOMATED) 2024-01-16 10:47:00 Melissa Casanova [facility] BASIC METABOLIC PANEL (NA, K, CL, CO2, GLUCOSE, BUN, CREATININE, CA) 2024-01-16 09:33:00 Laura Casanova [facility] CBC WITH DIFF 2024-01-16 09:33:00 Laura [facility] POCT GLUCOSE (AUTOMATED) 2024-01-16 02:03:00 Melissa Casanova [facility] POCT GLUCOSE (AUTOMATED) 2024-01-15 21:32:00 Melissa Casanova [facility] POCT GLUCOSE (AUTOMATED) 2024-01-15 16:38:00 Melissa Casanova [facility] CBC WITH DIFF 2024-01-15 15:54:00 Laura Casanova [facility] POCT GLUCOSE (AUTOMATED) 2024-01-15 12:55:00 Melissa Casaonva [facility] MAGNESIUM 2024-01-15 10:05:00 Laura Casanova [facility] BASIC METABOLIC PANEL (NA, K, CL, CO2, GLUCOSE, BUN, CREATININE, CA) 2024-01-15 10:05:00 Laura Casanova [facility] CBC WITH DIFF 2024-01-15 10:05:00 Laura [facility] POCT GLUCOSE (AUTOMATED) 2024-01-15 00:58:00 Melissa Casanova [facility] POCT GLUCOSE (AUTOMATED) 2024-01-14 21:34:00 Melissa Casanova [facility] US ABDOMEN LIMITED 2024-01-14 17:48:51 [facility] US RETROPERITONEAL LIMITED 2024-01-14 17:45:00 Laura Casanova [facility] POCT GLUCOSE (AUTOMATED) 2024-01-14 16:31:00 Melissa Casanova [facility] POCT GLUCOSE (AUTOMATED) 2024-01-14 12:35:00 Melissa Casanova [facility] MAGNESIUM 2024-01-14 09:39:00 Laura Casanova [facility] IRON 2024-01-14 09:39:00 Laura Casanova [facility] BASIC METABOLIC PANEL (NA, K, CL, CO2, GLUCOSE, BUN, CREATININE, CA) 2024-01-14 09:39:00 Laura Casanova [facility] CBC WITH DIFF 2024-01-14 09:39:00 Laura Cas[facility] POCT GLUCOSE (AUTOMATED) 2024-01-14 01:40:00 Melissa Casanova [facility] POCT GLUCOSE (AUTOMATED) 2024-01-13 21:29:00 Melissa Casanova [facility] POCT GLUCOSE (AUTOMATED) 2024-01-13 16:30:00 Melissa Casanova [facility] BLOOD CULTURE SCREEN 2024-01-13 16:18:00 Laura Casanova [facility] POCT GLUCOSE (AUTOMATED) 2024-01-13 12:36:00 Melissa Casanova [facility] MAGNESIUM 2024-01-13 08:17:00 Cayetano Squires [facility] BASIC METABOLIC PANEL (NA, K, CL, CO2, GLUCOSE, BUN, CREATININE, CA) 2024-01-13 08:17:00 Cayetano Squires [facility] CBC WITH DIFF 2024-01-13 08:17:00 Cayetano [facility] POCT GLUCOSE (AUTOMATED) 2024-01-13 06:26:00 Melissa Casanova [facility] POCT GLUCOSE (AUTOMATED) 2024-01-13 01:37:00 Melissa Casanova [facility] POTASSIUM SERUM 2024-01-13 01:11:00 Cayetano Squires [facility] POCT GLUCOSE (AUTOMATED) 2024-01-12 21:21:00 Melissa Casanova [facility] POCT GLUCOSE (AUTOMATED) 2024-01-12 16:41:00 Melissa Casanova [facility] POCT GLUCOSE (AUTOMATED) 2024-01-12 12:39:00 [facility] CAPACITY 2024-01-12 02:28:00 Laura Casanova [facility] HEPATITIS B SURFACE ANTIBODY 2024-01-12 02:28:00 Laura Casanova [facility] HEPATITIS B SURFACE ANTIGEN 2024-01-12 02:28:00 Laura Casanova [facility] HCV ANTIBODY 2024-01-12 02:28:00 Laura Casanova [facility] HBC ANTIBODY (IGM & IGG) 2024-01-12 02:28:00 Melissa Casanova [facility] POCT GLUCOSE (AUTOMATED) 2024-01-12 01:07:00 Melissa Casanova [facility] POCT GLUCOSE (AUTOMATED) 2024-01-11 22:33:00 Melissa Casanova [facility] LEGIONELLA AND STREPTOCOCCUS PNEUMONIAE URINARY ANTIGENS 2024-01-11 19:36:00 Laura Casanova [facility] PROCALCITONIN 2024-01-11 18:25:00 Laura [facility] POCT GLUCOSE (AUTOMATED) 2024-01-11 17:23:00 Melissa Casanova [facility] POCT GLUCOSE (AUTOMATED) 2024-01-11 15:57:00 Norma Gorman [facility] CT CHEST PULMONARY ANGIOGRAM 2024-01-11 15:43:21 Suki Gorman [facility] CT ABDOMEN PELVIS W CONTRAST 2024-01-11 15:43:21 Suki Gorman [facility] URINE CULTURE 2024-01-11 15:29:00 Suki Gorman [facility] AC ABG + LACTIC ACID 2024-01-11 14:31:00 Janette Gorman [facility] XR CHEST 1 VW 2024-01-11 14:19:14 Suki Gorman [facility] HB ABO GROUPING 2024-01-11 14:18:00 [facility] & RHYTHM STRIP 2024-01-11 14:13:01 Suki Gorman [facility] N-TERMINAL PRO-BNP 2024-01-11 14:05:00 Suki Gorman [facility] COVID-19 (ID NOW RAPID TESTING) 2024-01-11 14:05:00 Suki Gorman [facility] LAB ONLY COVID INTERPRETATION 2024-01-11 14:05:00 Suki Gorman [facility] BLOOD CULTURE SCREEN 2024-01-11 14:05:00 Janette Gorman [facility] MAGNESIUM 2024-01-11 14:05:00 Suki Gorman [facility] C-REACTIVE PROTEIN 2024-01-11 14:05:00 Suki Gorman [facility] TROPONIN I 2024-01-11 14:05:00 Suki Gorman [facility] COMP. METABOLIC PANEL (85510) 2024-01-11 14:05:00 Suki Gorman [facility] IRON PANEL 2024-01-11 14:05:00 Suki Gorman [facility] CBC WITH DIFF 2024-01-11 14:05:00 Suki Gorman [facility] GLYCOSYLATED HEMOGLOBIN (A1C) 2024-01-11 14:05:00 Suki Gorman [facility] PROTHROMBIN TIME / INR 2024-01-11 14:05:00 Venice Gorman ala [facility] D-DIMER 2024-01-11 14:05:00 Suki Gormna [facility] ACTIVATED PARTIAL THRMPLAS LEOBARDO 2024-01-11 14:05:00 Suki Gorman [facility] URINALYSIS 2024-01-11 14:05:00 Suki Gorman [facility] RAPID INFLUENZA A/B 2024-01-11 14:05:00 Suki Gorman [facility] POCT TEST 2024-01-11 14:05:00 Suki Gorman [facility] BLOOD CULTURE WORKUP 2024-01-11 13:50:00 Janette Gorman [facility] GRAM NEGATIVE BLOOD PATHOGENS DNA PROBE-ANAEROBIC 2024-01-11 13:50:00 Suki Gorman [facility] BLOOD CULTURE SCREEN 2024-01-11 13:50:00 Janette Gorman [facility] CONSENT/REFUSAL FOR DIAGNOSIS AND TREATMENT 2024-01-11 13:18:36 Doctor Unassigned, [place] [facility] OP CORRESPONDENCE 2019-06-26 05:01:00 Doctor Bette ssigned, [place] [facility] Encounters Start Date/Time End Date/Time Encounter Type Admission Type Attending [facility] Care Facility Care Department Encounter ID Source 2024-10-17 09:10:01 2024-10-17 09:10:01 Outpatient [facility] [id number] Silvestre F Jaret 2024-10-15 14:04:00 2024-10-15 14:04:00 Outpatient [facility] [id number] Silvestre F Jaret 2024-10-15 00:00:00 2024-10-15 00:00:00 Outpatient Visit [facility] [id number] Silvestre Frost Jaret 2024-10-14 10:10:56 2024-10-14 10:10:56 Outpatient [facility] [id number] Silvestre Frost Jaret 2024-01-11 08:37:00 2024-01-16 13:06:00 Hospital Encounter Suki Gorman David [facility] [id number] [facility] 2024-01-11 08:37:00 2024-01-16 13:06:00 Inpatient LAURA GU [facility] [id number] [facility] 2019-06-26 00:00:00 2019-06-26 00:00:00 Orders Only Doctor Unassigned, [place] [facility] [id number] [facility] Results Test Description Test Time Test Comments Results Result Co mments Source [facility] GLUCOSE (AUTOMATED)2024-01-16 12:51:40* Test Item Value Reference Range Interpretation Comme nts POCT GLU (test code = 8166237534) 91 mg/dL 70-110 Lab Interpretation (test cod e = 68253-4) Normal [facility] GLUCOSE (AUTOMATED)2024-01-16 10:48:21* Test Item Value Reference Range Interpretation Comme nts POCT GLU (test code = 6948826242) 81 mg/dL 70-110 Lab Interpretation (test cod e = 85646-0) Normal [facility] GLUCOSE (AUTOMATED)2024-01-16 02:05:11* Test Item Value Reference Range Interpretation Comme nts POCT GLU (test code = 4238001096) 108 mg/dL 70-110 Lab Interpretation (test cod e = 76764-8) Normal [facility] GLUCOSE (AUTOMATED)2024-01-15 21:33:26* Test Item Value Reference Range Interpretation Comme nts POCT GLU (test code = 6570872190) 114 mg/dL 70-110 H Lab Interpretation (test cod e = 50647-6) Abnormal [facility] GLUCOSE (AUTOMATED)2024-01-15 16:40:25* Test Item Value Reference Range Interpretation Comme nts POCT GLU (test code = 2086223331) 132 mg/dL 70-110 H Lab Interpretation (test cod e = 31366-5) Abnormal [facility] GLUCOSE (AUTOMATED)2024-01-15 12:56:15* Test Item Value Reference Range Interpretation Comme nts POCT GLU (test code = 7444144515) 124 mg/dL 70-110 H Lab Interpretation (test cod e = 00995-9) Abnormal [facility] ABDOMEN [id number] 10:03:41Ordering physician: LAURA CASANOVA Indication: Right upper quadrant pain Comparison: CT [...] common bile duct is nondilated at 2 mm.[facility] GLUCOSE (AUTOMATED) 2024-01-15 00:59:44* Test Item Value Reference Range Interpretation Comme nts POCT GLU (test code = 9986366564) 130 mg/dL 70-110 H Lab Interpretation (test cod e = 12180-2) Abnormal [facility] GLUCOSE (AUTOMATED)2024-01-14 21:45:36* Test Item Value Reference Range Interpretation Comme nts POCT GLU (test code = 1045717135) 124 mg/dL 70-110 H Lab Interpretation (test cod e = 95576-6) Abnormal [facility] RETROPERITONEAL [id number] 18:04:32 ULTRASOUND RETROPERITONEAL LIMITED Ordering physician: . ?LAURA CASANOVA. ?LAURA CASANOVA HISTORY: . ?R/O perinephric acbcess . Technique: [...] cc. Aorta and IVC were not well visualized.[facility] [employer] [id number] 16:58:46* Test Item Value Reference Range Interpretation Comme nts TIBC (test code = 1711618130) 285 ug/dL 250-410 Lab Interpretation (test cod e = 35216-1) Normal [facility] GLUCOSE (AUTOMATED)2024-01-14 16:33:13* Test Item Value Reference Range Interpretation Comme nts POCT GLU (test code = 6125552710) 120 mg/dL 70-110 H Lab Interpretation (test cod e = 34926-7) Abnormal [facility] GLUCOSE (AUTOMATED)2024-01-14 12:37:58* Test Item Value Reference Range Interpretation Comme nts POCT GLU (test code = 8240870105) 223 mg/dL 70-110 H Lab Interpretation (test cod e = 07321-5) Abnormal [facility] GLUCOSE (AUTOMATED)2024-01-14 01:42:00* Test Item Value Reference Range Interpretation Comme nts POCT GLU (test code = 3238947286) 219 mg/dL 70-110 H Lab Interpretation (test cod e = 96162-9) Abnormal [facility] GLUCOSE (AUTOMATED)2024-01-13 21:35:47* Test Item Value Reference Range Interpretation Comme nts POCT GLU (test code = 0015303425) 232 mg/dL 70-110 H Lab Interpretation (test cod e = 76907-5) Abnormal [facility] GLUCOSE (AUTOMATED)2024-01-13 16:53:17* Test Item Value Reference Range Interpretation Comme nts POCT GLU (test code = 4393442516) 187 mg/dL 70-110 H Lab Interpretation (test cod e = 45451-0) Abnormal [facility] GLUCOSE (AUTOMATED)2024-01-13 12:46:37* Test Item Value Reference Range Interpretation Comme nts POCT GLU (test code = 8978780568) 128 mg/dL 70-110 H Lab Interpretation (test cod e = 68109-8) [facility] - Peripheral # [id number] 12:18:06* Test Item Value Reference Range Interpretation Comme nts Blood Culture-Aerobic (test code = 73399-6) Culture positive. See Blood Culture Workup for additional information. No growth AA Previous preliminary verified result was Culture In Progress on 01/11/2024 at 2340 CDT Blood Culture-Anaerobic (test code = 21676-2) Culture positive. See Blood Culture Workup for additional information. No growth AA Previous preliminary verified result was Culture In Progress on 01/11/2024 at 1301 CDT Lab Interpretation (test code = 08702-9) Abnormal [facility] GLUCOSE (AUTOMATED)2024-01-13 06:27:42* Test Item Value Reference Range Interpretation Comme nts POCT GLU (test code = 4106880773) 202 mg/dL 70-110 H Lab Interpretation (test cod e = 75638-8) Abnormal [facility] GLUCOSE (AUTOMATED)2024-01-13 01:37:55* Test Item Value Reference Range Interpretation Comme nts POCT GLU (test code = 5859976708) 107 mg/dL 70-110 Lab Interpretation (test cod e = 40912-5) Normal [facility] GLUCOSE (AUTOMATED)2024-01-12 21:23:08* Test Item Value Reference Range Interpretation Comme nts POCT GLU (test code = 4650152828) 122 mg/dL 70-110 H Lab Interpretation (test cod e = 49037-0) Abnormal [facility] GLUCOSE (AUTOMATED)2024-01-12 18:05:30* Test Item Value Reference Range Interpretation Comme nts POCT GLU (test code = 4678816754) 125 mg/dL 70-110 H Lab Interpretation (test cod e = 08693-7) Abnormal [facility]-RE[facility]IVE [id number] 17:21:08* Test Item Value Reference Range Interpretation Comme nts CRP (test code = 0935808580) 7.6 mg/dL <=0.8 H Lab Interpretation (test cod e = 14320-6) Abnormal [facility] NEGATIVE BLOOD PATHOGENS DNA [id number] 13:52:52* Test Item Value Reference Range Interpretation Comme nts Escherichia coli (test code = 06414-0) Positive Negative A ALLIE (test code = ALLIE) See blood culture result for additional information. ?Testing included eight identification and six resistance marker targets. Lab Interpretation (test code = 17580-0) Abnormal [facility] GLUCOSE (AUTOMATED)2024-01-12 12:43:01* Test Item Value Reference Range Interpretation Comme nts POCT GLU (test code = 2010713363) 103 mg/dL 70-110 Lab Interpretation (test cod e = 86470-1) Normal [facility]atitis B Surface [id number] 11:29:09* Test Item Value Reference Range Interpretation Comme nts HBsAB (test code = 9603014005) Positive HBsAb Semi-Quantitative (test code = 2138709696) 34.50 mIU/mL ALLIE (test code = ALLIE) Interpretation: ?Hepatitis B Surface Antibody ? Negative - Patient is considered to be not immune to infection with HBV. ? ? Positive - Anti-HBs detected at greater than or equal to 12 mIU/mL. ?Patient is considered to be immune to infection with HBV. ? [facility] Antibody (IgM & IgG)2024-01-12 11:29:09* Test Item Value Reference Range Interpretation Comme nts HBC (test code = 9447568932) Negative HBC Semi-Quantitative (test code = 5606753063) 3.52 [facility]neyHcv [id number] 11:29:09* Test Item Value Reference Range Interpretation Comme nts HCV Ab (test code = 65824-8) Negative HCV Semi-Quantitative (test code = 63866-3) 0.01 [facility] [id number] 11:11:10 * Test Item Value Reference Range Interpretation Comme nts HBsAg Semi-Quantitative (niecy t code = 5195-3) 0.07 Negative [facility] GLUCOSE (AUTOMATED)2024-01-12 01:08:24* Test Item Value Reference Range Interpretation Comme nts POCT GLU (test code = 0304176701) 222 mg/dL 70-110 H Lab Interpretation (test cod e = 72030-6) Abnormal [facility] GLUCOSE (AUTOMATED)2024-01-11 22:35:50* Test Item Value Reference Range Interpretation Comme nts POCT GLU (test code = 4633683348) 221 mg/dL 70-110 H Lab Interpretation (test cod e = 72278-8) [facility]normal [facility] 1 [id number] 18:58:04EXAM: XR CHEST 1 01/11/2024 9:08 AM HISTORY: 43 years old Female with sob TECHNIQUE: Portable AP view of the chest. COMPARISON: None FINDINGS: Lungs and pleura: The lungs are well-expanded. Unchanged right lower lungopacity, likely represent atelectasis/pleural scarring. No focalconsolidation, pneumothorax, or pleural effusion is seen. Cardiomediastinal: The cardiomediastinal silhouette is normal accountingfor technique. Musculoskeletal: No acute osseous abnormality. [facility]AUTOMATED)2024-01-11 17:24:44* Test Item Value Reference Range Interpretation Comme [facility] POCT GLU (test code = 2496727829) 257 mg/dL 70-110 H Lab Interpretation (test cod e = 85953-4) Abnormal [facility]neyGlycosylated Hemoglobin (A1C)2024-01-11 16:06:17* Test Item Value Reference Range Interpretation Comme [facility] HGB A1C (test code = 4548-4) 9.6 % 4.0-5.7 H ALLIE (test code = ALLIE) Reference RangesNormal: <5.7%Prediabetes: 5.7 - 6.4%Diabetes: > 6.5% Lab Interpretation (test code = 68734-6) Abnormal [facility] CHEST PULMONARY [id number] 15:58:47HISTORY: Rule out P.E.. Positive D-dimer. TECHNIQUE: [...] could be a sign of reactive airway disease.[facility] POCT GLUCOSE (AUTOMATED)2024-01-11 15:58:29* Test Item Value Reference Range Interpretation Comme nts POCT GLU (test code = 6593759811) 275 mg/dL 70-110 H Lab Interpretation (test cod e = 25245-1) Abnormal [facility]neyCT ABDOMEN PELVIS W [id number] 15:52:58CT Abdomen and Pelvis with intravenous contrast. [...] Please correlate.2. Hepatosplenomegaly with hepatic steatosis.3. Normal appendix.[facility]neyTROPONIN [id number] 15:15:02* Test Item Value Reference Range Interpretation Comme nts TROPONIN I (test code = 3917001069) 0.005 ng/mL <=0.034 ALLIE (test code = [...] of biotin. Lab Interpretation (test code = 59261-5) Normal [facility] McKinneyIro [id number] 15:14:06* Test Item Value Reference Range Interpretation Comme nts IRON (test code = 6356010398) 53 ug/dL 50-160 TIBC (test code = 2690188879) 360 ug/dL 250-410 % FE SAT (test code = 8545812564) 15 % 20-50 L Lab Interpretation (test cod e = 26742-5) Abnormal [facility]neyN-TERMINAL [id number] 15:12:25* Test Item Value Reference Range Interpretation Comme nts NT-proBNP (test code = 21145-4) 528 pg/mL <=125 H ALLIE (test code = ALLIE) Positive: Heart Failure Likely Lab Interpretation (test code = 71317-4) Abnormal [facility]neyD-[id number] 15:09:46* Test Item Value Reference Range Interpretation Comments D-DIMER (test code = 3097293489) 1.42 See_Comment H [Automated message] The system [...] a diagnosis. Lab Interpretation (test code = 05224-1) Abnormal [facility] McKinneyPROTHROMBIN TIME / [id number] 15:09:46* Test Item Value Reference Range Interpretation Comme [facility] PROTIME PATIENT (test code = 5964-2) 10.4 10.1-12.6 INR (test code = 6301-6) 0.9 Normal INR <1.1; Warfarin Therapeutic range 2.0 to 3.0 or 2.5 to 3.5, depending upon the indications. Lab Interpretation (test code = 98834-4) Normal [facility]neyACTIVATED PARTIAL THRMPLAS [id number] 15:09:46* Test Item Value Reference Range Interpretation Comme [facility] APTT Patient (test code = 3173-2) 29 26-36 ALLIE (test code = ALLIE) The [facility] patient population mean normal value for aPTT is 30 seconds. Lab Interpretation (test code = 27665-7) Normal [facility]neyCBC WITH [id number] 15:06:43* Test Item Value Reference Range Interpretation Comme [facility] WBC (test code = 6690-2) 12.92 4.30-11.10 H RBC (test code = 789-8) 4.95 3.93-5.25 HGB (test code = 718-7) 11.1 g/dL 11.6-15.0 L HCT (test code = 4544-3) 36.0 % 35.7-45.2 MCV (test code = 787-2) 72.7 fL 80.6-95.5 L MCH (test code = 785-6) 22.4 pg 25.9-32.8 L MCHC (test code = 786-4) 30.8 g/dL 31.6-35.1 L RDW-SD (test code = 95318-2) 64.6 fL 39.0-49.9 H RDW-CV (test code = 788-0) 25.9 % 12.0-15.5 H PLT (test code = 777-3) 298 166-358 MPV (test code = 92505-6) 10.3 fL 9.5-12.9 IPF % (test code = 8745793010) 6.4 % 1.3-7.7 Platelet count measured by fluorescence method. NRBC/100 WBC (test code = 0441856495) 0.0 0.0-10.0 NRBC x10^3 (test code = 2009892306) See_Comment [Automated messa ge] The system which generated this result transmitted reference range: 10*3/?L. The reference range was not used to interpret this result as normal/abnormal. GRAN MAT (NEUT) % (test code = 770-8) 90.9 % IMM GRAN % (test code = 8874840537) 0.50 % LYMPH % (test code = 736-9) 3.6 % MONO % (test code = 5905-5) 4.1 % EOS % (test code = 713-8) 0.6 % BASO % (test code = 706-2) 0.3 % GRAN MAT x10^3(ANC) (test code = 2004679473) 11.74 10*3/uL 1.88-7.09 H IMM GRAN x10^3 (test code = 0686424764) 0.06 10*3/uL 0.00-0.06 LYMPH x10^3 (test code = 731-0) 0.47 10*3/uL 1.32-3.29 L MONO x10^3 (test code = 742-7) 0.53 10*3/uL 0.33-0.92 EOS x10^3 (test code = 711-2) 0.08 10*3/uL 0.03-0.39 BASO x10^3 (test code = 704-7) 0.04 10*3/uL 0.01-0.07 Lab Interpretation (test code = 24243-6) Abnormal [facility] McKinneyMagnesium2024-03-14 15:05:02* Test Item Value Reference Range Interpretation Comme nts MAGNESIUM (test code = 6288721559) 1.9 mg/dL 1.7-2.4 Lab Interpretation (test cod e = 60399-2) Normal [facility]neyCOMP. METABOLIC PANEL (17916)2024-01-11 15:04:41* Test Item Value Reference Range Interpretation Comme nts NA (test code = 1900801050) 128 mmol/L 135-145 L K (test code = 3494248188) 4.7 mmol/L 3.5-5.0 CL (test code = 2344145527) 100 mmol/L 98-108 CO2 TOTAL (test code = 0926246566) 19 mmol/L 23-31 L AGAP (test code = 8935198253) 9 2-16 BUN (test code = 4396196847) 17 mg/dL 7-23 GLUCOSE (test code = 1190592249) 311 mg/dL 70-110 H CREATININE (test code = 2160-0) 0.59 mg/dL 0.50-1.04 TOTAL BILI (test code = 5313344346) 0.8 mg/dL 0.1-1.1 CALCIUM (test code = 7938887287) 8.8 mg/dL 8.6-10.6 T PROTEIN (test code = 9375140419) 7.2 g/dL 6.3-8.2 ALBUMIN (test code = 1033474318) 3.7 g/dL 3.5-5.0 ALK PHOS (test code = 0563377234) 218 U/L 34-122 H ALTv (test code = 1742-6) 32 U/L 5-35 AST(SGOT) (test code = 8598974177) 31 U/L 13-40 eGFR (test code = 39430-0) 115.6 mL/min/1.73m2 CKD-EPI eGFR (2021). Assuming creatinine has been stable day-to-day for at least three months, the eGFR indicates Category G1 (>= 90 mL/min/1.73 m2) Lab Interpretation (test code = 29268-2) Abnormal [facility]neyType and Screen - ONCE [id number] 14:39:00 * Test Item Value Reference Range Interpretation Comme nts ABO & RH (test code = 20) O Positive IAT (test code = 1185) Negative [facility] McKinneyAC ABG + LACTIC [id number] 14:37:28* Test Item Value Reference Range Interpretation Comme nts PH (test code = 2) 7.43 7.35-7.45 PCO2 (test code = 1315154627) 28 35-45 L PO2 (test code = 8402292275) 76 80-100 L HCO3 (test code = 7334981389) 18 22-26 L BE (test code = 5526171506) -4.7 -3.0-3.0 L LACTIC ACID (test code = 9061728435) 1.17 mmol/L 0.50-2.20 Lab Interpretation (test cod e = 45625-3) Abnormal [facility] McKinneyPOCT [id number] 14:05:00* Test Item Value Reference Range Interpretation Comme nts POCT PREG (test code = 1605) Negative On board controls acceptable with C Line (test code = 3574) Yes POCT PREG LOT # (test code = 3575) [id number] POCT PREG TEST DATE ( test code = 3576) 12/04/2024 Lab Interpretation (test cod e = 67519-4) Normal [facility] McKinneyLIPID [id number] 00:00:00* Test Item Value Reference Range Interpretation Comme nts CHOLESTEROL (test code = 2210) 240 MG/DL TRIGLYCERIDES (test code = 2232) 304 MG/DL HDL CHOLESTEROL (test code = 2220) 42 MG/DL CALC LDL CHOL (test code = 2237) 137 MG/DL RISK RATIO LDL/HDL (test cod e = 2238) 3.27 RATIO Silvestre RaygozaHEMOGLOBIN [id number] 00:00:00* Test Item Value Reference Range Interpretation Comme nts HEMOGLOBIN A1c (test code = 34332) 11.4 % Silvestre RaygozaMICROALBUMIN/CREATININE, RANDOM AND [id number] 00:00:00* Test Item Value Reference Range Interpretation Comme nts CREATININE, URINE, CONC. (te st code = 2071) 105.4 MG/DL ALBUMIN, URINE, RANDOM (test code = 12789) 7.2 MG/DL CALC ALBUMIN/CREAT, RND (niecy t code = 27702) 68 MG/G Silvestre Frost AustinCOMPREHENSIVE METABOLIC [id number] 00:00:00* Test Item Value Reference Range Interpretation Comme nts GLUCOSE (test code = 2217) 241 MG/DL BUN (test code = 2208) 11 MG/DL CREATININE (test code = 2214) 0.59 MG/DL eGFR AMER. (test cod e = 57579) 137 ML/MIN/1.73 eGFR NON- AMER. (test code = 57925) 118 ML/MIN/1.73 CALC BUN/CREAT (test code = 2235) 19 RATIO SODIUM (test code = 2231) 141 MEQ/L POTASSIUM (test code = 2228) 4.2 MEQ/L CHLORIDE (test code = 2215) 102 MEQ/L CARBON DIOXIDE (test code = 2206) 27 MEQ/L CALCIUM (test code = 2209) 9.4 MG/DL PROTEIN, TOTAL (test code = 2229) 7.1 G/DL ALBUMIN (test code = 2201) 3.9 G/DL CALC GLOBULIN (test code = 2240) 3.2 G/DL CALC A/G RATIO (test code = 2234) 1.2 RATIO BILIRUBIN, TOTAL (test code = 2207) 0.2 MG/DL ALKALINE PHOSPHATASE (test code = 2204) 84 U/L AST (test code = 2218) 15 U/L ALT (test code = 2219) 17 U/L Silvestre F AustinMICROALBUMIN/CREATININE, RANDOM AND [id number] 00:00:00* Test Item Value Reference Range Interpretation Comme nts CREATININE, URINE, CONC. (test code = 2071) TEST NOT PERFORMED MG/DL MICROALBUMIN, RANDOM (test code = 38701) TEST NOT PERFORMED MG/DL CALC MICROALB/CREAT RND (test code = 78051) TEST NOT PERFORMED MG/G Silvestre Frost AustinCOMPREHENSIVE METABOLIC [id number] 00:00:00* Test Item Value Reference Range Interpretation Comme nts GLUCOSE (test code = 2217) 380 MG/DL BUN (test code = 2208) 14 MG/DL CREATININE (test code = 2214) 0.51 MG/DL eGFR AMER. (test cod e = 86737) 143 ML/MIN/1.73 eGFR NON- AMER. (test code = 55358) 124 ML/MIN/1.73 CALC BUN/CREAT (test code = 2235) 27 RATIO SODIUM (test code = 2231) 135 MEQ/L POTASSIUM (test code = 2228) 4.7 MEQ/L CHLORIDE (test code = 2215) 97 MEQ/L CARBON DIOXIDE (test code = 2206) 24 MEQ/L CALCIUM (test code = 2209) 9.5 MG/DL PROTEIN, TOTAL (test code = 2229) 7.4 G/DL ALBUMIN (test code = 2201) 4.4 G/DL CALC GLOBULIN (test code = 2240) 3.0 G/DL CALC A/G RATIO (test code = 2234) 1.5 RATIO BILIRUBIN, TOTAL (test code = 2207) 0.2 MG/DL ALKALINE PHOSPHATASE (test code = 2204) 113 U/L AST (test code = 2218) 18 U/L ALT (test code = 2219) 20 U/L Silvestre RaygozaLIPID [id number] 00:00:00* Test Item Value Reference Range Interpretation Comme nts CHOLESTEROL (test code = 2210) 246 MG/DL TRIGLYCERIDES (test code = 2232) 421 MG/DL HDL CHOLESTEROL (test code = 2220) 41 MG/DL CALC LDL CHOL (test code = 2237) NOTE MG/DL RISK RATIO LDL/HDL (test cod e = 2238) (NOTE) RATIO Silvestre RaygozaHEMOGLOBIN [id number] 00:00:00* Test Item Value Reference Range Interpretation Comme nts HEMOGLOBIN A1c (test code = 41327) 12.6 % Silvestre RaygozaCOMPREHENSIVE METABOLIC [id number] 00:00:00* Test Item Value Reference Range Interpretation Comme nts GLUCOSE (test code = 2216) 308 MG/DL BUN (test code = 2208) 12 MG/DL CREATININE (test code = 2214) 0.40 MG/DL eGFR AMER. (test cod e = 73760) 156 ML/MIN/1.73 eGFR NON- AMER. (test code = 81717) 135 ML/MIN/1.73 CALC BUN/CREAT (test code = 2235) 30 RATIO SODIUM (test code = 2231) 139 MEQ/L POTASSIUM (test code = 2228) 4.8 MEQ/L CHLORIDE (test code = 2215) 99 MEQ/L CARBON DIOXIDE (test code = 2206) 24 MEQ/L CALCIUM (test code = 2209) 9.0 MG/DL PROTEIN, TOTAL (test code = 2229) 7.1 G/DL ALBUMIN (test code = 2201) 4.2 G/DL CALC GLOBULIN (test code = 2240) 2.9 G/DL CALC A/G RATIO (test code = 2234) 1.4 RATIO BILIRUBIN, TOTAL (test code = 2207) 0.1 MG/DL ALKALINE PHOSPHATASE (test code = 2204) 140 U/L AST (test code = 2218) 14 U/L ALT (test code = 2219) 17 U/L Silvestre RaygozaLIPID [id number] 00:00:00* Test Item Value Reference Range Interpretation Comme nts CHOLESTEROL (test code = 2210) 222 MG/DL TRIGLYCERIDES (test code = 2232) 252 MG/DL HDL CHOLESTEROL (test code = 2220) 44 MG/DL CALC LDL CHOL (test code = 2237) 128 MG/DL RISK RATIO LDL/HDL (test cod e = 2238) 2.90 RATIO Silvestre RaygozaHEMOGLOBIN [id number] 00:00:00* Test Item Value Reference Range Interpretation Comme nts HEMOGLOBIN A1c (test code = 42337) 11.0 % Silvestre RaygozaCULTURE, [id number] 00:00:00* Test Item Value Reference Range Interpretation Comme nts CULTURE, ROUTINE (test code = 67502) SPECIMEN NUMBER: [id number] Silvestre RaygozaCHLAMYDIA, AMPLIFIED, [id number] 00:00:00* Test Item Value Reference Range Interpretation Comme nts CHLAMYDIA, TMA (test code = 16631) NEGATIVE Silvestre RaygozaGC, AMPLIFIED, [id number] 00:00:00* Test Item Value Reference Range Interpretation Comme nts GONORRHEA, TMA (test code = 74656) NEGATIVE Silvestre RaygozaVAGINAL PATHOGENS DNA [id number] 00:00:00* Test Item Value Reference Range Interpretation Comme nts HERACLIO SPECIES (test code = 63075) NEGATIVE G. VAGINALIS (test code = 79173) POSITIVE T. VAGINALIS (test code = 42716) NEGATIVE Silvestre RaygozaHIV AB/AG COMBO RFLX [id number] 00:00:00* Test Item Value Reference Range Interpretation Comme nts HIV 1/2 4TH GEN, RFLX CONF ( test code = 3514) NON-REACTIVE Silvestre [id number] 00:00:00* Test Item Value Reference Range Interpretation Comme nts RPR RESULT (test code = 3501) NON-REACTIVE RPR TITER (test code = 3500) NOT INDIC. TITER Silvestre RaygozaACUTE HEPATITIS [id number] 00:00:00* Test Item Value Reference Range Interpretation Comme nts HEPATITIS A IgM (test code = 04518) NON-REACTIVE HEPATITIS B CORE IgM (test c ode = 4644) NON-REACTIVE HEPATITIS B SURF AG (test co de = 2739) NON-REACTIVE HEPATITIS C ANTIBODY (test c ode = 4675) NON-REACTIVE INTERPRETATION HEPATITIS A: (test code = 2552) (NOTE) INTERPRETATION HEPATITIS B: (test code = 29587) (NOTE) INTERPRETATION HEPATITIS C: (test code = 56301) (NOTE) Silvestre [id number] 00:00:00* Test Item Value Reference Range Interpretation Comme bee LIPASE (test code = 2058) 19 U/L Silvestre RaygozaHEMOGLOBIN [id number] 00:00:00* Test Item Value Reference Range Interpretation Comme nts HEMOGLOBIN A1c (test code = 36529) 11.5 % Silvestre [id number] 00:00:00* Test Item Value Reference Range Interpretation Comme nts AMYLASE (test code = 2205) 29 U/L Silvestre Raygoza History and Physical Notes Date/Time Note Provider Source 2024-01-11 18:23:29 I have independently seen and evaluated this patient. I agree with the findings and documentation provided in the nurse practitioner's notes. Medicine team will continue to provide daily care. I have made changes inline to the note below to reflect our mutual evaluation / plan. Laura Edilberto, DO 01/11/2024 11:08 PM [facility] Internal Medicine-H&P Date of Service: 01/11/2024 Time Of Service: 6:23 PM PCP: PATIENT DOES NOT HAVE A PCP Chief complaint: Abdominal Pain (Right side), Body Aches, and LOW BACK PAIN History of present illness Pastora Patterson 43 year old female patient with a PMH as listed below, who presents to the ED with complaints of Abd pain . She reports symptom onset was 3 days ago. Patient reports that she was recently at [facility] for PNA. On Dc she developed Abd [...] above report. Assessment and Plan Ms. Pastora Patterson is a 43 y.o. F confined for: [...] Time spent: <8 minutes discussing smoking cessation YOBANI Squires APRN, ACNPC-AG I.M. / Hospitalist Medicine 01/11/2024 6:23 PM [facility]
[2024-11-10 17:47] LABS: SARS-CoV-2 Antigen CONTROL BLUE LINE VIS/BG OK; SARS-CoV-2 Antigen Rapid Res Negative (Negative)
--- NOTE | 2024-11-10 19:56 | ER ---
Nurse's Notes [facility] Name: Pastora Patterson Age: 44 yrs Sex: Female : 1980 Arrival Date: 11/10/2024 Time: 16:52 Bed IW10 Private MD: Diagnosis: Acute upper respiratory infection, unspecified Presentation: 11/10 17:00 Chief complaint: Patient states: ABSCESS TO LEFT BUTTCHEEK AND FLU LIKE SYMPTOMS WITH db COUGH AND CONGESTION SINCE MONDAY. Coronavirus screen: Client denies travel out of the [place] in the last 14 days. At this time, the client does not indicate any symptoms associated with coronavirus-19. Ebola Screen: Patient negative for fever greater than or equal to 101.5 degrees Fahrenheit, and additional compatible Ebola Virus Disease symptoms Patient denies exposure to infectious person. Patient denies travel to an Ebola-affected area in the 21 days before illness onset. No symptoms or risks identified at this time. Initial Sepsis Screen: Does the patient meet any 2 criteria? No. Patient's initial sepsis screen is negative. Does the patient have a suspected source of infection? No. Patient's initial sepsis screen is negative. Risk Assessment: Do you want to hurt yourself or someone else? Patient reports no desire to harm self or others. Onset of symptoms was November 05, 2024. 17:00 Method Of Arrival: Ambulatory db 17:00 Acuity: MANASA 3 db Triage Assessment: 17:03 General: Appears in no apparent distress. uncomfortable, Behavior is calm, cooperative. db Pain: Complains of pain in buttocks. EENT: Reports nasal congestion. Neuro: Level of Consciousness is awake, alert, obeys commands, Oriented to person, place, time, situation. Respiratory: Reports cough that is. 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 - Infectious Disease History:: Denies. - Social history:: Smoking status: Patient reports the use of cigarette tobacco products, smokes one-half pack cigarettes per day. Assessment: 19:09 General: PT called from [employer]. no response. provider notified. lg3 19:30 General: Pt called from [employer]. no response. provider notified.. lg3 20:02 General: Pt called from [employer]. no response. provider notified. . lg3 20:36 General: called phone number listed for PT. no answer and voice mail not available. lg3 provider notified . Vital Signs: 17:00 BP 131 / 78; Pulse 108; Resp 18; Temp 97.6; Pulse Ox 100% ; Weight 90.72 kg; Height 5 db ft. 3 in. ; Pain 9/10; 17:00 Body Mass Index 35.43 (90.72 kg, 160.02 cm) db 17:00 Pain Scale: Adult db ED Course: 16:56 Patient arrived in ED. al6 16:57 Kasandra Adrian FNP-C is [facility]. kb 16:57 Evert Uriostegui MD is Attending Physician. kb 17:02 Triage completed. db 17:03 Arm band placed on Patient placed in waiting room. db 19:25 Deborah Patel, RN is Primary Nurse. me1 21:08 Patient did not have IV access during this emergency room visit. lg3 Administered Medications: No medications were administered Medication: 21:08 VIS not applicable for this client. lg3 Outcome: 21:09 Patient left the ED. lg3 Signatures: Kasandra Adrian FNP-C FNP-Any Oliva RN RN lg3 Qing Tyler RN ELIZABETH db Deborah Patel, ELIZABETH RN fl1 Yadira Rust al6
--- NOTE | 2024-11-10 19:57 | EDPHYS ---
Physician Documentation [facility] Name: Pastora Patterson Age: 44 yrs Sex: Female : 1980 Arrival Date: 11/10/2024 Time: 16:52 Bed IW10 Private MD: ED Physician Evert Uriostegui HPI: 11/10 17:27 This 44 yrs old Female presents to ER via Ambulatory with complaints of kb Abscess. 17:27 Pt is a 44 year old female who presents for abscess to buttocks that started 6 days kb ago. States it is getting bigger and more painful. Also reports cough, congestion, fever, chills that started 6 days ago as well. . 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 - Infectious Disease History:: Denies. - Social history:: Smoking status: Patient reports the use of cigarette tobacco products, smokes one-half pack cigarettes per day. ROS: 17:24 Constitutional: As per HPI kb Exam: 17:24 Constitutional: This is a well developed, well nourished patient who is awake, alert, kb and in no acute distress. Head/Face: Normocephalic, atraumatic. ENT: Moist Mucous membranes Cardiovascular: Regular rate Respiratory: Respirations even and unlabored. No increased work of breathing. Talking in full sentences MS/ Extremity: Pulses equal, no cyanosis. Neurovascular intact. Full, normal range of motion. Neuro: Awake and alert, GCS 15, oriented to person, place, time, and situation. Vital Signs: 17:00 BP 131 / 78; Pulse 108; Resp 18; Temp 97.6; Pulse Ox 100% ; Weight 90.72 kg; Height 5 db ft. 3 in. ; Pain 9/10; 17:00 Body Mass Index 35.43 (90.72 kg, 160.02 cm) db 17:00 Pain Scale: Adult db MDM: 16:57 Medical Screening Exam initiated kb 17:26 Data reviewed: vital signs, nurses notes. kb 17:27 Differential diagnosis: abscess, allergic reaction, cellulitis, insect bite. kb 19:53 ED course: Pt was seen by me, but elected to leave from lobby prior to completion of kb MSE. . 11/10 17:03 Order name: Flu; Complete Time: 18:07 kb 11/10 17:03 Order name: SARS-COV-2 Antigen Rapid; Complete Time: 17:50 kb 11/10 19:17 Order name: Misc. Order: place pt in gown please kb Administered Medications: No medications were administered Disposition: 11/11 09:10 Co-signature as Attending Physician, Evert Uriostegui MD I reviewed the patient's care rn provided by the Advanced Practice Provider and agree with the diagnosis and treatment plan. Disposition Summary: 11/10/24 19:56 Eloped Notes: Disposition: after being seen by provider kb Reason: (see nurse's notes) kb Condition: Stable kb Diagnosis - Acute upper respiratory infection, unspecified kb Followup: kb - With: Private Physician - When: 2 - 3 days - Reason: Recheck today's complaints, Continuance of care, Re-evaluation by your physician Followup: kb - With: Emergency Department - When: As needed - Reason: Worsening of condition Signatures: Dispatcher [employer] EDMS Kasandra Adrian, BROACH SETTER-C BROACH SETTER-Ckb Evert Uriostegui MD MD rn Benton, Danielle, RN RN db Corrections: (The following items were deleted from the chart) 11/10 17:04 17:04 Influenza Screen (A \T\ B)+BA.LAB.BRZ ordered. EDMS EDMS 17:04 17:04 SARS-COV-2 Antigen Rapid+I.LAB.BRZ ordered. EDMS EDMS
[2024-11-12 16:16] VITALS: BP 131/78; TEMP 97.6; O2SAT 100
== END 2024-11-10 21:09 | disposition left against medical advice (07) ==
LOC: ER 16:52
DX: J06.9 Acute upper respiratory infection, unspecified (principal); E11.9 Type 2 diabetes mellitus without complications; I10 Essential (primary) hypertension; J45.909 Unspecified asthma, uncomplicated; D64.9 Anemia, unspecified; F17.210 Nicotine dependence, cigarettes, uncomplicated; Z11.52 Encounter for screening for COVID-19
CPT/HCPCS: 36415; 87804; 87811; 99281

== ENCOUNTER 2024-11-11 17:48 | Inpatient (IN) | payer OTHER ==
--- OUTSIDE RECORDS SUMMARY | 2024-11-11 17:52 | XMS REPORT | Continuity of Care Document ---
Author Name Unknown Address [address] [facility]. [address] [place] [address] [facility] [address] [facility] [address] [place] [address] Care Team Providers Care Compounder Name Role Phone Mike MONACO, Bernadette Primary Care Physician [phone] Sherif MONACO, Suki Lanza Attending Clinician [phone] Laura Reyes DO Attending Clinician [phone] LAURA REYES Attending Clinician Unavailable Doctor Unassigned, Ebony Attending Clinician U navailable Laura Reyes DO Admitting Clinician [phone] LAURA REYES Admitting Clinician Unavailable Payers Payer Name Policy Type Policy Number Effective Date Expirati on Date Source [employer] [id number] 2023 00:00:00 Problems Condition Name Condition Details Condition Category Status Onset Date Resolution Date Last Treatment Date Treating Clinician Comments Source Sepsis Sepsis Disease Active 01-10 00:00: 00 [facility] Obesity (BMI 30-39.9) Obesity (BMI 30-39.9) Disease Active 01-10 00:00: 00 [facility] No known active problems No known active problems Disease [facility] Allergies, Adverse Reactions, Alerts Allergy Name Allergy Type Status Severity Reaction(s) Onset Date Inactive Date Treating Clinician Comments Source NO KNOWN ALLERGIE S Drug Class Active [facility] Social History Social Habit Start Date Stop Date Quantity Comments Source History of tobacco use Cigarette Smoker [facility] of Social function 2024-01-12 00:00:00 2024-01-12 00:00:00 [facility] Tobacco use and exposure 2024-01-11 00:00:00 2024-01-11 00:00:00 Smokeless tobacco non-user [facility] Sex Assigned At 1980 00:00:00 1980 00:00:00 [facility] Smoking Status Start Date Stop Date Source Unknown if ever smoked [facility] Smokes tobacco daily 2024-01-11 00:00:00 [facility] Medications Ordered Medication Name Filled Medication Name Start Date Stop Date Current Medication? Ordering Clinician Indication Dosage Frequency Signature (SIG) Comments Components Source insulin NPH (HUMULIN N) injection 15 Units 01-16 02:00: 00 Yes 15U 15 Units, Subcutaneo us, QAM+HS, First dose on Mon01/16/24 at 2100, Until Discontinu ed, Routine [facility] metFORMIN (GLUCOPHAGE ) tablet 1,000 mg 01-15 22:00: 00 Yes 1000mg 1,000 mg, Oral, BID MEALS, First dose on Mon01/16/24 at 1700, Until Discontinu ed, Routine [facility] ferrous sulfate 325 mg (65 mg iron) tablet 01-15 13:15: 48 Yes 325mg Take 1 tablet by mouth in the morning and 1 tablet at noon and 1 tablet in the evening. Take with meals. [facility] lisinopriL 20 mg tablet 01-15 13:15: 48 Yes 20mg Take 1 tablet by mouth in the morning. [facility] albuterol 90 mcg/actuati on inhaler 01-15 13:15: 48 Yes 2{puff} Inhale 2 Puffs every 6 (six) hours as needed for Wheezing or Shortness of Breath. [facility] insulin glarginebharatrecSimeonanlog (INSULIN GLARGINE SC) 01-15 09:37: 37 01-15 00:00 :00 No 40U inject 40 Units under the skin in the morning and 40 Units in the evening. [facility] diphenhydrA MINE (BENADRYL) tablet 25 mg 01-15 02:44: 02 Yes 25mg 25 mg, Oral, Q6HPRN, Starting on Mon01/15/24 at 2144, Until Discontinu ed, Routine, Itching [facility] metformin 1,000 mg tablet 01-15 00:00: 00 Yes mg Silvestre Raygoza carvediloL 6.25 mg tablet 01-15 00:00: 00 02-15 04:59 :00 No [id number] 6.25mg Take 1 tablet by mouth in the morning and 1 tablet in the evening. Take with meals. Do all this for 30 days. [facility] metFORMIN 1,000 mg tablet 01-15 00:00: 00 02-15 04:59 :00 No [id number] 1000mg Take 1 tablet by mouth in the morning and 1 tablet in the evening. Take with meals. Do all this for 30 days. [facility] insulin NPH 100 unit/mL injection 01-15 00:00: 00 02-15 04:59 :00 No [id number] 15U inject 15 Units under the skin every morning and at bedtime for 30 days. [facility] cefUROXime 500 mg tablet 01-15 00:00: 00 01-24 04:59 :00 No [id number] 500mg Take 1 tablet by mouth in the morning and 1 tablet in the evening. Do all this for 8 days. [facility] polyethylen e glycol 3350 powder 17 g 01-14 16:15: 00 Yes 17g 17 g, Oral, DAILY, First dose on Mon01/15/24 at 1115, Until Discontinu ed, Routine [facility] sodium bicarbonate (ANTACID (SODIUM BICARBONATE )) tablet 650 mg 01-14 13:30: 00 Yes 650mg 650 mg, Oral, QID, First dose on Mon01/15/24 at 0830, Until Discontinu ed, Routine [facility] diphenhydrA MINE (BENADRYL) injection 25 mg 01-14 06:45: 00 01-14 06:18 :00 No 25mg 25 mg, Slow IV Push, ONCE, 1 dose, On Mon01/15/24 at 0145, Routine [facility] fluticasone propionate 50 mcg/actuati on nasal spray 2 Hunter 01-14 06:00: 00 Yes 2{spray } 2 Hunter, Nasal, DAILY, First dose on Mon01/15/24 at 0100, Until Discontinu ed, Routine [facility] albuterol (VENTOLIN) inhaler 2 Puff 01-14 01:34: 59 Yes 2{puff} 2 Puff, Inhalation , Q6HPRN, Starting on Mon01/14/24 at 2034, Until Discontinu ed, Routine, Wheezing, Bronchospa sm, Chest tightness, Shortness of Breath [facility] insulin glargine (LANTUS U-100) injection 30 Units 01-14 01:00: 00 Yes 30U 30 Units, Subcutaneo us, BID, First dose (after last modificati on) on Mon01/14/24 at 2000, Until Discontinu ed [facility] acetaminoph en-codeine (TYLENOL #3) 300-30 mg tablet 1 tablet 01-13 23:33: 10 Yes 1{tbl} 1 tablet, Oral, Q4HPRN, Starting on Mon01/14/24 at 1833, Until Discontinu ed, Routine, Pain (scale 7-10) [facility] levalbutero l (XOPENEX) nebulizer solution 1.25 mg 01-13 17:00: 00 Yes 1.25mg 1.25 mg, Inhalation , QID, First dose on Mon01/14/24 at 1200, Until Discontinu ed, Routine [facility] NIFEdipine (ADALAT) capsule 10 mg 01-13 13:45: 00 01-14 18:55 :59 No 10mg 10 mg, Oral, TID, First dose on Mon01/14/24 at 0845, Until Discontinu ed, Routine [facility] carvediloL (COREG) tablet 6.25 mg 01-13 13:00: 00 Yes 6.25mg 6.25 mg, Oral, BID MEALS, First dose on Mon01/14/24 at 0800, Until Discontinu ed, Routine [facility] labetaloL (NORMODYNE) injection 20 mg 01-13 01:15: 00 01-13 00:31 :00 No 20mg 20 mg, Slow IV Push, ONCE, 1 dose, On Mon01/13/24 at 2015, Routine [facility] cefTRIAXone (ROCEPHIN) 2,000 mg in NaCl 0.9% [...]
Durat ion of therapy: 5 days [facility] enoxaparin (LOVENOX) injection 40 mg 01-11 14:00: 00 Yes 40mg 40 mg, Subcutaneo us, DAILY, First dose on Mon01/12/24 at 0900, Until Discontinu ed, Routine [facility] lisinopriL (PRINIVIL,Z ESTRIL) tablet 20 mg 01-11 14:00: 00 Yes 20mg 20 mg, Oral, DAILY, First dose on Mon01/12/24 at 0900, Until Discontinu ed, Routine [facility] ferrous sulfate tablet 325 mg 01-11 13:00: 00 Yes 325mg 325 mg, Oral, TID MEALS, First dose on Mon01/12/24 at 0800, Until Discontinu ed, Routine [facility] ipratropium -albuteroL (DUONEB) 0.5 mg-3 mg(2.5 mg base)/3 mL nebulizer solution 3 mL 01-11 01:00: 00 01-13 15:58 :44 No 3mL 3 mL, Inhalation , QID, First dose on Mirtha 01/11/24 at 2000, Until Discontinu ed, Routine [facility] insulin glargine (LANTUS U-100) injection 25 Units 01-11 01:00: 00 01-13 16:01 :37 No 25U 25 Units, Subcutaneo us, BID, First dose on Mon01/11/24 at 1999, Until Discontinu ed [facility] NaCl 0.9% (NS) IV infusion 1,000 mL 01-11 00:45: 00 01-12 15:37 :01 No 1000mL at 75 mL/hr, IV Infusion, CONTINUOUS , Starting on Mon01/11/24 at 1945, Until 01/13/24 at 1037, [facility] if[facility] (ROBITUSSIN AC) 10-100 mg/5 mL oral solution 5 mL 01-11 00:30: 00 01-11 01:43 :00 No 5mL 5 mL, Oral, ONCE, 1 dose, On Mon01/11/24 at 1930, [facility] ([facility] tablet 400 mg 01-11 00:01: 03 Yes 400mg 400 mg, Oral, Q6HPRN, Starting on Mon01/11/24 at 1901, Until Discontinu ed, Routine, Temp > 38.5 C [facility] LORazepam (ATIVAN) tablet 1 mg 01-10 23:43: 33 Yes 1mg 1 mg, Oral, TIDPRN, Starting on Mon01/11/24 at 1843, Until Discontinu ed, Routine, Anxiety, Agitation [facility] enoxaparin (LOVENOX) injection 40 mg 01-10 22:00: 00 01-10 23:38 :07 No 40mg 40 mg, Subcutaneo us, DAILY, First dose on Mon01/11/24 at 1700, Until Discontinu ed, Routine [facility] labetaloL (NORMODYNE) injection 20 mg 01-10 18:45: 00 01-10 17:56 :00 No 20mg 20 mg, Slow IV Push, ONCE, 1 dose, On Mon01/11/24 at 1345, Routine [facility] doxycycline hyclate 100 mg capsule 01-10 18:30: 14 01-10 00:00 :00 No 100mg Take 1 capsule by mouth every 12 (twelve) hours. [facility] azithromyci n (ZITHROMAX) 500 mg in NaCl [...] y
Durat ion of therapy: 72 hours [facility] HYDROcodone -acetaminop hen (NORCO) 10-325 mg tablet 1 tablet 01-10 17:15: 00 01-10 16:35 :00 No 1{tbl} 1 tablet, Oral, ONCE, 1 dose, On Mon01/11/24 at 1215, Routine [facility] Sliding Scale Insulin - Lispro (HumaLOG) 01-10 17:00: 00 Yes Subcutaneo us, TID MEALS+HS, First dose on Mon01/11/24 at 1200, Until Discontinu ed, Routine [facility] glucagon (GLUCAGEN DIAGNOSTIC KIT) injection 1 mg 01-10 16:38: 56 Yes 1mg 1 mg, Intramuscu lar, PRN, Starting on 01/10/24 at 1138, Until Discontinu ed, BRAD, Blood Glucose < or = 70 mg/dL and patient is NPO, unable to swallow or has mental changes. [facility] dextrose 50 % in water (D50W) injection 25 mL 01-10 16:38: 56 Yes 25mL 25 mL, Slow IV Push, PRN, Starting on Mirtha 01/11/24 at 1138, Until Discontinu ed, BRAD, Blood Glucose < or = 70 mg/dL and patient is NPO, unable to swallow or has mental status changes. [facility] ondansetron (ZOFRAN (PF)) injection 4 mg 01-10 16:38: 49 Yes 4mg 4 mg, Slow IV Push, Q6HPRN, Starting on Mirtha 01/11/24 at 1138, Until Discontinu ed, Routine, Nausea and Vomiting (N/V) [facility] acetaminoph en-codeine (TYLENOL #3) 300-30 mg tablet 1 tablet 01-10 16:38: 43 01-12 16:37 :43 No 1{tbl} 1 tablet, Oral, Q6HPRN, Starting on Mirtha 01/11/24 at 1138, Until 01/13/24 at 1137, Routine, Pain (scale 4-6) [facility] acetaminoph en (TYLENOL) tablet 650 mg 01-10 16:38: 25 Yes 650mg 650 mg, Oral, Q6HPRN, Starting on Mirtha 01/11/24 at 1138, Until Discontinu ed, Routine, Pain (scale 1-3), Temp > 38 C [facility] NaCl 0.9% (NS) IV infusion 1,400 mL 01-10 16:30: 00 01-10 15:25 :00 No 1400mL at 999 mL/hr, Intravenou s, ONCE, 1 dose, On Mirtha 01/11/24 at 1130, Routine [facility] insulin regular human (HUMULIN R) injection 6 Units 01-10 16:15: 00 01-10 15:57 :00 No 6U 6 Units, Subcutaneo us, ONCE, 1 dose, On Mirtha 01/11/24 at 1115, Routine
Indicatio n for insulin: Hyperglyce bryan [facility] iopamidol (ISOVUE 370-500 mL) injection 85 mL 01-10 15:38: 00 01-10 15:45 :00 No [id number] 85mL 85 mL, Intravenou s, ONCE, 1 dose, On Mirtha 01/11/24 at 1045, Routine [facility] cefTRIAXone (ROCEPHIN) 1,000 mg in NaCl 0.9% (NS) 100 mL MINI-BAG 01-10 15:30: 00 01-10 16:37 :00 No 1000mg 1,000 mg, IV Piggyback, ONCE, 1 dose, On Mirtha 01/11/24 at 1030, Administer over 30 Minutes, 100 mL
Reas on for Anti-Infec tive: Documented Infection< br>Documen stacey Infection Site: Urine
D uration of Therapy: Once (ED) [facility] ketorolac (TORADOL) injection 30 mg 01-10 15:00: 00 01-10 14:14 :00 No 30mg 30 mg, Slow IV Push, ONCE, 1 dose, On Mirtha 01/11/24 at 1000, Routine [facility] acetaminoph en (OFIRMEV) IV piggyback 1,000 mg 01-10 14:45: 00 01-10 14:52 :00 No 1000mg 1,000 mg, IV Piggyback, at 400 mL/hr Administer over 15 Minutes, ONCE, 1 dose, On Mirtha 01/11/24 at 0945, Routine
Is the patient strict NPO and unable to tolerate oral medication s? Yes [facility] NaCl 0.9% (NS) bolus infusion 1,000 mL 01-10 14:45: 00 01-10 15:57 :00 No 1000mL at 999 mL/hr, 1,000 mL, IV Infusion, ONCE, 1 dose, On Mirtha 01/11/24 at 0945, BRAD [facility] azithromyci n 250 mg tablet 12-25 00:00: 00 01-10 00:00 :00 No [id number] 250mg Take 1 tablet by mouth SEE-INSTRU CTIONS. Take 500 mg day 1, then 250 mg days 2 to 5. [facility] Dose Unknown 02-20 00:00: 00 Yes [...] Novolin R 100 unit/mL injection solution 2016-10 00:00: 00 Yes unit/mL Silvestre Raygoza Bactroban 2 % topical cream 2016-10 00:00: 00 Yes 1% Silvestre Raygoza lisinopril 20 mg tablet 2016-10 00:00: 00 Yes 1mg Silvestre Raygoza Bactrim DS 800 mg-160 mg tablet 2016-10 00:00: 00 Yes 1mg Silvestre Raygoza Keflex 500 mg capsule 2016-10 00:00: 00 Yes 1mg Silvestre Raygoza lovastatin [...] 1mg Silvestre Raygoza Singulair 10 mg tablet -31 00:00: 00 Yes 1mg Silvestre Raygoza Vital Signs Vital Name Observation Time Observation Value Comments S ource Respiratory rate 2024-01-16 16:19:00 18 /min [facility] Oxygen saturation in Arterial blood by Pulse oximetry 2024-01-16 16:19:00 100 /min [facility] Systolic blood pressure 2024-01-16 12:19:00 173 mm[Hg] [facility] Diastolic blood pressure 2024-01-16 12:19:00 93 mm[Hg] [facility] Heart rate 2024-01-16 12:19:00 80 /min [facility] Body temperature 2024-01-16 12:19:00 36.5 Sarah [facility] Body weight 2024-01-16 08:12:00 82.918 kg [facility] BMI 2024-01-16 08:12:00 32.38 kg/m2 [facility] Body height 2024-01-11 18:05:00 160 cm [facility] Heart Rate 2024-10-15 14:27:00 101.00 /min Step [...] POCT GLUCOSE (AUTOMATED) 2024-01-16 12:50:00 Oneida Reyes [facility] POCT GLUCOSE (AUTOMATED) 2024-01-16 10:47:00 Oneida Reyes [facility] BASIC METABOLIC PANEL (NA, K, CL, CO2, GLUCOSE, BUN, CREATININE, CA) 2024-01-16 09:33:00 Laura Reyes [facility] CBC WITH DIFF 2024-01-16 09:33:00 Laura Reyes [facility] POCT GLUCOSE (AUTOMATED) 2024-01-16 02:03:00 Oneida Reyes [facility] POCT GLUCOSE (AUTOMATED) 2024-01-15 21:32:00 Oneida Reyes [facility] POCT GLUCOSE (AUTOMATED) 2024-01-15 16:38:00 Oneida Reyes [facility] CBC WITH DIFF 2024-01-15 15:54:00 Laura Reyes [facility] POCT GLUCOSE (AUTOMATED) 2024-01-15 12:55:00 Oneida Reyes [facility] MAGNESIUM 2024-01-15 10:05:00 Laura Reyes [facility] BASIC METABOLIC PANEL (NA, K, CL, CO2, GLUCOSE, BUN, CREATININE, CA) 2024-01-15 10:05:00 Laura Reyes [facility] CBC WITH DIFF 2024-01-15 10:05:00 Laura Reyes [facility] POCT GLUCOSE (AUTOMATED) 2024-01-15 00:58:00 Oneida Reyes [facility] POCT GLUCOSE (AUTOMATED) 2024-01-14 21:34:00 Oneida Reyes [facility] US ABDOMEN LIMITED 2024-01-14 17:48:[address] [facility] US RETROPERITONEAL LIMITED 2024-01-14 17:45:00 Laura Reyes [facility] POCT GLUCOSE (AUTOMATED) 2024-01-14 16:31:00 Oneida Reyes [facility] POCT GLUCOSE (AUTOMATED) 2024-01-14 12:35:00 Oneida Reyes [facility] MAGNESIUM 2024-01-14 09:39:00 Laura Reyes [facility] IRON 2024-01-14 09:39:00 Laura Reyes [facility] BASIC METABOLIC PANEL (NA, K, CL, CO2, GLUCOSE, BUN, CREATININE, CA) 2024-01-14 09:39:00 Laura Reyes [facility] CBC WITH DIFF 2024-01-14 09:39:00 Laura Reyes [facility] POCT GLUCOSE (AUTOMATED) 2024-01-14 01:40:00 Oneida Reyes [facility] POCT GLUCOSE (AUTOMATED) 2024-01-13 21:29:00 Oneida Reyes [facility] POCT GLUCOSE (AUTOMATED) 2024-01-13 16:30:00 Oneida Reyes [facility] BLOOD CULTURE SCREEN 2024-01-13 16:18:00 Laura Reyes [facility] POCT GLUCOSE (AUTOMATED) 2024-01-13 12:36:00 Oneida Reyes [facility] MAGNESIUM 2024-01-13 08:17:00 Cayetano Squires [facility] BASIC METABOLIC PANEL (NA, K, CL, CO2, GLUCOSE, BUN, CREATININE, CA) 2024-01-13 08:17:00 Cayetano Squires [facility] CBC WITH DIFF 2024-01-13 08:17:00 Cayetano Squires [facility] POCT GLUCOSE (AUTOMATED) 2024-01-13 06:26:00 [facility] POCT GLUCOSE (AUTOMATED) 2024-01-13 01:37:00 Oneida Reyes [facility] POTASSIUM SERUM 2024-01-13 01:11:00 Cayetano Squires [facility] POCT GLUCOSE (AUTOMATED) 2024-01-12 21:21:00 [facility] POCT GLUCOSE (AUTOMATED) 2024-01-12 16:41:00 [facility] POCT GLUCOSE (AUTOMATED) 2024-01-12 12:39:00 Oneida Reyes [facility] TOTAL IRON BINDING CAPACITY 2024-01-12 02:28:00 Laura Reyes [facility] HEPATITIS B SURFACE ANTIBODY 2024-01-12 02:28:00 Laura Reyes [facility] HEPATITIS B SURFACE ANTIGEN 2024-01-12 02:28:00 Laura Reyes [facility] HCV ANTIBODY 2024-01-12 02:28:00 Laura Reyes [facility] HBC ANTIBODY (IGM & IGG) 2024-01-12 02:28:00 Oneida Reyes [facility] POCT GLUCOSE (AUTOMATED) 2024-01-12 01:07:00 Oneida Reyes [facility] POCT GLUCOSE (AUTOMATED) 2024-01-11 22:33:00 [facility] LEGIONELLA AND STREPTOCOCCUS PNEUMONIAE URINARY ANTIGENS 2024-01-11 19:36:00 Laura Reyes [facility] PROCALCITONIN 2024-01-11 18:25:00 Laura Reyes [facility] POCT GLUCOSE (AUTOMATED) 2024-01-11 17:23:00 Oneida Reyes [facility] POCT GLUCOSE (AUTOMATED) 2024-01-11 15:57:00 Norma Gorman [facility] CT CHEST PULMONARY ANGIOGRAM 2024-01-11 15:43:21 Suki Gorman [facility] CT ABDOMEN PELVIS W CONTRAST 2024-01-11 15:43:21 Suki Gorman [facility] URINE CULTURE 2024-01-11 15:29:00 Suki Gorman [facility] AC ABG + LACTIC ACID 2024-01-11 14:31:00 Janette Gorman [facility] XR CHEST 1 VW 2024-01-11 14:19:14 Suki Gorman [facility] HB ABO GROUPING 2024-01-11 14:18:00 [facility] RHYTHM STRIP 2024-01-11 14:13:01 Suki Gorman [facility] N-TERMINAL PRO-BNP 2024-01-11 14:05:00 Suki Gorman [facility] COVID-19 (ID NOW RAPID TESTING) 2024-01-11 14:05:00 Suki Gorman [facility] LAB ONLY COVID INTERPRETATION 2024-01-11 14:05:00 Suki Gorman [facility] BLOOD CULTURE SCREEN 2024-01-11 14:05:00 Janette Gorman [facility] MAGNESIUM 2024-01-11 14:05:00 Suki Gorman [facility] C-REACTIVE PROTEIN 2024-01-11 14:05:00 Suki Gorman [facility] TROPONIN I 2024-01-11 14:05:00 Suki Gorman [facility] COMP. METABOLIC PANEL (32512) 2024-01-11 14:05:00 Suki Gorman [facility] IRON PANEL 2024-01-11 14:05:00 Suki Gorman [facility] CBC WITH DIFF 2024-01-11 14:05:00 Suki Gorman [facility] GLYCOSYLATED HEMOGLOBIN (A1C) 2024-01-11 14:05:00 Suki Gorman [facility] PROTHROMBIN TIME / INR 2024-01-11 14:05:00 Venice Gorman ala [facility] D-DIMER 2024-01-11 14:05:00 Suki Gorman [facility] ACTIVATED PARTIAL THRMPLAS LEOBARDO 2024-01-11 14:05:00 Suki Gorman [facility] URINALYSIS 2024-01-11 14:05:00 Suki Gorman [facility] RAPID INFLUENZA A/B 2024-01-11 14:05:00 Suki Gorman [facility] POCT TEST 2024-01-11 14:05:00 Suki Gorman [facility] BLOOD CULTURE WORKUP 2024-01-11 13:50:00 Janette Gorman [facility] GRAM NEGATIVE BLOOD PATHOGENS DNA PROBE-ANAEROBIC 2024-01-11 13:50:00 Suki Gorman [facility] BLOOD CULTURE SCREEN 2024-01-11 13:50:00 Janette Gorman [facility] CONSENT/REFUSAL FOR DIAGNOSIS AND TREATMENT 2024-01-11 13:18:36 Doctor Unassigned, Ebony [facility] OP CORRESPONDENCE 2019-06-26 05:01:00 Doctor Bette ssigned, Ebony [facility] Encounters Start Date/Time End Date/Time Encounter Type Admission Type Attending [facility] Care Facility Care Department Encounter ID Source 2024-10-17 09:10:01 2024-10-17 09:10:01 Outpatient [facility] [id number] Silvestre F Jaret 2024-10-15 14:04:00 2024-10-15 14:04:00 Outpatient [facility] [id number] Silvestre F Jaret 2024-10-15 00:00:00 2024-10-15 00:00:00 Outpatient Visit [facility] [id number] Silvestre Frost Jaret 2024-10-14 10:10:56 2024-10-14 10:10:56 Outpatient [facility] [id number] Silvestre Frost Jaret 2024-01-11 08:37:00 2024-01-16 13:06:00 Hospital Encounter Suki Gorman David [facility] [id number] [facility] 2024-01-11 08:37:00 2024-01-16 13:06:00 Inpatient LAURA [facility] [id number] [facility] 2019-06-26 00:00:00 2019-06-26 00:00:00 Orders Only Doctor Unassigned, Ebony [facility] [id number] [facility] Results Test Description Test Time Test Comments Results Result Co mments Source [facility] GLUCOSE (AUTOMATED)2024-01-16 12:51:40* Test Item Value Reference Range Interpretation Comme nts POCT GLU (test code = 6985456956) 91 mg/dL 70-110 Lab Interpretation (test cod e = 55648-4) Normal [facility] GLUCOSE (AUTOMATED)2024-01-16 10:48:21* Test Item Value Reference Range Interpretation Comme nts POCT GLU (test code = 6617580305) 81 mg/dL 70-110 Lab Interpretation (test cod e = 46196-6) Normal [facility] GLUCOSE (AUTOMATED)2024-01-16 02:05:11* Test Item Value Reference Range Interpretation Comme nts POCT GLU (test code = 5190762591) 108 mg/dL 70-110 Lab Interpretation (test cod e = 67514-3) Normal [facility] GLUCOSE (AUTOMATED)2024-01-15 21:33:26* Test Item Value Reference Range Interpretation Comme nts POCT GLU (test code = 0457123919) 114 mg/dL 70-110 H Lab Interpretation (test cod e = 19152-6) Abnormal [facility] GLUCOSE (AUTOMATED)2024-01-15 16:40:25* Test Item Value Reference Range Interpretation Comme nts POCT GLU (test code = 5750330542) 132 mg/dL 70-110 H Lab Interpretation (test cod e = 66761-8) Abnormal [facility] GLUCOSE (AUTOMATED)2024-01-15 12:56:15* Test Item Value Reference Range Interpretation Comme nts POCT GLU (test code = 5347637631) 124 mg/dL 70-110 H Lab Interpretation (test cod e = 36744-2) Abnormal [facility] ABDOMEN [id number] 10:03:41Ordering physician: LAURA REYES Indication: Right upper [...] common bile duct is nondilated at 2 mm.[facility] GLUCOSE (AUTOMATED) 2024-01-15 00:59:44* Test Item Value Reference Range Interpretation Comme [facility] POCT GLU (test code = 7592927037) 130 mg/dL 70-110 H Lab Interpretation (test cod e = 18272-1) Abnormal [facility] GLUCOSE (AUTOMATED)2024-01-14 21:45:36* Test Item Value Reference Range Interpretation Comme nts POCT GLU (test code = 8969696113) 124 mg/dL 70-110 H Lab Interpretation (test cod e = 56377-5) Abnormal [facility] RETROPERITONEAL [id number] 18:04:32 ULTRASOUND RETROPERITONEAL LIMITED Ordering physician: . ?LAURA REYES. ?LAURA REYES HISTORY: . ?R/O perinephric [...] cc. Aorta and IVC were not well visualized.[facility] [place] [id number] 16:58:46* Test Item Value Reference Range Interpretation Comme nts TIBC (test code = 8915878924) 285 ug/dL 250-410 Lab Interpretation (test cod e = 60180-3) Normal [facility] GLUCOSE (AUTOMATED)2024-01-14 16:33:13* Test Item Value Reference Range Interpretation Comme nts POCT GLU (test code = 4184545611) 120 mg/dL 70-110 H Lab Interpretation (test cod e = 93467-3) Abnormal [facility] GLUCOSE (AUTOMATED)2024-01-14 12:37:58* Test Item Value Reference Range Interpretation Comme nts POCT GLU (test code = 4214054967) 223 mg/dL 70-110 H Lab Interpretation (test cod e = 64421-6) Abnormal [facility] GLUCOSE (AUTOMATED)2024-01-14 01:42:00* Test Item Value Reference Range Interpretation Comme nts POCT GLU (test code = 8983703659) 219 mg/dL 70-110 H Lab Interpretation (test cod e = 46522-0) Abnormal [facility] GLUCOSE (AUTOMATED)2024-01-13 21:35:47* Test Item Value Reference Range Interpretation Comme nts POCT GLU (test code = 9782725819) 232 mg/dL 70-110 H Lab Interpretation (test cod e = 12063-4) Abnormal [facility] GLUCOSE (AUTOMATED)2024-01-13 16:53:17* Test Item Value Reference Range Interpretation Comme nts POCT GLU (test code = 0274721885) 187 mg/dL 70-110 H Lab Interpretation (test cod e = 92247-4) Abnormal [facility] GLUCOSE (AUTOMATED)2024-01-13 12:46:37* Test Item Value Reference Range Interpretation Comme nts POCT GLU (test code = 3303176151) 128 mg/dL 70-110 H Lab Interpretation (test cod e = 58269-1) [facility]normal [facility]and[facility] Culture - Peripheral # [id number] 12:18:06* Test Item Value Reference Range Interpretation Comme nts Blood Culture-Aerobic (test code = 41492-2) Culture positive. See Blood Culture Workup for additional information. No growth AA Previous preliminary verified result was Culture In Progress on 01/11/2024 at 2340 CDT Blood Culture-Anaerobic (test code = 33705-2) Culture positive. See Blood Culture Workup for additional information. No growth AA Previous preliminary verified result was Culture In Progress on 01/11/2024 at 1301 CDT Lab Interpretation (test code = 52953-9) Abnormal [facility] GLUCOSE (AUTOMATED)2024-01-13 06:27:42* Test Item Value Reference Range Interpretation Comme nts POCT GLU (test code = 3421229494) 202 mg/dL 70-110 H Lab Interpretation (test cod e = 51425-9) Abnormal [facility] GLUCOSE (AUTOMATED)2024-01-13 01:37:55* Test Item Value Reference Range Interpretation Comme nts POCT GLU (test code = 2552472667) 107 mg/dL 70-110 Lab Interpretation (test cod e = 89526-7) Normal [facility] GLUCOSE (AUTOMATED)2024-01-12 21:23:08* Test Item Value Reference Range Interpretation Comme nts POCT GLU (test code = 0934322302) 122 mg/dL 70-110 H Lab Interpretation (test cod e = 87352-1) Abnormal [facility] GLUCOSE (AUTOMATED)2024-01-12 18:05:30* Test Item Value Reference Range Interpretation Comme nts POCT GLU (test code = 1614114960) 125 mg/dL 70-110 H Lab Interpretation (test cod e = 81857-1) Abnormal [facility]andC-REACTIVE [id number] 17:21:08* Test Item Value Reference Range Interpretation Comme nts CRP (test code = 8246454555) 7.6 mg/dL <=0.8 H Lab Interpretation (test cod e = 95783-9) Abnormal [facility]andGRAM NEGATIVE BLOOD PATHOGENS DNA [id number] 13:52:52* Test Item Value Reference Range Interpretation Comme nts Escherichia coli (test code = 09920-5) Positive Negative A ALLIE (test code = ALLIE) See blood culture result for additional information. ?Testing included eight identification and six resistance marker targets. Lab Interpretation (test code = 66762-7) Abnormal [facility] GLUCOSE (AUTOMATED)2024-01-12 12:43:01* Test Item Value Reference Range Interpretation Comme nts POCT GLU (test code = 7848641570) 103 mg/dL 70-110 Lab Interpretation (test cod e = 55662-4) Normal [facility]ellandHepatitis B Surface [id number] 11:29:09* Test Item Value Reference Range Interpretation Comme nts HBsAB (test code = 9120514018) Positive HBsAb Semi-Quantitative (test code = 0876456449) 34.50 mIU/mL ALLIE (test code = ALLIE) Interpretation: ?Hepatitis B Surface Antibody ? Negative - Patient is considered to be not immune to infection with HBV. ? ? Positive - Anti-HBs detected at greater than or equal to 12 mIU/mL. ?Patient is considered to be immune to infection with HBV. ? [facility]andHbc Antibody (IgM & IgG)2024-01-12 11:29:09* Test Item Value Reference Range Interpretation Comme nts HBC (test code = 1395920605) Negative HBC Semi-Quantitative (test code = 3386538944) 3.52 [facility]ellandHcv [id number] 11:29:09* Test Item Value Reference Range Interpretation Comme nts HCV Ab (test code = 78231-6) Negative HCV Semi-Quantitative (test code = 28825-3) [facility] [id number] 11:11:10 * Test Item Value Reference Range Interpretation Comme nts HBsAg Semi-Quantitative (niecy t code = 5195-3) 0.07 Negative [facility] GLUCOSE (AUTOMATED)2024-01-12 01:08:24* Test Item Value Reference Range Interpretation Comme nts POCT GLU (test code = 0960223729) 222 mg/dL 70-110 H Lab Interpretation (test cod e = 35479-7) Abnormal [facility] GLUCOSE (AUTOMATED)2024-01-11 22:35:50* Test Item Value Reference Range Interpretation Comme nts POCT GLU (test code = 9480843855) 221 mg/dL 70-110 H Lab Interpretation (test cod e = 64540-7) Abnormal [facility]andXR CHEST 1 [id number] 18:58:04EXAM: XR CHEST 1 01/11/2024 9:08 AM HISTORY: 43 years old Female with sob TECHNIQUE: Portable AP view of the chest. COMPARISON: None FINDINGS: Lungs and pleura: The lungs are well-expanded. Unchanged right lower lungopacity, likely represent atelectasis/pleural scarring. No focalconsolidation, pneumothorax, or pleural effusion is seen. Cardiomediastinal: The cardiomediastinal silhouette is normal accountingfor technique. Musculoskeletal: No acute osseous abnormality. [facility] GLUCOSE (AUTOMATED)2024-01-11 17:24:44* Test Item Value Reference Range Interpretation Comme [facility] POCT GLU (test code = 3911042531) 257 mg/dL 70-110 H Lab Interpretation (test cod e = 98855-7) Abnormal [facility]ellandGlycosylated Hemoglobin (A1C)2024-01-11 16:06:17* Test Item Value Reference Range Interpretation Comme [facility] HGB A1C (test code = 4548-4) 9.6 % 4.0-5.7 H ALLIE (test code = ALLIE) Reference RangesNormal: <5.7%Prediabetes: 5.7 - 6.4%Diabetes: > 6.5% Lab Interpretation (test code = 75034-4) Abnormal [facility] CHEST PULMONARY [id number] 15:58:47HISTORY: Rule out P.E.. Positive D-dimer. TECHNIQUE: [...] be a sign of reactive airway disease.[facility] POCT GLUCOSE (AUTOMATED)2024-01-11 15:58:29* Test Item Value Reference Range Interpretation Comme nts POCT GLU (test code = 3783737966) 275 mg/dL 70-110 H Lab Interpretation (test cod e = 12066-4) Abnormal [facility]andCT ABDOMEN PELVIS W [id number] 15:52:58CT Abdomen and Pelvis with intravenous contrast. [...] Please correlate.2. Hepatosplenomegaly with hepatic steatosis.3. Normal appendix.[facility]ellandTROPONIN [id number] 15:15:02* Test Item Value Reference Range Interpretation Comme nts TROPONIN I (test code = 2649082709) 0.005 ng/mL <=0.034 ALLIE (test code = [...] of biotin. Lab Interpretation (test code = 98804-9) Normal [facility]andIron [id number] 15:14:06* Test Item Value Reference Range Interpretation Comme nts IRON (test code = 8207082128) 53 ug/dL 50-160 TIBC (test code = 1606288407) 360 ug/dL 250-410 % FE SAT (test code = 0833274077) 15 % 20-50 L Lab Interpretation (test cod e = 21173-2) Abnormal [facility]ellandN-TERMINAL [id number] 15:12:25* Test Item Value Reference Range Interpretation Comme nts NT-proBNP (test code = 81562-6) 528 pg/mL <=125 H ALLIE (test code = ALLIE) Positive: Heart Failure Likely Lab Interpretation (test code = 50142-5) Abnormal [facility]ellandD-[id number] 15:09:46* Test Item Value Reference Range Interpretation Comments D-DIMER (test code = 5328318377) 1.42 See_Comment H [Automated message] The system [...] a diagnosis. Lab Interpretation (test code = 02776-2) Abnormal [facility] LevellandPROTHROMBIN TIME / [id number] 15:09:46* Test Item Value Reference Range Interpretation Comme [facility] PROTIME PATIENT (test code = 5964-2) 10.4 10.1-12.6 INR (test code = 6301-6) 0.9 Normal INR <1.1; Warfarin Therapeutic range 2.0 to 3.0 or 2.5 to 3.5, depending upon the indications. Lab Interpretation (test code = 43013-6) Normal [facility] LevellandACTIVATED PARTIAL THRMPLAS [id number] 15:09:46* Test Item Value Reference Range Interpretation Comme [facility] APTT Patient (test code = 3173-2) 29 26-36 ALLIE (test code = ALLIE) The [facility] patient population mean normal value for aPTT is 30 seconds. Lab Interpretation (test code = 51945-1) Normal [facility]ellandCBC WITH [id number] 15:06:43* Test Item Value Reference Range Interpretation Comme [facility] WBC (test code = 6690-2) [...] g/dL 31.6-35.1 L RDW-SD (test code = 59909-0) 64.6 fL 39.0-49.9 H RDW-CV (test code = 788-0) 25.9 % 12.0-15.5 H PLT (test code = 777-3) 298 166-358 MPV (test code = 08076-5) 10.3 fL 9.5-12.9 IPF % (test code = 6608910818) 6.4 % 1.3-7.7 Platelet count measured by fluorescence method. NRBC/100 WBC (test code = 0950734795) 0.0 0.0-10.0 NRBC x10^3 (test code = 0743949474) See_Comment [Automated messa ge] The system which generated this result transmitted reference range: 10*3/?L. The reference range was not used to interpret this result as normal/abnormal. GRAN MAT (NEUT) % (test code = 770-8) 90.9 % IMM GRAN % (test code = 6584283783) 0.50 % LYMPH % (test code = 736-9) 3.6 % MONO % (test code = 5905-5) 4.1 % EOS % (test code = 713-8) 0.6 % BASO % (test code = 706-2) 0.3 % GRAN MAT x10^3(ANC) (test code = 1390810049) 11.74 10*3/uL 1.88-7.09 H IMM GRAN x10^3 (test code = 7828670647) 0.06 10*3/uL 0.00-0.06 LYMPH x10^3 (test code = 731-0) 0.47 10*3/uL 1.32-3.29 L MONO x10^3 (test code = 742-7) 0.53 10*3/uL 0.33-0.92 EOS x10^3 (test code = 711-2) 0.08 10*3/uL 0.03-0.39 BASO x10^3 (test code = 704-7) 0.04 10*3/uL 0.01-0.07 Lab Interpretation (test code = 94811-3) Abnormal [facility]ellandMagnesium2024-03-14 15:05:02* Test Item Value Reference Range Interpretation Comme nts MAGNESIUM (test code = 6106293688) 1.9 mg/dL 1.7-2.4 Lab Interpretation (test cod e = 91070-4) Normal [facility]ellandCOMP. METABOLIC PANEL (17038)2024-01-11 15:04:41* Test Item Value Reference Range Interpretation Comme nts NA (test code = 6840774923) 128 mmol/L 135-145 L K (test code = 3548538841) 4.7 mmol/L 3.5-5.0 CL (test code = 0220385210) 100 mmol/L 98-108 CO2 TOTAL (test code = 9479156501) 19 mmol/L 23-31 L AGAP (test code = 9240363540) 9 2-16 BUN (test code = 3738155407) 17 mg/dL 7-23 GLUCOSE (test code = 0305949961) 311 mg/dL 70-110 H CREATININE (test code = 2160-0) 0.59 mg/dL 0.50-1.04 TOTAL BILI (test code = 1837958753) 0.8 mg/dL 0.1-1.1 CALCIUM (test code = 3903415025) 8.8 mg/dL 8.6-10.6 T PROTEIN (test code = 1863495717) 7.2 g/dL 6.3-8.2 ALBUMIN (test code = 5980540574) 3.7 g/dL 3.5-5.0 ALK PHOS (test code = 1662040092) 218 U/L 34-122 H ALTv (test code = 1742-6) 32 U/L 5-35 AST(SGOT) (test code = 4618523165) 31 U/L 13-40 eGFR (test code = 55179-1) 115.6 mL/min/1.73m2 CKD-EPI eGFR (2020). Assuming creatinine has been stable day-to-day for at least three months, the eGFR indicates Category G1 (>= 90 mL/min/1.73 m2) Lab Interpretation (test code = 90833-7) Abnormal [facility]ellandType and Screen - ONCE [id number] 14:39:00 * Test Item Value Reference Range Interpretation Comme nts ABO & RH (test code = 20) O Positive IAT (test code = 1185) Negative [facility]ellandAC ABG + LACTIC [id number] 14:37:28* Test Item Value Reference Range Interpretation Comme nts PH (test code = 2) 7.43 7.35-7.45 PCO2 (test code = 9567682970) 28 35-45 L PO2 (test code = 6616520849) 76 80-100 L HCO3 (test code = 9857725633) 18 22-26 L BE (test code = 4367365624) -4.7 -3.0-3.0 L LACTIC ACID (test code = 2172886969) 1.17 mmol/L 0.50-2.20 Lab Interpretation (test cod e = 07025-7) Abnormal [facility]ellandPOCT [id number] 14:05:00* Test Item Value Reference Range Interpretation Comme nts POCT PREG (test code = 1605) Negative On board controls acceptable with C Line (test code = 3574) Yes POCT PREG LOT # (test code = 3575) [id number] POCT PREG TEST DATE ( test code = 3576) 12/04/2024 Lab Interpretation (test cod e = 88019-7) Normal [facility]ellandLIPID [id number] 00:00:00* Test Item Value Reference Range Interpretation Comme nts CHOLESTEROL (test code = 2210) 240 MG/DL TRIGLYCERIDES (test code = 2232) 304 MG/DL HDL CHOLESTEROL (test code = 2220) 42 MG/DL CALC LDL CHOL (test code = 2237) 137 MG/DL RISK RATIO LDL/HDL (test cod e = 2238) 3.27 RATIO Silvestre RaygozaHEMOGLOBIN [id number] 00:00:00* Test Item Value Reference Range Interpretation Comme nts HEMOGLOBIN A1c (test code = 84251) 11.4 % Silvestre RaygozaMICROALBUMIN/CREATININE, RANDOM AND [id number] 00:00:00* Test Item Value Reference Range Interpretation Comme nts CREATININE, URINE, CONC. (te st code = 2071) 105.4 MG/DL ALBUMIN, URINE, RANDOM (test code = 53135) 7.2 MG/DL CALC ALBUMIN/CREAT, RND (niecy t code = 15287) 68 MG/G Silvestre Frost AustinCOMPREHENSIVE METABOLIC [id number] 00:00:00* Test Item Value Reference Range Interpretation Comme nts GLUCOSE (test code = 2217) 241 MG/DL BUN (test code = 2208) 11 MG/DL CREATININE (test code = 2214) 0.59 MG/DL eGFR AMER. (test cod e = 67948) 137 ML/MIN/1.73 eGFR NON- AMER. (test code = 34068) 118 ML/MIN/1.73 CALC BUN/CREAT (test code = [...] (test code = 2219) 17 U/L Silvestre Frost AustinMICROALBUMIN/CREATININE, RANDOM AND [id number] 00:00:00* Test Item Value Reference Range Interpretation Comme nts CREATININE, URINE, CONC. (test code = 207) TEST NOT PERFORMED MG/DL MICROALBUMIN, RANDOM (test code = 12036) TEST NOT PERFORMED MG/DL CALC MICROALB/CREAT RND (test code = 50233) TEST NOT PERFORMED MG/G Silvestre Frost AustinCOMPREHENSIVE METABOLIC [id number] 00:00:00* Test Item Value Reference Range Interpretation Comme nts GLUCOSE (test code = 2217) 380 MG/DL BUN (test code = 2208) 14 MG/DL CREATININE (test code = 2214) 0.51 MG/DL eGFR AMER. (test cod e = 50109) 143 ML/MIN/1.73 eGFR NON- AMER. (test code = 12148) 124 ML/MIN/1.73 CALC BUN/CREAT (test code = [...] code = 2219) 20 U/L Silvestre RaygozaLIPID [id number] 00:00:00* Test Item Value Reference Range Interpretation Comme nts CHOLESTEROL (test code = 2210) 246 MG/DL TRIGLYCERIDES (test code = 2232) 421 MG/DL HDL CHOLESTEROL (test code = 2220) 41 MG/DL CALC LDL CHOL (test code = 2237) NOTE MG/DL RISK RATIO LDL/HDL (test cod e = 2238) (NOTE) RATIO Silvestre RaygozaHEMOGLOBIN [id number] 00:00:00* Test Item Value Reference Range Interpretation Comme nts HEMOGLOBIN A1c (test code = 32381) 12.6 % Silvestre RaygozaCOMPREHENSIVE METABOLIC [id number] 00:00:00* Test Item Value Reference Range Interpretation Comme nts GLUCOSE (test code = 2217) 308 MG/DL BUN (test code = 2208) 12 MG/DL CREATININE (test code = 2214) 0.40 MG/DL eGFR AMER. (test cod e = 10102) 156 ML/MIN/1.73 eGFR NON- AMER. (test code = 49347) 135 ML/MIN/1.73 CALC BUN/CREAT (test code = [...] code = 2219) 17 U/L Silvestre RaygozaLIPID [id number] 00:00:00* Test Item Value Reference Range Interpretation Comme nts CHOLESTEROL (test code = 2210) 222 MG/DL TRIGLYCERIDES (test code = 2232) 252 MG/DL HDL CHOLESTEROL (test code = 2220) 44 MG/DL CALC LDL CHOL (test code = 2237) 128 MG/DL RISK RATIO LDL/HDL (test cod e = 2238) 2.90 RATIO Silvestre RaygozaHEMOGLOBIN [id number] 00:00:00* Test Item Value Reference Range Interpretation Comme nts HEMOGLOBIN A1c (test code = 92801) 11.0 % Silvestre RaygozaCULTURE, [id number] 00:00:00* Test Item Value Reference Range Interpretation Comme nts CULTURE, ROUTINE (test code = 06792) SPECIMEN NUMBER: [id number] Silvestre RaygozaCHLAMYDIA, AMPLIFIED, [id number] 00:00:00* Test Item Value Reference Range Interpretation Comme nts CHLAMYDIA, TMA (test code = 51228) NEGATIVE Silvestre Frost JaretGC, AMPLIFIED, [id number] 00:00:00* Test Item Value Reference Range Interpretation Comme nts GONORRHEA, TMA (test code = 95919) NEGATIVE Silvestre RaygozaVAGINAL PATHOGENS DNA [id number] 00:00:00* Test Item Value Reference Range Interpretation Comme nts HERACLIO SPECIES (test code = 63878) NEGATIVE G. VAGINALIS (test code = 33660) POSITIVE T. VAGINALIS (test code = 15558) NEGATIVE Silvestre RaygozaHIV AB/AG COMBO RFLX [id number] 00:00:00* Test Item Value Reference Range Interpretation Comme nts HIV 1/2 4TH GEN, RFLX CONF ( test code = 3514) NON-REACTIVE Silvestre [id number] 00:00:00* Test Item Value Reference Range Interpretation Comme nts RPR RESULT (test code = 3501) NON-REACTIVE RPR TITER (test code = 3500) NOT INDIC. TITER Silvestre RaygozaACUTE HEPATITIS [id number] 00:00:00* Test Item Value Reference Range Interpretation Comme nts HEPATITIS A IgM (test code = 41948) NON-REACTIVE HEPATITIS B CORE IgM (test c ode = 4644) NON-REACTIVE HEPATITIS B SURF AG (test co de = 2739) NON-REACTIVE HEPATITIS C ANTIBODY (test c ode = 4675) NON-REACTIVE INTERPRETATION HEPATITIS A: (test code = 2552) (NOTE) INTERPRETATION HEPATITIS B: (test code = 74186) (NOTE) INTERPRETATION HEPATITIS C: (test code = 51853) (NOTE) Silvestre [id number] 00:00:00* Test Item Value Reference Range Interpretation Comme bee LIPASE (test code = 2058) 19 U/L Silvestre RaygozaHEMOGLOBIN [id number] 00:00:00* Test Item Value Reference Range Interpretation Comme nts HEMOGLOBIN A1c (test code = 85626) 11.5 % Silvestre [id number] 00:00:00* Test Item Value Reference Range Interpretation [...] plan. Laura Edilberto, DO 01/11/2024 11:08 PM [facility] Internal Medicine-H&P Date of Service: 01/11/2024 [...] Patient reports that she was recently at [facility] for PNA. On Dc she developed Abd [...] minutes discussing smoking cessation YOBANI Squires APRN, HUBER-[facility] I.M. / Hospitalist Medicine 01/11/2024 6:23 PM [facility]
[2024-11-11 19:01] LABS: Absolute Basophils 0.1 K/uL (0-0.5); Absolute Eosinophils 0.1 K/uL (0-0.5); Absolute Lymphocytes (CBC) 1.4 K/uL (0.7-4.9); Absolute Monocytes 0.6 K/uL (0.1-1.3); Absolute Neutrophil 11.6 K/uL (1.8-8.0); Basophils % 0.6 % (0-1.3); Eosinophils % 0.9 % (0-4.4); Hemoglobin 9.4 g/dL (12.0-15.0); Lymphocytes % 10.2 % (15.3-44.8); MCH 26.9 pg (27.0-35.0); MCHC 33.6 g/dL (32.0-36.0); MCV 80.1 fL (80-100); Neutrophils % 84.3 % (41.7-73.7); Platelets 504 thou/uL (152-406); RBC Red Blood Cell Count 3.49 M/uL (3.86-4.86); Red Cell Distribution Width 18.7 % (12.1-15.2)
[2024-11-11 19:10] LABS: PT Prothrombin Time 12.1 SECONDS (9.4-12.5); PTT, Activated Partial Thromb 33.7 SECONDS (24.3-36.9); Protime INR 1.15
[2024-11-11] MEDS ORDERED: NA CHLORIDE 0.9% 1,000 ML ONE (19:20)
[2024-11-11] MEDS ORDERED: ONDANSETRON 4 MG/2 ML VIAL ONE (19:20)
[2024-11-11] MEDS ORDERED: MORPHINE 4 MG/ML SYR ONE (19:20)
[2024-11-11 19:23] LABS: Albumin/Globulin Ratio 0.4 (1.1-1.8); Alkaline Phosphatase 154 U/L (45-117); Anion Gap 10.8 mEq/L (5.0-15.0); BUN Blood Urea Nitrogen 21 mg/dL (7-18); Bicarbonate 23 mEq/L (21-32); Globulin 5.7 g/dL (2.3-3.5); Glomerular Filtration Rate 55 ml/min (=/>90); Protein, Total 7.7 g/dL (6.4-8.2); Sodium Level 132 mEq/L (136-145)
[2024-11-11] MEDS ORDERED: SMZ./TMP. 800/160 MG TABLET ONE (19:24)
[2024-11-11 19:29] LABS: Glucose Level 399 mg/dL (74-106)
[2024-11-11 19:38] LABS: Specific Gravity 1.015 (1.005-1.030); Sqamous Epithelial <5 /HPF (None Seen); Urine Bacteria <20 /HPF (<20); Urine Bilirubin NEGATIVE (Negative); Urine Blood 1+ (Negative); Urine Clarity Extremely Turbid (Clear); Urine Color Light-Yellow (Yellow); Urine Culture Reflex Order REFLEXED; Urine Glucose 4+ (Over) (Negative); Urine Ketones NEGATIVE (Negative); Urine Microscopic Reflex YN ORDER UMIC; Urine Nitrite NEGATIVE (Negative); Urine Protein 3+ (Negative); Urine RBC <5 /HPF (None Seen); Urine Urobilinogen Normal (Normal); Urine WBC >50 /HPF (<5)
[2024-11-11 19:46] LABS: ALT/SGPT < 14 U/L (13-56); AST/SGOT 12 U/L (15-37); Potassium 3.8 mEq/L (3.5-5.1)
[2024-11-11 19:47] LABS: Bilirubin Total < 0.2 mg/dL (0.2-1.0)
[2024-11-11] MEDS ORDERED: INSULIN REGULAR (HUMAN) 100 UNIT/ML ONE (20:06)
[2024-11-11] MEDS ORDERED: LORazepam 2 MG/ML VIAL ONE (20:38)
--- NOTE | 2024-11-11 21:22 | RAD REPORT ---
EXAMINATION: CT PELVIS WITH CONTRAST CLINICAL INDICATION: Female, 44 years old.[facility] MAIN buttock abscess Bed Name: 13 TECHNIQUE: CT pelvis was performed, following IV contrast administration, as per department protocol. Axial, sagittal and coronal reconstructions were obtained. One or more of the following dose reduction techniques were used: Automated exposure control, adjustment of the mA and/or kV according to patient size, and/or iterative reconstruction. Unless otherwise specified, incidental findings do not require dedicated imaging follow-up. COMPARISON: No prior exam. FINDINGS: The lack of intravenous contrast limits the sensitivity of this exam for evaluation of solid visceral organs, vascular structures, and retroperitoneum. MUSCULOSKELETAL: Asymmetric soft tissue swelling along the left gluteal cleft, with ill-defined cutan eous soft tissue density region measuring 2.9 cm in greatest dimension. Ill-defined inflammatory changes/stranding extending towards the left posterolateral wall of the anal canal. No appreciable ci rcumscribed fluid collections. No air opacified tracts within the deeper soft tissues. No acute osseous abnormality. Mild bilateral hip joint and SI joint degenerative changes. URINARY SYSTEM: No abnormalities of the included kidneys and ureters. Urinary bladder is unremarkable . GASTROINTESTINAL TRACT: Included small bowel and large is normal in caliber. No wall thickening or starr wel inflammatory changes. LYMPH NODES: No lymphadenopathy. ABDOMINAL AORTA AND OTHER VESSELS: Normal caliber aorta and IVC. ADDITIONAL FINDINGS: Crescentic soft tissue thickening extending from the anterior uterine wall left of midline towards the anterior abdominal wall, could be related to prior section. IMPRESSION: Asymmetric soft tissue swelling along the left gluteal cleft, with ill-defined cutaneous soft tissue density region measuring 2.9 cm in greatest dimension, may suggest early phlegmon. No appreciable circumscribed fluid collection.
--- NOTE | 2024-11-11 22:06 | EDPHYS ---
Physician Documentation [facility] Name: Pastora Patterson Age: 44 yrs Sex: Female : 1980 Arrival Date: 11/11/2024 Time: 17:48 Bed 13 Private MD: ED Physician Evert Uriostegui HPI: 11/11 18:07 This 44 yrs old Female presents to ER via EMS with complaints of Abscess. sb4 18:07 The patient presents with an abscess of the buttocks. Description: The affected area is sb4 moderate sized, irregular, draining, erythematous, hot, swollen, tense, warm. Onset: The symptoms/episode began/occurred 5 day(s) ago. Possible cause(s): unknown. Associated signs and symptoms: The patient has no apparent associated signs or symptoms. 20:30 Patient reports an abscess in her inner left butt cheek that has been gradually getting sb4 larger for about 6 days now. States that it painful and draining. States that she has gotten abscesses like these before. She is concerned because she is diabetic and has not been compliant with her medications. States that she recently changed health insurance so has not had access to insulin. Is only taking metformin for her diabetes. Historical: - Allergies: 17:59 No Known Allergies; db - PMHx: 17:59 Anemia; Asthma; Bipolar disorder; Diabetes - IDDM; Hypertension; db - PSHx: 17:59 section; db - Immunization history:: Adult Immunizations unknown. - Infectious Disease History:: Denies. - Social history:: Smoking status: Patient reports the use of cigarette tobacco products, smokes one-half pack cigarettes per day. ROS: 18:08 Constitutional: Negative for fever, chills, and weight loss, sb4 18:08 Skin: Positive for abscess, of the buttocks, 18:08 All other systems are negative, Exam: 18:08 Head/Face: Normocephalic, atraumatic. Eyes: Extra-ocular motions intact. Periorbital sb4 areas with no swelling, redness, or edema. ENT: Mucous membranes moist. Cardiovascular: Regular rate and rhythm with a normal S1 and S2. Respiratory: No increased work of breathing, no retractions or nasal flaring. Abdomen/GI: Soft, non-tender, no distension. 18:08 Constitutional: The patient appears alert, awake, uncomfortable, 18:08 Skin: abscess, that is moderate sized, of the buttocks, with induration, with surrounding cellulitis, left inner lower gluteal fold, Vital Signs: 17:48 BP 134 / 75; Pulse 105; Resp 18; Temp 98.6; Pulse Ox 100% ; Weight 90.72 kg; Height 5 db ft. 3 in. ; 18:00 BP 146 / 74; Pulse 102; Resp 18; Pulse Ox 100% ; db 18:30 BP 142 / 97; Pulse 101; Resp 16; Pulse Ox 100% on R/A; db 19:15 BP 147 / 79; Pulse 99; Resp 16; Pulse Ox 100% on R/A; dd2 20:00 BP 155 / 63; Pulse 94; Resp 16; Pulse Ox 100% on R/A; dd2 21:03 BP 148 / 65; Pulse 100; Resp 17; Pulse Ox 100% on R/A; dd2 22:10 BP 143 / 68; Pulse 97; Resp 16; Pulse Ox 99% on R/A; dd2 11/12 04:05 BP 128 / 78; Pulse 99; Resp 16; Temp 100.5(O); Pulse Ox 100% on R/A; dd2 07:05 Temp 98.3(O); dd2 11/11 17:48 Body Mass Index 35.43 (90.72 kg, 160.02 cm) db MDM: 11/11 17:57 Medical Screening Exam initiated sb4 18:38 Differential diagnosis: abscess, cellulitis, insect bite. sb4 21:57 Data reviewed: vital signs, nurses notes. Consideration of Admission/Observation kb Patient was admitted/placed on observation. Escalation of care including admission/observation considered. Management of patient was discussed with the following: Hospitalist: Dr Edmondson accepts pt for admission. 21:58 Historians other than the Patient: EMS: [facility]. Care significantly affected by kb the following chronic conditions: Diabetes. Counseling: I had a detailed discussion with the patient and/or guardian regarding the historical points, exam findings, and any diagnostic results supporting the discharge/admit diagnosis, lab results, radiology results, the need for further work-up and treatment in the hospital. 11/11 18:03 Order name: Blood Culture Adult (2) sb4 11/11 18:03 Order name: CBC with Diff; Complete Time: 19:04 sb4 11/11 18:03 Order name: CMP; Complete Time: 19:48 sb4 11/11 18:03 Order name: Lactate w/ 2H reflex if indic.; Complete Time: 19:23 sb4 11/11 18:03 Order name: Protime (+inr); Complete Time: 19:10 sb4 11/11 18:03 Order name: Ptt, Activated; Complete Time: 19:10 sb4 11/11 18:03 Order name: Urinalysis w/ reflexes; Complete Time: 19:42 sb4 11/11 19:44 Order name: Urine Culture EDMS 11/11 23:16 Order name: Urinalysis w/ reflexes EDMS 11/11 23:16 Order name: CBC with Automated Diff EDMS 11/11 23:16 Order name: CBC with Automated Diff EDMS 11/11 23:16 Order name: Comprehensive Metabolic Panel EDMS 11/11 23:16 Order name: Comprehensive Metabolic Panel EDMS 11/12 08:19 Order name: Glucose, Ancillary Testing EDMS 11/11 18:03 Order name: CT Pelvis w cont; Complete Time: 21:23 sb4 11/11 18:03 Order name: Accucheck; Complete Time: 19:37 sb4 11/11 18:03 Order name: Cardiac monitoring; Complete Time: 19:35 sb4 11/11 18:03 Order name: IV Saline Lock - Large Bore; Complete Time: 19:35 sb4 11/11 18:03 Order name: Labs collected and sent; Complete Time: 19:36 sb4 11/11 18:03 Order name: O2 Per Protocol; Complete Time: 19:36 sb4 11/11 18:03 Order name: O2 Sat Monitoring; Complete Time: 19:35 sb4 11/11 18:03 Order name: Vital Signs; Complete Time: 19:37 sb4 Administered Medications: 19:39 Drug: NS 0.9% IV 1000 ml IV at 1 bolus Per protocol; to be given as a bolus over 60 dd2 minutes Route: IV; Rate: 1 bolus; Site: left antecubital; 19:54 Follow up: Response: No adverse reaction dd2 19:39 Drug: Trimethoprim-Sulfamethoxazole PO (160 mg-800 mg (DS) 1 tablet PO once Route: PO; dd2 20:09 Follow up: Response: No adverse reaction dd2 19:40 Drug: morphine IVP or IV 4 mg IVP once over 4 mins Route: IVP; Infused Over: 4 mins; dd2 Site: left antecubital; 19:55 Follow up: Response: No adverse reaction dd2 19:40 Drug: Ondansetron IVP 4 mg IVP once; over 2 minutes Route: IVP; Site: left antecubital; dd2 19:55 Follow up: Response: No adverse reaction dd2 20:16 Drug: Insulin Regular Human IVP 10 units IVP once {Co-Signature: michaels (Potter, dd2 Christina).} Route: IVP; Site: left antecubital; 20:31 Follow up: Response: No adverse reaction dd2 20:46 Drug: Ativan IVP 1 mg IVP once Route: IVP; Site: left antecubital; dd2 21:01 Follow up: Response: No adverse reaction dd2 22:26 Drug: Rocephin IV 1 grams IV at calculated rate once; Given slow IV push per pharmacy dd2 instructions Route: IV; Rate: calculated rate; Site: left antecubital; 22:46 Follow up: Response: No adverse reaction; IV Status: Completed infusion; IV Intake: [id number] 11/12 04:33 Drug: Ibuprofen PO 600 mg PO once Route: PO; dd2 Disposition Summary: 11/11/24 22:05 Hospitalization Ordered Notes: Hospitalization Status: Inpatient Admission kb Provider: Alexander Edmondson Condition: Stable kb Problem: new kb Symptoms: are unchanged kb Bed/Room Type: Standard Location: [facility] ER HOLD(11/12/24 00:00) ha Room Assignment: ERHOLD-(11/12/24 00:00) ha Diagnosis - Cutaneous abscess of buttock kb - Cellulitis of buttock kb - UTI/ Urinary tract infection, site not specified kb - Acute upper respiratory infection, unspecified kb - Hyperglycemia, unspecified kb Forms: - Medication Reconciliation Form kb - SBAR form kb - Leadership Thank You Letter kb Addendum: 11/15/2024 09:39 Co-signature as Attending Physician, Evert Uriostegui MD I reviewed the patient's care r n provided by the Advanced Practice Provider and agree with the diagnosis and treatment plan. Signatures: Dispatcher [employer] Kasandra Soares, TERRAZZO FINISHER-C TERRAZZO FINISHER-CkEvert Solo MD MD rn Ayala, Heidy RN RN ha1 Qing Tyler RN RN Estelle Doherty PA-C PA-C sb4 DANIE FAIR RN RN dd2 Marisel Green cp4 Corrections: (The following items were deleted from the chart) 11/12 00:00 11/11 22:05 Telemetry/MedSurg (Inpatient) kb 1 11/12 00:00 11/11 22:05 kb 1
--- NOTE | 2024-11-11 22:06 | ER ---
Nurse's Notes [facility] Name: Pastora Patterson Age: 44 yrs Sex: Female : 1980 Arrival Date: 11/11/2024 Time: 17:48 Bed 13 Private MD: Diagnosis: Cutaneous abscess of buttock;Cellulitis of buttock;UTI/ Urinary tract infection, site not specified;Acute upper respiratory infection, unspecified;Hyperglycemia, unspecified Presentation: 11/11 17:48 Chief complaint: EMS states: PERINEAL CYST X 6 DAYS GETTING BIG AND HARD TO TOUCH. db BLURRY VISION. PT SEEN YESTERDAY FOR FLU SYMPTOMS AND COMPLAINED OF ABSCESS TO LEFT BUTT CHEEK. Coronavirus screen: Client denies travel out of the [place] in the last 14 days. At this time, the client does not indicate any symptoms associated with coronavirus-19. Ebola Screen: Patient negative for fever greater than or equal to 101.5 degrees Fahrenheit, and additional compatible Ebola Virus Disease symptoms Patient denies exposure to infectious person. Patient denies travel to an Ebola-affected area in the 21 days before illness onset. No symptoms or risks identified at this time. Initial Sepsis Screen: Does the patient meet any 2 criteria? No. Patient's initial sepsis screen is negative. Does the patient have a suspected source of infection? No. Patient's initial sepsis screen is negative. Risk Assessment: Do you want to hurt yourself or someone else? Patient reports no desire to harm self or others. Onset of symptoms was November 03, 2024. 17:48 Method Of Arrival: EMS: [facility] db 17:48 Acuity: MANASA 3 db Triage Assessment: 17:48 General: Appears in no apparent distress. uncomfortable, Behavior is calm, cooperative. db Pain: Complains of pain in groin. Neuro: Level of Consciousness is awake, alert, obeys commands, Oriented to person, place, time. Derm: Abscess located on buttocks Reports. Historical: - Allergies: 17:59 No Known Allergies; db - PMHx: 17:59 Anemia; Asthma; Bipolar disorder; Diabetes - IDDM; Hypertension; db - PSHx: 17:59 section; db - Immunization history:: Adult Immunizations unknown. - Infectious Disease History:: Denies. - Social history:: Smoking status: Patient reports the use of cigarette tobacco products, smokes one-half pack cigarettes per day. Screenin:01 [facility] ED Fall Risk Assessment (Adult) History of falling in the last 3 months, db including since admission No falls in past 3 months (0 pts) Confusion or Disorientation No (0 pts) Intoxicated or Sedated No (0 pts) Impaired Gait No (0 pts) Mobility Assist Device Used No (0 pt) Altered Elimination No (0 pt) Score/Fall Risk Level 0 - 2 = Low Risk Oriented to surroundings, Maintained a safe environment. Abuse screen: Denies threats or abuse. Denies injuries from another. Nutritional screening: No deficits noted. Tuberculosis screening: No symptoms or risk factors identified. Assessment: 18:01 Reassessment: Patient appears in no apparent distress at this time. Patient and/or db family updated on plan of care and expected duration. Pain level reassessed. Patient is alert, oriented x 3, equal unlabored respirations, skin warm/dry/pink. SEE TRIAGE FOR INITIAL ASSESSMENT. 19:45 Reassessment: Patient and/or family updated on plan of care and expected duration. Pain dd2 level reassessed. Patient is alert, oriented x 3, equal unlabored respirations, skin warm/dry/pink. Patient states symptoms have not improved. Derm: Wound noted gluteal cleft Abscess located on gluteal cleft has no drainage, is hot to touch, is red, is raised, Reports burning, pain that is 9 out of 10 on a pain scale. Vital Signs: 17:48 BP 134 / 75; Pulse 105; Resp 18; Temp 98.6; Pulse Ox 100% ; Weight 90.72 kg; Height 5 db ft. 3 in. ; 18:00 BP 146 / 74; Pulse 102; Resp 18; Pulse Ox 100% ; db 18:30 BP 142 / 97; Pulse 101; Resp 16; Pulse Ox 100% on R/A; db 19:15 BP 147 / 79; Pulse 99; Resp 16; Pulse Ox 100% on R/A; dd2 20:00 BP 155 / 63; Pulse 94; Resp 16; Pulse Ox 100% on R/A; dd2 21:03 BP 148 / 65; Pulse 100; Resp 17; Pulse Ox 100% on R/A; dd2 22:10 BP 143 / 68; Pulse 97; Resp 16; Pulse Ox 99% on R/A; dd2 11/12 04:05 BP 128 / 78; Pulse 99; Resp 16; Temp 100.5(O); Pulse Ox 100% on R/A; dd2 07:05 Temp 98.3(O); dd2 11/11 17:48 Body Mass Index 35.43 (90.72 kg, 160.02 cm) db ED Course: 11/11 17:48 Arm band placed on Patient placed in an exam room. db 17:53 Patient arrived in ED. db 17:57 Estelle Wesley PA-C is PHCP. sb4 17:57 Evert Uriostegui MD is Attending Physician. sb4 17:59 Triage completed. db 18:01 Patient has correct armband on for positive identification. Bed in low position. Call db light in reach. Side rails up X 1. Pulse ox on. NIBP on. 18:40 Initial lab(s) drawn, by me, sent to lab. First set of blood cultures drawn by me. vk 18:55 Second set of blood cultures drawn by me. vk 19:34 Inserted saline lock: 20 gauge in left antecubital area, using aseptic technique. Blood vk collected. Flushed with 10 mL NS. 19:35 Urine collected: clean catch specimen, clear. vk 19:36 Blood Culture Adult (2) Sent. vk 19:36 CMP Sent. vk 19:36 Urinalysis w/ reflexes Sent. vk 19:36 EKG done, by ED staff. vk 19:39 DANEI FAIR RN is Primary Nurse. dd2 20:32 CT Pelvis w cont In Process Unspecified. EDMS 20:37 PHCP role handed off by Estelle Wesley PA-C kb 20:37 Kasandra Adrian FNP-C is PHCP. kb 22:04 Alexander Edmondson MD is Hospitalizing Provider. kb 23:00 No provider procedures requiring assistance completed. dd2 11/12 00:04 Patient admitted, IV remains in place. dd2 07:06 Primary Nurse role handed off by DANIE FAIR RN bd Administered Medications: 11/11 19:39 Drug: NS 0.9% IV 1000 ml IV at 1 bolus Per protocol; to be given as a bolus over 60 dd2 minutes Route: IV; Rate: 1 bolus; Site: left antecubital; 19:54 Follow up: Response: No adverse reaction dd2 19:39 Drug: Trimethoprim-Sulfamethoxazole PO (160 mg-800 mg (DS) 1 tablet PO once Route: PO; dd2 20:09 Follow up: Response: No adverse reaction dd2 19:40 Drug: morphine IVP or IV 4 mg IVP once over 4 mins Route: IVP; Infused Over: 4 mins; dd2 Site: left antecubital; 19:55 Follow up: Response: No adverse reaction dd2 19:40 Drug: Ondansetron IVP 4 mg IVP once; over 2 minutes Route: IVP; Site: left antecubital; dd2 19:55 Follow up: Response: No adverse reaction dd2 20:16 Drug: Insulin Regular Human IVP 10 units IVP once {Co-Signature: cp4 (violetta Green).} Route: IVP; Site: left antecubital; 20:31 Follow up: Response: No adverse reaction dd2 20:46 Drug: Ativan IVP 1 mg IVP once Route: IVP; Site: left antecubital; dd2 21:01 Follow up: Response: No adverse reaction dd2 22:26 Drug: Rocephin IV 1 grams IV at calculated rate once; Given slow IV push per pharmacy dd2 instructions Route: IV; Rate: calculated rate; Site: left antecubital; 22:46 Follow up: Response: No adverse reaction; IV Status: Completed infusion; IV Intake: [id number] 11/12 04:33 Drug: Ibuprofen PO 600 mg PO once Route: PO; dd2 Medication: 11/11 18:01 VIS not applicable for this client. db Intake: 22:46 IV: 50ml; Total: 50ml. dd2 Outcome: 22:05 Decision to Hospitalize by Provider. kb 11/12 00:04 Admitted to ER Hold. Please see [facility] for further documentation. dd2 Condition: stable Instructed on the need for admit, Demonstrated understanding of instructions, 09:49 Patient left the ED. [id number] Signatures: Dispatcher [employer] EDMS Kasandra Adrian, MICHAEL-Perla RODRIGUEZ-Isabel Bradshaw Kaitlyn, RN RN kc6 Qing Tyler RN RN db Brown, Sophia, PA-C PA-C Dary Brown DIANA, RN RN dd2 Marisel Green cp4 Corrections: (The following items were deleted from the chart) 11/11 17:59 17:48 Onset of symptoms was November 11, 2024 db db 18: 17:48 Chief complaint: EMS states: PERINEAL CYST X 6 DAYS GETTING BIG AND HARD TO db TOUCH. BLURRY VISION. PT SEEN YESTERDAY FOR FLU SYMPTOMS AND COMPLAINED OF ABSCESS TO BUTT CHEEK db 18: 17:48 Derm: Abscess located on pelvis Reports db db
[2024-11-11] MEDS ORDERED: CEFTRIAXONE 1000 MG/VIAL ONE (22:24)
[2024-11-11] MEDS ORDERED: NA CHLORIDE 0.9% 50 ML ONE (22:24)
--- NOTE | 2024-11-11 23:11 | P.HP ---
Certification for Inpatient Patient admitted to: Inpatient With expected LOS: >2 Midnights Practitioner: I am a practitioner with admitting privileges, knowledge of patient current condition, hospital course, and medical plan of care. Services: Services provided to patient in accordance with Admission requirements found in Title 42 Section 412.3 of the Code of Federal Regulations Patient History Date of Service: 11/12/24 Reason for admission: Pain in the buttocks History of Present Illness: 44 yrs old Female with past medical history of diabetes, hypertension, hyperlipidemia, anemia, asthma, bipolar disorder who came to the ER with pain and swelling is consistent with an abscess of the buttocks.The affected area is moderate sized, irregular, draining, erythematous, hot, swollen, tense, warm. Started 5 days ago and has been progressively worsening and was brought to ER. States that it painful and draining. Patient was assessed in the ER and is admitted for further management of possible abscess Allergies No Known Allergies Allergy (Verified 02/17/17 03:44) Home medications list reviewed: Yes Home Medications: lisinopriL [Lisinopril] 20 mg PO DAILY 30 Days #30 tab 09/27/24 Gabapentin [Neurontin] 100 mg PO TID 11/12/24 Metformin HCl 1,000 mg PO BID 11/12/24 - Past Medical/Surgical History Diabetic: Yes Past Medical History: Reviewed- Non-Contributory -: Asthma -: hypertension -: diabetes-IDDM -: anxiety -: Anemia -: Bipolar Past Surgical History: Reviewed- Non-Contributory -: tubal ligation -: C- Section - Family History Father -: Hypertension, Diabetes, Other (see notes) Notes: HIGH CHOLESTEROL Mother -: Hypertension, Diabetes, Other (see notes) Notes: HGH CHOLESTEROL Sister -: Hypertension, Diabetes, Other (see notes) Notes: HIGH CHOLESTEROL - Social History Smoking Status: Never smoker Alcohol use: No CD- Drugs: Yes Caffeine use: Yes Review of Systems 10-point ROS is otherwise unremarkable Physical Examination - Vital Signs Temperature: 97.9 F Blood Pressure: 130/72 Pulse: 88 Respirations: 18 Pulse Ox (%): 94 - Physical Exam General: Alert, In no apparent distress, Oriented x3 HEENT: Atraumatic, Normocephalic Neck: Supple Respiratory: Clear to auscultation bilaterally, Normal air movement Cardiovascular: Regular rate/rhythm, Normal S1 S2 Capillary refill: <2 Seconds Gastrointestinal: Soft and benign, W/out hepatosplenomegaly Musculoskeletal: No clubbing Integumentary: Tenderness/swelling Neurological: Normal speech, Normal strength at 5/5 x4 extr, Cranial nerves 3-12 intact, Normal reflexes 2+ Lymphatics: No axilla or inguinal lymphadenopathy - Studies Laboratory Data (last 24 hrs) 11/11/24 11/11/24 11/11/24 18:48 18:48 18:48 WBC 13.80 H Hgb 9.4 L Hct 28.0 L Plt Count 504 H PT 12.1 INR 1.15 APTT 33.7 Sodium 132 L Potassium 3.8 BUN 21 H Creatinine 1.25 H Glucose 399 H Total Bilirubin < 0.2 L AST 12 L ALT < 14 Alkaline Phosphatase 154 H Assessment and Plan - Plan Perianal abscess Pain control IV antibiotic Surgical consult Monitor closely CT findings noted Hypertension Antihypertensives titrated Continue home medications and titrate as needed Hyperlipidemia Continue statin UTI Started on IV antibiotic Will obtain cultures Diabetes Insulin sliding scale Accu-Chek before every meal and at bedtime Anemia of chronic disease Monitor H&H closely No overt bleeding at this time GI/DVT prophylaxis Advanced directive full code Discharge Plan: Home Plan to discharge in: 48 Hours - Advance Directives Does patient have a Living Will: No Does patient have a Durable POA for Healthcare: No - Code Status/Comfort Care Code Status: Full Code Time Spent Managing Pts Care (In Minutes): 48
[2024-11-11] MEDS: METRONIDAZOLE 500mg IVPB 500 MG/100 ML BAG IV SCH (23:15)
[2024-11-11] MEDS: CEFTRIAXONE 1,000 MG in NA CHLORIDE 0.9% 50 ML IVPB SCH (23:15)
[2024-11-12] MEDS: MORPHINE 2 MG/ML SYR IV PRN (00:15)
[2024-11-12] MEDS: ONDANSETRON 4 MG/2 ML VIAL IV PRN (00:16)
[2024-11-12] MEDS: METRONIDAZOLE 500mg IVPB 500 MG/100 ML BAG IV SCH (01:00)
[2024-11-12] MEDS ORDERED: CEFTRIAXONE 1,000 MG in NA CHLORIDE 0.9% 50 ML IVPB SCH (01:00)
[2024-11-12] MEDS ORDERED: HYDROCODONE/APAP 5/325 MG TAB ONE (03:24)
[2024-11-12] MEDS: HYDROCODONE/APAP 5/325 MG TAB PO PRN (03:27)
[2024-11-12] MEDS ORDERED: IBUPROFEN 200 MG TAB PO ONE (04:23)
[2024-11-12] MEDS ORDERED: IBUPROFEN 400 MG TAB ONE (04:24)
[2024-11-12 06:22] LABS: Absolute Basophils 0.1 K/uL (0-0.5); Absolute Eosinophils 0.1 K/uL (0-0.5); Absolute Lymphocytes (CBC) 1.9 K/uL (0.7-4.9); Absolute Monocytes 0.7 K/uL (0.1-1.3); Absolute Neutrophil 9.8 K/uL (1.8-8.0); Basophils % 0.6 % (0-1.3); Hematocrit 22.8 % (36.0-45.0); Hemoglobin 7.9 g/dL (12.0-15.0); Lymphocytes % 15.1 % (15.3-44.8); MCH 27.6 pg (27.0-35.0); MCHC 34.6 g/dL (32.0-36.0); MCV 79.7 fL (80-100); MPV 7.7 fL (7.6-11.3); Monocytes % 5.6 % (3.3-12.3); Neutrophils % 77.7 % (41.7-73.7); Platelets 417 thou/uL (152-406); RBC Red Blood Cell Count 2.86 M/uL (3.86-4.86); Red Cell Distribution Width 18.5 % (12.1-15.2)
[2024-11-12 06:23] LABS: Albumin 1.7 g/dL (3.4-5.0); Albumin/Globulin Ratio 0.3 (1.1-1.8); Alkaline Phosphatase 131 U/L (45-117); Anion Gap 11.1 mEq/L (5.0-15.0); BUN Blood Urea Nitrogen 16 mg/dL (7-18); Bicarbonate 20 mEq/L (21-32); Globulin 5.1 g/dL (2.3-3.5); Glomerular Filtration Rate 81 ml/min (=/>90); Glucose Level 126 mg/dL (74-106); Protein, Total 6.8 g/dL (6.4-8.2); Sodium Level 133 mEq/L (136-145)
[2024-11-12 06:43] LABS: ALT/SGPT < 14 U/L (13-56); AST/SGOT 14 U/L (15-37); Bilirubin Total < 0.2 mg/dL (0.2-1.0); Potassium 4.1 mEq/L (3.5-5.1)
[2024-11-12] MEDS ORDERED: ENOXAPARIN 40 MG/0.4 ML SQ ONE (08:28)
[2024-11-12] MEDS ORDERED: METRONIDAZOLE 500mg IVPB 500 MG/100 ML BAG IV ONE (08:28)
[2024-11-12] MEDS: ENOXAPARIN 40 MG/0.4 ML SQ SCH (09:00)
[2024-11-12] MEDS ORDERED: MORPHINE 2 MG/ML SYR ONE (09:02)
[2024-11-12] MEDS ORDERED: ONDANSETRON 4 MG/2 ML VIAL ONE ×2 (09:02→09:40)
[2024-11-12] MEDS ORDERED: propofoL 200 MG/20 ML VIAL IV ONE (09:40)
[2024-11-12] MEDS ORDERED: FENTANYL CITR 100 MCG/2 ML ONE (09:40)
[2024-11-12] MEDS ORDERED: LIDOCAINE 1% MPF 5 ML VIAL ONE (09:40)
[2024-11-12] MEDS ORDERED: KETOROLAC 30 MG/ML INJ ONE (09:40)
[2024-11-12] MEDS ORDERED: MIDAZOLAM HCL 2 MG/2 ML INJ ONE (09:40)
[2024-11-12] MEDS: NA CHLORIDE 0.9% 1,000 ML ONE (10:05)
--- NOTE | 2024-11-12 11:19 | CON ---
Date of Consultation: 11/12/2024 Diagnosis: Perianal abscess. History Of Present Illness: This is a case of a 44-year-old patient who comes to us with perianal te nderness. She has been trying to tolerate that at home, but it became suddenly too much pain. She h as been dealing with this for about 5 days already to the point right now she comes to the ER, diagno toney with perianal abscess. Surgical consult was obtained. She denies any trauma, dysuria, hematuria , hematochezia, melena. Denies any recent traveling out of the country. Denies any family member si ck at home. Review of Systems: Ten points otherwise unremarkable. Medical History: Asthma, hypertension, diabetes, anxiety, anemia, bipolar disorder. Past Surgical History: Include tubal ligation, C-sections. Family History: Include diabetes, hypertension. Social History: She does not smoke. She does not drink alcohol. Physical Examination: Vital Signs: Reviewed. General: The patient is awake, alert. HEENT: Pupils are equal and reactive. Anicteric. Neck: Supple. Chest: Clear. Heart: S1, S2. Abdomen: Soft and depressible. Extremities: Good capillary refill. Genitourinary: Perianal region, the patient has a tender perianal abscess, cannot be examined in the ER. It was too tender. Fluctuance present with erythema. Imaging: Pelvis CT shows swelling of soft tissue in the left gluteal area, ill-defined continuous so ft tissue density. It is about 3 cm, possible a phlegmon. Assessment And Plan: This is a 44-year-old patient with perianal abscess. Benefits, alternatives, a nd risks of exam under anesthesia, anoscopy, proctoscopy, incision and drainage of perianal abscess f mc explained, which included, but not limited to, infection, bleeding, damage to adjacent structure s, anesthesia complication, anal stricture and incontinence, rectal perforation, myocardial infarctio n, and even . She also understands this may not relieve symptoms. She might need more than one surgical intervention. She understands she may require wound care packing, and she was advised the importance of diabetes control and taking her antibiotics. HM/MODL Voice ID: [id number] Report ID: [id number]
--- NOTE | 2024-11-12 13:24 | P.PN ---
Date of Service: 11/12/24 Subjective: continues with buttock pain npo for surgery ROS: 10 point ROS as noted above, otherwise negative Physical Exam: GEN: Alert, NAD Pulm: Nonlabored respirations on room air ABD: soft, nontender, nondistended Integumentary: Swollen, Erythematous left inner lower gluteal folds with induration, +drainage Neuro: Normal speech, normal affect Problem List: Left Gluteal Abscess Possible UTI Acute on chronic anemia Hx severe iron deficiency anemia NIDDM2 Hypertension Hyperlipidemia hx Bipolar Disorder Left Gluteal Abscess Possible UTI on admission, presents with moderate sized buttocks wound that has been worsening for ~5 days. Erythematous, hot, swollen, painful, +drainage. Reports shes gotten abscess like these before. States shes been noncompliant with medications d/t recently changing insurance. CT pelvis (11/11): Asymmetric soft tissue swelling along the left gluteal cleft, with ill-defined cutaneous soft tissue density region measuring 2.9 cm in greatest dimension, may suggest early phlegmon. No appreciable circumscribed fluid collection. Dr. Fletcher, general surgeon consulted to eval NPO for now for possible surgery Pain control continue empiric rocephin / flagyl urine cx (11/11): 4+ GNR Acute on chronic anemia Hx severe iron deficiency anemia Daily labs. Trend H&H. Check iron studies. anticipate will need IV iron NIDDM2 accu-cheks, SSI Hypertension Hyperlipidemia hx Bipolar Disorder confirm home meds, restart as appropriate VTE: Lovenox Code: Full Dispo: Home, ~24-48hrs Pending Surgical recs, possible surgery Time Spent Managing Pts Care (In Minutes): 55
--- NOTE | 2024-11-12 13:30 | P.BOP ---
Preoperative diagnosis: Perianal abscess Postoperative diagnosis: same Primary procedure: EUA, Anoscopy, Rigid proctoscopy, I&D complex perianal abscess [id number] Estimated blood loss: <10cc Specimen: pus Findings: multiple loculated areas treated with multiple incisions Anesthesia: General Complications: None Drain(s): Other (1/4" iodoform packing) Transferred to: Recovery Room Condition: Good
--- NOTE | 2024-11-12 14:05 | OP ---
Date of Procedure: 11/12/2024 Surgeon: Mushtaq Fletcher MD Preoperative Diagnoses: Diabetes. Perianal abscess. Postoperative Diagnosis: Diabetes. Perianal abscess. Procedures: Examination under anesthesia, anoscopy, proctoscopy, incision and drainage of complex pe rianal abscess about 5 x 3 x 2 cm. Indications: This is a case of a 44-year-old patient came to us with perianal abscess. The benefits , alternatives, and risks of EUA, anoscopy, proctoscopy fully explained which include, but not limite d to, infection, bleeding, damage to adjacent structures, anesthesia complication, anal stricture and incontinence, [place], and even . She also understands this may not relieve any symptoms. She migh t need more than one surgical intervention. Estimated Blood Loss: Less than 10 cc. Specimens: Pus. Findings: Multiloculated perianal abscess. We had to make 2 different incisions to address that sin ce there were 2 different areas with the abscess. It goes into the perianal region and extending to the left buttock region. Anesthesia: General plus local. Complications: None. Packing: Iodoform. Description Of Procedure: The patient was brought to the operating room, placed in supine position. Anesthesia was induced without complication. The patient was placed in lithotomy position with prop er protection. A time-out was called. Perianal area was prepped and draped in sterile fashion. Rec april examination was done followed by rigid proctoscopy all the way to about 12 cm, we cannot advance anymore due to the large amount of stools present. At that moment, we proceeded to remove the rigid proctoscope and then do an anoscope with a window on the side. We were trying to see if this abscess connect to the rectum. We do not see any opening in the rectum. We noticed at the perianal region and also extending to the left buttock, patient has this large area of induration. With the help of the knife, we opened the first induration near to the perianal region. Abscess was found tracking in to the perianal area. There was another abscess just lateral to it in the inner buttocks that when w e land that we had another pocket of pus present. Both of them were irrigated. Loculations were exp lored and opened. Hemostasis was obtained. Area was cultured and local anesthetic was applied. Bot h areas were packed with iodoform quarter of an inch. The patient tolerated the procedure well. Pat ient was sent to Recovery in stable condition. YAJAIRA/MODL Voice ID: [id number] Report ID: [id number]
[2024-11-12 16:43] LABS: Ferritin 79.6 ng/mL (8-252)
[2024-11-12 17:14] VITALS: BMI 35.4
[2024-11-12] MEDS: LORAZEPAM 0.5 MG TABLET PO PRN (21:42)
[2024-11-12] MEDS: CEFTRIAXONE 1,000 MG in NA CHLORIDE 0.9% 50 ML IVPB SCH (21:43)
[2024-11-13] MEDS: ACETAMINOPHEN 325 MG TABLET PO PRN (04:42)
[2024-11-13 07:07] LABS: Absolute Eosinophils 0.2 K/uL (0-0.5); Absolute Lymphocytes (CBC) 2.3 K/uL (0.7-4.9); Absolute Monocytes 0.7 K/uL (0.1-1.3); Absolute Neutrophil 7.7 K/uL (1.8-8.0); Basophils % 0.2 % (0-1.3); Eosinophils % 1.6 % (0-4.4); Hemoglobin 6.8 g/dL (12.0-15.0); Lymphocytes % 20.9 % (15.3-44.8); MCH 27.5 pg (27.0-35.0); MCHC 34.1 g/dL (32.0-36.0); MCV 80.5 fL (80-100); MPV 7.4 fL (7.6-11.3); Monocytes % 6.4 % (3.3-12.3); Neutrophils % 70.9 % (41.7-73.7); Platelets 368 thou/uL (152-406); RBC Red Blood Cell Count 2.49 M/uL (3.86-4.86); Red Cell Distribution Width 18.6 % (12.1-15.2)
[2024-11-13 07:25] LABS: Anion Gap 8.9 mEq/L (5.0-15.0); Phosphorus 3.3 mg/dL (2.5-4.9); Potassium 3.9 mEq/L (3.5-5.1)
[2024-11-13] MEDS ORDERED: NA CHLORIDE 0.9% 250 ML IV SCH (08:00)
[2024-11-13] MEDS ORDERED: SOD FERRIC GLUC COMPLX/SUCROSE 250 MG in NA CHLORIDE 0.9% 250 ML IV SCH (09:00)
[2024-11-13] MEDS: ENOXAPARIN 40 MG/0.4 ML SQ SCH (09:00)
--- NOTE | 2024-11-13 09:29 | P.PN ---
Date of Service: 11/13/24 Subjective: continues with buttocks pain, slightly improved reports getting UTIs pretty frequently in the past states shes typically asymptomatic with UTIs in the past 99.9 temps this morning currently uninsured ROS: 10 point ROS as noted above, otherwise negative Physical Exam: GEN: Alert, NAD Pulm: Nonlabored respirations on room air ABD: soft, nontender, nondistended Integumentary: lower gluteal folds with dressing in place Neuro: Normal speech, normal affect Problem List: Left Perianal Abscess s/p I&D (11/12) UTI Hx recurrent UTIs Acute on chronic anemia Hx severe iron deficiency anemia IDDM2 Hypertension Hyperlipidemia hx Bipolar Disorder Left Perianal Abscess s/p I&D (11/12) on admission, presents with moderate sized buttocks wound that has been worsening for ~5 days. Erythematous, hot, swollen, painful, +drainage. Reports shes gotten abscess like these before. States shes been noncompliant with medications d/t recently changing insurance. CT pelvis (11/11): Asymmetric soft tissue swelling along the left gluteal cleft, with ill-defined cutaneous soft tissue density region measuring 2.9 cm in greatest dimension, may suggest early phlegmon. No appreciable circumscribed fluid collection. Dr. Fletcher, general surgeon consulted s/p I&D (11/12) continue local wound care: 1/" iodoform packing daily will need to follow up with Dr. Fletcher at clinic in 1 week Pain control continue empiric rocephin / flagyl urine cx (11/11): E. 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 States shes typically asymptomatic with UTIs in the past urine cx (11/11): E. coli resistant to Bactrim/Unasyn continue empiric rocephin / flagyl Acute on chronic anemia Hx severe iron deficiency anemia Daily labs. Trend H&H. Hgb 7.9 -> 6.8 (11/13) Iron studies: iron 14, tsat% 7.2% (11/12) 1 uPRBC ordered repeat hgb post transfusion IDDM2 accu-cheks, SSI A1c: 10.4 (11/12) Start 70/30 insulin. Patient currently uninsured. Will likely need new script on discharge. Hypertension Hyperlipidemia hx Bipolar Disorder confirm home meds, restart as appropriate VTE: Lovenox Code: Full Dispo: Home, ~24-48hrs Pending Surgical recs, cultures, hgb stable Time Spent Managing Pts Care (In Minutes): 55
[2024-11-13] MEDS: VANCOMYCIN 1.5 GM in NA CHLORIDE 0.9% 500 ML IVPB SCH ×2 (11:00→17:22)
[2024-11-13] MEDS ORDERED: GLUCAGON 1 MG/VIAL IM PRN (17:14)
[2024-11-13] MEDS ORDERED: D50W 25 GM/50 ML SYRINGE IV PRN (17:14)
[2024-11-13] MEDS ORDERED: D10W 125 ML IV PRN (17:20)
[2024-11-13] MEDS: INSULIN 70/30 100 UNITS/ML SQ SCH (18:03)
[2024-11-13 20:25] LABS: Hematocrit 24.3 % (36.0-45.0); Hemoglobin 8.1 g/dL (12.0-15.0)
[2024-11-13] MEDS: HYDROMORPHONE HCL 1 MG/ML INJ IV PRN (22:30)
[2024-11-14 07:02] LABS: Hematocrit 23.7 % (36.0-45.0); Hemoglobin 7.9 g/dL (12.0-15.0); MCHC 33.3 g/dL (32.0-36.0); MCV 81.1 fL (80-100); MPV 7.4 fL (7.6-11.3); Platelets 371 thou/uL (152-406); RBC Red Blood Cell Count 2.92 M/uL (3.86-4.86)
[2024-11-14 07:10] LABS: Anion Gap 9.1 mEq/L (5.0-15.0); Potassium 4.1 mEq/L (3.5-5.1)
--- NOTE | 2024-11-14 09:24 | P.PN ---
Date of Service: 11/14/24 Subjective: buttocks pain slightly improved. reports starting her period last night states she typically gets her period around the end of the month otherwise denies any new / worsening problems afebrile ROS: 10 point ROS as noted above, otherwise negative Physical Exam: GEN: Alert, NAD Pulm: Nonlabored respirations on room air ABD: soft, nontender, nondistended Integumentary: dressing in place Problem List: Left Perianal Abscess s/p I&D (11/12) UTI Hx recurrent UTIs Acute on chronic anemia Hx severe iron deficiency anemia IDDM2 Hypertension Hyperlipidemia hx Bipolar Disorder Left Perianal Abscess s/p I&D (11/12) on admission, presents with moderate sized buttocks wound that has been worsening for ~5 days. Erythematous, hot, swollen, painful, +drainage. Reports shes gotten abscess like these before. States shes been noncompliant with medications d/t recently changing insurance. CT pelvis (11/11): Asymmetric soft tissue swelling along the left gluteal cleft, with ill-defined cutaneous soft tissue density region measuring 2.9 cm in greatest dimension, may suggest early phlegmon. No appreciable circumscribed fluid collection. Dr. Fletcher, general surgeon consulted s/p I&D (11/12) continue local wound care: 11/02" iodoform packing daily will need to follow up with Dr. Fletcher at clinic in 1 week Pain control continue empiric rocephin / flagyl / vanc urine cx (11/11): E. coli resistant to Bactrim/Unasyn Wound Cx (11/12): MRSA UTI Hx recurrent UTIs reports getting UTIs pretty frequently. States shes typically asymptomatic with UTIs in the past urine cx (11/11): E. coli resistant to Bactrim/Unasyn continue empiric rocephin / flagyl / vanc Acute on chronic anemia Hx severe iron deficiency anemia 11/13 Reports starting her menstrual cycle yesterday. States she typically gets her period around the end of the month Iron studies: iron 14, tsat% 7.2% (11/12) s/p 1 uPRBC (11/13); repeat hgb up to 8s Daily labs. Trend H&H. Start IV iron IDDM2 accu-cheks, SSI A1c: 10.4 (11/12) continue 70/30 insulin; titrate as needed Patient currently uninsured. Will likely need new script on discharge. Hypertension Hyperlipidemia hx Bipolar Disorder confirm home meds, restart as appropriate VTE: stop lovenox Code: Full Dispo: Home, ~24-48hrs Pending Surgical recs, IV iron Time Spent Managing Pts Care (In Minutes): 55
[2024-11-14] MEDS: SOD FERRIC GLUC COMPLX/SUCROSE 250 MG in NA CHLORIDE 0.9% 250 ML IV SCH (11:01)
[2024-11-15 01:13] VITALS: O2SAT 97
[2024-11-15 04:41] LABS: Hematocrit 24.3 % (36.0-45.0); Hemoglobin 8.2 g/dL (12.0-15.0); MCH 27.3 pg (27.0-35.0); MCHC 33.7 g/dL (32.0-36.0); MPV 7.7 fL (7.6-11.3); Platelets 414 thou/uL (152-406); Red Cell Distribution Width 17.8 % (12.1-15.2)
[2024-11-15 04:47] LABS: Anion Gap 11.3 mEq/L (5.0-15.0); Magnesium 1.7 mg/dL (1.6-2.4); Potassium 4.3 mEq/L (3.5-5.1)
[2024-11-15] MEDS: MAGNESIUM SULFATE 1 gm IVPB 1 GM/100 ML BAG IV ONE (08:34)
[2024-11-15] MEDS: INSULIN 70/30 100 UNITS/ML SQ SCH (08:39)
[2024-11-15 09:11] LABS: Hematocrit 24.7 % (36.0-45.0); Hemoglobin 8.4 g/dL (12.0-15.0)
--- NOTE | 2024-11-15 11:36 | P.DS ---
Admission Date: 11/11/24 Discharge Date: 11/15/24 Disposition: ROUTINE DISCHARGE Discharge Condition: GOOD Reason for Admission: Pain in the buttocks Consultations: General Surgery - Dr. Fletcher Brief History of Present Illness: 44 yo F, PMH: diabetes, hypertension, hyperlipidemia, anemia, asthma, bipolar disorder Patient came to the ER with pain and swelling is consistent with an abscess of the buttocks.The affected area is moderate sized, irregular, draining, erythematous, hot, swollen, tense, warm. Started 5 days ago and has been progressively worsening and was brought to ER. States that it painful and draining. Patient was assessed in the ER and is admitted for further management of possible abscess Hospital Course: Problem List: Left Perianal Abscess s/p I&D (11/12) UTI Hx recurrent UTIs Acute on chronic anemia Hx severe iron deficiency anemia IDDM2 Hypertension Hyperlipidemia hx Bipolar Disorder Physicain discharge instructions: Patient presented with moderate sized buttocks wound that has been worsening for ~5 days secondary to left perianial abscess. CT abdomen noted left gluteal soft tissues swelling, without appreciable circumscribed fluid collections. Patient was evaluated by Dr. Fletcher, general surgeon and underwent I&D of complex perianal abscess (5x3x2 cm) on 11/12. She received empiric rocephin, flagyl, and vancomycin while hospitalized and had improvement of her symptoms. Wound culture ended up growing MRSA only susceptible to Bactrim/Vanc/Tetracycline. Urine culture grew E. coli, resistant to bactrim/unasyn. Patient is to complete 4 more days of Bactrim in addition to oral Augmentin to also cover urine for total of 1 week antibiotic treatment. Patient was feeling better, pain improving, afebrile without leukocytosis, and was deemed stable for discharge. Follow up with Dr. Fletcher in 1 week in office for further management, continued wound care. Continue local wound care per Dr. Fletcher's instructiong with 1/4" iodoform packing daily Her hemoglobin was noted to drop to 6.8 during her hospitalization requiring 1 blood transfusion. Patients hgb improved to 8s post transfusion and has remained stable since then. Suspect multifactorial etiology secondary to severe iron deficiency combined with starting her menstrual cycle. Iron studies were consistent with severe iron deficiency anemia (iron 14, tsat% 7.2). She also received 2 bags of IV iron while hospitalized and advised patient to continue oral iron supplementation on discharge. Previously, iron supplements lead to GI side effects. Recommended trying every other day or however often she can take iron with minimal side effect. Repeat iron studies in ~3 months. Repeat blood work in ~1 week to monitor CBC/Hgb. A1c this hospitalization: 12.9. Discussed with patient she would benefit from insulin to better help control her blood sugars. Patient agreeable to try 70/30 insulin. Check glucose levels around the same time each morning, and before and after meals. Keep daily diary of glucose readings to take to follow up appointments. If fasting glucose > 200, increase insulin by 2 units, every ~2 days Follow up with PCP for further management. Medications: Bactrim Augmentin 70/30 Insulin - 10 units twice daily ok to continue metformin iron - 1 tab daily, over the counter Follow up: PCP 3-[address] Fletcher in 1-2 weeks Please call to schedule / confirm appointments Physical Exam: GEN: Alert, NAD Pulm: Nonlabored respirations on room air ABD: soft, nontender, nondistended Integumentary: dressing in place Vital Signs/Physical Exam: Temp Pulse Resp BP Pulse Ox 98.1 F 86 18 196/94 H 98 11/15/24 08:00 11/15/24 08:00 11/15/24 08:38 11/15/24 08:00 11/15/24 08:38 Laboratory Data at Discharge: WBC 5.00 thou/uL (4.3-10.9) 11/15/24 03:53 Hgb 8.4 g/dL (12.0-15.0) L 11/15/24 09:01 Hct 24.7 % (36.0-45.0) L 11/15/24 09:01 Plt Count 414 thou/uL (152-406) H 11/15/24 03:53 PT 12.1 SECONDS (9.4-12.5) 11/11/24 18:48 INR 1.15 11/11/24 18:48 APTT 33.7 SECONDS (24.3-36.9) 11/11/24 18:48 Sodium 139 mEq/L (136-145) 11/15/24 03:53 Potassium 4.3 mEq/L (3.5-5.1) 11/15/24 03:53 BUN 15 mg/dL (7-18) 11/15/24 03:53 Creatinine 0.91 mg/dL (0.55-1.02) 11/15/24 03:53 Glucose 318 mg/dL (74-106) H 11/15/24 03:53 Phosphorus 3.3 mg/dL (2.5-4.9) 11/13/24 06:35 Magnesium 1.7 mg/dL (1.6-2.4) 11/15/24 03:53 Total Bilirubin < 0.2 mg/dL (0.2-1.0) L 11/12/24 04:15 AST 14 U/L (15-37) L 11/12/24 04:15 ALT < 14 U/L (13-56) 11/12/24 04:15 Alkaline Phosphatase 131 U/L (45-117) H 11/12/24 04:15 Home Medications: lisinopriL [Lisinopril] 20 mg PO DAILY 30 Days #30 tab 09/27/24 Gabapentin [Neurontin*] 100 mg PO TID 11/12/24 Metformin HCl 1,000 mg PO BID 11/12/24 Amox/Clavulanate [Augmentin 875-125 Tab*] 1 tab PO BIDWM 4 Days #8 tab 11/15/24 Hydrocodone 5/APAP 325 [[place] 5/325*] 1 tab PO Q8H PRN #15 tab 11/15/24 Insulin 70/30 NPH/Reg Human [Novolin 70/30*] 10 unit SQ BIDAC 30 Days #10 ml 11/15/24 Smz./Tmp. [Bactrim Ds 800 MG/160 MG*] 1 tab PO BID 4 Days #8 tab 11/15/24 New Medications: Amox/Clavulanate [Augmentin 875-125 Tab*] 1 tab PO BIDWM 4 Days #8 tab Smz./Tmp. [Bactrim Ds 800 MG/160 MG*] 1 tab PO BID 4 Days #8 tab Hydrocodone 5/APAP 325 [[place] 5/325*] 1 tab PO Q8H PRN #15 tab PRN Reason: Pain Scale 5-7 (Moderate) Insulin 70/30 NPH/Reg Human [Novolin 70/30*] 10 unit SQ BIDAC 30 Days #10 ml Physician Discharge Instructions: Physicain discharge instructions: Patient presented with moderate sized buttocks wound that has been worsening for ~5 days secondary to left perianial abscess. CT abdomen noted left gluteal soft tissues swelling, without appreciable circumscribed fluid collections. Patient was evaluated by Dr. Fletcher, general surgeon and underwent I&D of complex perianal abscess (5x3x2 cm) on 11/12. She received empiric rocephin, flagyl, and vancomycin while hospitalized and had improvement of her symptoms. Wound culture ended up growing MRSA only susceptible to Bactrim/Vanc/Tetracycline. Urine culture grew E. coli, resistant to bactrim/unasyn. Patient is to complete 4 more days of Bactrim in addition to oral Augmentin to also cover urine for total of 1 week antibiotic treatment. Patient was feeling better, pain improving, afebrile without leukocytosis, and was deemed stable for discharge. Follow up with Dr. Fletcher in 1 week in office for further management, continued wound care. Continue local wound care per Dr. Fletcher's instructiong with 1/4" iodoform packing daily Her hemoglobin was noted to drop to 6.8 during her hospitalization requiring 1 blood transfusion. Patients hgb improved to 8s post transfusion and has remained stable since then. Suspect multifactorial etiology secondary to severe iron deficiency combined w ith starting her menstrual cycle. Iron studies were consistent with severe iron deficiency anemia (iron 14, tsat% 7.2). She also received 2 bags of IV iron while hospitalized and advised patient to co ntinue oral iron supplementation on discharge. Previously, iron supplements lead to GI side effects. Recommended trying every other day or however often she can take iron with minimal side effect. Repeat iron studies in ~3 months. Repeat blood work in ~1 week to monitor CBC/Hgb. A1c this hospitalization: 12.9. Discussed with patient she would benefit from insulin to better help control her blood sugars. Patient agreeable to try 70/30 insulin. Check glucose levels around the same time each morning, and before and after meals. Keep daily diary of glucose readings to take to follow up appointments. If fasting glucose > 200, increase insulin by 2 units, every ~2 days Follow up with PCP for further management. Medications: Bactrim Augmentin 70/30 Insulin - 10 units twice daily ok to continue metformin iron - 1 tab daily, over the counter Follow up: PCP 3-[address] Fletcher in 1-2 weeks Please call to schedule / confirm appointments Followup: Mushtaq Fletcher MD [ACTIVE - CAN ADMIT] - 1-2 Weeks CJ COVINGTON [Primary Care Provider] - 1 Week Time spent managing pt's care (in minutes): 45
[2024-11-15 14:02] VITALS: BP 125/65; TEMP 98
[2024-11-15] MEDS ORDERED: AMOX/K CLAV 875 MG TAB PO SCH (17:00)
[2024-11-15] MEDS ORDERED: SMZ./TMP. 800/160 MG TABLET PO SCH (21:00)
[2024-11-15] MEDS ORDERED: VANCOMYCIN 1.25 GM in NA CHLORIDE 0.9% 250 ML IVPB SCH (21:00)
== END 2024-11-15 15:12 | disposition home or self-care (01) | DRG 580 ==
LOC: ER 17:48 → ERHOLD 23:11 → 4TH 11-12 12:10
PROVIDERS: ADMIT Family Medicine; ATTEND Hospitalist
PROC: 0Y910ZZ Drainage of Left Buttock, Open Approach (ICD-10-PCS; 2024-11-12)
PROC: 0D9Q0ZZ Drainage of Anus, Open Approach (ICD-10-PCS; principal; 2024-11-12 09:30)
PROC: 30233N1 Transfusion of Nonautologous Red Blood Cells into Peripheral Vein, Percutaneous Approach (ICD-10-PCS; 2024-11-13)
DX: L02.31 Cutaneous abscess of buttock (principal); K61.0 Anal abscess; N39.0 Urinary tract infection, site not specified; Z16.29 Resistance to other single specified antibiotic; L03.317 Cellulitis of buttock; E78.5 Hyperlipidemia, unspecified; I10 Essential (primary) hypertension; D63.8 Anemia in other chronic diseases classified elsewhere; J06.9 Acute upper respiratory infection, unspecified; D50.9 Iron deficiency anemia, unspecified; F31.9 Bipolar disorder, unspecified; E11.65 Type 2 diabetes mellitus with hyperglycemia; J45.909 Unspecified asthma, uncomplicated; F17.210 Nicotine dependence, cigarettes, uncomplicated; B96.20 Unspecified Escherichia coli [E. coli] as the cause of diseases classified elsewhere; B95.62 Methicillin resistant Staphylococcus aureus infection as the cause of diseases classified elsewhere; T38.3X6A Underdosing of insulin and oral hypoglycemic [antidiabetic] drugs, initial encounter; Z79.4 Long term (current) use of insulin; Z79.84 Long term (current) use of oral hypoglycemic drugs; Z79.899 Other long term (current) drug therapy; Z91.148 Patient's other noncompliance with medication regimen for other reason
CPT/HCPCS: 36415; 72193; 80048; 80053; 80202; 81001; 82728; 82947; 83036; 83540; 83605; 83735; 84100; 84466; 85014; 85018; 85025; 85027; 85610; 85730; 86850; 86900; 86901; 86920; 87040; 87070; 87075; 87077; 87086; 87088; 87186; 87205; 88304; 94010; 96365; 96375; 99285; J0696; J1171; J1650; J1815; J2003; J2250; J2270; J2405; J2704; J2916; J3010; J3475; J7030; J7040; J7050; P9016

== ENCOUNTER 2025-01-19 18:10 | Inpatient (IN) | payer OTHER, SELFPAY ==
--- OUTSIDE RECORDS SUMMARY | 2025-01-19 18:15 | XMS REPORT | Continuity of Care Document ---
Author Name Unknown Address [address] [place] [address] Organization [facility] Address [address] [place] [address] Care Team Providers Care Shank Threader Name Role Phone Sera Weems Primary Care Physician [phone] Suki Mabry NP Attending Clinician [phone] Laura Reyes DO Attending Clinician [phone] LAURA REYES Attending Clinician Unavailable Doctor Unassigned, [place] Attending Clinician U navailable Laura Reyes DO Admitting Clinician [phone] LAURA REYES Admitting Clinician Unavailable Payers Payer Name Policy Type Policy Number Effective Date Expirati on Date Source [employer] [id number] 2023 00:00:00 Problems Condition Name Condition Details Condition Category Status Onset Date Resolution Date Last Treatment Date Treating Clinician Comments Source Sepsis Sepsis Disease Active 01-10 00:00: 00 [facility] Obesity (BMI 30-39.9) Obesity (BMI 30-39.9) Disease Active 01-10 00:00: 00 [facility] No known active problems No known active problems Disease [facility] Allergies, Adverse Reactions, Alerts Allergy Name Allergy Type Status Severity Reaction(s) Onset Date Inactive Date Treating Clinician Comments Source NO KNOWN ALLERGIE S Drug Class Active [facility] Social History Social Habit Start Date Stop Date Quantity Comments Source History of tobacco use Cigarette Smoker [facility] History of Social function 2024-01-12 00:00:00 2024-01-12 00:00:00 [facility] Tobacco use and exposure 2024-01-11 00:00:00 2024-01-11 00:00:00 Smokeless tobacco non-user [facility] Sex Assigned At 1980 00:00:00 1980 00:00:00 [facility] Smoking Status Start Date Stop Date Source Unknown if ever smoked [facility] Smokes tobacco daily 2024-01-11 00:00:00 [facility] Medications Ordered Medication Name Filled Medication Name Start Date Stop Date Current Medication? Ordering Clinician Indication Dosage Frequency Signature (SIG) Comments Components Source Tresiba FlexTouch U-200 insulin 200 unit/mL (3 mL) subcutaneou s pen - 00:00: 00 Yes (3 mL) Silvestre Raygoza ibuprofen 800 mg tablet - 00:00: 00 Yes 1mg Silvestre Raygoza gabapentin 300 mg capsule 2023-10- 00:00: 00 Yes mg Silvestre Raygoza lisinopril 20 mg tablet 2023-10- 00:00: 00 Yes 1mg Silvestre Raygoza pioglitazon e 45 mg tablet 2023-10- 00:00: 00 Yes 1mg Silvestre Raygoza rosuvastati n 10 mg tablet 2023-10- 00:00: 00 Yes 1mg Silvestre Raygoza gabapentin 300 mg capsule 2023-10- 00:00: 00 Yes mg Silvestre Raygoza lisinopril 20 mg tablet 2023-10- 00:00: 00 Yes 1mg Silvestre Raygoza pioglitazon e 45 mg tablet 2023-10- 00:00: 00 Yes 1mg Silvestre Raygoza rosuvastati n 10 mg tablet 2023-10- 00:00: 00 Yes 1mg Silvestre Raygoza metformin ER 1,000 mg tablet,exte nded release 24hr (osmotic) 2023-10- 00:00: 00 Yes 2mg Silvestre Raygoza insulin NPH (HUMULIN N) injection 15 Units 01-16 02:00: 00 Yes 15U 15 Units, Subcutaneo us, QAM+HS, First dose on Mon01/16/24 at 2100, Until Discontinu ed, Routine [facility] metFORMIN (GLUCOPHAGE ) tablet 1,000 mg 01-15 22:00: 00 Yes 1000mg 1,000 mg, Oral, BID MEALS, First dose on Mon01/16/24 at 1700, Until Discontinu ed, Routine [facility] ferrous sulfate 325 mg (65 mg iron) tablet 01-15 13:15: 48 Yes 325mg Take 1 tablet by mouth in the morning and 1 tablet at noon and 1 tablet in the evening. Take with meals. [facility] lisinopriL 20 mg tablet 01-15 13:15: 48 Yes 20mg Take 1 tablet by mouth in the morning. [facility] albuterol 90 mcg/actuati on inhaler 01-15 13:15: 48 Yes 2{puff} Inhale 2 Puffs every 6 (six) hours as needed for Wheezing or Shortness of Breath. [facility] insulin glarginebharatrec.anlog (INSULIN GLARGINE SC) 01-15 09:37: 37 01-15 00:00 :00 No 40U inject 40 Units under the skin in the morning and 40 Units in the evening. [facility] diphenhydrA MINE (BENADRYL) tablet 25 mg 01-15 02:44: 02 Yes 25mg 25 mg, Oral, Q6HPRN, Starting on Mon01/15/24 at 2144, Until Discontinu ed, Routine, Itching [facility] metformin 1,000 mg tablet 01-15 00:00: 00 Yes mg Silvestre Raygoza carvediloL 6.25 mg tablet 01-15 00:00: 00 02-15 04:59 :00 No [id number] 6.25mg Take 1 tablet by mouth in the morning and 1 tablet in the evening. Take with meals. Do all this for 30 days. [facility] metFORMIN 1,000 mg tablet 01-15 00:00: 00 02-15 04:59 :00 No [id number] 1000mg Take 1 tablet by mouth in the morning and 1 tablet in the evening. Take with meals. Do all this for 30 days. [facility] insulin NPH 100 unit/mL injection 01-15 00:00: 00 02-15 04:59 :00 No [id number] 15U inject 15 Units under the skin every morning and at bedtime for 30 days. [facility] cefUROXime 500 mg tablet 01-15 00:00: 00 01-24 04:59 :00 No [id number] 500mg Take 1 tablet by mouth in the morning and 1 tablet in the evening. Do all this for 8 days. [facility] polyethylen e glycol 3350 powder 17 g 01-14 16:15: 00 Yes 17g 17 g, Oral, DAILY, First dose on Mon01/15/24 at 1115, Until Discontinu ed, Routine [facility] sodium bicarbonate (ANTACID (SODIUM BICARBONATE )) tablet 650 mg 01-14 13:30: 00 Yes 650mg 650 mg, Oral, QID, First dose on Mon01/15/24 at 0830, Until Discontinu ed, Routine [facility] diphenhydrA MINE (BENADRYL) injection 25 mg 01-14 06:45: 00 01-14 06:18 :00 No 25mg 25 mg, Slow IV Push, ONCE, 1 dose, On Mon01/15/24 at 0145, Routine [facility] fluticasone propionate 50 mcg/actuati on nasal spray 2 [place] 01-14 06:00: 00 Yes 2{spray } [address] [place], Nasal, DAILY, First dose on Mon01/15/24 at 0100, Until Discontinu ed, Routine [facility] albuterol (VENTOLIN) inhaler 2 Puff 01-14 01:34: 59 Yes 2{puff} 2 Puff, Inhalation , Q6HPRN, Starting on Mon01/14/24 at 203, Until Discontinu ed, Routine, Wheezing, Bronchospa sm, Chest tightness, Shortness of Breath [facility] insulin glargine (LANTUS U-100) injection 30 Units 01-14 01:00: 00 Yes 30U 30 Units, Subcutaneo us, BID, First dose (after last modificati on) on Mon01/14/24 at 2000, Until Discontinu ed [facility] acetaminoph en-codeine (TYLENOL #3) 300-30 mg tablet 1 tablet 01-13 23:33: 10 Yes 1{tbl} 1 tablet, Oral, Q4HPRN, Starting on Mon01/14/24 at 1833, Until Discontinu ed, Routine, Pain (scale 7-10) [facility] levalbutero l (XOPENEX) nebulizer solution 1.25 mg 01-13 17:00: 00 Yes 1.25mg 1.25 mg, Inhalation , QID, First dose on Mon01/14/24 at 1200, Until Discontinu ed, Routine [facility] NIFEdipine (ADALAT) capsule 10 mg 01-13 13:45: 00 01-14 18:55 :59 No 10mg 10 mg, Oral, TID, First dose on Mon01/14/24 at 0845, Until Discontinu ed, Routine [facility] carvediloL (COREG) tablet 6.25 mg 01-13 13:00: 00 Yes 6.25mg 6.25 mg, Oral, BID MEALS, First dose on Mon01/14/24 at 0800, Until Discontinu ed, Routine [facility] labetaloL (NORMODYNE) injection 20 mg 01-13 01:15: 00 01-13 00:31 :00 No 20mg 20 mg, Slow IV Push, ONCE, 1 dose, On 01/13/24 at 2015, Routine [facility] cefTRIAXone (ROCEPHIN) 2,000 mg in NaCl [...]
Durat ion of therapy: 5 days [facility] enoxaparin (LOVENOX) injection 40 mg 01-11 14:00: 00 Yes 40mg 40 mg, Subcutaneo us, DAILY, First dose on Mon01/12/24 at 0900, Until Discontinu ed, Routine [facility] lisinopriL (PRINIVIL,Z ESTRIL) tablet 20 mg 01-11 14:00: 00 Yes 20mg 20 mg, Oral, DAILY, First dose on Mon01/12/24 at 0900, Until Discontinu ed, [facility] f[facility] 325 mg 01-11 13:00: 00 Yes 325mg 325 mg, Oral, TID MEALS, First dose on Mon01/12/24 at 0800, Until Discontinu ed, Routine [facility] ipratropium -albuteroL (DUONEB) 0.5 mg-3 mg(2.5 mg base)/3 mL nebulizer solution 3 mL 01-11 01:00: 00 01-13 15:58 :44 No 3mL 3 mL, Inhalation , QID, First dose on Mon01/11/24 at 2000, Until Discontinu ed, Routine [facility] insulin glargine (LANTUS U-100) injection 25 Units 01-11 01:00: 00 01-13 16:01 :37 No 25U 25 Units, Subcutaneo us, BID, First dose on Mon01/11/24 at 1999, Until Discontinu ed [facility] NaCl 0.9% (NS) IV infusion 1,000 mL 01-11 00:45: 00 01-12 15:37 :01 No 1000mL at 75 mL/hr, IV Infusion, CONTINUOUS , Starting on Mirtha 01/11/24 at 1945, Until 01/13/24 at 1037, Routine [facility] codeine-gua ifenesin (ROBITUSSIN AC) 10-100 mg/5 mL oral solution 5 mL 01-11 00:30: 00 01-11 01:43 :00 No 5mL 5 mL, Oral, ONCE, 1 dose, On Mirtha 01/11/24 at 1930, [facility] ibup[facility] ([facility] tablet 400 mg 01-11 00:01: 03 Yes 400mg 400 mg, Oral, Q6HPRN, Starting on Mirtha 01/11/24 at 1901, Until Discontinu ed, Routine, Temp > 38.5 C [facility] LORazepam (ATIVAN) tablet 1 mg 01-10 23:43: 33 Yes 1mg 1 mg, Oral, TIDPRN, Starting on Mirtha 01/11/24 at 1843, Until Discontinu ed, Routine, Anxiety, Agitation [facility] enoxaparin (LOVENOX) injection 40 mg 01-10 22:00: 00 01-10 23:38 :07 No 40mg 40 mg, Subcutaneo us, DAILY, First dose on Mirtha 01/11/24 at 1700, Until Discontinu ed, Routine [facility] labetaloL (NORMODYNE) injection 20 mg 01-10 18:45: 00 01-10 17:56 :00 No 20mg 20 mg, Slow IV Push, ONCE, 1 dose, On Mirtha 01/11/24 at 1345, Routine [facility] doxycycline hyclate 100 mg capsule 01-10 18:30: 14 01-10 00:00 :00 No 100mg Take 1 capsule by mouth every 12 (twelve) hours. [facility] azithromyci n (ZITHROMAX) 500 mg in NaCl 0.9% (NS) 250 mL VIAL-MATE IV piggyback 01-10 17:45: 00 01-12 20:21 :00 No 500mg 500 mg, IV Piggyback, Q24H ABX, 3 doses, First dose on Mirtha 01/11/24 at 1245, Last dose on 01/13/24 at 1245, Administer over 60 Minutes, 250 mL
Reas on for Anti-Infec tive: Empiric Therapy for Suspected Infection< br>Empiric Therapy Site: Respirator y
Durat ion of therapy: 72 hours [facility] HYDROcodone -acetaminop hen (NORCO) 10-325 mg tablet 1 tablet 01-10 17:15: 00 01-10 16:35 :00 No 1{tbl} 1 tablet, Oral, ONCE, 1 dose, On Mirtha 01/11/24 at 1215, Routine [facility] Sliding Scale Insulin - Lispro (HumaLOG) 01-10 17:00: 00 Yes Subcutaneo us, TID MEALS+HS, First dose on Mon01/11/24 at 1200, Until Discontinu ed, Routine [facility] glucagon (GLUCAGEN DIAGNOSTIC KIT) injection 1 mg 01-10 16:38: 56 Yes 1mg 1 mg, Intramuscu lar, PRN, Starting on Mirtha 01/11/24 at 1138, Until Discontinu ed, BRAD, Blood Glucose < or = 70 mg/dL and patient is NPO, unable to swallow or has mental changes. [facility] dextrose 50 % in water (D50W) injection 25 mL 01-10 16:38: 56 Yes 25mL 25 mL, Slow IV Push, PRN, Starting on Mirtha 01/11/24 at 1138, Until Discontinu ed, BRAD, Blood Glucose < or = 70 mg/dL and patient is NPO, unable to swallow or has mental status changes. [facility] ondansetron (ZOFRAN (PF)) injection 4 mg 01-10 16:38: 49 Yes 4mg 4 mg, Slow IV Push, Q6HPRN, Starting on Mon01/11/24 at 1138, Until Discontinu ed, Routine, Nausea and Vomiting (N/V) [facility] acetaminoph en-codeine (TYLENOL #3) 300-30 mg tablet 1 tablet 01-10 16:38: 43 01-12 16:37 :43 No 1{tbl} 1 tablet, Oral, Q6HPRN, Starting on Mirtha 01/11/24 at 1138, Until 01/13/24 at 1137, Routine, Pain (scale 4-6) [facility] acetaminoph en (TYLENOL) tablet 650 mg 01-10 16:38: 25 Yes 650mg 650 mg, Oral, Q6HPRN, Starting on Mon01/11/24 at 1138, Until Discontinu ed, Routine, Pain (scale 1-3), Temp > 38 C [facility] NaCl 0.9% (NS) IV infusion 1,400 mL 01-10 16:30: 00 01-10 15:25 :00 No 1400mL at 999 mL/hr, Intravenou s, ONCE, 1 dose, On Mon01/11/24 at 1130, Routine [facility] insulin regular human (HUMULIN R) injection 6 Units 01-10 16:15: 00 01-10 15:57 :00 No 6U 6 Units, Subcutaneo us, ONCE, 1 dose, On Mon01/11/24 at 1115, Routine
Indicatio n for insulin: Hyperglyce bryan [facility] iopamidol (ISOVUE 370-500 mL) injection 85 mL 01-10 15:38: 00 01-10 15:45 :00 No [id number] 85mL 85 mL, Intravenou s, ONCE, 1 dose, On Mon01/11/24 at 1045, Routine [facility] cefTRIAXone (ROCEPHIN) 1,000 mg in NaCl 0.9% (NS) 100 mL MINI-BAG 01-10 15:30: 00 01-10 16:37 :00 No 1000mg 1,000 mg, IV Piggyback, ONCE, 1 dose, On Mirtha 01/11/24 at 1030, Administer over 30 Minutes, 100 mL
Reas on for Anti-Infec tive: Documented Infection< br>Documen stacey Infection Site: Urine
D uration of Therapy: Once (ED) [facility] ketorolac (TORADOL) injection 30 mg 01-10 15:00: 00 01-10 14:14 :00 No 30mg 30 mg, Slow IV Push, ONCE, 1 dose, On Mirtha 01/11/24 at 1000, Routine [facility] acetaminoph en (OFIRMEV) IV piggyback 1,000 mg 01-10 14:45: 00 01-10 14:52 :00 No 1000mg 1,000 mg, IV Piggyback, at 400 mL/hr Administer over 15 Minutes, ONCE, 1 dose, On Mirtha 01/11/24 at 0945, Routine
Is the patient strict NPO and unable to tolerate oral medication s? Yes [facility] NaCl 0.9% (NS) bolus infusion 1,000 mL 01-10 14:45: 00 01-10 15:57 :00 No 1000mL at 999 mL/hr, 1,000 mL, IV Infusion, ONCE, 1 dose, On Mirtha 01/11/24 at 0945, BRAD [facility] azithromyci n 250 mg tablet 12-25 00:00: 00 01-10 00:00 :00 No [id number] 250mg Take 1 tablet by mouth SEE-INSTRU CTIONS. Take 500 mg day 1, then 250 mg days 2 to 5. [facility] Dose Unknown 02-20 00:00: 00 Yes Silvestre Margot Jaret lovastatin 20 mg tablet 02-20 00:00: 00 Yes 1mg Silvestre Margot Jaret Dose Unknown 02-08 00:00: 00 Yes Silvestre Margot Jaret Levemir U-100 Insulin 100 unit/mL subcutaneou s solution 02-08 00:00: 00 Yes unit/mL Silvestre Raygoza Dose Unknown 2018-0 2-15 00:00: 00 Yes Silvestre Raygoza lovastatin 20 mg tablet 12-09 00:00: 00 Yes 1mg Silvestre Raygoza Levemir U-100 Insulin 100 unit/mL subcutaneou s solution 11-28 00:00: 00 Yes unit/mL Silvestre Raygoza Dose Unknown 11-28 00:00: 00 Yes Silvestre Raygoza lisinopril 20 mg tablet 11-28 00:00: 00 Yes 1mg Silvestre Raygoza Levemir 100 unit/mL subcutaneou s solution 2016-10 00:00: 00 Yes unit/mL Silvestre Raygoza Novolin [...] ource Respiratory rate 2024-01-16 16:19:00 18 /min [facility] Oxygen saturation in Arterial blood by Pulse oximetry 2024-01-16 16:19:00 100 /min [facility] Systolic blood pressure 2024-01-16 12:19:00 173 mm[Hg] [facility] Diastolic blood pressure 2024-01-16 12:19:00 93 mm[Hg] [facility] Heart rate 2024-01-16 12:19:00 80 /min [facility] Body temperature 2024-01-16 12:19:00 36.5 Sarah [facility] Body weight 2024-01-16 08:12:00 82.918 kg [facility] BMI 2024-01-16 08:12:00 32.38 kg/m2 [facility] Body height 2024-01-11 18:05:00 160 cm [facility] BP Systolic 2024-11-21 17:45:00 199 mm[Hg] Step hen F Jaret BP Diastolic 2024-11-21 17:45:00 110 mm[Hg] Arnoldo phen F Jaret Weight Measured 2024-11-21 17:45:00 168.00 pounds Silvestre F Jaret Height Measured 2024-11-21 17:45:00 65.50 inches Silvestre F Jaret Body Temperature 2024-11-21 17:45:00 98.00 degrees Silvestre F Jaret Heart Rate 2024-11-21 17:45:00 87.00 /min Kylie en F Jaret Respiratory Rate 2024-11-21 17:45:00 18.00 /min Silvestre F Jaret Heart Rate 2024-10-15 14:27:00 101.00 /min Step hen F Jraet Respiratory Rate 2024-10-15 14:27:00 19.00 /min Silvestre F Jaret BP Systolic 2024-10-15 14:27:00 132 mm[Hg] Step hen F Jaret BP Diastolic 2024-10-15 14:27:00 89 mm[Hg] Arnoldo phen F Jaret Weight Measured 2024-10-15 14:27:00 162.00 pounds Silvestre F Jaret Height Measured 2024-10-15 14:27:00 65.50 inches Silvestre F Jaret Body Temperature 2024-10-15 14:27:00 97.10 degrees Silvestre F Jaret BP Systolic 2018-02-08 16:09:00 131 mm[Hg] Step hen F Jaret BP Diastolic 2018-02-08 16:09:00 84 mm[Hg] Arnoldo phen F Jaret Weight Measured 2018-02-08 16:09:00 220.60 pounds Silvestre F Jaret Height Measured 2018-02-08 16:09:00 65.50 inches Silvestre F Jaret Body Temperature 2018-02-08 16:09:00 98.50 degrees Silvestre F Jaret Heart Rate 2018-02-08 16:09:00 95.00 /min Kylie en F Jaret Respiratory Rate 2018-02-08 16:09:00 18.00 /min Silvestre F Jaret BP Systolic 2017-11-28 11:54:00 139 mm[Hg] Step hen F Jaret BP Diastolic 2017-11-28 11:54:00 89 mm[Hg] Arnoldo phen F Jaret Weight Measured 2017-11-28 11:54:00 216.60 pounds Silvestre F Jraet Height Measured 2017-11-28 11:54:00 65.50 inches Silvestre [...] 16:24:00 18.00 /min Silvestre F Jaret BP Systolic 2017-06-06 12:14:00 128 mm[Hg] Step hen F Jaret BP Diastolic 2017-06-06 12:14:00 86 mm[Hg] Arnoldo phen F Jaret Weight Measured 2017-06-06 12:14:00 222.40 pounds Silvestre F Jaret Height Measured 2017-06-06 12:14:00 65.50 inches Silvestre F Jaret Body Temperature 2017-06-06 12:14:00 98.20 degrees Silvestre F Jaret Heart Rate 2017-06-06 12:14:00 86.00 /min Kylie en F Jaret Respiratory Rate 2017-06-06 12:14:00 18.00 /min Silvestre F Jaret BP Systolic 2017-03-30 14:56:00 130 [...] Body Temperature 2017-02-21 16:04:00 98.10 degrees Silvestre F Jaret Heart Rate 2017-02-21 16:04:00 83.00 /min Kylie en F Jaret Respiratory Rate 2017-02-21 16:04:00 16.00 /min Silvestre [...] POCT GLUCOSE (AUTOMATED) 2024-01-16 12:50:00 Oneida Reyes [facility] POCT GLUCOSE (AUTOMATED) 2024-01-16 10:47:00 Oneida Reyes [facility] BASIC METABOLIC PANEL (NA, K, CL, CO2, GLUCOSE, BUN, CREATININE, CA) 2024-01-16 09:33:00 Laura Reyes [facility] CBC WITH DIFF 2024-01-16 09:33:00 Laura Reyes [facility] POCT GLUCOSE (AUTOMATED) 2024-01-16 02:03:00 Oneida Reyes [facility] POCT GLUCOSE (AUTOMATED) 2024-01-15 21:32:00 Oneida Reyes [facility] POCT GLUCOSE (AUTOMATED) 2024-01-15 16:38:00 Oneida Reyes [facility] CBC WITH DIFF 2024-01-15 15:54:00 Laura Reyes [facility] POCT GLUCOSE (AUTOMATED) 2024-01-15 12:55:00 Oneida Reyes [facility] MAGNESIUM 2024-01-15 10:05:00 Laura Reyes [facility] BASIC METABOLIC PANEL (NA, K, CL, CO2, GLUCOSE, BUN, CREATININE, CA) 2024-01-15 10:05:00 Laura Reyes [facility] CBC WITH DIFF 2024-01-15 10:05:00 Laura Reyes [facility] POCT GLUCOSE (AUTOMATED) 2024-01-15 00:58:00 Oneida Reyes [facility] POCT GLUCOSE (AUTOMATED) 2024-01-14 21:34:00 Oneida Reyes [facility] US ABDOMEN LIMITED 2024-01-14 17:48:51 Laura Reyes [facility] US RETROPERITONEAL LIMITED 2024-01-14 17:45:00 Laura Reyes [facility] POCT GLUCOSE (AUTOMATED) 2024-01-14 16:31:00 Oneida Reyes [facility] POCT GLUCOSE (AUTOMATED) 2024-01-14 12:35:00 Oneida Reyes [facility] MAGNESIUM 2024-01-14 09:39:00 Laura Reyes [facility] IRON 2024-01-14 09:39:00 Laura Reyes [facility] BASIC METABOLIC PANEL (NA, K, CL, CO2, GLUCOSE, BUN, CREATININE, CA) 2024-01-14 09:39:00 Laura Reyes [facility] CBC WITH DIFF 2024-01-14 09:39:00 Laura Reyes [facility] POCT GLUCOSE (AUTOMATED) 2024-01-14 01:40:00 Oneida Reyes [facility] POCT GLUCOSE (AUTOMATED) 2024-01-13 21:29:00 Oneida Reyes [facility] POCT GLUCOSE (AUTOMATED) 2024-01-13 16:30:00 Oneida Reyes [facility] BLOOD CULTURE SCREEN 2024-01-13 16:18:00 Laura Reyes [facility] POCT GLUCOSE (AUTOMATED) 2024-01-13 12:36:00 Oneida Reyes [facility] MAGNESIUM 2024-01-13 08:17:00 Cayetano Squires [facility] BASIC METABOLIC PANEL (NA, K, CL, CO2, GLUCOSE, BUN, CREATININE, CA) 2024-01-13 08:17:00 Cayetano Squires [facility] CBC WITH DIFF 2024-01-13 08:17:00 [facility] 2024-01-13 06:26:00 Oneida Reyes [facility] POCT GLUCOSE (AUTOMATED) 2024-01-13 01:37:00 [facility] POTASSIUM SERUM 2024-01-13 01:11:00 Cayetano Squires [facility] POCT GLUCOSE (AUTOMATED) 2024-01-12 21:21:00 Oneida Reyes [facility] POCT GLUCOSE (AUTOMATED) 2024-01-12 16:41:00 [facility] POCT GLUCOSE (AUTOMATED) 2024-01-12 12:39:00 Oneida Reyes [facility] TOTAL IRON BINDING CAPACITY 2024-01-12 02:28:00 Laura Reyes [facility] HEPATITIS B SURFACE ANTIBODY 2024-01-12 02:28:00 Laura Reyes [facility] HEPATITIS B SURFACE ANTIGEN 2024-01-12 02:28:00 Laura Reyes [facility] HCV ANTIBODY 2024-01-12 02:28:00 Laura Reyes [facility] HBC ANTIBODY (IGM & IGG) 2024-01-12 02:28:00 [facility] POCT GLUCOSE (AUTOMATED) 2024-01-12 01:07:00 [facility] POCT GLUCOSE (AUTOMATED) 2024-01-11 22:33:00 [facility] LEGIONELLA AND STREPTOCOCCUS PNEUMONIAE URINARY ANTIGENS 2024-01-11 19:36:00 Laura Reyes [facility] PROCALCITONIN 2024-01-11 18:25:00 Laura Reyes [facility] POCT GLUCOSE (AUTOMATED) 2024-01-11 17:23:00 Oneida Reyes [facility] POCT GLUCOSE (AUTOMATED) 2024-01-11 15:57:00 Norma Mabry [facility] CT CHEST PULMONARY ANGIOGRAM 2024-01-11 15:43:21 Suki Mabry [facility] CT ABDOMEN PELVIS W CONTRAST 2024-01-11 15:43:21 Suki Mabry [facility] URINE CULTURE 2024-01-11 15:29:00 Suki Mabry [facility] AC ABG + LACTIC ACID 2024-01-11 14:31:00 Janette Mabry [facility] XR CHEST 1 VW 2024-01-11 14:19:14 Suki Mabry [facility] HB ABO GROUPING 2024-01-11 14:18:00 [facility] RHYTHM STRIP 2024-01-11 14:13:01 Suki Mabry [facility] N-TERMINAL PRO-BNP 2024-01-11 14:05:00 Suki Mabry [facility] COVID-19 (ID NOW RAPID TESTING) 2024-01-11 14:05:00 Suki Mabry [facility] LAB ONLY COVID INTERPRETATION 2024-01-11 14:05:00 Suki Mabry [facility] BLOOD CULTURE SCREEN 2024-01-11 14:05:00 Janette Mabry [facility] MAGNESIUM 2024-01-11 14:05:00 Suki Mabry [facility] C-REACTIVE PROTEIN 2024-01-11 14:05:00 Suki Mabry [facility] TROPONIN I 2024-01-11 14:05:00 Suki Mabry [facility] COMP. METABOLIC PANEL ([id number]) 2024-01-11 14:05:00 Suki Mabry [facility] IRON PANEL 2024-01-11 14:05:00 Suki Mabry [facility] CBC WITH DIFF 2024-01-11 14:05:00 Suki Mabry [facility] GLYCOSYLATED HEMOGLOBIN (A1C) 2024-01-11 14:05:00 Suki Mabry [facility] PROTHROMBIN TIME / INR 2024-01-11 14:05:00 [place] Mabry ala [facility] D-DIMER 2024-01-11 14:05:00 Suki Mabry [facility] ACTIVATED PARTIAL THRMPLAS LEOBARDO 2024-01-11 14:05:00 Suki Mabry [facility] URINALYSIS 2024-01-11 14:05:00 Suki Mabry [facility] RAPID INFLUENZA A/B 2024-01-11 14:05:00 Suki Mabry [facility] POCT TEST 2024-01-11 14:05:00 Suki Mabry [facility] BLOOD CULTURE WORKUP 2024-01-11 13:50:00 Janette Mabry [facility] GRAM NEGATIVE BLOOD PATHOGENS DNA PROBE-ANAEROBIC 2024-01-11 13:50:00 Suki Mabry [facility] BLOOD CULTURE SCREEN 2024-01-11 13:50:00 Janette Mabry [facility] CONSENT/REFUSAL FOR DIAGNOSIS AND TREATMENT 2024-01-11 13:18:36 Doctor Unassigned, Gordo [facility] OP CORRESPONDENCE 2019-06-26 05:01:00 Doctor Bette ssigned, Gordo [facility] Encounters Start Date/Time End Date/Time Encounter Type Admission Type Attending [facility] Care Department Encounter ID Source 2024-11-21 17:36:42 2024-11-21 17:36:42 Outpatient SFA SFA [id number] Silvestre Frost Jaret 2024-11-21 00:00:00 2024-11-21 00:00:00 Outpatient Visit SFA [id number] Silvestre Frost Jaret 2024-10-17 09:10:01 2024-10-17 09:10:01 Outpatient SFA SFA [id number] Silvestre Frost Jaret 2024-10-15 14:04:00 2024-10-15 14:04:00 Outpatient SFA SFA [id number] Silvestre Frost Jaret 2024-10-15 00:00:00 2024-10-15 00:00:00 Outpatient Visit SFA [id number] Silvestre Frost Jaret 2024-10-14 10:10:56 2024-10-14 10:10:56 Outpatient SFA SFA [id number] Silvestre Raygoza 2024-01-11 08:37:00 2024-01-16 13:06:00 Hospital Encounter Suki Mabry Laura Reyes [facility] [id number] [facility] 2024-01-11 08:37:00 2024-01-16 13:06:00 Inpatient Sudhir REYES [facility] TAMIE [id number] [facility] 2019-06-26 00:00:00 2019-06-26 00:00:00 Orders Only Doctor Unassigned, Gordo [facility] [id number] [facility] Results Test Description Test Time Test Comments Results Result Co mments Source [facility] GLUCOSE (AUTOMATED)2024-01-16 12:51:40* Test Item Value Reference Range Interpretation Comme nts POCT GLU (test code = 7129116347) 91 mg/dL 70-110 Lab Interpretation (test cod e = 72810-2) Normal [facility] GLUCOSE (AUTOMATED)2024-01-16 10:48:21* Test Item Value Reference Range Interpretation Comme nts POCT GLU (test code = 6795301383) 81 mg/dL 70-110 Lab Interpretation (test cod e = 10295-3) Normal [facility] GLUCOSE (AUTOMATED)2024-01-16 02:05:11* Test Item Value Reference Range Interpretation Comme nts POCT GLU (test code = 5145518924) 108 mg/dL 70-110 Lab Interpretation (test cod e = 91981-0) Normal [facility] GLUCOSE (AUTOMATED)2024-01-15 21:33:26* Test Item Value Reference Range Interpretation Comme nts POCT GLU (test code = 5911766432) 114 mg/dL 70-110 H Lab Interpretation (test cod e = 72772-4) Abnormal [facility] GLUCOSE (AUTOMATED)2024-01-15 16:40:25* Test Item Value Reference Range Interpretation Comme nts POCT GLU (test code = 5917020214) 132 mg/dL 70-110 H Lab Interpretation (test cod e = 96822-3) Abnormal [facility] GLUCOSE (AUTOMATED)2024-01-15 12:56:15* Test Item Value Reference Range Interpretation Comme nts POCT GLU (test code = 8038112638) 124 mg/dL 70-110 H Lab Interpretation (test cod e = 94469-6) Abnormal [facility] ABDOMEN [id number] 10:03:41Ordering physician: LAURA REYES Indication: Right upper [...] common bile duct is nondilated at 2 mm.[facility] GLUCOSE (AUTOMATED) 2024-01-15 00:59:44* Test Item Value Reference Range Interpretation Comme nts POCT GLU (test code = 1477360640) 130 mg/dL 70-110 H Lab Interpretation (test cod e = 59322-0) Abnormal [facility] GLUCOSE (AUTOMATED)2024-01-14 21:45:36* Test Item Value Reference Range Interpretation Comme nts POCT GLU (test code = 4889771380) 124 mg/dL 70-110 H Lab Interpretation (test cod e = 62103-8) Abnormal [facility] RETROPERITONEAL [id number] 18:04:32 ULTRASOUND RETROPERITONEAL LIMITED Ordering physician: . [...] cc. Aorta and IVC were not well visualized.[facility] [employer] [id number] 16:58:46* Test Item Value Reference Range Interpretation Comme nts TIBC (test code = 0373350632) 285 ug/dL 250-410 Lab Interpretation (test cod e = 74158-1) Normal [facility] GLUCOSE (AUTOMATED)2024-01-14 16:33:13* Test Item Value Reference Range Interpretation Comme nts POCT GLU (test code = 3654900251) 120 mg/dL 70-110 H Lab Interpretation (test cod e = 59014-3) Abnormal [facility] GLUCOSE (AUTOMATED)2024-01-14 12:37:58* Test Item Value Reference Range Interpretation Comme nts POCT GLU (test code = 0496922518) 223 mg/dL 70-110 H Lab Interpretation (test cod e = 11854-9) Abnormal [facility] GLUCOSE (AUTOMATED)2024-01-14 01:42:00* Test Item Value Reference Range Interpretation Comme nts POCT GLU (test code = 6351559190) 219 mg/dL 70-110 H Lab Interpretation (test cod e = 73614-6) Abnormal [facility] GLUCOSE (AUTOMATED)2024-01-13 21:35:47* Test Item Value Reference Range Interpretation Comme nts POCT GLU (test code = 6502851885) 232 mg/dL 70-110 H Lab Interpretation (test cod e = 95611-8) Abnormal [facility] GLUCOSE (AUTOMATED)2024-01-13 16:53:17* Test Item Value Reference Range Interpretation Comme nts POCT GLU (test code = 8961567201) 187 mg/dL 70-110 H Lab Interpretation (test cod e = 83037-2) Abnormal [facility] GLUCOSE (AUTOMATED)2024-01-13 12:46:37* Test Item Value Reference Range Interpretation Comme nts POCT GLU (test code = 9004502395) 128 mg/dL 70-110 H Lab Interpretation (test cod e = 21984-9) [facility] - Peripheral # [id number] 12:18:06* Test Item Value Reference Range Interpretation Comme nts Blood Culture-Aerobic (test code = 42350-5) Culture positive. See Blood Culture Workup for additional information. No growth AA Previous preliminary verified result was Culture In Progress on 01/11/2024 at 2340 CDT Blood Culture-Anaerobic (test code = 68697-2) Culture positive. See Blood Culture Workup for additional information. No growth AA Previous preliminary verified result was Culture In Progress on 01/11/2024 at 1301 CDT Lab Interpretation (test code = 79736-6) Abnormal [facility] GLUCOSE (AUTOMATED)2024-01-13 06:27:42* Test Item Value Reference Range Interpretation Comme nts POCT GLU (test code = 5116757818) 202 mg/dL 70-110 H Lab Interpretation (test cod e = 63907-7) Abnormal [facility] GLUCOSE (AUTOMATED)2024-01-13 01:37:55* Test Item Value Reference Range Interpretation Comme nts POCT GLU (test code = 0918569224) 107 mg/dL 70-110 Lab Interpretation (test cod e = 01519-5) Normal [facility] GLUCOSE (AUTOMATED)2024-01-12 21:23:08* Test Item Value Reference Range Interpretation Comme nts POCT GLU (test code = 7973454186) 122 mg/dL 70-110 H Lab Interpretation (test cod e = 86313-6) Abnormal [facility] GLUCOSE (AUTOMATED)2024-01-12 18:05:30* Test Item Value Reference Range Interpretation Comme nts POCT GLU (test code = 6245201154) 125 mg/dL 70-110 H Lab Interpretation (test cod e = 72110-5) [facility]normal [facility]-REACTIVE [id number] 17:21:08* Test Item Value Reference Range Interpretation Comme nts CRP (test code = 6793893816) 7.6 mg/dL <=0.8 H Lab Interpretation (test cod e = 21608-4) [facility]normal [facility] NE[facility]IVE BLOOD PATHOGENS DNA [id number] 13:52:52* Test Item Value Reference Range Interpretation Comme nts Escherichia coli (test code = 53423-5) Positive Negative A ALLIE (test code = ALLIE) See blood culture result for additional information. ?Testing included eight identification and six resistance marker targets. Lab Interpretation (test code = 48089-5) Abnormal [facility] GLUCOSE (AUTOMATED)2024-01-12 12:43:01* Test Item Value Reference Range Interpretation Comme nts POCT GLU (test code = 8015063189) 103 mg/dL 70-110 Lab Interpretation (test cod e = 20999-0) Normal [facility] HospitalHepatitis B Surface [id number] 11:29:09* Test Item Value Reference Range Interpretation Comme nts HBsAB (test code = 6989694180) Positive HBsAb Semi-Quantitative (test code = 0127023088) 34.50 mIU/mL ALLIE (test code = ALLIE) Interpretation: ?Hepatitis B Surface Antibody ? Negative - Patient is considered to be not immune to infection with HBV. ? ? Positive - Anti-HBs detected at greater than or equal to 12 mIU/mL. ?Patient is considered to be immune to infection with HBV. ? [facility] HospitalHbc Antibody (IgM & IgG)2024-01-12 11:29:09* Test Item Value Reference Range Interpretation Comme nts HBC (test code = 7818365311) Negative HBC Semi-Quantitative (test code = 9322248003) 3.52 [facility] HospitalHcv [id number] 11:29:09* Test Item Value Reference Range Interpretation Comme nts HCV Ab (test code = 97369-6) Negative HCV Semi-Quantitative (test code = 10247-0) 0.01 [facility] B Surface [id number] 11:11:10 * Test Item Value Reference Range Interpretation Comme nts HBsAg Semi-Quantitative (niecy t code = 5195-3) 0.07 Negative [facility] GLUCOSE (AUTOMATED)2024-01-12 01:08:24* Test Item Value Reference Range Interpretation Comme nts POCT GLU (test code = 7896416504) 222 mg/dL 70-110 H Lab Interpretation (test cod e = 92498-0) Abnormal [facility] GLUCOSE (AUTOMATED)2024-01-11 22:35:50* Test Item Value Reference Range Interpretation Comme [facility] POCT GLU (test code = 4208213155) 221 mg/dL 70-110 H Lab Interpretation (test cod e = 27496-0) Abnormal [facility] HospitalXR CHE[facility] 1 [id number] 18:58:04EXAM: XR CHEST 1 01/11/2024 9:08 AM HISTORY: 43 years old Female with sob TECHNIQUE: Portable AP view of the chest. COMPARISON: None FINDINGS: Lungs and pleura: The lungs are well-expanded. Unchanged right lower lungopacity, likely represent atelectasis/pleural scarring. No focalconsolidation, pneumothorax, or pleural effusion is seen. Cardiomediastinal: The cardiomediastinal silhouette is normal accountingfor technique. Musculoskeletal: No acute osseous abnormality. [facility])2024-01-11 17:24:44* Test Item Value Reference Range Interpretation Comme [facility] POCT GLU (test code = 5341335976) 257 mg/dL 70-110 H Lab Interpretation (test cod e = 90309-7) Abnormal [facility] HospitalGlycosylated Hemoglobin (A1C)2024-01-11 16:06:17* Test Item Value Reference Range Interpretation Comme [facility] HGB A1C (test code = 4548-4) 9.6 % 4.0-5.7 H ALLIE (test code = ALLIE) Reference RangesNormal: <5.7%Prediabetes: 5.7 - 6.4%Diabetes: > 6.5% Lab Interpretation (test code = 20326-4) Abnormal [facility] CHEST PULMONARY [id number] 15:58:47HISTORY: Rule out P.E.. Positive D-dimer. TECHNIQUE: [...] could be a sign of reactive airway disease.[facility] POCT GLUCOSE (AUTOMATED)2024-01-11 15:58:29* Test Item Value Reference Range Interpretation Comme nts POCT GLU (test code = 7905504088) 275 mg/dL 70-110 H Lab Interpretation (test cod e = 62290-7) Abnormal [facility] HospitalCT ABDOMEN PELVIS W [id number] 15:52:58CT Abdomen and Pelvis with intravenous contrast. [...] Please correlate.2. Hepatosplenomegaly with hepatic steatosis.3. Normal appendix.[facility] HospitalTROPONIN [id number] 15:15:02* Test Item Value Reference Range Interpretation Comme nts TROPONIN I (test code = 9007400695) 0.005 ng/mL <=0.034 ALLIE (test code = [...] of biotin. Lab Interpretation (test code = 36309-0) Normal [facility] [id number] 15:14:06* Test Item Value Reference Range Interpretation Comme nts IRON (test code = 4065749610) 53 ug/dL 50-160 TIBC (test code = 3895323937) 360 ug/dL 250-410 % FE SAT (test code = 2646937521) 15 % 20-50 L Lab Interpretation (test cod e = 46257-0) Abnormal [facility] HospitalN-TERMINAL [id number] 15:12:25* Test Item Value Reference Range Interpretation Comme nts NT-proBNP (test code = 73388-6) 528 pg/mL <=125 H ALLIE (test code = ALLIE) Positive: Heart Failure Likely Lab Interpretation (test code = 44757-7) Abnormal [facility] HospitalD-[id number] 15:09:46* Test Item Value Reference Range Interpretation Comments D-DIMER (test code = 8507608379) 1.42 See_Comment H [Automated message] The system [...] a diagnosis. Lab Interpretation (test code = 64800-9) Abnormal [facility] HospitalPROTHROMBIN TIME / [id number] 15:09:46* Test Item Value Reference Range Interpretation Comme nts PROTIME PATIENT (test code = 5964-2) 10.4 10.1-12.6 INR (test code = 6301-6) 0.9 Normal INR <1.1; Warfarin Therapeutic range 2.0 to 3.0 or 2.5 to 3.5, depending upon the indications. Lab Interpretation (test code = 92856-3) Normal [facility] HospitalACTIVATED PARTIAL THRMPLAS [id number] 15:09:46* Test Item Value Reference Range Interpretation Comme nts APTT Patient (test code = 3173-2) 29 26-36 ALLIE (test code = ALLIE) The [facility] patient population mean normal value for aPTT is 30 seconds. Lab Interpretation (test code = 56794-9) Normal [facility] HospitalCBC WITH [id number] 15:06:43* Test Item Value Reference Range Interpretation Comme nts WBC (test code = 6690-2) 12.92 4.30-11.10 H RBC (test code = 789-8) 4.95 3.93-5.25 HGB (test code = 718-7) 11.1 g/dL 11.6-15.0 L HCT (test code = 4544-3) 36.0 % 35.7-45.2 MCV (test code = 787-2) 72.7 fL 80.6-95.5 L MCH (test code = 785-6) 22.4 pg 25.9-32.8 L MCHC (test code = 786-4) 30.8 g/dL 31.6-35.1 L RDW-SD (test code = 58958-6) 64.6 fL 39.0-49.9 H RDW-CV (test code = 788-0) 25.9 % 12.0-15.5 H PLT (test code = 777-3) 298 166-358 MPV (test code = 84126-1) 10.3 fL 9.5-12.9 IPF % (test code = 8889591648) 6.4 % 1.3-7.7 Platelet count measured by fluorescence method. NRBC/100 WBC (test code = 2183668766) 0.0 0.0-10.0 NRBC x10^3 (test code = 3880562095) See_Comment [Automated [employer]] The system which generated this result transmitted reference range: 10*3/?L. The reference range was not used to interpret this result as normal/abnormal. GRAN MAT (NEUT) % (test code = 770-8) 90.9 % IMM GRAN % (test code = 9683659010) 0.50 % LYMPH % (test code = 736-9) 3.6 % MONO % (test code = 5905-5) 4.1 % EOS % (test code = 713-8) 0.6 % BASO % (test code = 706-2) 0.3 % GRAN MAT x10^3(ANC) (test code = 7529048512) 11.74 10*3/uL 1.88-7.09 H IMM GRAN x10^3 (test code = 5857816533) 0.06 10*3/uL 0.00-0.06 LYMPH x10^3 (test code = 731-0) 0.47 10*3/uL 1.32-3.29 L MONO x10^3 (test code = 742-7) 0.53 10*3/uL 0.33-0.92 EOS x10^3 (test code = 711-2) 0.08 10*3/uL 0.03-0.39 BASO x10^3 (test code = 704-7) 0.04 10*3/uL 0.01-0.07 Lab Interpretation (test code = 89001-4) Abnormal [facility] HospitalMagnesium2024-03-14 15:05:02* Test Item Value Reference Range Interpretation Comme nts MAGNESIUM (test code = 3041316404) 1.9 mg/dL 1.7-2.4 Lab Interpretation (test cod e = 95677-4) Normal [facility] HospitalCOMP. METABOLIC PANEL (58112)2024-01-11 15:04:41* Test Item Value Reference Range Interpretation Comme nts NA (test code = 7663699877) 128 mmol/L 135-145 L K (test code = 9749537842) 4.7 mmol/L 3.5-5.0 CL (test code = 5386934365) 100 mmol/L 98-108 CO2 TOTAL (test code = 4087072202) 19 mmol/L 23-31 L AGAP (test code = 5629070575) 9 2-16 BUN (test code = 4410331616) 17 mg/dL 7-23 GLUCOSE (test code = 3570541725) 311 mg/dL 70-110 H CREATININE (test code = 2160-0) 0.59 mg/dL 0.50-1.04 TOTAL BILI (test code = 1586723492) 0.8 mg/dL 0.1-1.1 CALCIUM (test code = 9590783657) 8.8 mg/dL 8.6-10.6 T PROTEIN (test code = 4042760370) 7.2 g/dL 6.3-8.2 ALBUMIN (test code = 3932421736) 3.7 g/dL 3.5-5.0 ALK PHOS (test code = 4768727981) 218 U/L 34-122 H ALTv (test code = 1742-6) 32 U/L 5-35 AST(SGOT) (test code = 5218888062) 31 U/L 13-40 eGFR (test code = 14939-3) 115.6 mL/min/1.73m2 CKD-EPI eGFR (2020). Assuming creatinine has been stable day-to-day for at least three months, the eGFR indicates Category G1 (>= 90 mL/min/1.73 m2) Lab Interpretation (test code = 71634-8) Abnormal [facility] HospitalType and Screen - ONCE [id number] 14:39:00 * Test Item Value Reference Range Interpretation Comme nts ABO & RH (test code = 20) O Positive IAT (test code = 1185) Negative [facility] HospitalAC ABG + LACTIC [id number] 14:37:28* Test Item Value Reference Range Interpretation Comme nts PH (test code = 2) 7.43 7.35-7.45 PCO2 (test code = 4583808286) 28 35-45 L PO2 (test code = 8190738691) 76 80-100 L HCO3 (test code = 8725849793) 18 22-26 L BE (test code = 1098776860) -4.7 -3.0-3.0 L LACTIC ACID (test code = 4904699283) 1.17 mmol/L 0.50-2.20 Lab Interpretation (test cod e = 56107-7) Abnormal [facility] HospitalPOCT [id number] 14:05:00* Test Item Value Reference Range Interpretation Comme nts POCT PREG (test code = 1605) Negative On board controls acceptable with C Line (test code = 3574) Yes POCT PREG LOT # (test code = 3575) [id number] POCT PREG TEST DATE ( test code = 3576) 12/04/2024 Lab Interpretation (test cod e = 14655-6) Normal [facility] HospitalCOMPREHENSIVE METABOLIC [id number] 00:00:00* Test Item Value Reference Range Interpretation Comme nts GLUCOSE (test code = 2217) 241 MG/DL BUN (test code = 2208) 11 MG/DL CREATININE (test code = 2214) 0.59 MG/DL eGFR AMER. (test cod e = 78105) 137 ML/MIN/1.73 eGFR NON- AMER. (test code = 93591) 118 ML/MIN/1.73 CALC BUN/CREAT (test code = [...] code = 2219) 17 U/L Silvestre RaygozaLIPID [id number] 00:00:00* Test Item Value Reference Range Interpretation Comme nts CHOLESTEROL (test code = 2210) 240 MG/DL TRIGLYCERIDES (test code = 2232) 304 MG/DL HDL CHOLESTEROL (test code = 2220) 42 MG/DL CALC LDL CHOL (test code = 2237) 137 MG/DL RISK RATIO LDL/HDL (test cod e = 2238) 3.27 RATIO Silvestre RaygozaHEMOGLOBIN [id number] 00:00:00* Test Item Value Reference Range Interpretation Comme nts HEMOGLOBIN A1c (test code = 90835) 11.4 % Silvestre RaygozaMICROALBUMIN/CREATININE, RANDOM AND [id number] 00:00:00* Test Item Value Reference Range Interpretation Comme nts CREATININE, URINE, CONC. (te st code = 2072) 105.4 MG/DL ALBUMIN, URINE, RANDOM (test code = 49821) 7.2 MG/DL CALC ALBUMIN/CREAT, RND (niecy t code = 31187) 68 MG/G Silvestre RaygozaCOMPREHENSIVE METABOLIC [id number] 00:00:00* Test Item Value Reference Range Interpretation Comme nts GLUCOSE (test code = 2217) 241 MG/DL BUN (test code = 8) 11 MG/DL CREATININE (test code = 2214) 0.59 MG/DL eGFR AMER. (test cod e = 65926) 137 ML/MIN/1.73 eGFR NON- AMER. (test code = 87966) 118 ML/MIN/1.73 CALC BUN/CREAT (test code = [...] code = 2219) 17 U/L Silvestre Frost AustinLIPID [id number] 00:00:00* Test Item Value Reference Range Interpretation Comme nts CHOLESTEROL (test code = 2210) 240 MG/DL TRIGLYCERIDES (test code = 2232) 304 MG/DL HDL CHOLESTEROL (test code = 2220) 42 MG/DL CALC LDL CHOL (test code = 2237) 137 MG/DL RISK RATIO LDL/HDL (test cod e = 2238) 3.27 RATIO Silvestre Frost AustinHEMOGLOBIN [id number] 00:00:00* Test Item Value Reference Range Interpretation Comme nts HEMOGLOBIN A1c (test code = 93952) 11.4 % Silvestre Frost AustinMICROALBUMIN/CREATININE, RANDOM AND [id number] 00:00:00* Test Item Value Reference Range Interpretation Comme nts CREATININE, URINE, CONC. (te st code = 2072) 105.4 MG/DL ALBUMIN, URINE, RANDOM (test code = 50637) 7.2 MG/DL CALC ALBUMIN/CREAT, RND (niecy t code = 76540) 68 MG/G Silvestre Frost AustinMICROALBUMIN/CREATININE, RANDOM AND [id number] 00:00:00* Test Item Value Reference Range Interpretation Comme nts CREATININE, URINE, CONC. (test code = 2072) TEST NOT PERFORMED MG/DL MICROALBUMIN, RANDOM (test code = 34433) TEST NOT PERFORMED MG/DL CALC MICROALB/CREAT RND (test code = 44583) TEST NOT PERFORMED MG/G Silvestre F AustinMICROALBUMIN/CREATININE, RANDOM AND [id number] 00:00:00* Test Item Value Reference Range Interpretation Comme nts CREATININE, URINE, CONC. (test code = 207) TEST NOT PERFORMED MG/DL MICROALBUMIN, RANDOM (test code = 63086) TEST NOT PERFORMED MG/DL CALC MICROALB/CREAT RND (test code = 73856) TEST NOT PERFORMED MG/G Silvestre RaygozaCOMPREHENSIVE METABOLIC [id number] 00:00:00* Test Item Value Reference Range Interpretation Comme nts GLUCOSE (test code = 2217) 380 MG/DL BUN (test code = 2208) 14 MG/DL CREATININE (test code = 2214) 0.51 MG/DL eGFR AMER. (test cod e = 35990) 143 ML/MIN/1.73 eGFR NON- AMER. (test code = 62387) 124 ML/MIN/1.73 CALC BUN/CREAT (test code = [...] code = 2219) 20 U/L Silvestre RaygozaLIPID [id number] 00:00:00* Test Item Value Reference Range Interpretation Comme nts CHOLESTEROL (test code = 2210) 246 MG/DL TRIGLYCERIDES (test code = 2232) 421 MG/DL HDL CHOLESTEROL (test code = 2220) 41 MG/DL CALC LDL CHOL (test code = 2237) NOTE MG/DL RISK RATIO LDL/HDL (test cod e = 2238) (NOTE) RATIO Silvestre RaygozaHEMOGLOBIN [id number] 00:00:00* Test Item Value Reference Range Interpretation Comme nts HEMOGLOBIN A1c (test code = 43834) 12.6 % Silvestre RaygozaCOMPREHENSIVE METABOLIC [id number] 00:00:00* Test Item Value Reference Range Interpretation Comme nts GLUCOSE (test code = 2217) 380 MG/DL BUN (test code = 2208) 14 MG/DL CREATININE (test code = 2214) 0.51 MG/DL eGFR AMER. (test cod e = 29810) 143 ML/MIN/1.73 eGFR NON- AMER. (test code = 53541) 124 ML/MIN/1.73 CALC BUN/CREAT (test code = [...] code = 2219) 20 U/L Silvestre RaygozaLIPID [id number] 00:00:00* Test Item Value Reference Range Interpretation Comme nts CHOLESTEROL (test code = 2210) 246 MG/DL TRIGLYCERIDES (test code = 2232) 421 MG/DL HDL CHOLESTEROL (test code = 2220) 41 MG/DL CALC LDL CHOL (test code = 2237) NOTE MG/DL RISK RATIO LDL/HDL (test cod e = 2238) (NOTE) RATIO Silvestre RaygozaHEMOGLOBIN [id number] 00:00:00* Test Item Value Reference Range Interpretation Comme nts HEMOGLOBIN A1c (test code = 86667) 12.6 % Silvestre RaygozaCOMPREHENSIVE METABOLIC [id number] 00:00:00* Test Item Value Reference Range Interpretation Comme nts GLUCOSE (test code = 2217) 308 MG/DL BUN (test code = 2208) 12 MG/DL CREATININE (test code = 2214) 0.40 MG/DL eGFR AMER. (test cod e = 03278) 156 ML/MIN/1.73 eGFR NON- AMER. (test code = 41118) 135 ML/MIN/1.73 CALC BUN/CREAT (test code = [...] code = 2219) 17 U/L Silvestre Frost AustinLIPID [id number] 00:00:00* Test Item Value Reference Range Interpretation Comme nts CHOLESTEROL (test code = 2210) 222 MG/DL TRIGLYCERIDES (test code = 2232) 252 MG/DL HDL CHOLESTEROL (test code = 2220) 44 MG/DL CALC LDL CHOL (test code = 2237) 128 MG/DL RISK RATIO LDL/HDL (test cod e = 2238) 2.90 RATIO Silvestre RaygozaHEMOGLOBIN [id number] 00:00:00* Test Item Value Reference Range Interpretation Comme nts HEMOGLOBIN A1c (test code = 70520) 11.0 % Silvestre RaygozaCOMPREHENSIVE METABOLIC [id number] 00:00:00* Test Item Value Reference Range Interpretation Comme nts GLUCOSE (test code = 2217) 308 MG/DL BUN (test code = 2208) 12 MG/DL CREATININE (test code = 2214) 0.40 MG/DL eGFR AMER. (test cod e = 53890) 156 ML/MIN/1.73 eGFR NON- AMER. (test code = 46181) 135 ML/MIN/1.73 CALC BUN/CREAT (test code = [...] code = 2219) 17 U/L Silvestre RaygozaLIPID [id number] 00:00:00* Test Item Value Reference Range Interpretation Comme nts CHOLESTEROL (test code = 2210) 222 MG/DL TRIGLYCERIDES (test code = 2232) 252 MG/DL HDL CHOLESTEROL (test code = 2220) 44 MG/DL CALC LDL CHOL (test code = 2237) 128 MG/DL RISK RATIO LDL/HDL (test cod e = 2238) 2.90 RATIO Silvestre RaygozaHEMOGLOBIN [id number] 00:00:00* Test Item Value Reference Range Interpretation Comme bee HEMOGLOBIN A1c (test code = 71841) 11.0 % Silvestre Frost JaretCULTURE, [id number] 00:00:00* Test Item Value Reference Range Interpretation Comme bee CULTURE, ROUTINE (test code = 67841) SPECIMEN NUMBER: [id number] Silvestre Frost JaretCULTURE, [id number] 00:00:00* Test Item Value Reference Range Interpretation Comme nts CULTURE, ROUTINE (test code = 55659) SPECIMEN NUMBER: [id number] Silvestre LeijaAMYDIA, AMPLIFIED, [id number] 00:00:00* Test Item Value Reference Range Interpretation Comme nts CHLAMYDIA, TMA (test code = 32430) NEGATIVE Silvestre RaygozaGC, AMPLIFIED, [id number] 00:00:00* Test Item Value Reference Range Interpretation Comme nts GONORRHEA, TMA (test code = 69960) NEGATIVE Silvestre RaygozaCHLAMYDIA, AMPLIFIED, [id number] 00:00:00* Test Item Value Reference Range Interpretation Comme nts CHLAMYDIA, TMA (test code = 13750) NEGATIVE Silvestre RaygozaGC, AMPLIFIED, [id number] 00:00:00* Test Item Value Reference Range Interpretation Comme nts GONORRHEA, TMA (test code = 47805) NEGATIVE Silvestre RaygozaVAGINAL PATHOGENS DNA [id number] 00:00:00* Test Item Value Reference Range Interpretation Comme nts HERACLIO SPECIES (test code = 22575) NEGATIVE G. VAGINALIS (test code = 20870) POSITIVE T. VAGINALIS (test code = 60135) NEGATIVE Silvestre RaygozaHIV AB/AG COMBO RFLX [id number] 00:00:00* Test Item Value Reference Range Interpretation Comme nts HIV 1/2 4TH GEN, RFLX CONF ( test code = 3514) NON-REACTIVE Silvestre [id number] 00:00:00* Test Item Value Reference Range Interpretation Comme nts RPR RESULT (test code = 3501) NON-REACTIVE RPR TITER (test code = 3500) NOT INDIC. TITER Silvestre RaygozaACUTE HEPATITIS [id number] 00:00:00* Test Item Value Reference Range Interpretation Comme nts HEPATITIS A IgM (test code = 58142) NON-REACTIVE HEPATITIS B CORE IgM (test c ode = 4644) NON-REACTIVE HEPATITIS B SURF AG (test co de = 0259) NON-REACTIVE HEPATITIS C ANTIBODY (test c ode = 4663) NON-REACTIVE INTERPRETATION HEPATITIS A: (test code = 2552) (NOTE) INTERPRETATION HEPATITIS B: (test code = 52306) (NOTE) INTERPRETATION HEPATITIS C: (test code = 28228) (NOTE) Silvestre RaygozaVAGINAL PATHOGENS DNA [id number] 00:00:00* Test Item Value Reference Range Interpretation Comme nts HERACLIO SPECIES (test code = 96593) NEGATIVE G. VAGINALIS (test code = 05077) POSITIVE T. VAGINALIS (test code = 77343) NEGATIVE Silvestre RaygozaHIV AB/AG COMBO RFLX [id number] 00:00:00* Test Item Value Reference Range Interpretation Comme nts HIV 1/2 4TH GEN, RFLX CONF ( test code = 3514) NON-REACTIVE Silvestre [id number] 00:00:00* Test Item Value Reference Range Interpretation Comme nts RPR RESULT (test code = 3501) NON-REACTIVE RPR TITER (test code = 3500) NOT INDIC. TITER iSlvestre RaygozaACUTE HEPATITIS [id number] 00:00:00* Test Item Value Reference Range Interpretation Comme nts HEPATITIS A IgM (test code = 11506) NON-REACTIVE HEPATITIS B CORE IgM (test c ode = 4644) NON-REACTIVE HEPATITIS B SURF AG (test co de = 2739) NON-REACTIVE HEPATITIS C ANTIBODY (test c ode = 4675) NON-REACTIVE INTERPRETATION HEPATITIS A: (test code = 2552) (NOTE) INTERPRETATION HEPATITIS B: (test code = 90835) (NOTE) INTERPRETATION HEPATITIS C: (test code = 63491) (NOTE) Silvestre Frost [id number] 00:00:00* Test Item Value Reference Range Interpretation Comme nts AMYLASE (test code = 2205) 29 U/L Silvestre Frost [id number] 00:00:00* Test Item Value Reference Range Interpretation Comme nts LIPASE (test code = 2058) 19 U/L Silvestre RaygozaHEMOGLOBIN [id number] 00:00:00* Test Item Value Reference Range Interpretation Comme nts HEMOGLOBIN A1c (test code = 47096) 11.5 % Silvestre Frost [id number] 00:00:00* Test Item Value Reference Range Interpretation Comme nts AMYLASE (test code = 2205) 29 U/L Silvestre Frost [id number] 00:00:00* Test Item Value Reference Range Interpretation Comme nts LIPASE (test code = 2058) 19 U/L Silvestre RaygozaHEMOGLOBIN [id number] 00:00:00* Test Item Value Reference Range Interpretation Comme nts HEMOGLOBIN A1c (test code = 27285) 11.5 % Silvestre Raygoza History and Physical Notes Date/Time Note Provider Source 2024-01-11 18:23:29 I have independently seen and evaluated this patient. I agree with the findings and documentation provided in the nurse practitioner's notes. Medicine team will continue to provide daily care. I have made changes inline to the note below to reflect our mutual evaluation / plan. Laura Reyes, DO 01/11/2024 11:08 PM ADC Internal Medicine-H&P Date of Service: 01/11/2024 Time [...] Patient reports that she was recently at [facility] for PNA. On Dc [...] minutes discussing smoking cessation WW LINDA Squires, HUBER-AG I.M. / Hospitalist Medicine 01/11/2024 6:23 PM [facility] Notes Date/Time Note Provider Source Silvestre Medina [facility]2024-12-17 00:00:00 Silvestre Medina [facility]2024-03-19 10:55:41 Problem: Pain Goal: Control of pain [...] Goal: Patent airway Outcome: Adequate for discharge T Amanda Paz [facility] CenterNiabbu2323-39-32 23:15:01 Problem: Pain Goal: Control of pain [...] Outcome: Progressing as expected T Asuncion Cowan [place] [id number] 14:49:34 Problem: Pain Goal: Control of pain [...] Goal: Patent airway Outcome: Progressing as expected [facility]2024-03-17 20:52:16 Problem: Pain Goal: Control of pain [...] Goal: Patent airway Outcome: Progressing as expected [facility]2024-03-17 18:42:34 Problem: Pain Goal: Control of pain [...] airway Outcome: Progressing as expected [facility]679[facility] 20:43:49 Problem: Pain Goal: Control of pain [...] airway Outcome: Progressing as expected Patti Aparicio [facility] HospitalOrddov9737-37-80 17:25:49 Problem: Pain Goal: Control of pain [...] Goal: Patent airway Outcome: Progressing as expected [facility]2024-03-15 22:30:05 Problem: Pain Goal: Control of pain [...] Goal: Patent airway Outcome: Progressing as expected [place] [id number] 19:44:21 Progressing as expected [facility] Coleen Liu [facility] HospitalEfcgwq6670-03-38 03:08:13 Problem: Pain Goal: Control of pain [...] Goal: Patent airway Outcome: Progressing as expected [facility] Sonia Mae [facility] HospitalRqtmny4598-62-49 19:43:36 Problem: Pain Goal: Control of pain [...] Goal: Patent airway Outcome: Progressing as expected [facility]xb4114-[facility] 12:31:58 Patient admitted to [facility] for diagnosis of weakness, sepsis, UTI with [...] in ED. Belongings with patient to unit. T Claudia Gooden [facility] HospitalYysnum6708-55-10 12:20:32 Nurse Report Report given to Dorene JOHNSON. Chief complaint, assessment findings, infusion verify and orders reviewed. Claudia Gooden RN [place] [id number] 08:20:00 Patient states: "I've been having generalized bodyaches, right sided abdominal pain, bilateral low back pain since yesterday. I was seen in [facility] Monday last week and they transfused me blood." Emily Adair [facility] - [id number] 08:18:00 [facility] Emergency Department Note Patient Name: Pastora Velasquez Date of : 1980 43 year old female Treatment Room: VA3/VA3 Primary Care Physician: Tania Wesley Patient Escorted by: Family [5] Mode of Arrival: Personal means [1] EMS Treatment Prior to ED Arrival: [employer] treatment: None Chief Complaint: Chief Complaint Patient [...] flank pain, and SOB. Recently discharge from [facility], where she was admitted and treated [...] content normal. Judgment: Judgment normal. Radiology:reviewed by me CT ABDOMEN PELVIS W CONTRAST Final Result [...] 0.0 0.0 - 10.0 /100 WBCs NRBC x103<0.01 10*3/?L GRAN MAT (NEUT) % 90.9 % IMM GRAN % 0.50 % LYMPH % 3.6 % MONO % 4.1 % EOS % 0.6 % BASO % 0.3 % GRAN MAT x103(ANC) 11.74 (*) 1.88 - 7.09 10*3/uL IMM GRAN x1030.06 0.00 - 0.06 10*3/uL LYMPH x1030.47 (*) 1.32 - 3.29 10*3/uL MONO x1030.53 0.33 - 0.92 10*3/uL EOS x1030.08 0.03 - 0.39 10*3/uL BASO x1030.04 0.01 - 0.07 10*3/uL URINALYSIS - Abnormal [...] EPITH <1 <=1 HPF COMP. METABOLIC PANEL (17511) - Abnormal NA 128 (*) 135 - [...] - Peripheral # 2 COMP. METABOLIC PANEL (40340) TROPONIN I N-TERMINAL PRO-BNP AC ABG + [...] therapy) AdmissionCare documentation entered by: Suki Mabry [facility], 27th edition, Copyright ? 2022 [facility] [employer] All Rights Reserved. [id number]:10:28-05:00 ED COURSE ED Course as of 01/11/24 [...] [PD] 1012 HGB(!): 11.1 [PD] 1012 WBC x103(!): 12.92 [PD] 1012 NT-proBNP(!): 528 [PD] 1012 NA(!): 128 [PD] 1012 D DIMER(!): 1.42 [PD] 0949 LACTIC ACID WHOLE BLOOD: 1.17 [PD] 0949 ARTERIAL BE(!): -4.7 [PD] 0949 HCO3 ART(!): 18 [PD] 0949 PO2 ART(!): 76 [PD] 0948 PCO2 ART(!): 28 [PD] 0930 POCT PREG: Negative [PD] ED Course User Index [PD] Suki Mabry, GLUE SIZE MACHINE OPERATOR Diagnosis/Impression as of 01/11/24 1258 Weakness Sepsis, [...] flank pain, and SOB. Recently discharge from [facility], where she was admitted and treated [...] - Peripheral # 2 COMP. METABOLIC PANEL (69918) TROPONIN I N-TERMINAL PRO-BNP AC ABG + [...] Score: Pneumonia Severity Index for CAP from [email or web address] on 01/11/2024 RESULT SUMMARY: 87 points Risk Class III, 0.9-2.8% mortality. Outpatient or inpatient treatment, depending on clinical judgment. INPUTS: Age --> 43 years Sex --> -10 = Female residential resident --> 0 = No Neoplastic disease [...] this encounter and patient evaluation by Ajay [facility] Emergency [facility]2024-03-14 08:18:00 AdmissionCare Guideline: Sepsis (and Other Febrile [...] therapy) AdmissionCare documentation entered by: Suki Mabry [facility], 27th edition, Copyright ? 2022 [facility] HospitalA[facility] All Rights Reserved. [id number]:10:28-05:00 [facility]
[2025-01-19] MEDS ORDERED: ONDANSETRON 4 MG/2 ML VIAL ONE (18:45)
[2025-01-19] MEDS ORDERED: ACETAMINOPHEN 500 MG TAB ONE (18:45)
[2025-01-19] MEDS ORDERED: NA CHLORIDE 0.9% 2,000 ML ONE (18:46)
[2025-01-19] MEDS ORDERED: MORPHINE 4 MG/ML SYR ONE ×2 (18:46→21:47)
--- NOTE | 2025-01-19 19:23 | RAD REPORT ---
EXAMINATION: ONE VIEW CHEST XR CLINICAL INDICATION: Female, 44 years old.,FEVER TECHNIQUE: Frontal chest projection is submitted. Examination is limited by patient positioning and t echnique. COMPARISON: 09/25/2024 FINDINGS: New patchy right peripheral midlung airspace opacity. Near-complete improvement of the right basal ai rspace opacities. No pneumothorax or sizable effusion. The heart is normal in size. Mediastinal contours are unremarkable. IMPRESSION: New patchy right peripheral midlung airspace opacity, may represent new or progressive focus of pneum onia.
[2025-01-19 19:38] LABS: Absolute Lymphocytes (CBC) 0.6 K/uL (0.7-4.9); Absolute Monocytes 0.7 K/uL (0.1-1.3); Absolute Neutrophil 15.3 K/uL (1.8-8.0); Basophils % 0.2 % (0-1.3); Hematocrit 27.7 % (36.0-45.0); Hemoglobin 9.4 g/dL (12.0-15.0); Lymphocytes % 3.6 % (15.3-44.8); MCH 30.8 pg (27.0-35.0); MCV 90.6 fL (80-100); MPV 7.9 fL (7.6-11.3); Monocytes % 4.4 % (3.3-12.3); Neutrophils % 91.8 % (41.7-73.7); Platelets 259 thou/uL (152-406); RBC Red Blood Cell Count 3.06 M/uL (3.86-4.86); Red Cell Distribution Width 16.8 % (12.1-15.2)
[2025-01-19 19:45] LABS: PT Prothrombin Time 11.1 SECONDS (10-13.0); Protime INR 0.97
[2025-01-19 19:51] LABS: Specific Gravity 1.021 (1.005-1.030); Sqamous Epithelial <5 /HPF (None Seen); Transitional Epithelial <5 /HPF (None Seen); Urine Bacteria <20 /HPF (<20); Urine Bilirubin NEGATIVE (Negative); Urine Blood 1+ (Negative); Urine Clarity Extremely Turbid (Clear); Urine Color Yellow (Yellow); Urine Culture Reflex Order REFLEXED; Urine Glucose 3+ (Negative); Urine Ketones NEGATIVE (Negative); Urine Microscopic Reflex YN ORDER UMIC; Urine Mucus Slight /HPF (None Seen); Urine Nitrite NEGATIVE (Negative); Urine Protein 3+ (Negative); Urine RBC <5 /HPF (None Seen); Urine Urobilinogen Normal (Normal); Urine WBC 20-50 /HPF (<5)
[2025-01-19 19:56] LABS: Albumin 2.2 g/dL (3.4-5.0); Albumin/Globulin Ratio 0.6 (1.1-1.8); Anion Gap 10.5 mEq/L (5.0-15.0); Bilirubin Total 0.2 mg/dL (0.2-1.0); Globulin 3.7 g/dL (2.3-3.5); Potassium 4.5 mEq/L (3.5-5.1); Protein, Total 5.9 g/dL (6.4-8.2)
[2025-01-19 20:23] LABS: Specific Gravity 1.021 (1.005-1.030)
[2025-01-19] MEDS ORDERED: CEFTRIAXONE 1000 MG/VIAL ONE (20:24)
[2025-01-19] MEDS ORDERED: NA CHLORIDE 0.9% 50 ML ONE (20:24)
[2025-01-19 21:03] LABS: Band Neutrophils 20 % (0-1); Blood Morphology Comment NOT SEEN (NOT SEEN); Differential Total Cells Count 100; Lymphocytes 3 % (15-42); Monocytes 1 % (0-10); Platelet Estimate ADEQ; Segmented Neutrophils 75 % (40-80)
[2025-01-19 21:04] LABS: Influenza A Ag Negative; Influenza B Ag Negative; SARS-CoV-2 Antigen Rapid Res Negative (Negative)
--- NOTE | 2025-01-19 21:10 | RAD REPORT ---
EXAMINATION: CT Abdomen Pelvis W Contrast CLINICAL INDICATION: Female, 44 years old. ABD PAIN TECHNIQUE: CT abdomen and pelvis was performed, after the administration of IV contrast, [facility]. Axial, sagittal and coronal reconstructions were obtained. One or more of the following dose reduction techniques were used: Automated exposure control, adjustment of the mA and k V according to patient size, and iterative reconstruction. Unless otherwise specified, incidental findings do not require dedicated imaging follow-up. COMPARISON: 09/25/2024. FINDINGS: LOWER CHEST: Patchy airspace opacities in the lower aspect of the right middle lobe. LIVER: Normal in size and contour. No focal lesion. BILIARY SYSTEM: Moderately distended gallbladder without radiopaque calculi. No other suspicious abno rmalities. SPLEEN: Normal size. No focal lesion. PANCREAS: No mass, ductal dilation, or marin-pancreatic fluid. ADRENALS: Normal; no mass. KIDNEYS: Normal size and contour. No hydronephrosis. URINARY BLADDER: Decompressed limiting evaluation. GASTROINTESTINAL TRACT: No evidence of free air, significant intra-abdominal free fluid, bowel obstru ction or abscess. APPENDIX: Normal appendix. LYMPH NODES: No lymphadenopathy. MUSCULOSKELETAL: No acute or suspicious osseous abnormality. ADDITIONAL FINDINGS: None. IMPRESSION: Patchy airspace opacities in the right middle lung lobe, may reflect mild or resolving pneumonia. Moderate gallbladder distention without other suspicious CT findings. If there is clinical concern fo r acute cholecystitis, sonographic evaluation would be more helpful.
--- NOTE | 2025-01-19 21:18 | EDPHYS ---
Physician Documentation [facility] Name: Pastora Patterson Age: 44 yrs Sex: Female : 1980 Arrival Date: 01/19/2025 Time: 18:10 Bed 8 Private MD: ED Physician Radha Alonzo HPI: 01/19 18:22 This 44 yrs old Female presents to ER via EMS with complaints of Flu Symptoms. kb 18:22 Patient is a 44-year-old female who presents for low back pain, abdominal pain, fever kb and headache that started 2 days ago. States symptoms got worse today. Reports she is prone to UTIs and pneumonia. Also concerned about her blood counts being low because her legs have been achy which is normal for her when she has low blood counts. Denies any bleeding. States she is anemic I do not know why or where her blood goes.. Historical: - Allergies: 18:17 No Known Allergies; ss - PMHx: 18:17 Anemia; Asthma; Bipolar disorder; Diabetes - IDDM; Hypertension; ss - PSHx: 18:17 section; ss - Immunization history:: Adult Immunizations up to date. - Infectious Disease History:: Denies. - Social history:: Smoking status: Patient denies any tobacco usage or history of. ROS: 18:23 Constitutional: As per HPI kb Exam: 18:23 Constitutional: This is a well developed, well nourished patient who is awake, alert, kb and in no acute distress. Head/Face: Normocephalic, atraumatic. ENT: Moist Mucous membranes Cardiovascular: Regular rate Respiratory: Respirations even and unlabored. No increased work of breathing. Talking in full sentences Skin: Warm, dry with normal turgor. Normal color. MS/ Extremity: Pulses equal, no cyanosis. Neurovascular intact. Full, normal range of motion. Neuro: Awake and alert, GCS 15, oriented to person, place, time, and situation. 18:23 Abdomen/GI: Inspection: abdomen appears normal, Bowel sounds: normal, Palpation: soft, in all quadrants, mild abdominal tenderness, in the right upper quadrant and right lower quadrant, 18:23 Back: CVA tenderness, that is mild, is noted on the right, 19:41 ECG was reviewed by the Attending Physician. kb Vital Signs: 18:16 BP 147 / 71; Pulse 121; Resp 18; Temp 101(O); Pulse Ox 99% on R/A; Weight 83.91 kg; ss Height 5 ft. 3 in. ; Pain 10/10; 19:39 BP 137 / 71; Pulse 114; Resp 17; Temp 100.6; Pulse Ox 100% on R/A; dd2 20:37 BP 132 / 73; Pulse 112; Resp 16; Temp 99.6; Pulse Ox 100% on R/A; dd2 18:16 Body Mass Index 32.77 (83.91 kg, 160.02 cm) 18:16 Pain Scale: Adult ss Benton Coma Score: 19:39 Eye Response: spontaneous(4). Motor Response: obeys commands(6). Verbal Response: dd2 oriented(5). Total: 15. MDM: 18:16 Medical Screening Exam initiated 18:23 Data reviewed: vital signs, nurses notes. Historians other than the Patient: EMS: [facility]. 21:16 Differential diagnosis: uti, pyelonephritis, pneumonia. Consideration of Admission/Observation Patient was admitted/placed on observation. Escalation of care including admission/observation considered. Management of patient was discussed with the following: Hospitalist: Dr Edmondson accepts pt for admission. Counseling: I had a detailed discussion with the patient and/or guardian regarding the historical points, exam findings, and any diagnostic results supporting the discharge/admit diagnosis, lab results, radiology results, the need for further work-up and treatment in the hospital. 01/19 18:21 Order name: Blood Culture Adult (2) 01/19 18:21 Order name: CBC with Diff; Complete Time: 21:07 kb 01/19 18:21 Order name: CMP; Complete Time: 20:02 kb 01/19 18:21 Order name: Lactate w/ 2H reflex if indic.; Complete Time: 20:02 kb 01/19 18:21 Order name: Protime (+inr); Complete Time: 20:02 kb 01/19 18:21 Order name: Ptt, Activated; Complete Time: 20:02 kb 01/19 18:21 Order name: Urinalysis w/ reflexes; Complete Time: 20:02 kb 01/19 19:40 Order name: Manual Differential; Complete Time: 21:07 EDMS 01/19 20:05 Order name: Urine Culture EDMS 01/19 20:07 Order name: Test, Urine; Complete Time: 20:36 kmf 01/19 20:11 Order name: COVID-19 Ag + Flu A+B Ag; Complete Time: 21:07 kb 01/19 22:04 Order name: Urinalysis w/ reflexes EDMS 01/19 22:04 Order name: CBC with Automated Diff EDMS 01/19 22:04 Order name: CBC with Automated Diff EDMS 01/19 22:04 Order name: Comprehensive Metabolic Panel EDMS 01/19 22:04 Order name: Comprehensive Metabolic Panel EDMS 01/20 07:46 Order name: Glucose, Ancillary Testing EDMS 01/20 08:59 Order name: Manual Differential EDMS 01/20 11:41 Order name: Glucose, Ancillary Testing EDMS 01/19 18:21 Order name: Chest Single View XRAY; Complete Time: 19:32 kb 01/19 20:02 Order name: CT Abd/Pelvis - IV Contrast Only; Complete Time: 21:12 kb 01/19 18:21 Order name: EKG; Complete Time: 18:22 kb 01/19 18:21 Order name: Accucheck; Complete Time: 19:31 kb 01/19 18:21 Order name: Cardiac monitoring; Complete Time: 19:30 kb 01/19 18:21 Order name: EKG - Nurse/Tech; Complete Time: 19:45 kb 01/19 18:21 Order name: IV Saline Lock - Large Bore; Complete Time: 19:30 kb 01/19 18:21 Order name: Labs collected and sent; Complete Time: 19:30 kb 01/19 18:21 Order name: O2 Per Protocol; Complete Time: 19:31 kb 01/19 18:21 Order name: O2 Sat Monitoring; Complete Time: 19:31 kb 01/19 18:21 Order name: Vital Signs; Complete Time: 19:31 kb 01/19 20:06 Order name: Misc. Order: discontinue 30ml/kg bolus. 1L infused; Complete Time: 20:16 kb EC:41 Rate is 114 beats/min. Rhythm is regular. QRS [place] is Normal. MN interval is normal at kb 118 msec. QRS interval is normal at 66 msec. QT interval is normal at 432 msec. Administered Medications: 18:51 Drug: Acetaminophen PO 1000 mg PO once Route: PO; le1 19:30 Follow up: Response: No adverse reaction dd2 18:51 Drug: morphine IVP or IV 4 mg IVP once over 4 mins Route: IVP; Infused Over: 4 mins; le1 Site: left antecubital; 19:10 Follow up: Response: No adverse reaction dd2 18:51 Drug: Ondansetron IVP 4 mg IVP once; over 2 minutes Route: IVP; Site: left antecubital; le1 19:10 Follow up: Response: No adverse reaction dd2 18:51 Drug: NS 0.9% IV (30 ml/kg) 30 ml/kg IV at bolus once; Sepsis Protocol; to be given as le1 a bolus over 90 minutes Route: IV; Rate: bolus; Site: left antecubital; 20:20 Follow up: IV Status: Completed infusion dd2 20:16 Drug: NS 0.9% IV 1000 ml IV at 125 ml/hr once; to be given as a bolus over 60 minutes le1 Route: IV; Rate: 125 ml/hr; Site: right antecubital; 01/20 00:31 Follow up: IV Status: Infusion continued upon admission dd2 01/19 20:37 Drug: Rocephin IV 1 grams IV at calculated rate once; Given slow IV push per pharmacy dd2 instructions Route: IV; Rate: calculated rate; Site: left antecubital; 20:55 Follow up: IV Status: Completed infusion dd2 22:01 Drug: Zithromax IVPB 500 mg IVPB once over 1 hrs; mix in 250 mL NS Route: IVPB; Infused dd2 Over: 1 hrs; Site: left antecubital; 23:00 Follow up: IV Status: Completed infusion; IV Intake: 250ml dd2 22:01 Drug: morphine IVP or IV 4 mg IVP once over 4 mins Route: IVP; Infused Over: 4 mins; dd2 Site: right antecubital; 22:16 Follow up: Response: No adverse reaction dd2 Disposition Summary: 01/19/25 21:17 Hospitalization Ordered Notes: Hospitalization Status: Observation kb Provider: Alexander Edmondson Condition: Stable kb Problem: new kb Symptoms: are unchanged kb Bed/Room Type: Standard kb Location: Telemetry/MedSurg (observation)(01/20/25 12:04) bd Room Assignment: 402(01/20/25 12:04) bd Diagnosis - Pneumonia, unspecified organism kb - Sepsis, unspecified organism kb Forms: - Medication Reconciliation Form kb - SBAR form kb - Leadership Thank You Letter kb Signatures: Dispatcher [employer] EDMS Kasandra Adrian, VOLUNTEER PATIENT REPRESENTATIVE-C VOLUNTEER PATIENT REPRESENTATIVE-Ckb Isabel sanchez Alisha Arreaga, RN RN ss Ancelmo Carbone RN RN bp Marge Arias RN RN vc1 Elisa Mcgarry RN RN ha1 Elizabeth Somers RN RN le1 DANIE FAIR RN RN dd2 Corrections: (The following items were deleted from the chart) 20:03 20:03 Abdomen Pelvis W Con+CT.RAD.BRZ ordered. [facility] : 21:17 Telemetry/MedSurg (observation) kb vc1 21:37 21:17 kb vc1 01/20 12:04 01/19 21:37 [facility] ER HOLD vc1 bd 01/20 12:04 01/19 21:37 ERHOLD- vc1 bd
--- NOTE | 2025-01-19 21:18 | ER ---
Nurse's Notes [facility] Name: Pastora Patterson Age: 44 yrs Sex: Female : 1980 Arrival Date: 01/19/2025 Time: 18:10 Bed 8 Private MD: Diagnosis: Pneumonia, unspecified organism;Sepsis, unspecified organism Presentation: 01/19 18:16 Chief complaint: EMS states: fever and body aches. Coronavirus screen: Client denies ss travel out of the [place] in the last 14 days. Ebola Screen: Patient denies exposure to infectious person. Patient denies travel to an Ebola-affected area in the 21 days before illness onset. Initial Sepsis Screen: Does the patient meet any 2 criteria? No. Patient's initial sepsis screen is negative. Does the patient have a suspected source of infection? No. Patient's initial sepsis screen is negative. Risk Assessment: Do you want to hurt yourself or someone else? Patient reports no desire to harm self or others. 18:16 Method Of Arrival: EMS: [facility] 18:16 Acuity: MANASA 3 ss 01/20 05:52 Onset of symptoms was January 19, 2025. ha1 Historical: - Allergies: 01/19 18:17 No Known Allergies; ss - PMHx: 18:17 Anemia; Asthma; Bipolar disorder; Diabetes - IDDM; Hypertension; ss - PSHx: 18:17 section; ss - Immunization history:: Adult Immunizations up to date. - Infectious Disease History:: Denies. - Social history:: Smoking status: Patient denies any tobacco usage or history of. Screenin:32 [facility] ED Fall Risk Assessment (Adult) History of falling in the last 3 months, dd2 including since admission No falls in past 3 months (0 pts) Confusion or Disorientation No (0 pts) Intoxicated or Sedated No (0 pts) Impaired Gait No (0 pts) Mobility Assist Device Used No (0 pt) Altered Elimination No (0 pt) Score/Fall Risk Level 0 - 2 = Low Risk Oriented to surroundings, Maintained a safe environment, Educated pt \T\ family on fall prevention, incl call for assistance when getting out of bed, Assessed \T\ reinforced patient's understanding of fall precautions, Provided non-skid footwear, Hourly rounding (assess needs \T\ fall precautionary measures) done. Abuse screen: Denies threats or abuse. Denies injuries from another. Nutritional screening: No deficits noted. Tuberculosis screening: No symptoms or risk factors identified. Assessment: 19:36 General: Appears in no apparent distress. uncomfortable, Behavior is cooperative, dd2 appropriate for age, crying. Pain: Complains of pain in right low back and right lower quadrant Pain does not radiate. Pain currently is 10 out of 10 on a pain scale. Quality of pain is described as aching. Neuro: Farr Agitation-Sedation Scale (RASS): 0 - Alert and Calm Level of Consciousness is awake, alert, obeys commands, Oriented to person, place, time, situation, Appropriate for age. Cardiovascular: No deficits noted. JVD is absent Patient's skin is warm and dry. Respiratory: Airway is patent Respiratory effort is even, unlabored, Respiratory pattern is regular, symmetrical, Breath sounds are clear bilaterally. GI: Abdomen is non-distended, Bowel sounds present X 4 quads. Abd is soft and non tender Reports lower abdominal pain, nausea. : Urine is cloudy, Reports pain in right lower quadrant(s) in lower back. EENT: EENT: Denies BLIND LEFT EYE, DECREASED VISION RT. Derm: No deficits noted. No signs and/or symptoms reported regarding the dermatologic system. Musculoskeletal: No deficits noted. No signs and/or symptoms reported regarding the musculoskeletal system. Circulation, motion, and sensation intact. Range of motion: intact in all extremities. Vital Signs: 18:16 BP 147 / 71; Pulse 121; Resp 18; Temp 101(O); Pulse Ox 99% on R/A; Weight 83.91 kg; ss Height 5 ft. 3 in. ; Pain 10/10; 19:39 BP 137 / 71; Pulse 114; Resp 17; Temp 100.6; Pulse Ox 100% on R/A; dd2 20:37 BP 132 / 73; Pulse 112; Resp 16; Temp 99.6; Pulse Ox 100% on R/A; dd2 18:16 Body Mass Index 32.77 (83.91 kg, 160.02 cm) ss 18:16 Pain Scale: Adult ss Katherine Coma Score: 19:39 Eye Response: spontaneous(4). Motor Response: obeys commands(6). Verbal Response: dd2 oriented(5). Total: 15. ED Course: 18:15 Patient arrived in ED. ss 18:16 [facility]C [facility] kb 18:16 Radha Alonzo MD is Attending Physician. kb 18:17 Triage completed. ss 18:17 Arm band placed on right wrist. ss 18:47 Chest Single View XRAY In Process Unspecified. EDMS 18:52 Inserted saline lock: 22 gauge in left antecubital area, using aseptic technique. le1 Flushed with 10 mL NS. 19:20 Initial lab(s) drawn, by me, sent to lab. First set of blood cultures drawn by me. dd2 Inserted saline lock: 22 gauge in right antecubital area, using aseptic technique. Blood collected. Flushed with 10 mL NS. Patient maintains SpO2 saturation greater than 95% on room air. 19:30 DANIE FAIR, RN is Primary Nurse. dd2 19:31 Client placed on continuous cardiac and pulse oximetry monitoring. NIBP monitoring dd2 applied. secured entrance monitor on. Door closed. Noise minimized. Warm blanket given. Pillow given. Verbal reassurance given. 19:31 No provider procedures requiring assistance completed. dd2 19:36 Patient has correct armband on for positive identification. Bed in low position. Call dd2 light in reach. Side rails up X2. Provided Education on: MEDICATIONS. 19:42 EKG done, by ED staff, reviewed by Kasandra HERCULES. mm11 20:09 Radiology exam delayed due to test not completed at this time. mw3 20:54 CT Abd/Pelvis - IV Contrast Only In Process Unspecified. EDMS 21:17 Alexander Edmondson MD is Hospitalizing Provider. kb 01/20 05:52 Patient admitted, IV remains in place. ha1 Administered Medications: 01/19 18:51 Drug: Acetaminophen PO 1000 mg PO once Route: PO; le1 19:30 Follow up: Response: No adverse reaction dd2 18:51 Drug: morphine IVP or IV 4 mg IVP once over 4 mins Route: IVP; Infused Over: 4 mins; le1 Site: left antecubital; 19:10 Follow up: Response: No adverse reaction dd2 18:51 Drug: Ondansetron IVP 4 mg IVP once; over 2 minutes Route: IVP; Site: left antecubital; le1 19:10 Follow up: Response: No adverse reaction dd2 18:51 Drug: NS 0.9% IV (30 ml/kg) 30 ml/kg IV at bolus once; Sepsis Protocol; to be given as le1 a bolus over 90 minutes Route: IV; Rate: bolus; Site: left antecubital; 20:20 Follow up: IV Status: Completed infusion dd2 20:16 Drug: NS 0.9% IV 1000 ml IV at 125 ml/hr once; to be given as a bolus over 60 minutes le1 Route: IV; Rate: 125 ml/hr; Site: right antecubital; 01/20 00:31 Follow up: IV Status: Infusion continued upon admission dd2 01/19 20:37 Drug: Rocephin IV 1 grams IV at calculated rate once; Given slow IV push per pharmacy dd2 instructions Route: IV; Rate: calculated rate; Site: left antecubital; 20:55 Follow up: IV Status: Completed infusion dd2 22:01 Drug: Zithromax IVPB 500 mg IVPB once over 1 hrs; mix in 250 mL NS Route: IVPB; Infused dd2 Over: 1 hrs; Site: left antecubital; 23:00 Follow up: IV Status: Completed infusion; IV Intake: 250ml dd2 22:01 Drug: morphine IVP or IV 4 mg IVP once over 4 mins Route: IVP; Infused Over: 4 mins; dd2 Site: right antecubital; 22:16 Follow up: Response: No adverse reaction dd2 Medication: 19:36 VIS not applicable for this client. dd2 Intake: 23:00 IV: 250ml; Total: 250ml. dd2 Outcome: 21:17 Decision to Hospitalize by Provider. 01/20 00:00 Admitted to ER Hold. Please see [facility] for further documentation. ha1 Condition: stable Instructed on the need for admit, Demonstrated understanding of instructions, 12:59 Patient left the ED. bp Signatures: Dispatcher [employer] EDKasandra Meek, DELISA RODRIGUEZ-Alisha Mcfadden RN RN Ancelmo Grimm RN RN Deborah Rivera mw3 Elisa Mcgarry RN RN ha1 Elizabeth Somers RN RN le1 DANIE FAIR RN RN dd2 pastrana, ying mm11
[2025-01-19] MEDS ORDERED: AZITHROMYCIN 500 MG INJ IVPB ONE (21:46)
[2025-01-19] MEDS ORDERED: NA CHLORIDE 0.9% 250 ML ONE (21:47)
--- NOTE | 2025-01-19 21:53 | P.HP ---
Certification for Inpatient Patient admitted to: Inpatient With expected LOS: >2 Midnights Practitioner: I am a practitioner with admitting privileges, knowledge of patient current condition, hospital course, and medical plan of care. Services: Services provided to patient in accordance with Admission requirements found in Title 42 Section 412.3 of the Code of Federal Regulations Patient History Date of Service: 01/20/25 Reason for admission: Shortness of breath History of Present Illness: 44 yrs old Female with past medical history of anemia, asthma, diabetes, bipolar disorder, hypertension who was brought to ER with upper respiratory tract symptoms which has been going on for the last 2 days and has been progressively getting worse. Started insidiously. Associated with generalized weakness and fatigue. Denies any headache. No sick contacts. Started as nasal congestion associated with cough. Denies any chest pain. No nausea vomiting diarrhea. Patient was assessed in the ER and was found to have right lower lobe pneumonia and was admitted for further management Allergies No Known Allergies Allergy (Verified 02/17/17 03:44) Home medications list reviewed: Yes Home Medications: lisinopriL [Lisinopril] 20 mg PO DAILY 30 Days #30 tab 09/27/24 Gabapentin [Neurontin*] 100 mg PO TID 11/12/24 Metformin HCl 1,000 mg PO BID 11/12/24 Amox/Clavulanate [Augmentin 875-125 Tab*] 1 tab PO BIDWM 4 Days #8 tab 11/15/24 Hydrocodone 5/APAP 325 [Yoder 5/325*] 1 tab PO Q8H PRN #15 tab 11/15/24 Insulin 70/30 NPH/Reg Human [Novolin 70/30*] 10 unit SQ BIDAC 30 Days #10 ml 11/15/24 Smz./Tmp. [Bactrim Ds 800 MG/160 MG*] 1 tab PO BID 4 Days #8 tab 11/15/24 - Past Medical/Surgical History Diabetic: Yes Past Medical History: Reviewed- Non-Contributory -: Asthma -: hypertension -: diabetes-IDDM -: anxiety -: Anemia -: Bipolar Past Surgical History: Reviewed- Non-Contributory -: tubal ligation -: C- Section - Family History Family History: Reviewed- Non-Contributory - Family History Father -: Hypertension, Diabetes, Other (see notes) Notes: HIGH CHOLESTEROL Mother -: Hypertension, Diabetes, Other (see notes) Notes: HGH CHOLESTEROL Sister -: Hypertension, Diabetes, Other (see notes) Notes: HIGH CHOLESTEROL - Social History Smoking Status: Never smoker Alcohol use: No CD- Drugs: Yes Caffeine use: Yes Review of Systems 10-point ROS is otherwise unremarkable Physical Examination - Vital Signs Temperature: 98.2 F Blood Pressure: 122/70 Pulse: 76 Respirations: 18 Pulse Ox (%): 94 - Physical Exam General: Alert, Oriented x3, Mild distress HEENT: Atraumatic, Normocephalic Neck: Supple Respiratory: Clear to auscultation bilaterally, Crackles/rales Cardiovascular: Regular rate/rhythm, Normal S1 S2 Capillary refill: <2 Seconds Gastrointestinal: Soft and benign, W/out hepatosplenomegaly Musculoskeletal: No clubbing, No swelling Integumentary: No rashes Neurological: Normal speech, Normal strength at 5/5 x4 extr, Cranial nerves 3-12 intact Lymphatics: No axilla or inguinal lymphadenopathy - Studies Laboratory Data (last 24 hrs) 01/19/25 01/19/25 01/19/25 19:20 19:20 19:20 WBC 16.70 H Hgb 9.4 L Hct 27.7 L Plt Count 259 PT 11.1 INR 0.97 APTT 29.0 Sodium 135 L Potassium 4.5 BUN 32 H Creatinine 1.22 H Glucose 326 H Total Bilirubin 0.2 AST 35 ALT 29 Alkaline Phosphatase 138 H Assessment and Plan - Plan Right middle lobe pneumonia Leukocytosis IV antibiotic Monitor closely on telemetry Will obtain cultures COVID, flu negative Hypertension Antihypertensives titrated Continue home medications and titrate as needed Hyperlipidemia Continue statin DEVON Hyponatremia Monitor renal parameters Electrolytes monitor and replace accordingly Diabetes Insulin sliding scale Accu-Chek before every meal and at bedtime Anemia of chronic disease Monitor H&H closely No overt bleeding at this time GI/DVT prophylaxis Advanced directive full code Discharge Plan: Home Plan to discharge in: 48 Hours - Advance Directives Does patient have a Living Will: No Does patient have a Durable POA for Healthcare: No - Code Status/Comfort Care Code Status: Full Code
[2025-01-19] MEDS ORDERED: ALBUTEROL 2.5 MG/3 ML NEB SOL NEB PRN (21:59)
[2025-01-19] MEDS ORDERED: ONDANSETRON 4 MG/2 ML VIAL IV PRN (21:59)
[2025-01-19] MEDS ORDERED: D10W 125 ML IV PRN (22:03)
[2025-01-19] MEDS ORDERED: GLUCAGON 1 MG/VIAL IM PRN (22:03)
[2025-01-20 01:32] VITALS: BMI 32.8
[2025-01-20] MEDS: ACETAMINOPHEN 325 MG TABLET PO PRN (04:09)
[2025-01-20] MEDS ORDERED: ACETAMINOPHEN 325 MG TABLET ONE ×2 (04:11→09:11)
[2025-01-20 05:49] LABS: Absolute Basophils 0.1 K/uL (0-0.5); Absolute Lymphocytes (CBC) 1.5 K/uL (0.7-4.9); Absolute Neutrophil 14.9 K/uL (1.8-8.0); Basophils % 0.3 % (0-1.3); Hematocrit 23.9 % (36.0-45.0); Hemoglobin 8.2 g/dL (12.0-15.0); Lymphocytes % 8.8 % (15.3-44.8); MCH 31.3 pg (27.0-35.0); MCHC 34.2 g/dL (32.0-36.0); MCV 91.3 fL (80-100); MPV 8.1 fL (7.6-11.3); Monocytes % 5.7 % (3.3-12.3); Neutrophils % 85.2 % (41.7-73.7); Platelets 248 thou/uL (152-406); RBC Red Blood Cell Count 2.62 M/uL (3.86-4.86); Red Cell Distribution Width 17.3 % (12.1-15.2)
[2025-01-20 06:11] LABS: Albumin 1.9 g/dL (3.4-5.0); Albumin/Globulin Ratio 0.5 (1.1-1.8); Anion Gap 10.8 mEq/L (5.0-15.0); Bilirubin Total 0.2 mg/dL (0.2-1.0); Globulin 3.9 g/dL (2.3-3.5); Potassium 4.8 mEq/L (3.5-5.1); Protein, Total 5.8 g/dL (6.4-8.2)
[2025-01-20] MEDS: FLU (Fluarix Triv) TS24-25(6MOS UP)/PF 45 MCG/0.5 ML Syringe IM ONE (07:30)
[2025-01-20] MEDS: INSULIN REGULAR (HUMAN) 100 UNIT/ML SQ SCH (07:30)
[2025-01-20] MEDS: NA CHLORIDE 0.9% 1,000 ML IV SCH (08:00)
[2025-01-20 08:58] LABS: Band Neutrophils 8 % (0-1); Blood Morphology Comment NOT SEEN (NOT SEEN); Differential Total Cells Count 100; Lymphocytes 10 % (15-42); Metamyelocytes 1 % (0-0); Monocytes 4 % (0-10); Platelet Estimate ADEQ; Segmented Neutrophils 77 % (40-80)
[2025-01-20] MEDS: AZITHROMYCIN IV 500 MG in NA CHLORIDE 0.9% 250 ML IVPB SCH (09:00)
[2025-01-20] MEDS: ENOXAPARIN 40 MG/0.4 ML SQ SCH (09:00)
[2025-01-20] MEDS: CEFTRIAXONE 1,000 MG in NA CHLORIDE 0.9% 50 ML IVPB SCH (09:00)
[2025-01-20] MEDS ORDERED: CEFTRIAXONE 1000 MG/VIAL ONE (09:09)
[2025-01-20] MEDS ORDERED: AZITHROMYCIN 500 MG INJ IVPB ONE (09:09)
[2025-01-20] MEDS ORDERED: FLU (Fluarix Triv) TS24-25(6MOS UP)/PF 45 MCG/0.5 ML Syringe IM ONE (09:09)
[2025-01-20] MEDS ORDERED: ENOXAPARIN 40 MG/0.4 ML SQ ONE (09:10)
[2025-01-20] MEDS ORDERED: NA CHLORIDE 0.9% 1,000 ML ONE (09:10)
[2025-01-20] MEDS ORDERED: NA CHLORIDE 0.9% 250 ML ONE (09:10)
[2025-01-20] MEDS ORDERED: GUAIFENESIN/DM 5 ML UCUP ONE (09:11)
[2025-01-20] MEDS: GUAIFENESIN/DM 5 ML UCUP PO PRN (09:30)
--- NOTE | 2025-01-20 09:57 | P.PN ---
Subjective Date of Service: 01/20/25 Chief Complaint: Shortness of breath Subjective: No chest pain. shortness of breath little better. No nausea or vomiting. No abdominal pain. No obvious bleeding. Looks comfortable in the bed. Objective: General appearance: Alert and comfortable CVS: Normal S1 and S2 Lungs: Clear to auscultation bilaterally Abdomen: Soft, bowel sounds present, no tenderness Extremities: No lower extremity edema Physical Examination - Vital Signs Temperature: 98.2 F Blood Pressure: 122/70 Pulse: 76 Respirations: 18 Pulse Ox (%): 94 - Studies Laboratory Data (last 24 hrs) 01/19/25 01/19/25 01/19/25 19:20 19:20 19:20 WBC 16.70 H Hgb 9.4 L Hct 27.7 L Plt Count 259 PT 11.1 INR 0.97 APTT 29.0 Sodium 135 L Potassium 4.5 BUN 32 H Creatinine 1.22 H Glucose 326 H Total Bilirubin 0.2 AST 35 ALT 29 Alkaline Phosphatase 138 H Assessment And Plan - Plan 1. Right lung community acquired pneumonia -Leukocytosis -IV antibiotic -Monitor Respiratory status closely. -COVID, flu negative 2. Hypertension -Continue home medications and titrate as needed 3. Hyperlipidemia -Continue statin 4. DEVON, Hyponatremia -Continue fluids and monitor renal function closely. 5. Diabetes Insulin sliding scale Accu-Chek before every meal and at bedtime 6. Anemia of chronic disease: Hemoglobin low chronically. Monitor H&H closely No overt bleeding at this time Plan discussed with the patient, answered all questions.
--- NOTE | 2025-01-20 12:01 | EKG ---
Test Date: 2025-01-19 Test Time: 19:39:25 Asphalt Smoother: MM MEASUREMENT RESULTS: Intervals: Rate: 114 ND: 118 QRSD: 66 QT: 314 QTc: 432 [place]: P: 63 ND: 118 QRS: 60 T: 51 INTERPRETIVE STATEMENTS: Sinus tachycardia Otherwise normal ECG Compared to ECG 09/25/2024 06:10:51 Myocardial infarct finding no longer present Electronically Signed On 01-20-25 11:59:27 CDT by [facility]
[2025-01-21 06:47] LABS: Absolute Basophils 0.1 K/uL (0-0.5); Absolute Eosinophils 0.1 K/uL (0-0.5); Absolute Lymphocytes (CBC) 1.7 K/uL (0.7-4.9); Absolute Monocytes 0.5 K/uL (0.1-1.3); Basophils % 0.4 % (0-1.3); Eosinophils % 0.6 % (0-4.4); Hematocrit 24.1 % (36.0-45.0); Hemoglobin 8.1 g/dL (12.0-15.0); Lymphocytes % 12.8 % (15.3-44.8); MCHC 33.6 g/dL (32.0-36.0); MCV 92.1 fL (80-100); MPV 7.9 fL (7.6-11.3); Monocytes % 3.5 % (3.3-12.3); Neutrophils % 82.7 % (41.7-73.7); Platelets 264 thou/uL (152-406); RBC Red Blood Cell Count 2.62 M/uL (3.86-4.86); Red Cell Distribution Width 17.2 % (12.1-15.2)
[2025-01-21 07:00] LABS: Anion Gap 10.6 mEq/L (5.0-15.0); Potassium 4.6 mEq/L (3.5-5.1)
--- NOTE | 2025-01-21 12:15 | P.PN ---
Subjective Date of Service: 01/21/25 Chief Complaint: Shortness of breath Subjective: No chest pain. shortness of breath improving every day. No nausea or vomiting. No abdominal pain. No obvious bleeding. Looks comfortable in the bed. Objective: General appearance: Alert and comfortable CVS: Normal S1 and S2 Lungs: Clear to auscultation bilaterally Abdomen: Soft, bowel sounds present, no tenderness Extremities: No lower extremity edema Physical Examination - Vital Signs Temperature: 98.3 F Blood Pressure: 167/95 Pulse: 89 Respirations: 18 Pulse Ox (%): 99 Assessment And Plan - Plan 1. Right lung community acquired pneumonia -Leukocytosis -IV antibiotic -Monitor Respiratory status closely. -COVID, flu negative 2. Hypertension -Continue home medications and titrate as needed 3. Hyperlipidemia -Continue statin 4. DEVON, Hyponatremia: Creatinine improving. -Continue fluids and monitor renal function closely. 5. Diabetes Insulin sliding scale Accu-Chek before every meal and at bedtime 6. Anemia of chronic disease: Hemoglobin low chronically. Monitor H&H closely No overt bleeding at this time Plan discussed with the patient, answered all questions. Probably home tomorrow if continues to improve.
[2025-01-21] MEDS: lisinopriL 20 MG TAB PO SCH (13:03)
[2025-01-21] MEDS: INSULIN GLARGINE 100 UNIT/ML SQ SCH (13:04)
[2025-01-21] MEDS: HYDRALAZINE HCL 20 MG/ML VIAL IV PRN (16:23)
[2025-01-21] MEDS: LORazepam 2 MG/ML VIAL IV PRN (23:33)
[2025-01-21] MEDS: KETOROLAC 30 MG/ML INJ IV ONE (23:34)
[2025-01-22] MEDS: ALBUTEROL 2.5 MG/3 ML NEB SOL NEB PRN (05:59)
[2025-01-22] MEDS: IPRATROPIUM BROM 0.5MG/2.5ML NEB PRN (05:59)
[2025-01-22 06:49] LABS: Absolute Basophils 0.1 K/uL (0-0.5); Absolute Eosinophils 0.1 K/uL (0-0.5); Absolute Lymphocytes (CBC) 2.4 K/uL (0.7-4.9); Absolute Monocytes 0.4 K/uL (0.1-1.3); Basophils % 0.4 % (0-1.3); Hematocrit 23.5 % (36.0-45.0); Hemoglobin 7.9 g/dL (12.0-15.0); Lymphocytes % 20.2 % (15.3-44.8); MCH 31.3 pg (27.0-35.0); MCHC 33.7 g/dL (32.0-36.0); MCV 92.8 fL (80-100); MPV 7.8 fL (7.6-11.3); Monocytes % 3.4 % (3.3-12.3); Platelets 271 thou/uL (152-406); RBC Red Blood Cell Count 2.53 M/uL (3.86-4.86); Red Cell Distribution Width 17.2 % (12.1-15.2)
[2025-01-22 07:03] LABS: Anion Gap 9.3 mEq/L (5.0-15.0); Potassium 4.3 mEq/L (3.5-5.1)
--- NOTE | 2025-01-22 14:50 | P.PN ---
Subjective Date of Service: 01/22/25 Chief Complaint: Shortness of breath Subjective: No chest pain. shortness of breath improving but ongoing. No nausea or vomiting. No abdominal pain but feels like retaiing fluids. No obvious bleeding. Looks comfortable in the bed. Objective: General appearance: Alert and comfortable CVS: Normal S1 and S2 Lungs: Clear to auscultation bilaterally Abdomen: Soft, bowel sounds present, no tenderness Extremities: No lower extremity edema Physical Examination - Vital Signs Temperature: 99.2 F Blood Pressure: 166/89 Pulse: 103 Respirations: 18 Pulse Ox (%): 98 - Studies Microbiology Data (last 24 hrs): 01/19/25 19:35 Clean Catch Urine [place] Count - Final BETWEEN 10,000 & 100,000 CFU/ML 01/19/25 19:35 Clean Catch Urine - Final MIXED TAURUS. Assessment And Plan - Plan 1. Right lung community acquired pneumonia -Leukocytosis -IV antibiotics -Monitor Respiratory status closely. -COVID, flu negative -some tachycardia today, looks anxious, monitor for now 2. Hypertension -increase lisinopril 3. Hyperlipidemia -Continue statin 4. DEVON, Hyponatremia: Creatinine improving. -disContinue fluids and monitor renal function closely. 5. Diabetes Insulin sliding scale Accu-Chek before every meal and at bedtime 6. Anemia of chronic disease: Hemoglobin low chronically. Monitor H&H closely No overt bleeding at this time Plan discussed with the patient, answered all questions. Probably home tomorrow if continues to improve.
[2025-01-22] MEDS: LORATADINE 10 MG TAB PO PRN (17:42)
[2025-01-22] MEDS: OXYCODONE HCL 5 MG TAB PO PRN (17:43)
[2025-01-22] MEDS: lisinopriL 20 MG TAB PO SCH (20:14)
[2025-01-23 07:20] LABS: Absolute Eosinophils 0.1 K/uL (0-0.5); Absolute Monocytes 0.6 K/uL (0.1-1.3); Absolute Neutrophil 3.5 K/uL (1.8-8.0); Basophils % 0.7 % (0-1.3); Eosinophils % 1.8 % (0-4.4); Hematocrit 21.8 % (36.0-45.0); Hemoglobin 7.6 g/dL (12.0-15.0); Lymphocytes % 32.2 % (15.3-44.8); MCH 31.5 pg (27.0-35.0); MCHC 34.6 g/dL (32.0-36.0); MCV 91.2 fL (80-100); MPV 7.9 fL (7.6-11.3); Monocytes % 9.2 % (3.3-12.3); Neutrophils % 56.1 % (41.7-73.7); Platelets 283 thou/uL (152-406); Red Cell Distribution Width 16.8 % (12.1-15.2)
[2025-01-23 07:44] LABS: ALT/SGPT 35 U/L (13-56); AST/SGOT 22 U/L (15-37); Albumin 1.7 g/dL (3.4-5.0); Albumin/Globulin Ratio 0.4 (1.1-1.8); Alkaline Phosphatase 365 U/L (45-117); BUN Blood Urea Nitrogen 18 mg/dL (7-18); Bicarbonate 21 mEq/L (21-32); Globulin 4.5 g/dL (2.3-3.5); Glomerular Filtration Rate 108 ml/min (=/>90); Glucose Level 129 mg/dL (74-106); Protein, Total 6.2 g/dL (6.4-8.2); Sodium Level 137 mEq/L (136-145)
[2025-01-23 07:46] LABS: Bilirubin Direct < 0.2 mg/dL (0-0.2); Bilirubin Total < 0.2 mg/dL (0.2-1.0)
[2025-01-23] MEDS: METOPROLOL TAR 25 MG TAB PO SCH (08:48)
--- NOTE | 2025-01-23 10:56 | P.DS ---
Admission Date: 01/19/25 Discharge Date: 01/23/25 Disposition: DC HOME/HOME HEALTH CARE Discharge Condition: GOOD Reason for Admission: Shortness of breath Hospital Course: 1. Right lung community acquired pneumonia -Leukocytosis -on IV antibiotics -COVID, flu negative -Improving, DC home on oral antibiotics. 2. Hypertension -increased lisinopril, added metoprolol. 3. Hyperlipidemia -Continue statin 4. DEVON, Hyponatremia: Creatinine improving. 5. Diabetes -Home medications. 6. Anemia of chronic disease: Hemoglobin low chronically. No overt bleeding at this time Mild Drop in the hemoglobin, probably from acute illness and hemodilution, patient is made aware of this, need follow-up with PCP. 44-year-old patient admitted with pneumonia, she was started on IV antibiotics, she is slowly improving, when I see the patient today she is doing well without any acute problems, all of her symptoms resolved, she feels ready to go home, otherwise no other acute issues going on so I am planning to discharge her to go home on oral antibiotics to finish the course, and follow-up with PCP. Her blood pressure was not controlled, lisinopril dose was increased, she was started on metoprolol as well, this needs close follow-up with PCP. I will order follow-up labs at the time of appointment with the PCP. Subjective: No chest pain or shortness of breath. No nausea or vomiting. No abdominal pain. No obvious bleeding. Looks comfortable in the bed. Denies any headache. Feels much better today. Objective: General appearance: Alert and comfortable CVS: Normal S1 and S2 Lungs: Clear to auscultation bilaterally Abdomen: Soft, bowel sounds present, no tenderness Extremities: No lower extremity edema Vital Signs/Physical Exam: Temp Pulse Resp BP Pulse Ox 98.4 F 102 H 20 187/86 H 96 01/23/25 08:00 01/23/25 08:48 01/23/25 08:00 01/23/25 08:48 01/23/25 08:00 Laboratory Data at Discharge: WBC 6.20 thou/uL (4.3-10.9) 01/23/25 06:40 Hgb 7.6 g/dL (12.0-15.0) L 01/23/25 06:40 Hct 21.8 % (36.0-45.0) L 01/23/25 06:40 Plt Count 283 thou/uL (152-406) 01/23/25 06:40 PT 11.1 SECONDS (10-13.0) 01/19/25 19:20 INR 0.97 01/19/25 19:20 APTT 29.0 SECONDS (27.2-37.4) 01/19/25 19:20 Sodium 137 mEq/L (136-145) 01/23/25 06:40 Potassium 4.0 mEq/L (3.5-5.1) 01/23/25 06:40 BUN 18 mg/dL (7-18) 01/23/25 06:40 Creatinine 0.71 mg/dL (0.55-1.02) 01/23/25 06:40 Glucose 129 mg/dL (74-106) H 01/23/25 06:40 Total Bilirubin < 0.2 mg/dL (0.2-1.0) L 01/23/25 06:40 AST 22 U/L (15-37) 01/23/25 06:40 ALT 35 U/L (13-56) 01/23/25 06:40 Alkaline Phosphatase 365 U/L (45-117) H 01/23/25 06:40 Home Medications: Insulin Degludec [Tresiba Flextouch U-100] 22 units SQ BEDTIME 01/20/25 Azithromycin 500 mg PO DAILY #2 tab 01/23/25 Metoprolol Tartrate [Lopressor*] 25 mg PO BID 6AM 6PM #60 tab 01/23/25 cefuroxime axetiL [Cefuroxime] 500 mg PO BID #4 tab 01/23/25 lisinopriL [Lisinopril] 40 mg PO DAILY #30 tab 01/23/25 New Medications: Azithromycin 500 mg PO DAILY #2 tab cefuroxime axetiL [Cefuroxime] 500 mg PO BID #4 tab lisinopriL [Lisinopril] 40 mg PO DAILY #30 tab Metoprolol Tartrate [Lopressor*] 25 mg PO BID 6AM 6PM #60 tab Diet: ADA Activity: Ad aditya Followup: CJ COVINGTON [Primary Care Provider] - 2-3 Days (f/u in 3-5 days with PCP, check CBC and CMP) Time spent managing pt's care (in minutes): 32
[2025-01-23 12:13] VITALS: O2SAT 94
[2025-01-23 12:16] VITALS: BP 155/79; TEMP 98.1
== END 2025-01-23 14:52 | disposition home or self-care (01) | DRG 194 ==
LOC: ER 18:10 → ERHOLD 21:59 → 4TH 01-20 12:30
PROVIDERS: ADMIT Family Medicine; ATTEND Hospitalist
DX: J18.9 Pneumonia, unspecified organism (principal); E87.1 Hypo-osmolality and hyponatremia; N17.9 Acute kidney failure, unspecified; I10 Essential (primary) hypertension; E78.5 Hyperlipidemia, unspecified; E11.9 Type 2 diabetes mellitus without complications; Z79.4 Long term (current) use of insulin; D64.9 Anemia, unspecified; F31.9 Bipolar disorder, unspecified
CPT/HCPCS: 36415; 71045; 74177; 80048; 80053; 80076; 81001; 81025; 82947; 83605; 85025; 85610; 85730; 87040; 87086; 87088; 87428; 90656; 93005; 94640; 94760; 99285; J0360; J0696; J1650; J1815; J2405; J7030; J7050; J7613; J7644; Q9967